=== PATIENT | female | born 1960 | race Caucasian/White ===

== ENCOUNTER → 2016-10-15 | Outpatient (CLI) | payer MEDICARE, MEDICAID ==
[2016-10-15 08:59] LABS: MEAN CORPUSCULAR HEMOGLOBIN 27.4 pg (27.0-33.0); MEAN CORPUSCULAR HGB CONC 33.2 g/dl (32.0-36.5); MEAN CORPUSCULAR VOLUME 82.3 fl (80.0-96.0); WHITE BLOOD COUNT 10.6 K/mm3 (4.0-10.0)
[2016-10-15 09:20] LABS: ALBUMIN 3.7 GM/DL (3.2-5.2); ALBUMIN/GLOBULIN RATIO 1.03 (1.00-1.93); ALKALINE PHOSPHATASE 190 U/L (45-117); ALT/SGPT 218 U/L (12-78); ANION GAP 12 MEQ/L (8-16); AST/SGOT 182 U/L (15-37); BILIRUBIN,TOTAL 0.5 MG/DL (0.2-1.0); BLOOD UREA NITROGEN 9 MG/DL (7-18); CALCIUM LEVEL 10.1 MG/DL (8.5-10.1); CARBON DIOXIDE LEVEL 28 MEQ/L (21-32); CHLORIDE LEVEL 97 MEQ/L (98-107); CHOLESTEROL LEVEL 176 MG/DL (<200); CREATININE FOR GFR 0.82 MG/DL (0.55-1.02); FREE T4 1.29 NG/DL (0.76-1.46); GLOMERULAR FILTRATION RATE > 60.0 (>51); GLUCOSE, FASTING 384 MG/DL (70-105); POTASSIUM SERUM 4.2 MEQ/L (3.5-5.1); SODIUM LEVEL 137 MEQ/L (136-145); TOTAL PROTEIN 7.3 GM/DL (6.4-8.2); TRIGLYCERIDES LEVEL 245 MG/DL (<150)
== END ==
LOC: M LAB 08:10
PROVIDERS: ATTEND Physician Assistant
DX: K76.0 Fatty (change of) liver, not elsewhere classified (principal); E78.5 Hyperlipidemia, unspecified; R73.01 Impaired fasting glucose; E55.9 Vitamin D deficiency, unspecified

== ENCOUNTER → 2016-11-09 | Outpatient (REF) | payer MEDICARE, MEDICAID ==
[2016-11-12 14:17] LABS: LACOSAMIDE LEVEL 8.3 ug/mL (5.0-10.0)
== END ==
LOC: M LABNEURO 14:10
PROVIDERS: ATTEND Physician Assistant Medical
DX: Z51.81 Encounter for therapeutic drug level monitoring (principal); Z79.899 Other long term (current) drug therapy; G40.909 Epilepsy, unspecified, not intractable, without status epilepticus
CPT/HCPCS: 36415; 80180; 82542; G0463

== ENCOUNTER → 2017-02-28 | Outpatient (REF) | payer MEDICARE, MEDICAID ==
[2017-02-28 18:14] LABS: ALBUMIN 4.1 GM/DL (3.2-5.2); ALBUMIN/GLOBULIN RATIO 1.11 (1.00-1.93); BILIRUBIN,TOTAL 0.5 MG/DL (0.2-1.0); CALCIUM LEVEL 9.9 MG/DL (8.5-10.1); CREATININE FOR GFR 1.21 MG/DL (0.55-1.02); GLOMERULAR FILTRATION RATE 49.4 (>51); POTASSIUM SERUM 4.1 MEQ/L (3.5-5.1); TOTAL PROTEIN 7.8 GM/DL (6.4-8.2)
[2017-02-28 18:49] LABS: MEAN CORPUSCULAR HEMOGLOBIN 29.3 pg (27.0-33.0); MEAN CORPUSCULAR HGB CONC 35.2 g/dl (32.0-36.5); MEAN CORPUSCULAR VOLUME 83.2 fl (80.0-96.0); RED CELL DISTRIBUTION WIDTH 13.7 % (11.5-14.5); WHITE BLOOD COUNT 8.8 K/mm3 (4.0-10.0)
== END ==
LOC: M LABNEURO 16:24
PROVIDERS: ATTEND Physician Assistant
DX: K76.0 Fatty (change of) liver, not elsewhere classified (principal); E11.65 Type 2 diabetes mellitus with hyperglycemia; F17.200 Nicotine dependence, unspecified, uncomplicated

== ENCOUNTER → 2017-04-25 | Outpatient (REF) | payer OTHER, MEDICAID | LOC: M LABNEURO 17:17 | PROVIDERS: ATTEND Physician Assistant Medical | DX: R56.9 Unspecified convulsions (principal) ==

== ENCOUNTER → 2017-06-16 | Outpatient (CLI) | payer MEDICARE, MEDICAID ==
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
== END ==
LOC: M PAIN 10:45
PROVIDERS: ATTEND Nurse Practitioner Family
DX: G89.29 Other chronic pain (principal); M51.26 Other intervertebral disc displacement, lumbar region; M12.88 Other specific arthropathies, not elsewhere classified, other specified site; F43.10 Post-traumatic stress disorder, unspecified; G40.909 Epilepsy, unspecified, not intractable, without status epilepticus; F32.9 Major depressive disorder, single episode, unspecified; F41.0 Panic disorder [episodic paroxysmal anxiety]; J44.9 Chronic obstructive pulmonary disease, unspecified; K21.9 Gastro-esophageal reflux disease without esophagitis; I11.9 Hypertensive heart disease without heart failure; E11.9 Type 2 diabetes mellitus without complications; E78.5 Hyperlipidemia, unspecified; E55.9 Vitamin D deficiency, unspecified; F17.218 Nicotine dependence, cigarettes, with other nicotine-induced disorders; Z91.040 Latex allergy status; Z88.2 Allergy status to sulfonamides; Z88.8 Allergy status to other drugs, medicaments and biological substances; Z79.82 Long term (current) use of aspirin; Z79.4 Long term (current) use of insulin; Z79.899 Other long term (current) drug therapy

== ENCOUNTER → 2017-07-12 | Outpatient (CLI) | payer MEDICARE, MEDICAID ==
[~2017-07-12] MED LIST: ISOVUE-M 300 61% 15ML VIAL (Q9967) As Ordered ONE; LIDOCAINE 1% SDV INJ 30 ML VIAL As Ordered ONE; diazePAM 5 MG TAB As Ordered ONE; methylPREDNISolone SUSP 40 MG/ML (DEPO-medrol) VIAL (J1030) As Ordered ONE; oxyCODONE 5MG TAB As Ordered ONE
--- NOTE | 2017-07-12 17:06 | REP ---
FLUOROSCOPIC GUIDED SPINAL INJECTION: The films were reviewed with Dr. Singh. The patient has a history of low back pain radiating down both legs. The portable C-Arm is provided in the OR for Dr. Patel for fluoroscopic guidance. Three intraoperative fluoro spot films were obtained using last image hold technology for needle placement verification for lumbar epidural injection. The films are on the PACs system and are available for review. 20 seconds of fluoroscopy time was utilized for this procedure. Reviewed by LEE Hebert 07/13/2017 02:47 PEdited and Signed by Deepak Singh MD 07/13/2017 05:04 P
--- NOTE | 2017-07-17 23:42 | ECWPNPC ---
PATIENT NAME: YAIMA CORRALES : 1960 GENDER: FEMALE VISIT DATE: 07/12/2017 DISCHARGE DATE: 07/12/17 1154 VISIT LOCKED DATE TIME: PHYSICIAN: RAUL GONCALVES RESOURCE: RAUL GONCALVES REASON FOR APPOINTMENT 1. LESI HISTORY OF PRESENT ILLNESS HISTORY OF PRESENT ILLNESS: PAIN THE PATIENT DESCRIBES THE PAIN... FALL RISK SCREENING: SCREENING :NO FALLS IN THE PAST YEAR CURRENT MEDICATIONS TAKING LIDOCAINE HCL 5 % OINTMENT APPLY OVER BACK/HIP EXTERNALLY TWICE A DAY NEEDED, NOTES: NOT LATELY TAKING GABAPENTIN 100 100 MG (LATTIF) TABLET 2 CAP(S) ORAL THREE TIMES DAILY, NOTES: 07-11-172099 TAKING VITAMIN C 500 MG CAPSULE DIRECTED ORALLY TWICE A DAY, NOTES: 07-11-17899 TAKING FLUTICASONE FUROATE 27.5 MCG/SPRAY SUSPENSION 1 PUFF IN EACH NOSTRIL NASALLY ONCE A DAY, NOTES: NOT LATELY TAKING LEVETIRACETAM 250 MG (LATTIF) TABLET 2 TABLETS ORALLY TWICE DAILY, NOTES: 07-11-17899 TAKING BUSPIRONE HCL 50 TABLET 2 TABLET ORALLY TWICE DAILY, NOTES: 07-11-172099 TAKING VIMPAT 100 MG TABLET 1 TABLET ORALLY TWICE A DAY, NOTES: 07-12-17699 TAKING ABILIFY 5 MG TABLET 1 TABLET ORALLY ONCE A DAY, NOTES: 07-11-17899 TAKING HYDROXYZINE HCL 50MG [facility] TABLET 1 TABLET ORALLY TWICE A DAY, NOTES: 07-11-172099 TAKING ZYRTEC ALLERGY 10 MG TABLET 1 TABLET ORALLY ONCE A DAY, NOTES: 07-11-172099 TAKING OMEPRAZOLE 40MG 40 MG TABLET 1 TAB(S) ORAL DAILY AT BEDTIME, NOTES: 07-11-172099 TAKING ANUSOL-HC 2.5 % CREAM 1 APPLICATION TO AFFECTED AREA RECTAL TWICE A DAY, NOTES: 07-11-172099 TAKING ONE TOUCH ULTRA BLUE STRIPS DIRECTED DX: E11.65 TWICE A DAY ADN NEEDED, NOTES: 7 TAKING GLUCOMETER DIRECTED E11.65 TWICE ADAY AND NEEDED TAKING RANITIDINE HCL 300 MG CAPSULE 1 CAPSULE AT BEDTIME ORALLY ONCE A DAY AT BEDTIME, NOTES: 07-11-17899 TAKING ACCU-CHEK SOFT TOUCH LANCETS - MISCELLANEOUS DIRECTED DX: E11.65 TWICE A DAY AND NEEDED TAKING DEPEND PANT EXTRA LARGE _ UNDERGARMENTS DIAG CODE SIZE LARGE DX:N39.41 DAILY= MDD 24 TAKING DAILY KIRAN 1 TABLET 1 TAB(S) ORALLY ONCE A DAY, NOTES: 07-11-17 TAKING DAILY-KIRAN - TABLET TAKE ONE TABLET BY MOUTH EVERY DAY TAKING DEPEND PANT LARGE . MISCELLANEOUS DIRECTED DX: N39.41 DAILY MDD = 24 TAKING PEN NEEDLES 31G X 6 MM MISCELLANEOUS DIRECTED SUBCUTANEOUSLY DAILY E11.65 TAKING ASPIRIN 81 MG TABLET DELAYED RELEASE 1 TABLET ORALLY ONCE A DAY, NOTES: 07-11-17899 TAKING ADVAIR HFA 115-21 MCG/ACT AEROSOL 2 PUFFS INHALATION TWICE A DAY, NOTES: 07-11-17899 TAKING VENTOLIN HFA 108 (90 BASE) MCG/ACT AEROSOL SOLUTION 2 PUFFS INHALATION FOUR TIMES DAILY PRN, NOTES: NOT LATELY TAKING VITAMIN D 2000 UNIT TABLET 1 TABLET ORALLY DAILY, NOTES: 07-11-17899 TAKING OXYBUTYNIN CHLORIDE ER 15 MG TABLET EXTENDED RELEASE 24 HOUR 1 TABLET ORALLY ONCE A DAY, NOTES: NOT LATELY TAKING SPIRONOLACTONE 50 MG TABLET 1 TAB ORALLY DAILY, NOTES: 07-11 TAKING CHLORTHALIDONE 25 TABLET TAKE 1/2 TABLET BY MOUTH EVERY DAY ORALLY DAILY, NOTES: 07-11-17899 TAKING PROPRANOLOL HCL 10MG 1 TAB ORALLY NIGHTLY, NOTES: 07-11-172099 TAKING SINGULAIR 10 MG TABLET 1 TABLET IN THE EVENING ORALLY ONCE A DAY, NOTES: 07-11-172099 TAKING CALCIUM + D3 600-200 MG-UNIT TABLET TAKE ONE TABLET BY MOUTH EVERY DAY ORALLY ONCE A DAY, NOTES: 07-11-172099 TAKING LEVEMIR FLEX TOUCH 100 UNIT/ML SOLUTION 22 UNITS SUBCUTANEOUS DAILY DX: E11.65 TAKING CYMBALTA 30 MG CAPSULE DELAYED RELEASE PARTICLES 1 CAPSULE ORALLY TWICE A DAY NOT-TAKING HAIR FORMULA EXTRA STRENGTH TABLET DIRECTED ORALLY , NOTES: NOT TAKING NOT-TAKING BIOFREEZE 4 % GEL 1 APPLICATION TO AFFECTED AREA NEEDED EXTERNALLY ONCE A DAY, NOTES: NOT LATELY NOT-TAKING NYSTATIN [id number] UNIT/GM CREAM 1 APPLICATION TO AFFECTED AREA EXTERNALLY TWICE A DAY TO JULIÁN AREA, NOTES: [facility] UNKNOWN BLOOD GLUCOSE TEST - STRIP DIRECTED IN VITRO BEFORE MEALS AND AT BEDTIME. DX: Z79.4, NOTES: FILLED FOR PTS PRIMARY: MASON JARQUIN MEDICATION LIST REVIEWED AND RECONCILED WITH THE PATIENT PAST MEDICAL HISTORY PTSD DEPRESSION/PANIC DISORDER EPILEPSY FOLLOWED BY DR. DUQUE ASTHMA COPD/CHRONIC BRONCHITIS - SPIROMETRY 09/2015 FEV1 = 1.7, FVC = 1.785, RATIO = 91.7 - POOR QUALITY SUSPECT MIXED PICTURE COPD/ RESTRICTIVE FROM OBESITY. NICOTINE DEPENDENCE GERD CLAUDIA - ON CPAP TOLERATING CPAP CHRONIC VENOUS INSUFFICIENCY LEFT BREAST ABSCESS HX INCONTINENCE, CYSTOCELE HX ABNORMAL PAP (AGE 20'S, 30'S) DYSPAREUNIA FATTY LIVER PER US 03/2015 ECHO 03/2015 - BORDERLINE LVH EF 65%. MILDLY DILATED LEFT ATRIUM. IMPAIRED LV DIASTOLIC FUNCTION. NORMAL LEFT ATRIAL PRESSURE, MILD PULM HTN. ENDOMETRIOSIS DIABETES TYPE 2 - INSULIN REQUIRING ALLERGIES CHANTIX: NIGHT TERRORS: SIDE EFFECTS DEPAKOTE: COULDN'T STAY AWAKE: SIDE EFFECTS SULFA (FOR ALLERGY USE ONLY): RASH: ALLERGY LATEX (FOR ALLERGY USE ONLY): HIVES: ALLERGY METFORMIN HCL: SEVERE N/V: SIDE EFFECTS REVIEW OF SYSTEMS REVIEWED BY: PROVIDER: . CONSTITUTIONAL: ANY CHANGE IN YOUR MEDICAL CONDITION? NO . CHILLS NO . FEVER NO . INFECTION: DO YOU HAVE NEW INFECTIONS? NO . DO YOU HAVE HISTORY OF MRSA? NO . MUSCULOSKELETAL: ANY NEW PATTERNS OF PAIN OR NUMBNESS? NO . GASTROENTEROLOGY: ANY NEW CHANGE IN BOWEL CONTROL? NO . GENITOURINARY: ANY NEW CHANGE IN BLADDER CONTROL? NO . IS THERE A CHANCE YOU COULD BE ? NO . HEMATOLOGY/LYMPH: DO YOU TAKE ANY BLOOD THINNERS? (FOR EXAMPLE- COUMADIN, PLAVIX, AGGRENOX, PLATEL, PRADAXA, OR XARELTO) NO . WHEN WAS YOUR LAST DOSE? DATE: TIME: . NEUROLOGY: HAVE YOU FALLEN IN THE PAST 6 MONTHS? NO . ANY NEW EXTREMITY NUMBNESS OR WEAKNESS? NO . CARDIOLOGY: DO YOU HAVE A PACEMAKER OR DEFIBRILLATOR? NO . RESPIRATORY: HAVE YOU BEEN SICK IN THE PAST WEEK? NO . FEVER NO . FLU LIKE SYMPTOMS? NO . COUGH NO . INTEGUMENTARY: DO YOU HAVE ANY RASHES OR OPEN SORES? NO . ALLERGIC/IMMUNO: ARE YOU ALLERGIC TO SHELLFISH OR IV DYE? NO . ANY NEW ALLERGIES? NO . PSYCHIATRIC: DO YOU HAVE THOUGHTS OF HURTING YOURSELF OR SOMEONE ELSE? NO . ARE YOU ABUSED, NEGLECTED, OR IN AN UNSAFE ENVIRONMENT? NO . ENDOCRINOLOGY: ARE YOU DIABETIC? NO . OTHER: DO YOU NEED ANY PRESCRIPTIONS? NO . IF YES, PLEASE LIST: ____ . ANY NEW PROBLEMS WITH YOUR MEDICATIONS? NO . WHEN DID YOU LAST EAT? ____8:00 LAST NIGHT . WHEN DID YOU LAST DRINK? ____1100 PM LAST NIGHT . WHAT DID YOU LAST DRINK? ____DIET SODA . NAME OF PERSON DRIVING YOU HOME? ____RUT VIEIRA . DO YOU HAVE ANY OTHER QUESTIONS OR CONCERNS NO . VITAL SIGNS WT 220 LBS, HT 65 IN, BMI 36.61 INDEX, BP 128/87 MM HG, HR 60 /MIN, RR 16 /MIN, TEMP 97.3 F, OXYGEN SAT % 98%, NA INITIALS SC 10:03, REVIEWED BY: KG. ASSESSMENTS INTERVERTEBRAL DISC DISORDER WITH RADICULOPATHY OF LUMBAR REGION - M51.16 (PRIMARY) PROCEDURES PRE PROCEDURE DIAGNOSIS LUMBAR DISC DISORDER WITH RADICULOPATHY POST PROCEDURE DIAGNOSIS LUMBAR DISC DISORDER WITH RADICULOPATHY PROCEDURE LUMBAR EPIDURAL STEROID INJECTION UNDER FLUOROSCOPIC GUIDANCE SURGEON DR. RAUL GONCALVES SUPERVISOR FINE GRADING NONE ANESTHESIA LOCAL PRE PROCEDURE NOTE THE PATIENT HAS A HISTORY OF CHRONIC LOW BACK PAIN. I EVALUATE THE PATIENT AND REVIEWED THE CHART. I WENT OVER THE RISKS, ALTERNATIVES, AND BENEFITS ASSOCIATED WITH THIS PROCEDURE. THE PATIENT WOULD LIKE TO PROCEED AND GIVE CONSENT TO PERFORMED THE PROCEDURE. THE PATIENT DENIES UNEXPLAINABLE WEIGHT LOSS, FEVER, CHILLS, OR NEW CHANGES IN URINARY OR BOWEL CONTROL. DESCRIPTION OF PROCEDURE THE PATIENT WAS BROUGHT TO THE PROCEDURE ROOM AND PLACED IN THE PRONE POSITION. THE LUMBOSACRAL AREA WAS CLEANED WITH BETADINE SOLUTION AND DRAPED ASEPTICALLY. THE PROCEDURE WAS DONE UNDER STERILE CONDITIONS. I CHECKED LATERALITY AND THE LEVEL WHERE THE PROCEDURE WAS GOING TO BE PERFORMED WITH THE PATIENT AND THE SUPPORTING STAFF AT THE MOMENT OF THE TIME OUT IN THE PROCEDURE ROOM. UNDER FLUOROSCOPIC GUIDANCE, THE TARGET POINT WAS SELECTED AT THE INTERLAMINAR LEVEL OF L4-L5. LIDOCAINE WAS USED TO NUMB THE SKIN AND THE SUBCUTANEOUS TISSUE BELOW IT. EPIDURAL TUOHY NEEDLE, 17-GAUGE, WAS ADVANCED UNDER FLUOROSCOPIC GUIDANCE AND FOLLOWING PATIENT FEEDBACK UNTIL THE EPIDURAL SPACE WAS REACHED, 7 CM DEEP INTO THE SKIN BY THE LOSS OF RESISTANCE TECHNIQUE. ISOVUE M DYE 30%, 0.25 ML, WAS INJECTED SHOWING ADEQUATE SPREAD OF THE DYE. THEN, A SOLUTION OF 3 ML OF NORMAL SALINE WITH DEPO-MEDROL 60 MG WAS INJECTED SLOWLY FOLLOWING PATIENT FEEDBACK. THERE WAS NO EVIDENCE OF BLOOD, PARESTHESIA OR CEREBROSPINAL FLUID DURING THE PROCEDURE. THE PATIENT WAS SENT TO THE RECOVERY ROOM. THE PATIENT WAS MOVING THE EXTREMITIES AND DOING WELL. THERE WAS NO COMPLICATION DURING THE PROCEDURE. FLUOROSCOPY TIME WAS 20 SECONDS. POST PROCEDURE NOTE THE PATIENT WILL BE SEEN IN A FOLLOW UP IN THE NEXT FEW WEEKS. INSTRUCTIONS WERE GIVEN, QUESTIONS WERE ANSWERED, AND THE PATIENT EXPRESSED UNDERSTANDING AND AGREES WITH THE PLAN. I, SAAD SHULTZ, DOCUMENTED THE ABOVE INFORMATION ACTING A SCRIBE FOR DR. GONCALVES. I HAVE REVIEWED THE ABOVE DOCUMENT, WRITTEN BY SAAD SHULTZ SCRIBE AND I VERIFY THAT IT IS [facility] FLUORO GUIDE SPINE INJECTION (PAIN)[id number] PROCEDURE CODES 55881 LUMBAR/SACRAL W/ IMAGING 6045F RADXPS IN END [id number] PXD DISPOSITION & COMMUNICATION FOLLOW UP 2 WEEKS ELECTRONICALLY SIGNED BY RAUL GONCALVES MD ON 07/17/2017 AT 01:35 PM EDT DISCLAIMER : THIS IS A VISIT SUMMARY EXTRACTED FROM THE [employer] CHART. IT IS NOT A COPY OF THE [employer] PROGRESS NOTE. MTDBlaine
== END ==
LOC: M PAIN 10:15
PROVIDERS: ATTEND Anesthesiology
DX: G89.29 Other chronic pain (principal); M51.16 Intervertebral disc disorders with radiculopathy, lumbar region; F43.10 Post-traumatic stress disorder, unspecified; F32.9 Major depressive disorder, single episode, unspecified; F41.0 Panic disorder [episodic paroxysmal anxiety]; J44.9 Chronic obstructive pulmonary disease, unspecified; K21.9 Gastro-esophageal reflux disease without esophagitis; I11.9 Hypertensive heart disease without heart failure; E11.9 Type 2 diabetes mellitus without complications; E78.5 Hyperlipidemia, unspecified; E55.9 Vitamin D deficiency, unspecified; K76.0 Fatty (change of) liver, not elsewhere classified; F17.218 Nicotine dependence, cigarettes, with other nicotine-induced disorders; G47.33 Obstructive sleep apnea (adult) (pediatric); Z91.040 Latex allergy status; Z88.8 Allergy status to other drugs, medicaments and biological substances; Z79.82 Long term (current) use of aspirin; Z79.899 Other long term (current) drug therapy
CPT/HCPCS: 62323; J1030; Q9967

== ENCOUNTER → 2017-07-19 | Outpatient (CLI) | payer MEDICARE, MEDICAID ==
--- NOTE | 2017-08-26 01:32 | ECWPNPC ---
PATIENT NAME: YAIMA CORRALES : 1960 GENDER: FEMALE VISIT DATE: 07/19/2017 DISCHARGE DATE: 07/19/17 1459 VISIT LOCKED DATE TIME: PHYSICIAN: GUADALUPE BEARDEN RESOURCE: GUADALUPE BEARDEN REASON FOR APPOINTMENT 1. POST PROC HISTORY OF PRESENT ILLNESS HISTORY OF PRESENT ILLNESS: PAIN THE PATIENT DESCRIBES THE PAIN... FALL RISK SCREENING: SCREENING :NO FALLS IN THE PAST YEAR TODAY'S VISIT: NOTES: S/P LESB 07/12/17 WITH PAIN DECREASING FROM 03/05 TO 11/05. STATES IS SLEEPING BETTER. IS NO LONGER HAVING MUSCLE SPASMS. . CURRENT MEDICATIONS TAKING LIDOCAINE HCL 5 % OINTMENT APPLY OVER BACK/HIP EXTERNALLY TWICE A DAY NEEDED TAKING GABAPENTIN 100 100 MG (LATTIF) TABLET 2 CAP(S) ORAL THREE TIMES DAILY TAKING VITAMIN C 500 MG CAPSULE DIRECTED ORALLY TWICE A DAY TAKING FLUTICASONE FUROATE 27.5 MCG/SPRAY SUSPENSION 1 PUFF IN EACH NOSTRIL NASALLY ONCE A DAY TAKING LEVETIRACETAM 250 MG (LATTIF) TABLET 2 TABLETS ORALLY TWICE DAILY TAKING BUSPIRONE HCL 50 TABLET 2 TABLET ORALLY TWICE DAILY TAKING VIMPAT 100 MG TABLET 1 TABLET ORALLY TWICE A DAY TAKING ABILIFY 5 MG TABLET 1 TABLET ORALLY ONCE A DAY TAKING HYDROXYZINE HCL 50MG MERCY TABLET 1 TABLET ORALLY TWICE A DAY TAKING ZYRTEC ALLERGY 10 MG TABLET 1 TABLET ORALLY ONCE A DAY TAKING OMEPRAZOLE 40MG 40 MG TABLET 1 TAB(S) ORAL DAILY AT BEDTIME TAKING ANUSOL-HC 2.5 % CREAM 1 APPLICATION TO AFFECTED AREA RECTAL TWICE A DAY TAKING ONE TOUCH ULTRA BLUE STRIPS DIRECTED DX: E11.65 TWICE A DAY ADN NEEDED TAKING GLUCOMETER DIRECTED E11.65 TWICE ADAY AND NEEDED TAKING RANITIDINE HCL 300 MG CAPSULE 1 CAPSULE AT BEDTIME ORALLY ONCE A DAY AT BEDTIME TAKING ACCU-CHEK SOFT TOUCH LANCETS - MISCELLANEOUS DIRECTED DX: E11.65 TWICE A DAY AND NEEDED TAKING DEPEND PANT EXTRA LARGE _ UNDERGARMENTS DIAG CODE SIZE LARGE DX:N39.41 DAILY= MDD 24 TAKING DAILY KIRAN 1 TABLET 1 TAB(S) ORALLY ONCE A DAY TAKING DAILY-KIRAN - TABLET TAKE ONE TABLET BY MOUTH EVERY DAY TAKING DEPEND PANT LARGE . MISCELLANEOUS DIRECTED DX: N39.41 DAILY MDD = 24 TAKING PEN NEEDLES 31G X 6 MM MISCELLANEOUS DIRECTED SUBCUTANEOUSLY DAILY E11.65 TAKING ASPIRIN 81 MG TABLET DELAYED RELEASE 1 TABLET ORALLY ONCE A DAY TAKING ADVAIR HFA 115-21 MCG/ACT AEROSOL 2 PUFFS INHALATION TWICE A DAY TAKING VENTOLIN HFA 108 (90 BASE) MCG/ACT AEROSOL SOLUTION 2 PUFFS INHALATION FOUR TIMES DAILY PRN TAKING VITAMIN D 2000 UNIT TABLET 1 TABLET ORALLY DAILY TAKING OXYBUTYNIN CHLORIDE ER 15 MG TABLET EXTENDED RELEASE 24 HOUR 1 TABLET ORALLY ONCE A DAY TAKING SPIRONOLACTONE 50 MG TABLET 1 TAB ORALLY DAILY, NOTES: 1 TAKING CHLORTHALIDONE 25 TABLET TAKE 1/2 TABLET BY MOUTH EVERY DAY ORALLY DAILY TAKING PROPRANOLOL HCL 10MG 1 TAB ORALLY NIGHTLY TAKING SINGULAIR 10 MG TABLET 1 TABLET IN THE EVENING ORALLY ONCE A DAY TAKING CALCIUM + D3 600-200 MG-UNIT TABLET TAKE ONE TABLET BY MOUTH EVERY DAY ORALLY ONCE A DAY TAKING LEVEMIR FLEX TOUCH 100 UNIT/ML SOLUTION 22 UNITS SUBCUTANEOUS DAILY DX: E11.65 TAKING CYMBALTA 30 MG CAPSULE DELAYED RELEASE PARTICLES 1 CAPSULE ORALLY TWICE A DAY TAKING BIOFREEZE 4 % GEL 1 APPLICATION TO AFFECTED AREA NEEDED EXTERNALLY ONCE A DAY, NOTES: NOT LATELY TAKING NYSTATIN 195088 UNIT/GM CREAM 1 APPLICATION TO AFFECTED AREA EXTERNALLY TWICE A DAY TO JULIÁN AREA, NOTES: [facility] TAKING BLOOD GLUCOSE TEST - STRIP DIRECTED IN VITRO BEFORE MEALS AND AT BEDTIME. DX: Z79.4, NOTES: FILLED FOR PTS PRIMARY: MASON JARQUIN UNKNOWN HAIR FORMULA EXTRA STRENGTH TABLET DIRECTED ORALLY , NOTES: NOT TAKING MEDICATION LIST REVIEWED AND RECONCILED WITH THE PATIENT PAST MEDICAL HISTORY PTSD DEPRESSION/PANIC DISORDER EPILEPSY FOLLOWED BY DR. DUQUE ASTHMA COPD/CHRONIC BRONCHITIS - SPIROMETRY 09/2015 FEV1 = 1.7, FVC = 1.785, RATIO = 91.7 - POOR QUALITY SUSPECT MIXED PICTURE COPD/ RESTRICTIVE FROM OBESITY. NICOTINE DEPENDENCE GERD CLAUDIA - ON CPAP TOLERATING CPAP CHRONIC VENOUS INSUFFICIENCY LEFT BREAST ABSCESS HX INCONTINENCE, CYSTOCELE HX ABNORMAL PAP (AGE 20'S, 30'S) DYSPAREUNIA FATTY LIVER PER US 03/2015 ECHO 03/2015 - BORDERLINE LVH EF 65%. MILDLY DILATED LEFT ATRIUM. IMPAIRED LV DIASTOLIC FUNCTION. NORMAL LEFT ATRIAL PRESSURE, MILD PULM HTN. ENDOMETRIOSIS DIABETES TYPE 2 - INSULIN REQUIRING ALLERGIES CHANTIX: NIGHT TERRORS: SIDE EFFECTS DEPAKOTE: COULDN'T STAY AWAKE: SIDE EFFECTS SULFA (FOR ALLERGY USE ONLY): RASH: ALLERGY LATEX (FOR ALLERGY USE ONLY): HIVES: ALLERGY METFORMIN HCL: SEVERE N/V: SIDE EFFECTS REVIEW OF SYSTEMS REVIEWED BY: PROVIDER: . CONSTITUTIONAL: ANY CHANGE IN YOUR MEDICAL CONDITION? NO . CHILLS NO . FEVER NO . INFECTION: DO YOU HAVE NEW INFECTIONS? NO . DO YOU HAVE HISTORY OF MRSA? NO . MUSCULOSKELETAL: ANY NEW PATTERNS OF PAIN OR NUMBNESS? NO . GASTROENTEROLOGY: ANY NEW CHANGE IN BOWEL CONTROL? NO . GENITOURINARY: ANY NEW CHANGE IN BLADDER CONTROL? NO . IS THERE A CHANCE YOU COULD BE ? NO . HEMATOLOGY/LYMPH: DO YOU TAKE ANY BLOOD THINNERS? (FOR EXAMPLE- COUMADIN, PLAVIX, AGGRENOX, PLATEL, PRADAXA, OR XARELTO) NO . WHEN WAS YOUR LAST DOSE? DATE: TIME: . NEUROLOGY: HAVE YOU FALLEN IN THE PAST 6 MONTHS? NO . ANY NEW EXTREMITY NUMBNESS OR WEAKNESS? NO . CARDIOLOGY: DO YOU HAVE A PACEMAKER OR DEFIBRILLATOR? NO . RESPIRATORY: HAVE YOU BEEN SICK IN THE PAST WEEK? NO . FEVER NO . FLU LIKE SYMPTOMS? NO . COUGH NO . INTEGUMENTARY: DO YOU HAVE ANY RASHES OR OPEN SORES? NO . ALLERGIC/IMMUNO: ARE YOU ALLERGIC TO SHELLFISH OR IV DYE? NO . ANY NEW ALLERGIES? NO . PSYCHIATRIC: DO YOU HAVE THOUGHTS OF HURTING YOURSELF OR SOMEONE ELSE? NO . ARE YOU ABUSED, NEGLECTED, OR IN AN UNSAFE ENVIRONMENT? NO . ENDOCRINOLOGY: ARE YOU DIABETIC? YES - UNDER GOOD CONTROL . OTHER: DO YOU NEED ANY PRESCRIPTIONS? NO . IF YES, PLEASE LIST: ____ . ANY NEW PROBLEMS WITH YOUR MEDICATIONS? NO . WHEN DID YOU LAST EAT? ____ . WHEN DID YOU LAST DRINK? ____ . WHAT DID YOU LAST DRINK? ____ . NAME OF PERSON DRIVING YOU HOME? ____ . DO YOU HAVE ANY OTHER QUESTIONS OR CONCERNS NO . VITAL SIGNS WT 220 LBS, HT 65 IN, BMI 36.61 INDEX, BP 134/67 MM HG, HR 54 /MIN, RR 16 /MIN, TEMP 96.8 F, OXYGEN SAT % 975, NA INITIALS SC 12:44. EXAMINATION GENERAL EXAMINATION: MUSCULOSKELETAL:TENDER ACROSS LSA. , TRIGGER POINTS: SOME WEAKNESS IN R> L QUAD GAIT STIFF, NONANTALGIC. ASSESSMENTS LUMBAR DISC DISPLACEMENT WITHOUT MYELOPATHY - M51.26 (PRIMARY) LUMBAR FACET ARTHROPATHY - M12.88 TREATMENT LUMBAR DISC DISPLACEMENT WITHOUT MYELOPATHY NOTES: WALK EVERY DAY TOLERATED. DISPOSITION & COMMUNICATION FOLLOW UP 6 WEEKS (REASON: BACK PAIN) ELECTRONICALLY SIGNED BY JULI COHEN ON 08/23/2017 AT 08:12 AM EST DISCLAIMER : THIS IS A VISIT SUMMARY EXTRACTED FROM THE [employer] CHART. IT IS NOT A COPY OF THE [employer] PROGRESS NOTE. MTDD
== END ==
LOC: M PAIN 14:15
PROVIDERS: ATTEND Nurse Practitioner Family
DX: M51.26 Other intervertebral disc displacement, lumbar region (principal); M12.88 Other specific arthropathies, not elsewhere classified, other specified site; E11.65 Type 2 diabetes mellitus with hyperglycemia; Z79.82 Long term (current) use of aspirin; Z88.2 Allergy status to sulfonamides; Z88.8 Allergy status to other drugs, medicaments and biological substances; Z91.040 Latex allergy status

== ENCOUNTER → 2017-08-24 | Outpatient (CLI) | payer MEDICARE, MEDICAID ==
--- NOTE | 2017-08-24 16:15 | REP ---
CT IAC WITHOUT CONTRAST: HISTORY: Adhesive right middle ear disease. The internal auditory canals, cochlea, vestibules and semicircular canals are normal in appearance. The ossicles are normal in configuration and position. The scutum are intact. There are areas of dehiscence in the tegmen bilaterally. The middle ear cavities and left mastoid air cells are clear. Minimal mucosal thickening is present in the right mastoid air cells. The right jugular bulb is high riding and dehiscent. The nasopharynx is normal in appearance. The visualized sinuses are clear. IMPRESSION: There is minimal mucosal thickening in the right mastoid air cells. Signed by Dino Penn MD 08/24/2017 04:18 P
== END ==
LOC: M RAD 15:26
PROVIDERS: ATTEND Physician Assistant Medical
DX: H74.11 Adhesive right middle ear disease (principal)

== ENCOUNTER → 2017-09-21 | Outpatient (CLI) | payer MEDICAID, MEDICARE | LOC: M PAIN 13:15 | DX: G89.29 Other chronic pain (principal); M51.26 Other intervertebral disc displacement, lumbar region; M12.88 Other specific arthropathies, not elsewhere classified, other specified site; F43.10 Post-traumatic stress disorder, unspecified; F32.9 Major depressive disorder, single episode, unspecified; F41.0 Panic disorder [episodic paroxysmal anxiety]; G40.909 Epilepsy, unspecified, not intractable, without status epilepticus; J44.9 Chronic obstructive pulmonary disease, unspecified; F17.210 Nicotine dependence, cigarettes, uncomplicated; K21.9 Gastro-esophageal reflux disease without esophagitis; G47.33 Obstructive sleep apnea (adult) (pediatric); I87.2 Venous insufficiency (chronic) (peripheral); K76.0 Fatty (change of) liver, not elsewhere classified; E11.9 Type 2 diabetes mellitus without complications; Z79.4 Long term (current) use of insulin; Z79.82 Long term (current) use of aspirin; Z79.899 Other long term (current) drug therapy; Z88.2 Allergy status to sulfonamides; Z91.040 Latex allergy status; Z88.8 Allergy status to other drugs, medicaments and biological substances | CPT/HCPCS: G0463 ==

== ENCOUNTER → 2017-10-05 | Outpatient (REF) | payer MEDICARE, MEDICAID ==
[2017-10-05 20:50] LABS: HEMATOCRIT 42.1 % (36.0-47.0); HEMOGLOBIN 14.1 g/dl (12.0-16.0); MEAN CORPUSCULAR HEMOGLOBIN 28.5 pg (27.0-33.0); MEAN CORPUSCULAR HGB CONC 33.5 g/dl (32.0-36.5); MEAN CORPUSCULAR VOLUME 85.2 fl (80.0-96.0); PLATELET COUNT, AUTOMATED 265 10^3/uL (150-450); RED BLOOD COUNT 4.94 10^6/uL (4.00-5.40); RED CELL DISTRIBUTION WIDTH 13.2 % (11.5-14.5); WHITE BLOOD COUNT 8.3 10^3/uL (4.0-10.0)
[2017-10-05 21:20] LABS: MAU/CREAT RATIO 8.2 MCG/MG (0.0-30.0)
[2017-10-05 21:23] LABS: ALBUMIN/GLOBULIN RATIO 1.18 (1.00-1.93); ALKALINE PHOSPHATASE 70 U/L (45-117); ALT/SGPT 31 U/L (12-78); ANION GAP 8 MEQ/L (8-16); AST/SGOT 20 U/L (7-37); BILIRUBIN,TOTAL 0.3 MG/DL (0.2-1.0); BLOOD UREA NITROGEN 12 MG/DL (7-18); CALCIUM LEVEL 9.1 MG/DL (8.5-10.1); CARBON DIOXIDE LEVEL 32 MEQ/L (21-32); CHLORIDE LEVEL 103 MEQ/L (98-107); CHOLESTEROL LEVEL 265 MG/DL (<200); CHOLESTEROL RISK RATIO 4.568 (<5); CREATININE FOR GFR 0.95 MG/DL (0.55-1.02); GLOMERULAR FILTRATION RATE > 60.0 (>51); GLUCOSE, FASTING 74 MG/DL (70-105); HDL CHOLESTEROL 58 MG/DL (>40); NON-HDL-C 207 MG/DL; POTASSIUM SERUM 3.7 MEQ/L (3.5-5.1); SODIUM LEVEL 143 MEQ/L (136-145); TOTAL PROTEIN 7.4 GM/DL (6.4-8.2); TRIGLYCERIDES LEVEL 165 MG/DL (<150)
[2017-10-05 21:31] LABS: ESTIMATED AVERAGE GLUCOSE 100 MG/DL (60-110); HEMOGLOBIN A1c 5.1 %
== END ==
LOC: M SFHCADAM 14:43
DX: E11.9 Type 2 diabetes mellitus without complications (principal); F17.218 Nicotine dependence, cigarettes, with other nicotine-induced disorders; J44.9 Chronic obstructive pulmonary disease, unspecified
CPT/HCPCS: 84443

== ENCOUNTER → 2017-10-26 | Outpatient (REF) | payer MEDICARE, MEDICAID | LOC: M LAB REF 19:02 → M LABNEURO 19:02 | DX: R56.9 Unspecified convulsions (principal) | CPT/HCPCS: 82542 ==

== ENCOUNTER → 2017-11-23 | Outpatient (CLI) | payer MEDICARE, MEDICAID | LOC: M RAD 15:04 | DX: F17.210 Nicotine dependence, cigarettes, uncomplicated (principal); Z12.2 Encounter for screening for malignant neoplasm of respiratory organs (principal) | CPT/HCPCS: G0297 ==

== ENCOUNTER 2017-11-29 14:19 | Outpatient (RCR) | payer MEDICARE, MEDICAID | END 2017-12-24 | LOC: M PT 12-08 13:33 | DX: Z51.89 Encounter for other specified aftercare (principal); R26.81 Unsteadiness on feet | CPT/HCPCS: 97110 ==

== ENCOUNTER → 2017-11-29 | Outpatient (REF) | payer MEDICARE, MEDICAID ==
[2017-12-03 00:07] LABS: LEVETIRACETAM (KEPPRA) 40.5 ug/mL (10.0-40.0)
== END ==
LOC: M LABNEURO 13:09
DX: R56.9 Unspecified convulsions (principal)
CPT/HCPCS: 36415

== ENCOUNTER → 2017-12-06 | Outpatient (CLI) | payer MEDICARE, MEDICAID | LOC: M PAIN 10:00 | DX: M51.26 Other intervertebral disc displacement, lumbar region (principal); M12.88 Other specific arthropathies, not elsewhere classified, other specified site; E11.9 Type 2 diabetes mellitus without complications; J44.9 Chronic obstructive pulmonary disease, unspecified; E78.5 Hyperlipidemia, unspecified; F17.210 Nicotine dependence, cigarettes, uncomplicated; Z79.82 Long term (current) use of aspirin; Z79.899 Other long term (current) drug therapy; Z79.4 Long term (current) use of insulin; Z88.8 Allergy status to other drugs, medicaments and biological substances; Z91.040 Latex allergy status | CPT/HCPCS: G0463 ==

== ENCOUNTER 2017-12-26 14:32 | Outpatient (RCR) | payer MEDICARE, MEDICAID | END 2018-01-23 | LOC: M PT 14:32 | DX: Z51.89 Encounter for other specified aftercare (principal); R26.81 Unsteadiness on feet | CPT/HCPCS: 97110 ==

== ENCOUNTER → 2018-01-12 | Outpatient (CLI) | payer MEDICARE, MEDICAID | LOC: M WHC 14:34 | DX: Z12.31 Encounter for screening mammogram for malignant neoplasm of breast (principal); Z01.419 Encounter for gynecological examination (general) (routine) without abnormal findings (principal); Z12.12 Encounter for screening for malignant neoplasm of rectum | CPT/HCPCS: 77067; G0123 ==

== ENCOUNTER → 2018-01-12 | Outpatient (REF) | payer MEDICARE, MEDICAID | LOC: M SFHCWAGY 14:58 | DX: Z12.4 Encounter for screening for malignant neoplasm of cervix (principal) | CPT/HCPCS: G0123 ==

== ENCOUNTER → 2018-02-08 | Outpatient (REF) | payer MEDICARE, MEDICAID ==
[2018-02-08 14:01] LABS: ANION GAP 7 MEQ/L (8-16); BLOOD UREA NITROGEN 14 MG/DL (7-18); CALCIUM LEVEL 9.1 MG/DL (8.5-10.1); CARBON DIOXIDE LEVEL 30 MEQ/L (21-32); CHLORIDE LEVEL 107 MEQ/L (98-107); GLOMERULAR FILTRATION RATE > 60.0 (>51); GLUCOSE, FASTING 88 MG/DL (70-100); SODIUM LEVEL 144 MEQ/L (136-145)
== END ==
LOC: M LABNEURO 09:20
DX: E11.9 Type 2 diabetes mellitus without complications (principal)
CPT/HCPCS: 80048

== ENCOUNTER → 2018-02-10 | Outpatient (CLI) | payer MEDICARE, MEDICAID ==
[~2018-02-10] MED LIST changes: +ISOVUE-370 76% 100ML VIAL (Q9967) As Ordered; -ISOVUE-M 300 61% 15ML VIAL (Q9967) As Ordered ONE; -LIDOCAINE 1% SDV INJ 30 ML VIAL As Ordered ONE; -diazePAM 5 MG TAB As Ordered ONE; -methylPREDNISolone SUSP 40 MG/ML (DEPO-medrol) VIAL (J1030) As Ordered ONE; -oxyCODONE 5MG TAB As Ordered ONE
== END ==
LOC: M RAD 10:06
DX: R93.8 Abnormal findings on diagnostic imaging of other specified body structures (principal)
CPT/HCPCS: Q9967

== ENCOUNTER 2018-03-29 14:23 | Emergency (ER) | payer MEDICARE, MEDICAID | END 2018-03-29 15:57 | disposition home or self-care (01) | LOC: M ED 14:23 | DX: R21 Rash and other nonspecific skin eruption (principal); M25.551 Pain in right hip; L30.4 Erythema intertrigo; E11.9 Type 2 diabetes mellitus without complications; I10 Essential (primary) hypertension; E78.5 Hyperlipidemia, unspecified; G89.29 Other chronic pain; M54.9 Dorsalgia, unspecified; J45.909 Unspecified asthma, uncomplicated; J44.9 Chronic obstructive pulmonary disease, unspecified; G47.33 Obstructive sleep apnea (adult) (pediatric); K21.9 Gastro-esophageal reflux disease without esophagitis; I48.4 Atypical atrial flutter; Z87.891 Personal history of nicotine dependence; Z79.82 Long term (current) use of aspirin; Z79.4 Long term (current) use of insulin; Z79.899 Other long term (current) drug therapy; Z88.2 Allergy status to sulfonamides; Z88.8 Allergy status to other drugs, medicaments and biological substances; Z91.040 Latex allergy status | CPT/HCPCS: 87252 ==

== ENCOUNTER → 2018-04-04 | Outpatient (REF) | payer MEDICARE, MEDICAID ==
[2018-04-04 13:13] LABS: HEMATOCRIT 37.1 % (36.0-47.0); MEAN CORPUSCULAR HEMOGLOBIN 29.4 pg (27.0-33.0); MEAN CORPUSCULAR VOLUME 83.9 fl (80.0-96.0); PLATELET COUNT, AUTOMATED 305 10^3/uL (150-450); RED BLOOD COUNT 4.42 10^6/uL (4.00-5.40); RED CELL DISTRIBUTION WIDTH 12.9 % (11.5-14.5); WHITE BLOOD COUNT 7.8 10^3/uL (4.0-10.0)
[2018-04-04 13:32] LABS: ALBUMIN 3.4 GM/DL (3.2-5.2); ALBUMIN/GLOBULIN RATIO 0.97 (1.00-1.93); ALKALINE PHOSPHATASE 83 U/L (45-117); ALT/SGPT 31 U/L (12-78); ANION GAP 7 MEQ/L (8-16); AST/SGOT 19 U/L (7-37); BILIRUBIN,TOTAL 0.4 MG/DL (0.2-1.0); BLOOD UREA NITROGEN 11 MG/DL (7-18); CARBON DIOXIDE LEVEL 30 MEQ/L (21-32); CHLORIDE LEVEL 104 MEQ/L (98-107); CHOLESTEROL LEVEL 143 MG/DL (<200); CHOLESTEROL RISK RATIO 2.803 (<5); CREATININE FOR GFR 1.09 MG/DL (0.55-1.30); FREE T4 0.85 NG/DL (0.76-1.46); GLOMERULAR FILTRATION RATE 55.5 (>51); GLUCOSE, FASTING 79 MG/DL (70-100); HDL CHOLESTEROL 51 MG/DL (>40); NON-HDL-C 92 MG/DL; POTASSIUM SERUM 3.6 MEQ/L (3.5-5.1); SODIUM LEVEL 141 MEQ/L (136-145); TOTAL PROTEIN 6.9 GM/DL (6.4-8.2); TRIGLYCERIDES LEVEL 195 MG/DL (<150)
[2018-04-04 13:44] LABS: MALB URINE SIEMENS 47.4 MG/L; MAU/CREAT RATIO 26.7 MCG/MG (0.0-30.0)
[2018-04-04 13:51] LABS: ESTIMATED AVERAGE GLUCOSE 108 MG/DL (60-110); HEMOGLOBIN A1c 5.4 %
== END ==
LOC: M LABNEURO 12:00
DX: E11.9 Type 2 diabetes mellitus without complications (principal); F17.218 Nicotine dependence, cigarettes, with other nicotine-induced disorders; J44.9 Chronic obstructive pulmonary disease, unspecified
CPT/HCPCS: 84443

== ENCOUNTER → 2018-04-14 | Outpatient (CLI) | payer MEDICARE, MEDICAID | LOC: M PAIN 09:00 | DX: M51.26 Other intervertebral disc displacement, lumbar region (principal); M12.88 Other specific arthropathies, not elsewhere classified, other specified site; E11.9 Type 2 diabetes mellitus without complications; E78.5 Hyperlipidemia, unspecified; F43.10 Post-traumatic stress disorder, unspecified; F32.9 Major depressive disorder, single episode, unspecified; F41.0 Panic disorder [episodic paroxysmal anxiety]; G40.909 Epilepsy, unspecified, not intractable, without status epilepticus; J44.9 Chronic obstructive pulmonary disease, unspecified; G47.33 Obstructive sleep apnea (adult) (pediatric); K21.9 Gastro-esophageal reflux disease without esophagitis; I10 Essential (primary) hypertension; Z79.82 Long term (current) use of aspirin; Z79.899 Other long term (current) drug therapy; Z88.2 Allergy status to sulfonamides; Z88.8 Allergy status to other drugs, medicaments and biological substances; Z91.040 Latex allergy status; Z86.718 Personal history of other venous thrombosis and embolism; Z87.891 Personal history of nicotine dependence; Z91.5 Personal history of self-harm | CPT/HCPCS: G0463 ==

== ENCOUNTER 2018-05-08 10:48 | Observation (INO) | payer MEDICARE, OTHER, MEDICAID ==
[2018-05-08] MEDS: NS 1,000 ML IV (12:29)
[2018-05-08 12:43] LABS: BASO # 0.1 10^3/uL (0.0-0.2); BASO % 0.6 % (0.0-1.0); EOS # 0.1 10^3/uL (0.0-0.50); EOS % 1.7 % (0.0-3.0); HEMATOCRIT 38.3 % (36.0-47.0); HEMOGLOBIN 13.4 g/dl (12.0-15.5); IMMATURE GRANULOCYTE % 0.1 % (0-3.0); LYMPH # 2.8 10^3/uL (1.5-4.5); LYMPH % 35.8 % (24.0-44.0); MEAN CORPUSCULAR HEMOGLOBIN 30.3 pg (27.0-33.0); MEAN CORPUSCULAR VOLUME 86.7 fl (80.0-96.0); MONO # 0.7 10^3/uL (0.0-0.8); MONO % 8.8 % (0.0-5.0); NEUTROPHILS # 4.1 10^3/uL (1.8-7.7); PLATELET COUNT, AUTOMATED 296 10^3/uL (150-450); RED BLOOD COUNT 4.42 10^6/uL (4.00-5.40); RED CELL DISTRIBUTION WIDTH 12.2 % (11.5-14.5); WHITE BLOOD COUNT 7.7 10^3/uL (4.0-10.0)
[2018-05-08 12:53] LABS: VENOUS BASE EXCESS 3.4 (-2.0-2.0); VENOUS O2 SATURATION 98.6 % (60.0-80.0); VENOUS PARTIAL PRESSURE CO2 47.4 mmHg (38.0-50.0); VENOUS PARTIAL PRESSURE O2 121.4 mmHg (30.0-50.0); VENOUS PH 7.404 UNITS (7.330-7.430); VENOUS STANDARD HCO3 27.6 MEQ/L; VENOUS TOTAL CO2 30.4 MEQ/L (24.0-28.0)
[2018-05-08 13:05] LABS: AMMONIA 36 uMOL/L (<32)
[2018-05-08 13:07] LABS: LACTIC ACID SEPSIS PROTOCOL 1.2 MMOL/L (0.4-2.0)
[2018-05-08 13:07] LABS: ALBUMIN 3.4 GM/DL (3.2-5.2); ALBUMIN/GLOBULIN RATIO 0.83 (1.00-1.93); ALKALINE PHOSPHATASE 74 U/L (45-117); ALT/SGPT 22 U/L (12-78); ANION GAP 9 MEQ/L (8-16); AST/SGOT 14 U/L (7-37); BILIRUBIN,DIRECT < 0.1 MG/DL (0.0-0.2); BILIRUBIN,TOTAL 0.5 MG/DL (0.2-1.0); BLOOD UREA NITROGEN 10 MG/DL (7-18); CALCIUM LEVEL 9.3 MG/DL (8.5-10.1); CARBON DIOXIDE LEVEL 28 MEQ/L (21-32); CHLORIDE LEVEL 104 MEQ/L (98-107); CPK CREATINE PHOSPHOKINASE 51 U/L (26-192); CREATININE FOR GFR 0.93 MG/DL (0.55-1.30); GLOMERULAR FILTRATION RATE > 60.0 (>51); GLUCOSE, FASTING 91 MG/DL (70-100); SODIUM LEVEL 141 MEQ/L (136-145); TOTAL PROTEIN 7.5 GM/DL (6.4-8.2); TROPONIN I < 0.02 NG/ML (< 0.10)
[2018-05-08 13:13] LABS: CK-MB VALUE MASS < 1.0 NG/ML (<3.6); MB/CK RELATIVE INDEX 1.96 (< OR =4)
[2018-05-08 14:26] LABS: KETONE, URINE AUTO RFX NEGATIVE (NEGATIVE); LEUKOCYTE ESTERASE UR AUTO RFX NEGATIVE (NEGATIVE); MUCUS, URINE RFX SMALL (NEGATIVE); NITRITE, URINE AUTO RFX NEGATIVE (NEGATIVE); RBC, URINE AUTO RFX 1 /HPF (0-3); SQUAM EPITHELIAL CELL UR AURFX 0 /HPF (0-6); WBC, URINE AUTO RFX 4 /HPF (0-3)
[2018-05-08] MEDS: LEVEMIR (INSULIN DETEMIR) 1 UNITS/0.01ML SC (21:00)
[2018-05-08] MEDS ORDERED: IPRATROPIUM 0.5MG/ALBUTEROL 2.5MG INH SOL UD 3ML (DUONEB)(J7620) NEB (22:00)
[2018-05-08] MEDS ORDERED: GLUCOSE 4 GM CHEW TABLET PO (22:00)
[2018-05-08] MEDS ORDERED: NYSTATIN CREAM 15 GM TOP (22:00)
[2018-05-08] MEDS ORDERED: GLUCAGON FOR INJ 1 MG VIAL (J1610) SC (22:00)
[2018-05-08] MEDS ORDERED: SUMAtriptan SUCCINATE 25 MG TAB PO (22:00)
[2018-05-08] MEDS ORDERED: DEXTROSE 50% 50 ML SYRINGE IV (22:00)
[2018-05-08] MEDS ORDERED: hydrOXYzine 50 MG TAB PO (22:00)
[2018-05-08 22:31] LABS: MAGNESIUM LEVEL 2.3 MG/DL (1.8-2.4); PHOSPHORUS LEVEL 3.5 MG/DL (2.5-4.9)
[2018-05-09] MEDS: HumaLOG INSULIN (NovoLOG) PER UNIT SC ×3 (00:03→12:00)
[2018-05-09 00:06] LABS: BEDSIDE GLUCOSE 86 MG/DL (70-105)
[2018-05-09] MEDS: MONTELUKAST 10 MG TAB PO (00:17)
[2018-05-09] MEDS: GABAPENTIN 100 MG CAP PO ×3 (00:18→16:27)
[2018-05-09] MEDS: ATORVASTATIN 20 MG TAB PO (00:18)
[2018-05-09] MEDS: FAMOTIDINE 20 MG TAB PO (00:18)
[2018-05-09] MEDS: rOPINIRole 1MG TAB PO (00:18)
[2018-05-09] MEDS: traZODone 50 MG TAB PO (00:18)
[2018-05-09] MEDS: busPIRone 10 MG TAB PO ×3 (00:18→16:27)
[2018-05-09] MEDS: levETIRAcetam 250MG TABLET (KEPPRA) PO ×2 (00:18→08:24)
[2018-05-09] MEDS: ASPIRIN 81 MG ENTERIC TAB PO (00:19)
[2018-05-09] MEDS: LEVEMIR (INSULIN DETEMIR) 1 UNITS/0.01ML SC (01:12)
[2018-05-09] MEDS: PROPRANOLOL 10 MG TAB PO (01:13)
[2018-05-09] MEDS: NS 1,000 ML IV (01:13)
[2018-05-09] MEDS: ACETAMINOPHEN 650MG ER TAB (TYLENOL ARTHRITIS) PO (01:13)
[2018-05-09 06:49] LABS: ANION GAP 8 MEQ/L (8-16); BLOOD UREA NITROGEN 10 MG/DL (7-18); CALCIUM LEVEL 8.6 MG/DL (8.5-10.1); CARBON DIOXIDE LEVEL 27 MEQ/L (21-32); CHLORIDE LEVEL 109 MEQ/L (98-107); CREATININE FOR GFR 0.91 MG/DL (0.55-1.30); GLOMERULAR FILTRATION RATE > 60.0 (>51); GLUCOSE, FASTING 82 MG/DL (70-100); POTASSIUM SERUM 3.7 MEQ/L (3.5-5.1); SODIUM LEVEL 144 MEQ/L (136-145)
[2018-05-09 07:10] LABS: BASO # 0.1 10^3/uL (0.0-0.2); BASO % 0.6 % (0.0-1.0); EOS # 0.2 10^3/uL (0.0-0.50); EOS % 2.2 % (0.0-3.0); HEMATOCRIT 38.2 % (36.0-47.0); HEMOGLOBIN 13.2 g/dl (12.0-15.5); IMMATURE GRANULOCYTE % 0.2 % (0-3.0); LYMPH # 4.3 10^3/uL (1.5-4.5); LYMPH % 49.8 % (24.0-44.0); MEAN CORPUSCULAR HEMOGLOBIN 30.3 pg (27.0-33.0); MEAN CORPUSCULAR HGB CONC 34.6 g/dl (32.0-36.5); MEAN CORPUSCULAR VOLUME 87.8 fl (80.0-96.0); MONO # 0.6 10^3/uL (0.0-0.8); NEUTROPHILS # 3.5 10^3/uL (1.8-7.7); NEUTROPHILS % 40.2 % (36.0-66.0); PLATELET COUNT, AUTOMATED 290 10^3/uL (150-450); RED BLOOD COUNT 4.35 10^6/uL (4.00-5.40); RED CELL DISTRIBUTION WIDTH 12.1 % (11.5-14.5); WHITE BLOOD COUNT 8.7 10^3/uL (4.0-10.0)
[2018-05-09] MEDS: ADVAIR HFA 115/21MCG INHALER INH (07:43)
[2018-05-09] MEDS: ENOXAPARIN 40 MG/0.4 ML SYRINGE (J1650) SC (08:23)
[2018-05-09] MEDS: OMEPRAZOLE 20 MG CAP PO (08:24)
[2018-05-09] MEDS: valACYclovir HCL 500 MG TAB PO (08:24)
[2018-05-09] MEDS: CETIRIZINE (ZyrTEC) 10 MG TAB PO (08:24)
[2018-05-09] MEDS: SPIRONOLACTONE 50 MG TAB PO (08:25)
[2018-05-09] MEDS: oxyBUTYnin *DITROPAN XL* 5 MG TABCR PO (08:25)
[2018-05-09] MEDS: VITAMIN D 1,000 INTERNATIONAL UNITS TABLET PO (08:25)
[2018-05-09] MEDS: DULoxetine 30 MG CAP (CYMBALTA) PO (08:25)
[2018-05-09] MEDS: LACOSAMIDE 50 MG TAB (VIMPAT) PO (08:26)
[2018-05-09] MEDS: MELOXICAM (MOBIC) 7.5 MG TAB PO (10:38)
[2018-05-09 11:28] LABS: BEDSIDE GLUCOSE 104 MG/DL (70-105)
[2018-05-09] MEDS: traMADol 50 MG TAB PO (11:59)
[2018-05-09 16:20] LABS: BEDSIDE GLUCOSE 112 MG/DL (70-105)
[2018-05-10 08:28] LABS: BEDSIDE GLUCOSE 135 MG/DL (70-105)
[2018-05-11 14:16] LABS: LACOSAMIDE LEVEL 6.6 ug/mL (5.0-10.0)
[2018-05-11 14:16] LABS: LEVETIRACETAM (KEPPRA) 20.1 ug/mL (10.0-40.0)
== END 2018-05-09 17:48 | disposition home or self-care (01) ==
LOC: M ED 10:48 → M ED INP 22:16 → M MSPAV 23:41
DX: G93.40 Encephalopathy, unspecified (principal); F05 Delirium due to known physiological condition; J44.9 Chronic obstructive pulmonary disease, unspecified; R19.7 Diarrhea, unspecified; I27.20 Pulmonary hypertension, unspecified; E11.9 Type 2 diabetes mellitus without complications; Z79.4 Long term (current) use of insulin; K21.9 Gastro-esophageal reflux disease without esophagitis; F31.9 Bipolar disorder, unspecified; I50.32 Chronic diastolic (congestive) heart failure; Z79.82 Long term (current) use of aspirin; Z79.899 Other long term (current) drug therapy; Z79.51 Long term (current) use of inhaled steroids; Z91.040 Latex allergy status; Z88.2 Allergy status to sulfonamides; Z88.8 Allergy status to other drugs, medicaments and biological substances; F43.10 Post-traumatic stress disorder, unspecified; F41.9 Anxiety disorder, unspecified; E86.0 Dehydration
CPT/HCPCS: J1650

== ENCOUNTER → 2018-05-25 | Outpatient (CLI) | payer MEDICARE, MEDICAID | LOC: M PAIN 13:00 | DX: M51.26 Other intervertebral disc displacement, lumbar region (principal); M12.88 Other specific arthropathies, not elsewhere classified, other specified site; B02.29 Other postherpetic nervous system involvement; E11.9 Type 2 diabetes mellitus without complications; E78.5 Hyperlipidemia, unspecified; F43.10 Post-traumatic stress disorder, unspecified; F32.9 Major depressive disorder, single episode, unspecified; J44.9 Chronic obstructive pulmonary disease, unspecified; K21.9 Gastro-esophageal reflux disease without esophagitis; G47.33 Obstructive sleep apnea (adult) (pediatric); K76.0 Fatty (change of) liver, not elsewhere classified; Z79.82 Long term (current) use of aspirin; Z79.899 Other long term (current) drug therapy; Z88.2 Allergy status to sulfonamides; Z88.8 Allergy status to other drugs, medicaments and biological substances; Z91.040 Latex allergy status; Z86.79 Personal history of other diseases of the circulatory system; Z87.891 Personal history of nicotine dependence; Z91.5 Personal history of self-harm | CPT/HCPCS: G0463 ==

== ENCOUNTER → 2018-07-03 | Outpatient (CLI) | payer MEDICARE, MEDICAID ==
[2018-07-03 07:24] LABS: ESTIMATED AVERAGE GLUCOSE 105 MG/DL (60-110); HEMOGLOBIN A1c 5.3 %
[2018-07-03 07:41] LABS: ANION GAP 12 MEQ/L (8-16); BLOOD UREA NITROGEN 15 MG/DL (7-18); CALCIUM LEVEL 9.1 MG/DL (8.5-10.1); CARBON DIOXIDE LEVEL 24 MEQ/L (21-32); CHLORIDE LEVEL 105 MEQ/L (98-107); CREATININE FOR GFR 1.17 MG/DL (0.55-1.30); GLOMERULAR FILTRATION RATE 51.1 (>51); GLUCOSE, FASTING 89 MG/DL (70-100); POTASSIUM SERUM 3.8 MEQ/L (3.5-5.1); SODIUM LEVEL 141 MEQ/L (136-145)
== END ==
LOC: M LAB 06:17
DX: E11.9 Type 2 diabetes mellitus without complications (principal)

== ENCOUNTER → 2018-07-03 | Outpatient (CLI) | payer MEDICARE, MEDICAID ==
[2018-07-03 07:24] LABS: ESTIMATED AVERAGE GLUCOSE 108 MG/DL (60-110); HEMOGLOBIN A1c 5.4 %
[2018-07-03 07:28] LABS: AMMONIA 25 uMOL/L (<32)
[2018-07-03 07:32] LABS: INR 0.96; PROTHROMBIN TIME 12.9 SECONDS (12.1-14.4)
[2018-07-03 07:33] LABS: PARTIAL THROMBOPLASTIN TIME 33.2 SECONDS (25.4-37.6)
[2018-07-03 07:43] LABS: ALBUMIN 3.6 GM/DL (3.2-5.2); ALBUMIN/GLOBULIN RATIO 0.86 (1.00-1.93); ALKALINE PHOSPHATASE 89 U/L (45-117); ALT/SGPT 28 U/L (12-78); ANION GAP 5 MEQ/L (8-16); AST/SGOT 61 U/L (7-37); BILIRUBIN,TOTAL 0.5 MG/DL (0.2-1.0); BLOOD UREA NITROGEN 15 MG/DL (7-18); CALCIUM LEVEL 8.4 MG/DL (8.5-10.1); CARBON DIOXIDE LEVEL 28 MEQ/L (21-32); CHLORIDE LEVEL 104 MEQ/L (98-107); CHOLESTEROL LEVEL 153 MG/DL (<200); CHOLESTEROL RISK RATIO 2.886 (<5); CREATININE FOR GFR 1.29 MG/DL (0.55-1.30); GLOMERULAR FILTRATION RATE 45.7 (>51); GLUCOSE, FASTING 86 MG/DL (70-100); HDL CHOLESTEROL 53 MG/DL (>40); LDL CHOLESTEROL 80 MG/DL (<100); NON-HDL-C 100 MG/DL; POTASSIUM SERUM 3.8 MEQ/L (3.5-5.1); SODIUM LEVEL 137 MEQ/L (136-145); TOTAL PROTEIN 7.8 GM/DL (6.4-8.2); TRIGLYCERIDES LEVEL 100 MG/DL (<150)
== END ==
LOC: M LAB 06:21
DX: K76.0 Fatty (change of) liver, not elsewhere classified (principal); Z13.220 Encounter for screening for lipoid disorders; E11.9 Type 2 diabetes mellitus without complications
CPT/HCPCS: 82140

== ENCOUNTER 2018-07-06 18:19 | Emergency (ER) | payer MEDICARE, MEDICAID ==
[2018-07-06] MEDS: ONDANSETRON 4MG/2ML VIAL (J2405) IV (19:03)
[2018-07-06] MEDS: MORPHINE 2 MG/ML 1ML SYRINGE (J2270) IV ×2 (19:05→19:38)
[2018-07-06 19:13] LABS: BEDSIDE GLUCOSE 88 MG/DL (70-105)
[2018-07-06 19:20] LABS: BASO # 0.1 10^3/uL (0.0-0.2); BASO % 0.7 % (0.0-1.0); EOS # 0.2 10^3/uL (0.0-0.50); EOS % 1.7 % (0.0-3.0); HEMATOCRIT 41.2 % (36.0-47.0); HEMOGLOBIN 14.4 g/dl (12.0-15.5); IMMATURE GRANULOCYTE % 0.3 % (0-3.0); LYMPH # 3.4 10^3/uL (1.5-4.5); LYMPH % 38.5 % (24.0-44.0); MEAN CORPUSCULAR HEMOGLOBIN 30.1 pg (27.0-33.0); MONO # 0.9 10^3/uL (0.0-0.8); MONO % 10.5 % (0.0-5.0); NEUTROPHILS # 4.2 10^3/uL (1.8-7.7); NEUTROPHILS % 48.3 % (36.0-66.0); PLATELET COUNT, AUTOMATED 318 10^3/uL (150-450); RED BLOOD COUNT 4.79 10^6/uL (4.00-5.40); RED CELL DISTRIBUTION WIDTH 11.9 % (11.5-14.5); WHITE BLOOD COUNT 8.7 10^3/uL (4.0-10.0)
[2018-07-06 19:45] LABS: ANION GAP 8 MEQ/L (8-16); BLOOD UREA NITROGEN 14 MG/DL (7-18); CALCIUM LEVEL 9.4 MG/DL (8.5-10.1); CARBON DIOXIDE LEVEL 31 MEQ/L (21-32); CHLORIDE LEVEL 103 MEQ/L (98-107); CREATININE FOR GFR 1.28 MG/DL (0.55-1.30); GLOMERULAR FILTRATION RATE 46.1 (>51); GLUCOSE, FASTING 80 MG/DL (70-100); POTASSIUM SERUM 4.1 MEQ/L (3.5-5.1); SODIUM LEVEL 142 MEQ/L (136-145)
[2018-07-06 19:59] LABS: ERYTHROCYTE SEDIMENTATION RATE 45 mm/hr (0-30)
[2018-07-06] MEDS: NS 1,000 ML IV (21:45)
[2018-07-06] MEDS: KETOROLAC 30 MG/ML VIAL (J1885) IV (21:47)
[2018-07-06] MEDS: METOCLOPRAMIDE INJ 10MG/2ML VIAL (J2765) IV (21:47)
[2018-07-06] MEDS: diphenhydrAMINE INJ 50MG/ML VIAL (J1200) IV (21:49)
[2018-07-06] MEDS: fentaNYL 100 MCG/2 ML INJECTION (J3010) IV (22:43)
== END 2018-07-06 23:41 | disposition home or self-care (01) ==
LOC: M ED 18:19
DX: G43.909 Migraine, unspecified, not intractable, without status migrainosus (principal); E10.9 Type 1 diabetes mellitus without complications; I10 Essential (primary) hypertension; J44.9 Chronic obstructive pulmonary disease, unspecified; E78.9 Disorder of lipoprotein metabolism, unspecified; G47.30 Sleep apnea, unspecified; Z79.899 Other long term (current) drug therapy; Z79.4 Long term (current) use of insulin; Z79.82 Long term (current) use of aspirin; Z88.2 Allergy status to sulfonamides; Z88.8 Allergy status to other drugs, medicaments and biological substances; Z91.040 Latex allergy status; F17.210 Nicotine dependence, cigarettes, uncomplicated
CPT/HCPCS: J1200

== ENCOUNTER → 2018-07-10 | Outpatient (CLI) | payer MEDICARE, MEDICAID | LOC: M PAIN 15:15 | DX: M51.26 Other intervertebral disc displacement, lumbar region (principal); M12.88 Other specific arthropathies, not elsewhere classified, other specified site; B02.29 Other postherpetic nervous system involvement; E11.9 Type 2 diabetes mellitus without complications; J44.9 Chronic obstructive pulmonary disease, unspecified; I10 Essential (primary) hypertension; G40.909 Epilepsy, unspecified, not intractable, without status epilepticus; K21.9 Gastro-esophageal reflux disease without esophagitis; G47.33 Obstructive sleep apnea (adult) (pediatric); F32.9 Major depressive disorder, single episode, unspecified; F43.10 Post-traumatic stress disorder, unspecified; F41.0 Panic disorder [episodic paroxysmal anxiety]; Z79.82 Long term (current) use of aspirin; Z79.4 Long term (current) use of insulin; Z79.899 Other long term (current) drug therapy; Z88.2 Allergy status to sulfonamides; Z88.8 Allergy status to other drugs, medicaments and biological substances; Z91.040 Latex allergy status; Z91.5 Personal history of self-harm; Z86.79 Personal history of other diseases of the circulatory system; Z87.891 Personal history of nicotine dependence | CPT/HCPCS: G0463 ==

== ENCOUNTER 2018-07-11 23:26 | Emergency (ER) | payer MEDICARE, MEDICAID ==
[2018-07-12] MEDS: ONDANSETRON 4MG/2ML VIAL (J2405) IV (00:40)
[2018-07-12] MEDS: diphenhydrAMINE INJ 50MG/ML VIAL (J1200) IV (00:40)
[2018-07-12] MEDS: NS 1,000 ML IV (00:41)
[2018-07-12] MEDS: KETOROLAC 30 MG/ML VIAL (J1885) IV (00:41)
== END 2018-07-12 02:31 | disposition home or self-care (01) ==
LOC: M ED 23:26
DX: G43.909 Migraine, unspecified, not intractable, without status migrainosus (principal); E11.9 Type 2 diabetes mellitus without complications; I10 Essential (primary) hypertension; E78.5 Hyperlipidemia, unspecified; J44.9 Chronic obstructive pulmonary disease, unspecified; G47.33 Obstructive sleep apnea (adult) (pediatric); M54.9 Dorsalgia, unspecified; F41.9 Anxiety disorder, unspecified; F32.9 Major depressive disorder, single episode, unspecified; K21.9 Gastro-esophageal reflux disease without esophagitis; R56.9 Unspecified convulsions; Z88.8 Allergy status to other drugs, medicaments and biological substances; Z88.2 Allergy status to sulfonamides; Z91.040 Latex allergy status; Z79.899 Other long term (current) drug therapy; Z79.82 Long term (current) use of aspirin; Z87.891 Personal history of nicotine dependence; Z79.51 Long term (current) use of inhaled steroids; Z79.4 Long term (current) use of insulin
CPT/HCPCS: J1200

== ENCOUNTER 2018-07-16 15:03 | Emergency (ER) | payer MEDICARE, OTHER, MEDICAID ==
[2018-07-16] MEDS: NS 1,000 ML IV (17:35)
[2018-07-16] MEDS: METOCLOPRAMIDE INJ 10MG/2ML VIAL (J2765) IV (17:37)
[2018-07-16] MEDS: KETOROLAC 30 MG/ML VIAL (J1885) IV (17:37)
[2018-07-16] MEDS: ACETAMINOPHEN 325 MG TAB PO (17:37)
[2018-07-16 18:32] LABS: BEDSIDE GLUCOSE 89 MG/DL (70-105)
[2018-07-16] MEDS: diphenhydrAMINE INJ 50MG/ML VIAL (J1200) IV (18:46)
[2018-07-16] MEDS: methylPREDNISolone INJ 125 MG/2 ML VIAL (J2930) IV (18:46)
[2018-07-16] MEDS: MORPHINE 4 MG/ML 1ML VIAL/SYRINGE (J2270) IV (19:28)
[2018-07-16] MEDS: TOPIRAMATE (TopAMAX) 25 MG TAB PO (20:28)
[2018-07-16 20:42] LABS: BASO # 0.1 10^3/uL (0.0-0.2); BASO % 0.9 % (0.0-1.0); EOS # 0.2 10^3/uL (0.0-0.50); EOS % 2.7 % (0.0-3.0); HEMOGLOBIN 13.4 g/dl (12.0-15.5); IMMATURE GRANULOCYTE % 0.3 % (0-3.0); LYMPH % 28.9 % (24.0-44.0); MEAN CORPUSCULAR HEMOGLOBIN 29.7 pg (27.0-33.0); MEAN CORPUSCULAR HGB CONC 33.5 g/dl (32.0-36.5); MEAN CORPUSCULAR VOLUME 88.7 fl (80.0-96.0); MONO # 0.3 10^3/uL (0.0-0.8); MONO % 4.5 % (0.0-5.0); NEUTROPHILS # 4.4 10^3/uL (1.8-7.7); NEUTROPHILS % 62.7 % (36.0-66.0); PLATELET COUNT, AUTOMATED 251 10^3/uL (150-450); RED BLOOD COUNT 4.51 10^6/uL (4.00-5.40); RED CELL DISTRIBUTION WIDTH 12.1 % (11.5-14.5); WHITE BLOOD COUNT 7.1 10^3/uL (4.0-10.0)
[2018-07-16 21:01] LABS: C REACTIVE PROTEIN QUANTITATIV < 0.30 MG/DL (0.00-0.30)
[2018-07-16 21:02] LABS: ERYTHROCYTE SEDIMENTATION RATE 14 mm/hr (0-30)
== END 2018-07-16 21:53 | disposition home or self-care (01) ==
LOC: M ED 15:03
DX: G43.909 Migraine, unspecified, not intractable, without status migrainosus (principal); Z79.899 Other long term (current) drug therapy; Z79.82 Long term (current) use of aspirin; Z79.4 Long term (current) use of insulin; Z88.2 Allergy status to sulfonamides; Z88.8 Allergy status to other drugs, medicaments and biological substances; Z91.040 Latex allergy status; Z87.891 Personal history of nicotine dependence
CPT/HCPCS: J2270

== ENCOUNTER → 2018-07-31 | Outpatient (REF) | payer MEDICARE, MEDICAID, OTHER ==
[2018-07-31 16:43] LABS: RHEUMATOID FACTOR QUANT < 10.0 IU/ML (<15.0)
[2018-07-31 16:43] LABS: C REACTIVE PROTEIN QUANTITATIV < 0.30 MG/DL (0.00-0.30)
[2018-07-31 17:03] LABS: ERYTHROCYTE SEDIMENTATION RATE 16 mm/hr (0-30)
[2018-08-01 10:30] LABS: PTT LUPUS TYPE ANTICOAG SCREEN 0.9 (0-1.2)
[2018-08-04 14:35] LABS: ANCA-ATYPICAL <1:20 titer (Neg:<1:20); ANTI DOUBLE STRAND-DNA AB <1 IU/mL (0-9); ANTI-HISTONE ANTIBODIES 1.5 Units (0.0-0.9); ANTINUCLEAR ANTIBODIES DIRECT Negative (Negative); Antimyeloperxidase(MPO) Abs <9.0 U/mL (0.0-9.0); Antiproteinase 3 (PR-3) Abs <3.5 U/mL (0.0-3.5); CARDIOLIPIN IGA ANTIBODY <9 APL U/mL (0-11); CARDIOLIPIN IGG ANTIBODY <9 GPL U/mL (0-14); CARDIOLIPIN IGM ANTIBODY 10 MPL U/mL (0-12); CYTOPLASMIC NEUTROP AB ANCA-C <1:20 titer (Neg:<1:20); LEVETIRACETAM (KEPPRA) 31.2 ug/mL (10.0-40.0); PERINUCLEAR AB ANCA-P <1:20 titer (Neg:<1:20); RNP ANTIBODIES 0.3 AI (0.0-0.9); SJOGREN'S ANTI SS-A <0.2 AI (0.0-0.9); SJOGREN'S ANTI SS-B <0.2 AI (0.0-0.9); SMITH ANTIBODIES <0.2 AI (0.0-0.9)
== END ==
LOC: M LABNEURO 13:52
DX: I77.6 Arteritis, unspecified (principal)
CPT/HCPCS: 86255

== ENCOUNTER → 2018-09-01 | Outpatient (CLI) | payer MEDICARE, MEDICAID | LOC: M EKG 14:24 | DX: I77.6 Arteritis, unspecified (principal); R51 Headache | CPT/HCPCS: 71046 ==

== ENCOUNTER → 2018-09-06 | Outpatient (REF) | payer MEDICARE, MEDICAID ==
[~2018-09-06] MED LIST changes: +ABIL1TAB11 PO; +ACYC200C8 PO; +ADVA115A INH; +ASPI81TA85 PO; +ATOR1TAB21 PO; +BUSP30TA PO; +CALC600T7 PO; +CENTCHW4 PO; +CETI10TA PO; +CHLO125TA PO; +CHLO25TA PO; +CYMB60CA3 PO; +DITR1TAB2 PO; +FLUTISP NARES; +GABA-1171 PO; +GABA-845 PO; +HYDR50TA70 PO; -ISOVUE-370 76% 100ML VIAL (Q9967) As Ordered; +KEPP1TAB PO; +LEVE1INJ5 SC; +LEVE250T5 PO; +LIDO5CRE6 TOP; +LIDO5TD TOP; +MELO15TA28 PO; +NAPR-885 PO; +NYST10CR TOP; +OMEP40CA2 PO; +PROAAER10 INH; +PROP10TA56 PO; +ROPI1TAB PO; +SING10TA32 PO; +SPIR50TA4 PO; +SUMA100T2 PO; +TAB-TAB PO; +TOPA50TA8 PO; +TRAM50TA2 PO; +TRAZ-160 PO; +TYLE500T78 PO; +VALA1TAB2 PO; +VIMP50TA3 PO; +VITA200016 PO; +ZANT300T9 PO; +ZYRTTAB8 PO
[2018-09-06 13:22] LABS: HEMATOCRIT 43.7 % (36.0-47.0); HEMOGLOBIN 14.9 g/dl (12.0-15.5); MEAN CORPUSCULAR HEMOGLOBIN 30.4 pg (27.0-33.0); MEAN CORPUSCULAR HGB CONC 34.1 g/dl (32.0-36.5); MEAN CORPUSCULAR VOLUME 89.2 fl (80.0-96.0); PLATELET COUNT, AUTOMATED 296 10^3/uL (150-450); WHITE BLOOD COUNT 9.8 10^3/uL (4.0-10.0)
[2018-09-06 14:19] LABS: ALBUMIN 3.7 GM/DL (3.2-5.2); BILIRUBIN,TOTAL 0.4 MG/DL (0.2-1.0); CALCIUM LEVEL 8.9 MG/DL (8.5-10.1); CREATININE FOR GFR 1.18 MG/DL (0.55-1.30); GLOMERULAR FILTRATION RATE 50.4 (>51); POTASSIUM SERUM 3.7 MEQ/L (3.5-5.1); TOTAL PROTEIN 7.4 GM/DL (6.4-8.2)
== END ==
LOC: M SFHCADAM 08:48
PROVIDERS: ATTEND Physician Assistant
DX: Z01.818 Encounter for other preprocedural examination (principal); I77.6 Arteritis, unspecified; R51 Headache
CPT/HCPCS: 80053; 85027; G0463

== ENCOUNTER → 2018-10-03 | Outpatient (REF) | payer MEDICARE, MEDICAID | LOC: M SFHCWAGY 16:01 | PROVIDERS: ATTEND Nurse Practitioner Family | DX: R30.0 Dysuria (principal) | CPT/HCPCS: 81002; 87086; G0463 ==

== ENCOUNTER → 2018-10-18 | Outpatient (REF) | payer MEDICARE, MEDICAID ==
[2018-10-18 18:26] LABS: CREATININE FOR GFR 1.03 MG/DL (0.55-1.30); POTASSIUM SERUM 3.6 MEQ/L (3.5-5.1)
[2018-10-18 18:45] LABS: HEMOGLOBIN A1c 5.3 %
== END ==
LOC: M LABNEURO 12:51
PROVIDERS: ATTEND Physician Assistant
DX: E11.9 Type 2 diabetes mellitus without complications (principal)

== ENCOUNTER → 2018-12-29 | Outpatient (CLI) | payer MEDICARE, MEDICAID ==
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
== END ==
LOC: M PAIN 13:15
PROVIDERS: ATTEND Nurse Practitioner Family
DX: M46.1 Sacroiliitis, not elsewhere classified (principal); G89.29 Other chronic pain; Z86.59 Personal history of other mental and behavioral disorders; G40.909 Epilepsy, unspecified, not intractable, without status epilepticus; J44.9 Chronic obstructive pulmonary disease, unspecified; K21.9 Gastro-esophageal reflux disease without esophagitis; G47.33 Obstructive sleep apnea (adult) (pediatric); E78.5 Hyperlipidemia, unspecified; G43.909 Migraine, unspecified, not intractable, without status migrainosus; E11.40 Type 2 diabetes mellitus with diabetic neuropathy, unspecified; Z87.891 Personal history of nicotine dependence; Z88.2 Allergy status to sulfonamides; Z88.8 Allergy status to other drugs, medicaments and biological substances; Z91.040 Latex allergy status; Z79.1 Long term (current) use of non-steroidal anti-inflammatories (NSAID); Z79.82 Long term (current) use of aspirin; Z79.84 Long term (current) use of oral hypoglycemic drugs; Z79.899 Other long term (current) drug therapy

== ENCOUNTER → 2019-01-19 | Outpatient (REF) | payer MEDICARE, MEDICAID | LOC: M SFHCADAM 19:19 | PROVIDERS: ATTEND Physician Assistant | DX: J03.80 Acute tonsillitis due to other specified organisms (principal); B96.89 Other specified bacterial agents as the cause of diseases classified elsewhere | CPT/HCPCS: 87070; 87880; G0463 ==

== ENCOUNTER → 2019-01-23 | Outpatient (CLI) | payer MEDICARE, MEDICAID ==
--- NOTE | 2019-01-23 16:54 | REPMRS ---
Patient History The patient states she had a clinical breast exam in 12/2018. Family history of breast cancer under age 50 in paternal grandmother, breast cancer at age 50 or over in paternal aunt, endometrial cancer in maternal aunt, colorectal cancer in mother. 3D TOMOSYNTHESIS WAS PERFORMED. Digital Woman Screen Mammo: January 23, 2019 - Exam #: [id number] Bilateral CC and MLO view(s) were taken. Technologist: Daiana Perez Technologist Prior study comparison: January 12, 2018, digital woman screen mammo performed at [facility] [employer] [facility] [employer]. August 11, 2016, digital woman screen mammo performed at [facility]. FINDINGS: There are scattered fibroglandular densities. There has been no change in the appearance of the mammogram from the prior studies. There is a mild amount of residual fibroglandular tissue which is fairly symmetric. There is no interval development of dominant mass, architectural distortion, or clustered microcalcification suggestive of malignancy. Assessment: BI-RADS/ACR category 1 mammogram. Negative Mammogram. Recommendation Routine screening mammogram in 1 year (for women over age 40). This mammogram was interpreted with the aid of an FDA-approved computer-aided dectection system. Electronically Signed By: Deepak Singh MD 01/23/19 [id number]
== END ==
LOC: M WHC 15:00
PROVIDERS: ATTEND Nurse Practitioner Family
DX: Z01.419 Encounter for gynecological examination (general) (routine) without abnormal findings (principal); Z12.31 Encounter for screening mammogram for malignant neoplasm of breast; Z80.49 Family history of malignant neoplasm of other genital organs; Z80.0 Family history of malignant neoplasm of digestive organs
CPT/HCPCS: 77063; 77067; G0101

== ENCOUNTER → 2019-01-24 | Outpatient (CLI) | payer MEDICARE, MEDICAID ==
[~2019-01-24] MED LIST changes: +BUPIVACAINE HCL 0.25% 30 ML VIAL As Ordered ONE; +ISOVUE-M 300 61% 15ML VIAL (Q9967) As Ordered ONE; +LIDOCAINE 1% SDV INJ 30 ML VIAL As Ordered ONE; +TRIAMCINOLONE ACETONIDE SUSP 40 MG/ML VIAL (J3301) As Ordered ONE; +diazePAM 5 MG TAB As Ordered ONE; +oxyCODONE 5MG TAB As Ordered ONE
--- NOTE | 2019-01-26 11:05 | REP ---
Fluoro guidance Images were reviewed with Dr. Singh. The portable C-arm was provided in the OR for Dr. Caron Anne for fluoroscopic guidance. Two intraoperative last image hold fluoro spot films were obtained for needle placement verification for bilateral SI joint injection. The films are on the PACS system and are available for review. 9 seconds of fluoroscopy time was utilized for this procedure. Reviewed by LEE Hebert 01/24/2019 04:43 P Electronically Signed by Deepak Singh MD 01/26/2019 10:56 A
--- NOTE | 2019-02-12 00:19 | ECWPNPC ---
PATIENT NAME: YAIMA CORRALES : 1960 GENDER: FEMALE VISIT DATE: 01/24/2019 DISCHARGE DATE: 01/24/19 1226 VISIT LOCKED DATE TIME: PHYSICIAN: ARUL GONCALVES MD RESOURCE: RAUL GONCALVES MD REASON FOR APPOINTMENT 1. BILAT. SIJ INJECTION HISTORY OF PRESENT ILLNESS HISTORY OF PRESENT ILLNESS: PAIN THE PATIENT DESCRIBES THE PAIN... FALL RISK SCREENING: SCREENING :NO FALLS REPORTED IN THE LAST YEAR CURRENT MEDICATIONS TAKING DEPEND PANT EXTRA LARGE _ UNDERGARMENTS DIAG CODE SIZE LARGE DX:N39.41 DAILY= MDD 24 TAKING ONE TOUCH ULTRA BLUE STRIPS DIRECTED DX: E11.65 TWICE A DAY ADN NEEDED TAKING ANUSOL-HC 2.5 % CREAM 1 APPLICATION TO AFFECTED AREA RECTAL TWICE A DAY, NOTES: NONE RECENT TAKING GABAPENTIN 100 100 MG (LATTIF) TABLET 1 QAM 2 CAP(S) QPM ORAL BID, NOTES: 01/24 730 TAKING VITAMIN C 500 MG CAPSULE DIRECTED ORALLY ONCE A DAY, NOTES: 01/23 1400 TAKING FLUTICASONE FUROATE 27.5 MCG/SPRAY SUSPENSION 1 PUFF IN EACH NOSTRIL NASALLY ONCE A DAY, NOTES: NONE RECENT TAKING LEVETIRACETAM 250 MG (LATTIF) TABLET 2 TABLETS ORALLY TWICE DAILY, NOTES: 01/23 2230 TAKING BUSPIRONE HCL 50 TABLET 2 TABLET ORALLY TWICE DAILY, NOTES: 01/23 2230 TAKING VIMPAT 100 MG TABLET 1/2 TABLET QAM, 1 QPM ORALLY TWICE A DAY, NOTES: 01/24 730 TAKING ABILIFY 5 MG TABLET 1 TABLET ORALLY ONCE A DAY, NOTES: 01/24 730 TAKING HYDROXYZINE HCL 50MG MERCY TABLET 1 TABLET ORALLY TWICE A DAY, NOTES: 01/24 730 TAKING GLUCOMETER DIRECTED E11.65 TWICE ADAY AND NEEDED TAKING PROPRANOLOL HCL 10MG 1 TAB ORALLY NIGHTLY, NOTES: 01/23 2230 TAKING CYMBALTA 60 MG CAPSULE DELAYED RELEASE PARTICLES 1 CAPSULE ALONG WITH A 30 MG ORALLY ONCE A DAY, NOTES: 01/24 730 TAKING TRAZODONE HCL 50 MG TABLET 1 1/2 TABLET AT BEDTIME NEEDED ORALLY ONCE A DAY, NOTES: 01/23 2230 TAKING PEN NEEDLES 31G X 6 MM MISCELLANEOUS DIRECTED SUBCUTANEOUSLY DAILY E11.65 TAKING NEBULIZER/ADULT MASK - KIT DIRECTED DX: J44.9 MASK AND TUBING TAKING ALBUTEROL SULFATE (2.5 MG/3ML) 0.083% NEBULIZATION SOLUTION 3 ML INHALATION EVERY 4-6 HOURS NEEDED, NOTES: NONE RECENT TAKING TENS UNIT ELECTRO PADS - DIRECTED DX:M12.88 DIRECTED TAKING RANITIDINE HCL 300 MG CAPSULE 1 CAPSULE AT BEDTIME ORALLY ONCE A DAY AT BEDTIME, NOTES: 01/23 2230 TAKING OMEPRAZOLE 40MG 40 MG TABLET 1 TAB(S) ORAL DAILY AT BEDTIME, NOTES: 01/23 2230 TAKING DEPEND PANT LARGE . MISCELLANEOUS DIRECTED DX: N39.41,ID# [id number] DAILY MDD = 24 TAKING ACCU-CHEK SOFT TOUCH LANCETS - MISCELLANEOUS DIRECTED DX: E11.65 TWICE A DAY AND NEEDED TAKING ROLLING WALKER 1 1 DIRECTED ROLLING WALKER WITH SEAT DX; J44.9, M51.16 TAKING UNIFINE PENTIPS 31G X 6 MM MISCELLANEOUS USE DIRECTED DAILY TAKING TOPIRAMATE 50 MG TABLET TAKE ONE TABLET BY MOUTH AT BEDTIME ORAL , NOTES: 01/23 2230 TAKING BOTOX 100 UNIT SOLUTION RECONSTITUTED GIVEN WITH NEURO INJECTION EVERY 3 MONTHS FOR MIGRAINES, NOTES: 10/2018 TAKING ASPIRIN 81 MG TABLET DELAYED RELEASE 1 TABLET ORALLY ONCE A DAY, NOTES: 01/24 730 TAKING BLOOD GLUCOSE TEST - STRIP DIRECTED IN VITRO BEFORE MEALS AND AT BEDTIME. DX: Z79.4 TAKING ZYRTEC ALLERGY 10 MG TABLET 1 TABLET ORALLY ONCE A DAY, NOTES: 01/23 2230 TAKING CHLORTHALIDONE 25 MG TABLET TAKE 1/2 TABLET BY MOUTH ONCE DAILY , NOTES: 01/24 730 TAKING VALACYCLOVIR HCL 500 MG TABLET TAKE ONE TABLET BY MOUTH EVERY DAY (AFTER TWO TIMES A DAY DOSING) , NOTES: 01/23 2230 TAKING NYSTATIN 138353 UNIT/GM CREAM APPLY EXTERNALLY TO AFFECTED JULIÁN AREA TWO TIMES A DAY , NOTES: 01/24 700 TAKING OXYBUTYNIN CHLORIDE ER 15 MG TABLET EXTENDED RELEASE 24 HOUR TAKE ONE TABLET BY MOUTH ONCE A DAY , NOTES: 01/24 730 TAKING SPIRONOLACTONE 50 MG TABLET TAKE ONE TABLET BY MOUTH EVERY DAY , NOTES: 01/23 2230 TAKING SINGULAIR 10 MG TABLET TAKE ONE TABLET BY MOUTH ONCE A DAY IN THE EVENING , NOTES: 01/23 2230 TAKING VITAMIN D 2000 UNIT TABLET TAKE ONE TABLET BY MOUTH DAILY , NOTES: 01/24 730 TAKING CALCIUM + D3 600-200 MG-UNIT TABLET TAKE ONE TABLET BY MOUTH EVERY DAY , NOTES: 01/24 730 TAKING DAILY-KIRAN - TABLET TAKE ONE TABLET BY MOUTH EVERY DAY , NOTES: 01/24 730 TAKING JOBST ACTIVEWEAR 15-20MMHG - MISCELLANEOUS DIRECTED DX: SPIDER VEINS, VENOUS INSUFF DAILY TAKING PROAIR HFA 108 (90 BASE) MCG/ACT AEROSOL SOLUTION 2 PUFFS NEEDED INHALATION EVERY 6 HRS, NOTES: NONE RECENT TAKING ADVAIR HFA 115-21 MCG/ACT AEROSOL 2 PUFFS INHALATION TWICE A DAY, NOTES: 01/24 730 TAKING JARDIANCE 10 MG TABLET 1 TABLET ORALLY ONCE A DAY, NOTES: 01/24 1600 TAKING LEVEMIR FLEX TOUCH 100 UNIT/ML SOLUTION 4 UNITS SUBCUTANEOUS DAILY DX: E11.65, NOTES: 01/23 2100 TAKING ATORVASTATIN CALCIUM 20 MG TABLET 1 TABLET ORALLY ONCE AT BEDTIME, NOTES: 01/23 2230 TAKING LIDODERM 5 % PATCH 2 PATCH TO SKIN REMOVE AFTER 12 HOURS EXTERNALLY ONCE A DAY - APPLY TO LOW BACK FOR POST HERPETIC NEURALGIA, NOTES: 01/23 2230 OFF NOW NOT-TAKING MELOXICAM 15 MG TABLET 1 TABLET ORALLY ONCE A DAY NOT-TAKING AMOXICILLIN 875 MG TABLET 1 TABLET ORALLY EVERY 12 HRS NOT-TAKING DIFLUCAN 150 MG TABLET 1 TABLET ORALLY EVERY 24 HRS DISCONTINUED LIDODERM 5 % PATCH 1 PATCH TO SKIN REMOVE AFTER 12 HOURS EXTERNALLY ON 12 HRS OFF 12 HRS FPR POST PERPETIC NEURALGIA, NOTES: DUPLICATE DISCONTINUED PROAIR HFA 108 (90 BASE) MCG/ACT AEROSOL SOLUTION 2 PUFFS NEEDED INHALATION EVERY 6 HRS NEEDED, NOTES: DUPLICATE MEDICATION LIST REVIEWED AND RECONCILED WITH THE PATIENT PAST MEDICAL HISTORY PTSD DEPRESSION/PANIC DISORDER EPILEPSY FOLLOWED BY DR. DUQUE ASTHMA COPD/CHRONIC BRONCHITIS - SPIROMETRY 09/2015 FEV1 = 1.7, FVC = 1.785, RATIO = 91.7 - POOR QUALITY SUSPECT MIXED PICTURE COPD/ RESTRICTIVE FROM OBESITY. NICOTINE DEPENDENCE - IN REMISSION QUITE 01/2018 GERD CLAUDIA - ON CPAP TOLERATING CPAP CHRONIC VENOUS INSUFFICIENCY LEFT BREAST ABSCESS HX INCONTINENCE, CYSTOCELE HX ABNORMAL PAP (AGE 20'S, 30'S) DYSPAREUNIA FATTY LIVER PER US 03/2015 ECHO 03/2015 - BORDERLINE LVH EF 65%. MILDLY DILATED LEFT ATRIUM. IMPAIRED LV DIASTOLIC FUNCTION. NORMAL LEFT ATRIAL PRESSURE, MILD PULM HTN. ENDOMETRIOSIS DIABETES TYPE 2 - INSULIN REQUIRING HYPERLIPIDEMIA HERPES TYPE 2 - BREAKOUT IN [facility] 03/29/18 SHINGLES - 02/2018 MIGRAINES - FOLLOWS WITH NEUROLOGY - GETTING BOTOX INJECTIONS 09/2018 DIABETIC NEUROPATHY LEFT LEG AND FOOT TONSIL STONE AND ABSCESS ALLERGIES CHANTIX: NIGHT TERRORS - SIDE EFFECTS DEPAKOTE: COULDN'T STAY AWAKE - SIDE EFFECTS SULFA (FOR ALLERGY USE ONLY): RASH - ALLERGY LATEX (FOR ALLERGY USE ONLY): HIVES - ALLERGY METFORMIN HCL: SEVERE N/V - SIDE EFFECTS SURGICAL HISTORY CLEFT/LIP/PALATE SURGERY 1961 DEVIATED NASAL SEPTUM 05/1998 01/1993 ENDOMETRIAL BIOPSY 1999 CHOLECYSTECTOMY 10/1997 TVT 2009 EGD/COLONOSCOPY (DR. TAYLOR) 2010 TUBES PLACED IN EARS ENDOMETRIAL ABLATION 2007 COLPOSCOPY/ECC 1999 CRYO FOR ABNORMAL PAP AGE 22'S COLONOSCOPY WITH BIOPSIES - NEGATIVE FOR MICROSCOPIC COLITIS (DR.. DUEÑAS) 09/2014 FAMILY HISTORY FATHER: 69 YRS, LUNG CANCER, HTN, DM-2, DIAGNOSED WITH DIABETES, HYPERTENSION, HEART DISEASE, CANCER MOTHER: 64 YRS, COLON CANCER, HTN, DM-2, CANCER, DIABETES, HYPERTENSION, HEART DISEASE SIBLINGS: ALIVE, BOTH HTN SISTER LYMPH CANCER IN 60'S SON(S): ALIVE 18 YRS DAUGHTER(S): ALIVE 19 YRS PATERNAL AUNT: ALIVE LATE 60'S YRS, BREAST CANCER, DX IN LATE 50 'S MATERNAL AUNT: , OVARIAN CANCER UNKNOWN AGE 1 BROTHER(S) , 1 SISTER(S) - HEALTHY. 1 SON(S) , 1 DAUGHTER(S) - HEALTHY. 10/2018 SISTER HEART ATTACK. SOCIAL HISTORY GENERAL: TOBACCO USE ARE YOU A:FORMER SMOKER HOW LONG HAS IT BEEN SINCE YOU LAST SMOKED?6-12 MONTHS HIV / HEP-C SCREENING HIV TEST OFFERED TO PATIENT:YES DATE OFFERED:01/12/2018 TEST ACCEPTED:NO HEP-C TEST OFFERED TO PATIENT:YES DATE OFFERED:01/12/2018 REASON:PATIENT DECLINED TEST ACCEPTED:NO BROCHURE PROVIDED TO PATIENTNO OTHERS AT HOME: S.O.-JESSICA, 2 CATS. HOUSING: RENTS APARTMENT. DECORATOR LIGHTING FIXTURES DEGREE. DIET: DIABETIC DIET. LANGUAGE LANGUAGES SPOKEN:BULGARIAN DOMESTIC VIOLENCE DO YOU FEEL SAFE IN YOUR ENVIRONMENT?YES BMI CARE GOAL FOLLOW-UP ABOVE NORMAL BMI FOLLOW-UPDIETARY NEEDS EDUCATION RECREATIONAL DRUG USE DENIES. EXERCISE: NO REGULAR EXERCISE. LEARNING BARRIERS / SPECIAL NEEDS CHANGE FROM LAST VISIT?NO BARRIERS TO LEARNING?NO HEARING IMPAIRED?YES :HEARING AIDES RIGHT EAR ONLY VISION IMPAIRED?YES :CORRECTIVE LENSES COGNITIVELY IMPAIRED?NO READINESS TO LEARN?YES LEARNING PREFERENCES?NO LEARNING CAPABILITIES PRESENT?YES EMOTIONAL BARRIERS?NO SPECIAL DEVICES?YES :WALKER YOUTH COUNSELOR NEEDED?NO LUNG CANCER SCREENING SMOKING STATUS:FORMER SMOKER IS THE PATIENT BETWEEN THE AGE OF 55 AND 77?YES PAIN CLINIC PFS, CLERGY, PUBLIC HEALTH REFERRALS HAS THE PATIENT BEEN EDUCATED REGARDING HIS/HER PLAN OF CARE?YES HAS THE PATIENT BEEN EDUCATED REGARDING PAIN, THE RISK FOR PAIN, THE IMPORTANCE OF EFFECTIVE PAIN MANAGEMENT, AND THE PAIN ASSESSMENT PROCESS?YES LATEX QUESTIONNAIRE LATEX ALLERGY : HAVE YOU EVER DEVELOPED ANY TYPE OF REACTION AFTER HANDLING LATEX PRODUCTS SUCH RUBBER GLOVES, CONDOMS, DIAPHRAGMS, BALLOONS, SOCKS, OR UNDERWEAR?YES - PLEASE INDICATE :RUBBER GLOVES LATEX ALLERGY : HAVE YOU EVER DEVELOPED ANY TYPE OF REACTION DURING OR AFTER DENTAL APPOINTMENT, VAGINAL/RECTAL EXAMINATION, SURGICAL PROCEDURE, OR ANY OTHER EXPOSURE?NO LATEX RISK : HAVE YOU EVER HAD ANY DIFFICULTY BREATHING OR HIVES AFTER EATING OR HANDLING ANY FRUITS, OR VEGETABLES; SUCH KIWI, BANANAS, STONE FRUITS, OR CHESTNUTSNO LATEX RISK : DO YOU HAVE A PREVIOUS PERSONAL HISTORY OF MORE THAN NINE SURGERIES, SPINA BIFIDA, OR REPEATED CATHERTIZATIONS? NO LATEX RISK : ARE YOU FREQUENTLY EXPOSED TO LATEX PRODUCTS IN YOUR OCCUPATION?NO DATE ASKED : 01/24/2019 CAFFEINE 0-1/DAY. ADVANCE DIRECTIVE ADVANCE DIRECTIVE DISCUSSED WITH PATIENT:YES PT STATES HCP RUT VIEIRA [phone], XI COTTER [phone] ALEJANDRA COTTER [phone] JEW [id number] SYNAGOGUE MARITAL STATUS: . ALCOHOL SCREENING DID YOU HAVE A DRINK CONTAINING ALCOHOL IN THE PAST YEAR?YES HOW OFTEN DID YOU HAVE SIX OR MORE DRINKS ON ONE OCCASION IN THE PAST YEAR?NEVER (0 POINTS) HOW MANY DRINKS DID YOU HAVE ON A TYPICAL DAY WHEN YOU WERE DRINKING IN THE PAST YEAR?1 OR 2 (0 POINTS) HOW OFTEN DID YOU HAVE A DRINK CONTAINING ALCOHOL IN THE PAST YEAR?MONTHLY OR LESS (1 POINT) POINTS1 INTERPRETATIONNEGATIVE OCCUPATION: DISABLED. SEXUAL HX HAD SEX IN THE LAST 12 MONTHS (VAGINAL, ORAL, OR ANAL)?NO LMP:2007 HAVE YOU EVER HAD AN STD?NO 01/24/19 REVIEWED WITH PT. AD. HOSPITALIZATION/MAJOR DIAGNOSTIC PROCEDURE MAJOR DEPRESSION , SUICIDAL ATTEMPT TWICE. ([facility] [place]) SURGERIES ABOVE DEHYDRATION 04/2018 REVIEW OF SYSTEMS REVIEWED BY: PROVIDER: . CONSTITUTIONAL: ANY CHANGE IN YOUR MEDICAL CONDITION? YES, HAD TONSIL STONE AND ABSCESS WHICH WAS TREATED WITH ANTIBIOTIC WHICH SHE HAS COMPLETED. SYMPTOMS HAVE RESOLVED . CHILLS NO . FEVER NO . INFECTION: DO YOU HAVE NEW INFECTIONS? NO . DO YOU HAVE HISTORY OF MRSA? NO . MUSCULOSKELETAL: ANY NEW PATTERNS OF PAIN OR NUMBNESS? NO . GASTROENTEROLOGY: ANY NEW CHANGE IN BOWEL CONTROL? NO . GENITOURINARY: ANY NEW CHANGE IN BLADDER CONTROL? NO . IS THERE A CHANCE YOU COULD BE ? NO . HEMATOLOGY/LYMPH: DO YOU TAKE ANY BLOOD THINNERS? (FOR EXAMPLE- COUMADIN, PLAVIX, AGGRENOX, PLATEL, PRADAXA, OR XARELTO) NO . WHEN WAS YOUR LAST DOSE? DATE: TIME: . NEUROLOGY: HAVE YOU FALLEN IN THE PAST 12 MONTHS? YES, FELL OUT OF BED LAST WEEK--NOT INJURY . ANY NEW EXTREMITY NUMBNESS OR WEAKNESS? NO . CARDIOLOGY: DO YOU HAVE A PACEMAKER OR DEFIBRILLATOR? NO . RESPIRATORY: HAVE YOU BEEN SICK IN THE PAST WEEK? NO . FEVER NO . FLU LIKE SYMPTOMS? NO . COUGH NO . INTEGUMENTARY: DO YOU HAVE ANY RASHES OR OPEN SORES? NO . ALLERGIC/IMMUNO: ARE YOU ALLERGIC TO IV DYE? NO . ANY NEW ALLERGIES? NO . PSYCHIATRIC: DO YOU HAVE THOUGHTS OF HURTING YOURSELF OR SOMEONE ELSE? NO . ARE YOU ABUSED, NEGLECTED, OR IN AN UNSAFE ENVIRONMENT? NO . ENDOCRINOLOGY: ARE YOU DIABETIC? YES FSBS @ [phone] . OTHER: DO YOU NEED ANY PRESCRIPTIONS? NO . IF YES, PLEASE LIST: ____ . ANY NEW PROBLEMS WITH YOUR MEDICATIONS? NO . WHEN DID YOU LAST EAT? 01/23 2217 . WHEN DID YOU LAST DRINK? 01/24 0730 . WHAT DID YOU LAST DRINK? DIET 7UP . NAME OF PERSON DRIVING YOU HOME? RUT KABA . DO YOU HAVE ANY OTHER QUESTIONS OR CONCERNS NO PT HAS NOT HAD ANY VACCINES IN THE PAST 30 DAYS . VITAL SIGNS WT 212.2 LBS, HT 65 IN, BMI 35.31 INDEX, BP 135/78 MM HG, HR 74 /MIN, RR 16 /MIN, TEMP 96.7 F, OXYGEN SAT % 95, SAFE IN ENV? (Y/N) Y, NA INITIALS MP 0925, REVIEWED BY: AD. ASSESSMENTS SACROILIITIS - M46.1 (PRIMARY) SACROILIAC JOINT DYSFUNCTION - M53.3 TREATMENT SACROILIITIS [facility] FLUORO GUIDANCE (PAIN)[id number] PROCEDURES PN SI PRE PROCEDURE DIAGNOSIS SACROILIITIS, SACROILIAC JOINT DYSFUNCTION POST PROCEDURE DIAGNOSIS SACROILIITIS, SACROILIAC JOINT DYSFUNCTION PROCEDURE BILATERAL SACROILIAC JOINT BLOCK SURGEON DR. RAUL GONCALVES KITCHEN HELP HANDYMAN NONE ANESTHESIA LOCAL PRE PROCEDURE NOTE PATIENT WITH HISTORY OF CHRONIC LOW BACK PAIN. I EVALUATED THE PATIENT AND REVIEWED THE CHART. I WENT OVER THE RISKS, ALTERNATIVES, AND BENEFITS ASSOCIATED WITH THIS PROCEDURE. THE PATIENT WOULD LIKE TO PROCEED AND GAVE CONSENT TO PERFORM THE PROCEDURE. THE PATIENT DENIES UNEXPLAINABLE WEIGHT LOSS, FEVER, CHILLS, OR NEW CHANGES IN URINARY OR BOWEL CONTROL DESCRIPTION OF PROCEDURE THE PATIENT WAS BROUGHT TO THE PROCEDURE ROOM AND PLACED IN THE PRONE POSITION. THE LUMBOSACRAL AREA WAS CLEANED WITH CHLORAPREP SOLUTION AND DRAPED ASEPTICALLY. THE PROCEDURE WAS DONE UNDER STERILE CONDITIONS. I CHECKED LATERALITY AND THE LEVEL WHERE THE PROCEDURE WAS GOING TO BE PERFORMED WITH THE PATIENT AND THE SUPPORTING STAFF AT THE MOMENT OF THE TIME OUT IN THE PROCEDURE ROOM. UNDER FLUOROSCOPIC GUIDANCE, TARGET POINT WAS SELECTED AT THE LOWER BORDER OF THE RIGHT AND LEFT SACROILIAC JOINT. TARGET POINT WAS SELECTED AFTER MEDIAL ROTATION AND TILT OF THE MAGNIFIER OF THE C-ARM. LIDOCAINE WAS USED TO NUMB THE SKIN AND SUBCUTANEOUS TISSUE BELOW IT. A SPINAL NEEDLE, 22-GAUGE, WAS ADVANCED UNDER FLUOROSCOPIC GUIDANCE AND FOLLOWING PATIENT FEEDBACK UNTIL THE TARGET AREA WAS TOUCHED. THE POSITION OF THE NEEDLE WAS VERIFIED WITH AP AND LATERAL VIEWS. AFTER PROPER POSITION OF THE NEEDLE WAS ACHIEVED, ISOVUE M DYE 30%, 0.25 ML, WAS INJECTED SHOWING SPREAD OF THE DYE. THEN, A SOLUTION OF 20 MG OF KENALOG WAS INJECTED IN RIGHT AND LEFT JOINT WITH 3 ML OF BUPIVACAINE 0.125%. THERE WAS NO EVIDENCE OF BLOOD, PARESTHESIA OR CEREBROSPINAL FLUID DURING THE PROCEDURE. THE PATIENT WAS SENT TO THE RECOVERY ROOM. THE PATIENT WAS MOVING THE EXTREMITIES AND DOING WELL. THERE WAS NO COMPLICATION DURING THE PROCEDURE. FLUOROSCOPY TIME WAS 9 SECONDS POST PROCEDURE NOTE THE PATIENT WILL BE SEEN IN A FOLLOW UP IN THE NEXT FEW WEEKS. INSTRUCTIONS WERE GIVEN, QUESTIONS WERE ANSWERED, AND THE PATIENT EXPRESSED UNDERSTANDING AND AGREED WITH THE PLAN. I, SIERRA VALDEZ, DOCUMENTED THE ABOVE INFORMATION ACTING A SCRIBE FOR DR. GONCALVES. I HAVE REVIEWED THE ABOVE DOCUMENT, WRITTEN BY SIERRA RITCHIE AND I VERIFY THAT IT IS ACCURATE. PROCEDURE CODES 30749 INJECT SACROILIAC JOINT, MODIFIERS: 50 [id number] RADXPS IN END [id number] PXD DISPOSITION & COMMUNICATION FOLLOW UP 3 WEEKS ELECTRONICALLY SIGNED BY RAUL GONCALVES MD, MD ON 02/11/2019 AT 07:16 PM EDT DISCLAIMER : THIS IS A VISIT SUMMARY EXTRACTED FROM THE [employer] CHART. IT IS NOT A COPY OF THE [employer] PROGRESS NOTE. MTDD
== END ==
LOC: M PAIN 10:00
PROVIDERS: ATTEND Anesthesiology
DX: G89.29 Other chronic pain (principal); M46.1 Sacroiliitis, not elsewhere classified; M53.3 Sacrococcygeal disorders, not elsewhere classified; E11.9 Type 2 diabetes mellitus without complications; E78.5 Hyperlipidemia, unspecified; G43.909 Migraine, unspecified, not intractable, without status migrainosus; J44.9 Chronic obstructive pulmonary disease, unspecified; K21.9 Gastro-esophageal reflux disease without esophagitis; G47.33 Obstructive sleep apnea (adult) (pediatric); Z79.82 Long term (current) use of aspirin; Z79.899 Other long term (current) drug therapy; Z88.2 Allergy status to sulfonamides; Z88.8 Allergy status to other drugs, medicaments and biological substances; Z91.040 Latex allergy status; Z86.59 Personal history of other mental and behavioral disorders; Z86.79 Personal history of other diseases of the circulatory system; Z87.891 Personal history of nicotine dependence
CPT/HCPCS: G0260; J3301; Q9967

== ENCOUNTER → 2019-01-30 | Outpatient (REF) | payer MEDICARE, MEDICAID ==
[~2019-01-30] MED LIST changes: -BUPIVACAINE HCL 0.25% 30 ML VIAL As Ordered ONE; -ISOVUE-M 300 61% 15ML VIAL (Q9967) As Ordered ONE; -LIDOCAINE 1% SDV INJ 30 ML VIAL As Ordered ONE; -TRIAMCINOLONE ACETONIDE SUSP 40 MG/ML VIAL (J3301) As Ordered ONE; -diazePAM 5 MG TAB As Ordered ONE; -oxyCODONE 5MG TAB As Ordered ONE
[2019-02-02 14:13] LABS: LEVETIRACETAM (KEPPRA) 27.1 ug/mL (10.0-40.0)
[2019-02-03 00:06] LABS: LACOSAMIDE LEVEL 7.1 ug/mL (5.0-10.0)
== END ==
LOC: M LABNEURO 14:25
PROVIDERS: ATTEND Physician Assistant Medical
DX: G40.89 Other seizures (principal)

== ENCOUNTER → 2019-02-01 | Outpatient (CLI) | payer MEDICARE, MEDICAID ==
--- NOTE | 2019-02-24 01:16 | ECWPNPC ---
PATIENT NAME: YAIMA CORRALES : 1960 GENDER: FEMALE VISIT DATE: 02/01/2019 DISCHARGE DATE: 02/01/19 1346 VISIT LOCKED DATE TIME: PHYSICIAN: CHILO MINOR RESOURCE: CHILO MINOR REASON FOR APPOINTMENT 1. POST SIJ HISTORY OF PRESENT ILLNESS HISTORY OF PRESENT ILLNESS: HERE FOR POST PROCEDURE F/U.HAD BILAT.SIJ ON 01/24/19.CONTINUES TO BENEFIT TODAY WITH REDUCED PAIN.RATING PAIN VAS4/10. PAIN THE PATIENT DESCRIBES THE PAIN... FALL RISK SCREENING: SCREENING :NO FALLS REPORTED IN THE LAST YEAR CURRENT MEDICATIONS TAKING DEPEND PANT EXTRA LARGE _ UNDERGARMENTS DIAG CODE SIZE LARGE DX:N39.41 DAILY= MDD 24 TAKING ONE TOUCH ULTRA BLUE STRIPS DIRECTED DX: E11.65 TWICE A DAY ADN NEEDED TAKING ANUSOL-HC 2.5 % CREAM 1 APPLICATION TO AFFECTED AREA RECTAL TWICE A DAY, NOTES: NONE RECENT TAKING GABAPENTIN 100 100 MG (LATTIF) TABLET 1 QAM 2 CAP(S) QPM ORAL BID, NOTES: 01/24 730 TAKING VITAMIN C 500 MG CAPSULE DIRECTED ORALLY ONCE A DAY, NOTES: 01/23 1400 TAKING FLUTICASONE FUROATE 27.5 MCG/SPRAY SUSPENSION 1 PUFF IN EACH NOSTRIL NASALLY ONCE A DAY, NOTES: NONE RECENT TAKING LEVETIRACETAM 250 MG (LATTIF) TABLET 2 TABLETS ORALLY TWICE DAILY, NOTES: 01/23 2230 TAKING BUSPIRONE HCL 50 TABLET 2 TABLET ORALLY TWICE DAILY, NOTES: 01/23 2230 TAKING VIMPAT 100 MG TABLET 1/2 TABLET QAM, 1 QPM ORALLY TWICE A DAY, NOTES: 01/24 730 TAKING ABILIFY 5 MG TABLET 1 TABLET ORALLY ONCE A DAY, NOTES: 01/24 730 TAKING HYDROXYZINE HCL 50MG MERCY TABLET 1 TABLET ORALLY TWICE A DAY, NOTES: 01/24 730 TAKING GLUCOMETER DIRECTED E11.65 TWICE ADAY AND NEEDED TAKING PROPRANOLOL HCL 10MG 1 TAB ORALLY NIGHTLY, NOTES: 01/23 2230 TAKING CYMBALTA 60 MG CAPSULE DELAYED RELEASE PARTICLES 1 CAPSULE ALONG WITH A 30 MG ORALLY ONCE A DAY, NOTES: 01/24 730 TAKING TRAZODONE HCL 50 MG TABLET 1 1/2 TABLET AT BEDTIME NEEDED ORALLY ONCE A DAY, NOTES: 01/23 2230 TAKING PEN NEEDLES 31G X 6 MM MISCELLANEOUS DIRECTED SUBCUTANEOUSLY DAILY E11.65 TAKING NEBULIZER/ADULT MASK - KIT DIRECTED DX: J44.9 MASK AND TUBING TAKING ALBUTEROL SULFATE (2.5 MG/3ML) 0.083% NEBULIZATION SOLUTION 3 ML INHALATION EVERY 4-6 HOURS NEEDED, NOTES: NONE RECENT TAKING TENS UNIT ELECTRO PADS - DIRECTED DX:M12.88 DIRECTED TAKING RANITIDINE HCL 300 MG CAPSULE 1 CAPSULE AT BEDTIME ORALLY ONCE A DAY AT BEDTIME, NOTES: 01/23 2230 TAKING OMEPRAZOLE 40MG 40 MG TABLET 1 TAB(S) ORAL DAILY AT BEDTIME, NOTES: 01/23 2230 TAKING DEPEND PANT LARGE . MISCELLANEOUS DIRECTED DX: N39.41,ID# [id number] DAILY MDD = 24 TAKING ACCU-CHEK SOFT TOUCH LANCETS - MISCELLANEOUS DIRECTED DX: E11.65 TWICE A DAY AND NEEDED TAKING ROLLING WALKER 1 1 DIRECTED ROLLING WALKER WITH SEAT DX; J44.9, M51.16 TAKING TOPIRAMATE 50 MG TABLET TAKE ONE TABLET BY MOUTH AT BEDTIME ORAL , NOTES: 01/23 2230 TAKING BOTOX 100 UNIT SOLUTION RECONSTITUTED GIVEN WITH NEURO INJECTION EVERY 3 MONTHS FOR MIGRAINES, NOTES: 10/2018 TAKING ASPIRIN 81 MG TABLET DELAYED RELEASE 1 TABLET ORALLY ONCE A DAY, NOTES: 01/24 730 TAKING BLOOD GLUCOSE TEST - STRIP DIRECTED IN VITRO BEFORE MEALS AND AT BEDTIME. DX: Z79.4 TAKING ZYRTEC ALLERGY 10 MG TABLET 1 TABLET ORALLY ONCE A DAY, NOTES: 01/23 2230 TAKING CHLORTHALIDONE 25 MG TABLET TAKE 1/2 TABLET BY MOUTH ONCE DAILY , NOTES: 01/24 730 TAKING VALACYCLOVIR HCL 500 MG TABLET TAKE ONE TABLET BY MOUTH EVERY DAY (AFTER TWO TIMES A DAY DOSING) , NOTES: 01/23 2230 TAKING NYSTATIN [id number] UNIT/GM CREAM APPLY EXTERNALLY TO AFFECTED JULIÁN AREA TWO TIMES A DAY , NOTES: 01/24 700 TAKING OXYBUTYNIN CHLORIDE ER 15 MG TABLET EXTENDED RELEASE 24 HOUR TAKE ONE TABLET BY MOUTH ONCE A DAY , NOTES: 01/24 730 TAKING SPIRONOLACTONE 50 MG TABLET TAKE ONE TABLET BY MOUTH EVERY DAY , NOTES: 01/23 2230 TAKING SINGULAIR 10 MG TABLET TAKE ONE TABLET BY MOUTH ONCE A DAY IN THE EVENING , NOTES: 01/23 2230 TAKING VITAMIN D 2000 UNIT TABLET TAKE ONE TABLET BY MOUTH DAILY , NOTES: 01/24 730 TAKING CALCIUM + D3 600-200 MG-UNIT TABLET TAKE ONE TABLET BY MOUTH EVERY DAY , NOTES: 01/24 730 TAKING DAILY-KIRAN - TABLET TAKE ONE TABLET BY MOUTH EVERY DAY , NOTES: 01/24 730 TAKING JOBST ACTIVEWEAR 15-20MMHG - MISCELLANEOUS DIRECTED DX: SPIDER VEINS, VENOUS INSUFF DAILY TAKING PROAIR HFA 108 (90 BASE) MCG/ACT AEROSOL SOLUTION 2 PUFFS NEEDED INHALATION EVERY 6 HRS, NOTES: NONE RECENT TAKING ADVAIR HFA 115-21 MCG/ACT AEROSOL 2 PUFFS INHALATION TWICE A DAY, NOTES: 01/24 730 TAKING JARDIANCE 10 MG TABLET 1 TABLET ORALLY ONCE A DAY, NOTES: 01/24 1600 TAKING LEVEMIR FLEX TOUCH 100 UNIT/ML SOLUTION 4 UNITS SUBCUTANEOUS DAILY DX: E11.65, NOTES: 01/23 2100 TAKING ATORVASTATIN CALCIUM 20 MG TABLET 1 TABLET ORALLY ONCE AT BEDTIME, NOTES: 01/23 2230 TAKING LIDODERM 5 % PATCH 2 PATCH TO SKIN REMOVE AFTER 12 HOURS EXTERNALLY ONCE A DAY - 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 DUQUE ASTHMA COPD/CHRONIC BRONCHITIS - SPIROMETRY 09/2015 FEV1 = 1.7, FVC = 1.785, RATIO = 91.7 - POOR QUALITY SUSPECT MIXED PICTURE COPD/ RESTRICTIVE FROM OBESITY. NICOTINE DEPENDENCE - IN REMISSION QUITE 01/2018 GERD CLAUDIA - ON CPAP TOLERATING CPAP CHRONIC VENOUS INSUFFICIENCY LEFT BREAST ABSCESS HX INCONTINENCE, CYSTOCELE HX ABNORMAL PAP (AGE 20'S, 30'S) DYSPAREUNIA FATTY LIVER PER US 03/2015 ECHO 03/2015 - BORDERLINE LVH EF 65%. MILDLY DILATED LEFT ATRIUM. IMPAIRED LV DIASTOLIC FUNCTION. NORMAL LEFT ATRIAL PRESSURE, MILD PULM HTN. ENDOMETRIOSIS DIABETES TYPE 2 - INSULIN REQUIRING HYPERLIPIDEMIA HERPES TYPE 2 - BREAKOUT IN [facility] 03/29/18 SHINGLES - 02/2018 MIGRAINES - FOLLOWS WITH NEUROLOGY - GETTING BOTOX INJECTIONS 09/2018 DIABETIC NEUROPATHY LEFT LEG AND FOOT TONSIL STONE AND ABSCESS ALLERGIES CHANTIX: NIGHT TERRORS - SIDE EFFECTS DEPAKOTE: COULDN'T STAY AWAKE - SIDE EFFECTS SULFA (FOR ALLERGY USE ONLY): RASH - ALLERGY LATEX (FOR ALLERGY USE ONLY): HIVES - ALLERGY METFORMIN HCL: SEVERE N/V - SIDE EFFECTS SURGICAL HISTORY CLEFT/LIP/PALATE SURGERY 1961 DEVIATED NASAL SEPTUM 05/1998 01/1993 ENDOMETRIAL BIOPSY 1999 CHOLECYSTECTOMY 10/1997 TVT 2009 EGD/COLONOSCOPY (DR. TAYLOR) 2010 TUBES PLACED IN EARS ENDOMETRIAL ABLATION 2007 COLPOSCOPY/ECC 1999 CRYO FOR ABNORMAL PAP AGE 22'S COLONOSCOPY WITH BIOPSIES - NEGATIVE FOR MICROSCOPIC COLITIS (DR.. DUEÑAS) 09/2014 FAMILY HISTORY FATHER: 69 YRS, LUNG CANCER, HTN, DM-2, DIAGNOSED WITH DIABETES, HYPERTENSION, HEART DISEASE, CANCER MOTHER: 64 YRS, COLON CANCER, HTN, DM-2, CANCER, DIABETES, HYPERTENSION, HEART DISEASE SIBLINGS: ALIVE, BOTH HTN SISTER LYMPH CANCER IN 60'S SON(S): ALIVE 18 YRS DAUGHTER(S): ALIVE 19 YRS PATERNAL AUNT: ALIVE LATE 60'S YRS, BREAST CANCER, DX IN LATE 50 'S MATERNAL AUNT: , OVARIAN CANCER UNKNOWN AGE 1 BROTHER(S) , 1 SISTER(S) - HEALTHY. 1 SON(S) , 1 DAUGHTER(S) - HEALTHY. 10/2018 SISTER HEART ATTACK. SOCIAL HISTORY GENERAL: TOBACCO USE ARE YOU A:FORMER SMOKER HOW LONG HAS IT BEEN SINCE YOU LAST SMOKED?1-5 YEARS HIV / HEP-C SCREENING HIV TEST OFFERED TO PATIENT:YES DATE OFFERED:01/12/2018 TEST ACCEPTED:NO HEP-C TEST OFFERED TO PATIENT:YES DATE OFFERED:01/12/2018 REASON:PATIENT DECLINED TEST ACCEPTED:NO BROCHURE PROVIDED TO PATIENTNO OTHERS AT HOME: S.O.-JESSICA, 2 CATS. HOUSING: RENTS APARTMENT. 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 DIET: DIABETIC DIET. LANGUAGE LANGUAGES SPOKEN:FRENCH DOMESTIC VIOLENCE DO YOU FEEL SAFE IN YOUR ENVIRONMENT?YES BMI CARE GOAL FOLLOW-UP ABOVE NORMAL BMI FOLLOW-UPDIETARY NEEDS EDUCATION RECREATIONAL DRUG USE DENIES. EXERCISE: NO REGULAR EXERCISE. LEARNING BARRIERS / SPECIAL NEEDS CHANGE FROM LAST VISIT?NO BARRIERS TO LEARNING?NO HEARING IMPAIRED?YES VISION IMPAIRED?YES COGNITIVELY IMPAIRED?NO :HEARING AIDES RIGHT EAR ONLY :CORRECTIVE LENSES READINESS TO LEARN?YES LEARNING PREFERENCES?NO LEARNING CAPABILITIES PRESENT?YES EMOTIONAL BARRIERS?NO SPECIAL DEVICES?YES :WALKER SILVER CLEANER NEEDED?NO LUNG CANCER SCREENING SMOKING STATUS:FORMER SMOKER IS THE PATIENT BETWEEN THE AGE OF 55 AND 77?YES PAIN CLINIC PFS, CLERGY, PUBLIC HEALTH REFERRALS HAS THE PATIENT BEEN EDUCATED REGARDING HIS/HER PLAN OF CARE?YES HAS THE PATIENT BEEN EDUCATED REGARDING PAIN, THE RISK FOR PAIN, THE IMPORTANCE OF EFFECTIVE PAIN MANAGEMENT, AND THE PAIN ASSESSMENT PROCESS?YES LATEX QUESTIONNAIRE LATEX ALLERGY : HAVE YOU EVER DEVELOPED ANY TYPE OF REACTION AFTER HANDLING LATEX PRODUCTS SUCH RUBBER GLOVES, CONDOMS, DIAPHRAGMS, BALLOONS, SOCKS, OR UNDERWEAR?YES - PLEASE INDICATE :RUBBER GLOVES LATEX ALLERGY : HAVE YOU EVER DEVELOPED ANY TYPE OF REACTION DURING OR AFTER DENTAL APPOINTMENT, VAGINAL/RECTAL EXAMINATION, SURGICAL PROCEDURE, OR ANY OTHER EXPOSURE?NO LATEX RISK : HAVE YOU EVER HAD ANY DIFFICULTY BREATHING OR HIVES AFTER EATING OR HANDLING ANY FRUITS, OR VEGETABLES; SUCH KIWI, BANANAS, STONE FRUITS, OR CHESTNUTSNO LATEX RISK : DO YOU HAVE A PREVIOUS PERSONAL HISTORY OF MORE THAN NINE SURGERIES, SPINA BIFIDA, OR REPEATED CATHERTIZATIONS? YES - PLEASE INDICATE : > 9 SURGERIES LATEX RISK : ARE YOU FREQUENTLY EXPOSED TO LATEX PRODUCTS IN YOUR OCCUPATION?NO DATE ASKED : 01/24/2019 CAFF[place]INE 0-1/DAY. ADVANCE DIRECTIVE ADVANCE DIRECTIVE DISCUSSED WITH PATIENT:YES PT STATES HCP RUT VIEIRA [phone], XI COTTER [phone] ALEJANDRA COTTER [phone] RESTORATIONIST [id number] ZOROASTRIANISM MARITAL STATUS: . ALCOHOL SCREENING DID YOU HAVE A DRINK CONTAINING ALCOHOL IN THE PAST YEAR?YES HOW OFTEN DID YOU HAVE SIX OR MORE DRINKS ON ONE OCCASION IN THE PAST YEAR?NEVER (0 POINTS) HOW MANY DRINKS DID YOU HAVE ON A TYPICAL DAY WHEN YOU WERE DRINKING IN THE PAST YEAR?1 OR 2 (0 POINTS) HOW OFTEN DID YOU HAVE A DRINK CONTAINING ALCOHOL IN THE PAST YEAR?MONTHLY OR LESS (1 POINT) POINTS1 INTERPRETATIONNEGATIVE OCCUPATION: DISABLED. SEXUAL HX HAD SEX IN THE LAST 12 MONTHS (VAGINAL, ORAL, OR ANAL)?NO LMP:2007 HAVE YOU EVER HAD AN STD?NO 01/24/19 REVIEWED WITH PT. 02/01/19 REVIEWED WITH PT LAS. HOSPITALIZATION/MAJOR DIAGNOSTIC PROCEDURE MAJOR DEPRESSION , SUICIDAL ATTEMPT TWICE. ([facility]) SURGERIES ABOVE DEHYDRATION 04/2018 REVIEW OF SYSTEMS REVIEWED BY: PROVIDER: CHILO BASS . CONSTITUTIONAL: ANY CHANGE IN YOUR MEDICAL CONDITION? NO . CHILLS NO . FEVER NO . INFECTION: DO YOU HAVE NEW INFECTIONS? NO . DO YOU HAVE HISTORY OF MRSA? NO . MUSCULOSKELETAL: ANY NEW PATTERNS OF PAIN OR NUMBNESS? PT HAD BILATERAL SACRO ILIAC JOINT BLOCK DONE 01/24/19, REPORTS MODERATE RELIEF OF PAIN, STILL HAS PAIN RATED A 5 IN LOW BACK . GASTROENTEROLOGY: ANY NEW CHANGE IN BOWEL CONTROL? NO . GENITOURINARY: ANY NEW CHANGE IN BLADDER CONTROL? NO . IS THERE A CHANCE YOU COULD BE ? NO . HEMATOLOGY/LYMPH: DO YOU TAKE ANY BLOOD THINNERS? (FOR EXAMPLE- COUMADIN, PLAVIX, AGGRENOX, PLATEL, PRADAXA, OR XARELTO) NO . WHEN WAS YOUR LAST DOSE? DATE: TIME: . NEUROLOGY: HAVE YOU FALLEN IN THE PAST 12 MONTHS? NO . ANY NEW EXTREMITY NUMBNESS OR WEAKNESS? NO . CARDIOLOGY: DO YOU HAVE A PACEMAKER OR DEFIBRILLATOR? NO . RESPIRATORY: HAVE YOU BEEN SICK IN THE PAST WEEK? NO . FEVER NO . FLU LIKE SYMPTOMS? NO . COUGH NO . INTEGUMENTARY: DO YOU HAVE ANY RASHES OR OPEN SORES? NO . ALLERGIC/IMMUNO: ARE YOU ALLERGIC TO IV DYE? NO . ANY NEW ALLERGIES? NO . PSYCHIATRIC: DO YOU HAVE THOUGHTS OF HURTING YOURSELF OR SOMEONE ELSE? NO . ARE YOU ABUSED, NEGLECTED, OR IN AN UNSAFE ENVIRONMENT? NO . ENDOCRINOLOGY: ARE YOU DIABETIC? NO . OTHER: DO YOU NEED ANY PRESCRIPTIONS? NO . IF YES, PLEASE LIST: ____ . ANY NEW PROBLEMS WITH YOUR MEDICATIONS? NO . WHEN DID YOU LAST EAT? ____ . WHEN DID YOU LAST DRINK? ____ . WHAT DID YOU LAST DRINK? ____ . NAME OF PERSON DRIVING YOU HOME? ____ . DO YOU HAVE ANY OTHER QUESTIONS OR CONCERNS NO . VITAL SIGNS WT 212.4 LBS, HT 65 IN, BMI 35.34 INDEX, BP 137/74 MM HG, HR 58 /MIN, RR 16 /MIN, TEMP 97.2 F, OXYGEN SAT % 94%, SAFE IN ENV? (Y/N) YES, NA INITIALS SC 13:20, REVIEWED BY: GAVIN. EXAMINATION GENERAL EXAMINATION: GENERAL APPEARANCE:AWAKE,ALERT ,PLEAASANT . PSYCHAFFECT NORMAL . LUNGS:LUNG CHATTERJEE ARE CLEAR TO AUSCULTATION BILATERALLY. GOOD MOVEMENT OF AIR . HEART:S1, S2 IN A REGULAR RATE AND RHYTHM. NO SIGNIFICANT MURMURS, RUBS OR GALLOPS NOTED . ASSESSMENTS SACROILIITIS - M46.1 (PRIMARY) TREATMENT SACROILIITIS NOTES: CONTINUE HOME EXCERSISE. PROCEDURE CODES FA211 ESTABILISHED PATIENT [facility] CHARGE DISPOSITION & COMMUNICATION FOLLOW UP 2 MONTHS ELECTRONICALLY SIGNED BY KALI VILLEGAS ON 02/21/2019 AT 04:16 PM EDT DISCLAIMER : THIS IS A VISIT SUMMARY EXTRACTED FROM THE [employer] CHART. IT IS NOT A COPY OF THE [employer] PROGRESS NOTE. NATALIE
== END ==
LOC: M PAIN 13:30
PROVIDERS: ATTEND Nurse Practitioner Family
DX: M46.1 Sacroiliitis, not elsewhere classified (principal); Z86.59 Personal history of other mental and behavioral disorders; G40.909 Epilepsy, unspecified, not intractable, without status epilepticus; J44.9 Chronic obstructive pulmonary disease, unspecified; K21.9 Gastro-esophageal reflux disease without esophagitis; E11.9 Type 2 diabetes mellitus without complications; E78.5 Hyperlipidemia, unspecified; G43.909 Migraine, unspecified, not intractable, without status migrainosus; Z87.891 Personal history of nicotine dependence; Z88.2 Allergy status to sulfonamides; Z88.8 Allergy status to other drugs, medicaments and biological substances; Z91.040 Latex allergy status; Z79.82 Long term (current) use of aspirin; Z79.4 Long term (current) use of insulin; Z79.899 Other long term (current) drug therapy

== ENCOUNTER → 2019-02-28 | Outpatient (REF) | payer MEDICARE, MEDICAID ==
[~2019-02-28] MED LIST changes: -TRAZ-160 PO; +TRAZ-252 PO
== END ==
LOC: M LAB REF 15:36
PROVIDERS: ATTEND Ophthalmology
DX: H02.824 Cysts of left upper eyelid (principal)

== ENCOUNTER → 2019-04-04 | Outpatient (REF) | payer MEDICARE, MEDICAID ==
[2019-04-04 12:40] LABS: ALBUMIN 3.8 GM/DL (3.2-5.2); ALT/SGPT 28 U/L (12-78); BILIRUBIN,TOTAL 0.5 MG/DL (0.2-1.0); BLOOD UREA NITROGEN 9 MG/DL (7-18); CALCIUM LEVEL 8.9 MG/DL (8.5-10.1); CARBON DIOXIDE LEVEL 28 MEQ/L (21-32); CHLORIDE LEVEL 107 MEQ/L (98-107); CREATININE FOR GFR 1.01 MG/DL (0.55-1.30); GLOMERULAR FILTRATION RATE > 60.0 (>51); GLUCOSE, FASTING 87 MG/DL (70-100); POTASSIUM SERUM 3.8 MEQ/L (3.5-5.1); SODIUM LEVEL 143 MEQ/L (136-145); TOTAL PROTEIN 6.8 GM/DL (6.4-8.2)
[2019-04-04 12:52] LABS: HEMOGLOBIN A1c 5.3 %
[2019-04-04 12:53] LABS: TOTAL 25(OH) VITAMIN D 39.3 NG/ML (30.0-100.0)
[2019-04-04 20:00] LABS: MALB URINE SIEMENS 14.7 MG/L; MAU/CREAT RATIO 11.3 MCG/MG (0.0-30.0)
== END ==
LOC: M SFHCADAM 08:44
PROVIDERS: ATTEND Physician Assistant
DX: E11.9 Type 2 diabetes mellitus without complications (principal); E78.49 Other hyperlipidemia; E55.9 Vitamin D deficiency, unspecified

== ENCOUNTER → 2019-04-24 | Outpatient (CLI) | payer MEDICARE, MEDICAID ==
--- NOTE | 2019-04-26 01:36 | ECWPNPC ---
PATIENT NAME: YAIMA CORRALES : 1960 GENDER: FEMALE VISIT DATE: 04/24/2019 DISCHARGE DATE: 04/24/19 1427 VISIT LOCKED DATE TIME: PHYSICIAN: LEAH ARELLANO RESOURCE: LEAH ARELLANO REASON FOR APPOINTMENT 1. LOW BACK HISTORY OF PRESENT ILLNESS HISTORY OF PRESENT ILLNESS: PAIN THE PATIENT DESCRIBES THE PAIN... 58 YEAR OLD FEMALE IN FOR CHRONIC PAIN FOLLOW UP. SHE IS INTERESTED IN A PROCEDURE TO HELP MANAGE HER PAIN. SHE CURRENTLY RATES HER PAIN AT A 5/10. FALL RISK SCREENING: SCREENING :NO FALLS REPORTED IN THE LAST YEAR CURRENT MEDICATIONS TAKING DEPEND PANT EXTRA LARGE _ UNDERGARMENTS DIAG CODE SIZE LARGE DX:N39.41 DAILY= MDD 24 TAKING ONE TOUCH ULTRA BLUE STRIPS DIRECTED DX: E11.65 TWICE A DAY ADN NEEDED TAKING ANUSOL-HC 2.5 % CREAM 1 APPLICATION TO AFFECTED AREA RECTAL TWICE A DAY, NOTES: NONE RECENT TAKING GABAPENTIN 100 100 MG (LATTIF) TABLET 2 TABS ORAL TID TAKING VITAMIN C 500 MG CAPSULE DIRECTED ORALLY ONCE A DAY TAKING LEVETIRACETAM 250 MG (LATTIF) TABLET 1 TAB IN THE AM 2 TABS IN THE PM ORALLY TWICE DAILY TAKING BUSPIRONE HCL 50 TABLET 1 TAB ORALLY TID TAKING VIMPAT 50 MG TABLET 1 TAB ORALLY TWICE A DAY TAKING ABILIFY 5 MG TABLET 1 TABLET ORALLY ONCE A DAY TAKING HYDROXYZINE HCL 50MG MERCY TABLET 1 TABLET ORALLY TWICE A DAY TAKING GLUCOMETER DIRECTED E11.65 TWICE ADAY AND NEEDED TAKING PROPRANOLOL HCL 10MG 1 TAB ORALLY NIGHTLY TAKING CYMBALTA 60 MG CAPSULE DELAYED RELEASE PARTICLES 1 CAPSULE ALONG WITH A 30 MG ORALLY ONCE A DAY TAKING TRAZODONE HCL 50 MG TABLET 1 1/2 TABLET AT BEDTIME NEEDED ORALLY ONCE A DAY TAKING PEN NEEDLES 31G X 6 MM MISCELLANEOUS DIRECTED SUBCUTANEOUSLY DAILY E11.65 TAKING NEBULIZER/ADULT MASK - KIT DIRECTED DX: J44.9 MASK AND TUBING TAKING ALBUTEROL SULFATE (2.5 MG/3ML) 0.083% NEBULIZATION SOLUTION 3 ML INHALATION EVERY 4-6 HOURS NEEDED, NOTES: NONE RECENT TAKING TENS UNIT ELECTRO PADS - DIRECTED DX:M12.88 DIRECTED TAKING RANITIDINE HCL 300 MG CAPSULE 1 CAPSULE AT BEDTIME ORALLY ONCE A DAY AT BEDTIME TAKING OMEPRAZOLE 40MG 40 MG TABLET 1 TAB(S) ORAL DAILY AT BEDTIME TAKING DEPEND PANT LARGE . MISCELLANEOUS DIRECTED DX: N39.41,ID# [id number] DAILY MDD = 24 TAKING ACCU-CHEK SOFT TOUCH LANCETS - MISCELLANEOUS DIRECTED DX: E11.65 TWICE A DAY AND NEEDED TAKING ROLLING WALKER 1 1 DIRECTED ROLLING WALKER WITH SEAT DX; J44.9, M51.16 TAKING TOPIRAMATE 50 MG TABLET TAKE ONE TABLET BY MOUTH AT BEDTIME ORAL TAKING BOTOX 100 UNIT SOLUTION RECONSTITUTED GIVEN WITH NEURO INJECTION EVERY 3 MONTHS FOR MIGRAINES TAKING ASPIRIN 81 MG TABLET DELAYED RELEASE 1 TABLET ORALLY ONCE A DAY TAKING BLOOD GLUCOSE TEST - STRIP DIRECTED IN VITRO BEFORE MEALS AND AT BEDTIME. DX: Z79.4 TAKING CHLORTHALIDONE 25 MG TABLET TAKE 1/2 TABLET BY MOUTH ONCE DAILY TAKING NYSTATIN 155685 UNIT/GM CREAM APPLY EXTERNALLY TO AFFECTED JULIÁN AREA TWO TIMES A DAY TAKING OXYBUTYNIN CHLORIDE ER 15 MG TABLET EXTENDED RELEASE 24 HOUR TAKE ONE TABLET BY MOUTH ONCE A DAY TAKING SPIRONOLACTONE 50 MG TABLET TAKE ONE TABLET BY MOUTH EVERY DAY TAKING SINGULAIR 10 MG TABLET TAKE ONE TABLET BY MOUTH ONCE A DAY IN THE EVENING TAKING DAILY-KIRAN - TABLET TAKE ONE TABLET BY MOUTH EVERY DAY TAKING JOBST ACTIVEWEAR 15-20MMHG - MISCELLANEOUS DIRECTED DX: SPIDER VEINS, VENOUS INSUFF DAILY TAKING PROAIR HFA 108 (90 BASE) MCG/ACT AEROSOL SOLUTION 2 PUFFS NEEDED INHALATION EVERY 6 HRS TAKING ADVAIR HFA 115-21 MCG/ACT AEROSOL 2 PUFFS INHALATION TWICE A DAY TAKING LEVEMIR FLEX TOUCH 100 UNIT/ML SOLUTION 4 UNITS SUBCUTANEOUS DAILY DX: E11.65 TAKING ATORVASTATIN CALCIUM 20 MG TABLET 1 TABLET ORALLY ONCE AT BEDTIME TAKING LIDODERM 5 % PATCH 2 PATCH TO SKIN REMOVE AFTER 12 HOURS EXTERNALLY ONCE A DAY - APPLY TO LOW BACK FOR POST HERPETIC NEURALGIA TAKING UNIFINE PENTIPS 31G X 6 MM MISCELLANEOUS USE DIRECTED DAILY TAKING VALACYCLOVIR HCL 500 MG TABLET TAKE ONE TABLET BY MOUTH EVERY DAY (AFTER TWO TIMES A DAY DOSING) TAKING ZYRTEC ALLERGY 10 MG TABLET 1 TABLET ORALLY ONCE A DAY TAKING JARDIANCE 10 MG TABLET 1 TABLET ORALLY ONCE A DAY TAKING VITAMIN D 2000 UNIT TABLET TAKE ONE TABLET BY MOUTH DAILY TAKING CALCIUM + D3 600-200 MG-UNIT TABLET TAKE ONE TABLET BY MOUTH EVERY DAY NOT-TAKING FLUTICASONE FUROATE 27.5 MCG/SPRAY SUSPENSION 1 PUFF IN EACH NOSTRIL NASALLY ONCE A DAY, NOTES: NONE RECENT NOT-TAKING SHINGRIX 50 MCG/0.5ML SUSPENSION RECONSTITUTED DIRECTED INTRAMUSCULAR 1 DOSE NOW, REPEAT IN 2 MONTHS MEDICATION LIST REVIEWED AND RECONCILED WITH THE PATIENT PAST MEDICAL HISTORY PTSD DEPRESSION/PANIC DISORDER EPILEPSY FOLLOWED BY DR. DUQUE ASTHMA COPD/CHRONIC BRONCHITIS - SPIROMETRY 09/2015 FEV1 = 1.7, FVC = 1.785, RATIO = 91.7 - POOR QUALITY SUSPECT MIXED PICTURE COPD/ RESTRICTIVE FROM OBESITY. NICOTINE DEPENDENCE - IN REMISSION QUITE 01/2018 GERD CLAUDIA - ON CPAP TOLERATING CPAP CHRONIC VENOUS INSUFFICIENCY LEFT BREAST ABSCESS HX INCONTINENCE, CYSTOCELE HX ABNORMAL PAP (AGE 20'S, 30'S) DYSPAREUNIA FATTY LIVER PER US 03/2015 ECHO 03/2015 - BORDERLINE LVH EF 65%. MILDLY DILATED LEFT ATRIUM. IMPAIRED LV DIASTOLIC FUNCTION. NORMAL LEFT ATRIAL PRESSURE, MILD PULM HTN. ENDOMETRIOSIS DIABETES TYPE 2 - INSULIN REQUIRING HYPERLIPIDEMIA HERPES TYPE 2 - BREAKOUT IN [facility] 03/29/18 SHINGLES - 02/2018 MIGRAINES - FOLLOWS WITH NEUROLOGY - GETTING BOTOX INJECTIONS 09/2018 DIABETIC NEUROPATHY LEFT LEG AND FOOT TONSIL STONE AND ABSCESS ALLERGIES CHANTIX: NIGHT TERRORS - SIDE EFFECTS DEPAKOTE: COULDN'T STAY AWAKE - SIDE EFFECTS SULFA (FOR ALLERGY USE ONLY): RASH - ALLERGY LATEX (FOR ALLERGY USE ONLY): HIVES - ALLERGY METFORMIN HCL: SEVERE N/V - SIDE EFFECTS SURGICAL HISTORY CLEFT/LIP/PALATE SURGERY 1961 DEVIATED NASAL SEPTUM 05/1998 01/1993 ENDOMETRIAL BIOPSY 1999 CHOLECYSTECTOMY 10/1997 TVT 2009 EGD/COLONOSCOPY (DR. TAYLOR) 2010 TUBES PLACED IN EARS ENDOMETRIAL ABLATION 2007 COLPOSCOPY/ECC 1999 CRYO FOR ABNORMAL PAP AGE 20'S COLONOSCOPY WITH BIOPSIES - NEGATIVE FOR MICROSCOPIC COLITIS (DR.. DUEÑAS) 09/2014 CYST REMOVAL LEFT EYE 01/2019 FAMILY HISTORY FATHER: 69 YRS, LUNG CANCER, HTN, DM-2, DIAGNOSED WITH CANCER, DIABETES, HYPERTENSION, HEART DISEASE MOTHER: 64 YRS, COLON CANCER, HTN, DM-2, HEART DISEASE, CANCER, DIABETES, HYPERTENSION SIBLINGS: ALIVE, BOTH HTN SISTER LYMPH CANCER IN 60'S SON(S): ALIVE 18 YRS DAUGHTER(S): ALIVE 19 YRS PATERNAL AUNT: ALIVE LATE 60'S YRS, BREAST CANCER, DX IN LATE 50 'S MATERNAL AUNT: , OVARIAN CANCER UNKNOWN AGE 1 BROTHER(S) , 1 SISTER(S) - HEALTHY. 1 SON(S) , 1 DAUGHTER(S) - HEALTHY. 10/2018 SISTER HEART ATTACK. SOCIAL HISTORY GENERAL: TOBACCO USE ARE YOU A:FORMER SMOKER HOW LONG HAS IT BEEN SINCE YOU LAST SMOKED?5-10 YEARS HIV / HEP-C SCREENING HIV TEST OFFERED TO PATIENT:YES DATE OFFERED:01/12/2018 TEST ACCEPTED:NO HEP-C TEST OFFERED TO PATIENT:YES DATE OFFERED:01/12/2018 REASON:PATIENT DECLINED TEST ACCEPTED:NO BROCHURE PROVIDED TO PATIENTNO OTHERS AT HOME: S.O.-JESSICA, 2 CATS. HOUSING: RENTS APARTMENT. SECURITY COORDINATOR DEGREE. DIET: DIABETIC DIET. LANGUAGE LANGUAGES SPOKEN:ROMANIAN DOMESTIC VIOLENCE DO YOU FEEL SAFE IN YOUR ENVIRONMENT?YES BMI CARE GOAL FOLLOW-UP ABOVE NORMAL BMI FOLLOW-UPDIETARY NEEDS EDUCATION RECREATIONAL DRUG USE DENIES. EXERCISE: NO REGULAR EXERCISE. LEARNING BARRIERS / SPECIAL NEEDS CHANGE FROM LAST VISIT?NO BARRIERS TO LEARNING?NO HEARING IMPAIRED?YES VISION IMPAIRED?YES COGNITIVELY IMPAIRED?NO :HEARING AIDES RIGHT EAR ONLY :CORRECTIVE LENSES READINESS TO LEARN?YES LEARNING PREFERENCES?NO LEARNING CAPABILITIES PRESENT?YES EMOTIONAL BARRIERS?NO SPECIAL DEVICES?YES :WALKER BLENDER OPERATOR NEEDED?NO LUNG CANCER SCREENING SMOKING STATUS:FORMER SMOKER IS THE PATIENT BETWEEN THE AGE OF 55 AND 77?YES PAIN CLINIC PFS, CLERGY, PUBLIC HEALTH REFERRALS HAS THE PATIENT BEEN EDUCATED REGARDING HIS/HER PLAN OF CARE?YES HAS THE PATIENT BEEN EDUCATED REGARDING PAIN, THE RISK FOR PAIN, THE IMPORTANCE OF EFFECTIVE PAIN MANAGEMENT, AND THE PAIN ASSESSMENT PROCESS?YES LATEX QUESTIONNAIRE LATEX ALLERGY : HAVE YOU EVER DEVELOPED ANY TYPE OF REACTION AFTER HANDLING LATEX PRODUCTS SUCH RUBBER GLOVES, CONDOMS, DIAPHRAGMS, BALLOONS, SOCKS, OR UNDERWEAR?YES LATEX ALLERGY : HAVE YOU EVER DEVELOPED ANY TYPE OF REACTION DURING OR AFTER DENTAL APPOINTMENT, VAGINAL/RECTAL EXAMINATION, SURGICAL PROCEDURE, OR ANY OTHER EXPOSURE?NO - PLEASE INDICATE :RUBBER GLOVES DATE ASKED : 04/11/2019 LATEX RISK : HAVE YOU EVER HAD ANY DIFFICULTY BREATHING OR HIVES AFTER EATING OR HANDLING ANY FRUITS, OR VEGETABLES; SUCH KIWI, BANANAS, STONE FRUITS, OR CHESTNUTSNO LATEX RISK : DO YOU HAVE A PREVIOUS PERSONAL HISTORY OF MORE THAN NINE SURGERIES, SPINA BIFIDA, OR REPEATED CATHERIZATIONS? YES - PLEASE INDICATE : > 9 SURGERIES LATEX RISK : ARE YOU FREQUENTLY EXPOSED TO LATEX PRODUCTS IN YOUR OCCUPATION?NO CAFFEINE 0-1/DAY. ADVANCE DIRECTIVE ADVANCE DIRECTIVE DISCUSSED WITH PATIENT:YES PT STATES HCP RUT VIEIRA [phone], XI VAHE [phone] ALEJANDRA COTTER- [phone] CONGREGATION [id number] ZOROASTRIANISM MARITAL STATUS: . ALCOHOL SCREENING DID YOU HAVE A DRINK CONTAINING ALCOHOL IN THE PAST YEAR?YES HOW OFTEN DID YOU HAVE SIX OR MORE DRINKS ON ONE OCCASION IN THE PAST YEAR?NEVER (0 POINTS) HOW MANY DRINKS DID YOU HAVE ON A TYPICAL DAY WHEN YOU WERE DRINKING IN THE PAST YEAR?1 OR 2 (0 POINTS) HOW OFTEN DID YOU HAVE A DRINK CONTAINING ALCOHOL IN THE PAST YEAR?MONTHLY OR LESS (1 POINT) POINTS1 INTERPRETATIONNEGATIVE OCCUPATION: DISABLED. SEXUAL HX HAD SEX IN THE LAST 12 MONTHS (VAGINAL, ORAL, OR ANAL)?NO LMP:2007 HAVE YOU EVER HAD AN STD?NO 10/10/18 REVIEWED WITH PT. 02/01/19 REVIEWED WITH PT LAS04/24/19 REVIEWED WITH PT NLJ. HOSPITALIZATION/MAJOR DIAGNOSTIC PROCEDURE MAJOR DEPRESSION , SUICIDAL ATTEMPT TWICE. ( TRACY) SURGERIES ABOVE DEHYDRATION 04/2018 REVIEW OF SYSTEMS REVIEWED BY: PROVIDER: CORY BUSTOS . CONSTITUTIONAL: ANY CHANGE IN YOUR MEDICAL CONDITION? NO . CHILLS NO . FEVER NO . INFECTION: DO YOU HAVE NEW INFECTIONS? NO . DO YOU HAVE HISTORY OF MRSA? NO . MUSCULOSKELETAL: ANY NEW PATTERNS OF PAIN OR NUMBNESS? YES- STATES PAIN AFTER PROCEDURE WAS GONE BUT RETURNED WITHIN 2-3 DAYS, STATE PAIN IS WORSE AND IS IN LEFT SHOULDER AND ARM, AND IS HARDER TO GET UP AND OUT OF BED DAILY, STATES SHE HAS "JELLY LEGS" . GASTROENTEROLOGY: ANY NEW CHANGE IN BOWEL CONTROL? YES- AT LEAST ONCE A WEEK HAS LOSS OF BOWEL CONTROL . GENITOURINARY: ANY NEW CHANGE IN BLADDER CONTROL? NO . IS THERE A CHANCE YOU COULD BE ? NO . HEMATOLOGY/LYMPH: DO YOU TAKE ANY BLOOD THINNERS? (FOR EXAMPLE- COUMADIN, PLAVIX, AGGRENOX, PLATEL, PRADAXA, OR XARELTO) NO . WHEN WAS YOUR LAST DOSE? DATE: TIME: . NEUROLOGY: HAVE YOU FALLEN IN THE PAST 12 MONTHS? YES- FELL 03/27/19- FELL WHILE WALKING ON SIDEWALK, TRIPPED OVER EDGE OF SIDEWALK ON STATES SHE FELL FACE FIRST, STATES SHE HAD BRUISES, STATES NO MEDICAL CARE RECEIVED . ANY NEW EXTREMITY NUMBNESS OR WEAKNESS? YES- LEFT ARM FEELS HEAVY AND HARD TO MOVE, NIKKO IN LEFT SHOULDER . CARDIOLOGY: DO YOU HAVE A PACEMAKER OR DEFIBRILLATOR? NO . RESPIRATORY: HAVE YOU BEEN SICK IN THE PAST WEEK? NO . FEVER NO . FLU LIKE SYMPTOMS? NO . COUGH NO . INTEGUMENTARY: DO YOU HAVE ANY RASHES OR OPEN SORES? NO . ALLERGIC/IMMUNO: ARE YOU ALLERGIC TO IV DYE? NO . ANY NEW ALLERGIES? NO . PSYCHIATRIC: DO YOU HAVE THOUGHTS OF HURTING YOURSELF OR SOMEONE ELSE? NO . ARE YOU ABUSED, NEGLECTED, OR IN AN UNSAFE ENVIRONMENT? NO . ENDOCRINOLOGY: ARE YOU DIABETIC? YES . OTHER: DO YOU NEED ANY PRESCRIPTIONS? NO . IF YES, PLEASE LIST: ____ . ANY NEW PROBLEMS WITH YOUR MEDICATIONS? YES- STATES BLOOD LEVELS WERE TOO HIGH SO NEUROLOLGIST LOWERED VIMPAT . WHEN DID YOU LAST EAT? ____ . WHEN DID YOU LAST DRINK? ____ . WHAT DID YOU LAST DRINK? ____ . NAME OF PERSON DRIVING YOU HOME? ____ . DO YOU HAVE ANY OTHER QUESTIONS OR CONCERNS YES- LEGS FEEL LIKE JELLY, PAIN MANAGEMENT, STATES SHE NEEDS A MOBILTY SCOOTER, AND STATES MASON AMEZQUITA ORDERED PHYSICAL THERAPY 1 ST APPT IS 04/26/19 . VITAL SIGNS WT 210.6 LBS, HT 65 IN, BMI 35.04 INDEX, BP 149/60 MM HG, HR 60 /MIN, RR 16 /MIN, TEMP 97.0 F, OXYGEN SAT % 94%, NA INITIALS AW 1328. EXAMINATION GENERAL EXAMINATION: GENERALNO ACUTE DISTRESS, WELL NOURISHED AND HYDRATED. PSYCHAPPROPRIATE MOOD AND AFFECT . LUNGS:CLEAR TO AUSCULTATION BILATERALLY, NO WHEEZES, RHONCHI, RALES. HEART:NO MURMURS, REGULAR RATE AND RHYTHM. BACK:POINT TENDER L3-L4, L4-L5, SKIN SHOWS NO ERYTHEMA, INCREASED WARMTH, ECCHYMOSIS, AND/OR SKIN ERUPTIONS. . ASSESSMENTS INTERVERTEBRAL DISC DISORDER WITH RADICULOPATHY OF LUMBAR REGION - M51.16 (PRIMARY) TREATMENT INTERVERTEBRAL DISC DISORDER WITH RADICULOPATHY OF LUMBAR REGION NOTES: LESI L3-L4, L4-L5. CLINICAL NOTES: 58 YEAR OLD FEMALE IN FOR CHRONIC PAIN FOLLOW UP. GIVEN PRESENTING SYMPTOMS AND RESULTS OF PHYSICAL EXAMINATION RECOMMENDED LESI OF L3-L4, L4-L5. PATIENT HAS EXPRESSED UNDERSTANDING OF AND WAS IN AGREEMENT WITH TREATMENT PLAN. GIVEN TIME TO ASK QUESTIONS AND EXPRESS CONCERNS. PREVENTIVE MEDICINE PAIN CLINIC TEACHING: PROCEDURE TEACHING TEACHING SHEETS PROVIDED & REVIEWED FOR LUMBAR STERIOD INJECTIONS. 04/24/19 NLMian. PROCEDURE CODES FA211 ESTABILISHED PATIENT [facility] CHARGE DISPOSITION & COMMUNICATION FOLLOW UP POST PROCEDURE (REASON: LESI L3-L4, L4-L5) ELECTRONICALLY SIGNED BY KALI ROQUE ON 04/25/2019 AT 11:29 AM EDT DISCLAIMER : THIS IS A VISIT SUMMARY EXTRACTED FROM THE [employer] CHART. IT IS NOT A COPY OF THE [employer] PROGRESS NOTE. NATALIE
== END ==
LOC: M PAIN 13:30
PROVIDERS: ATTEND Family Medicine
DX: M51.16 Intervertebral disc disorders with radiculopathy, lumbar region (principal); F43.10 Post-traumatic stress disorder, unspecified; F32.9 Major depressive disorder, single episode, unspecified; F41.0 Panic disorder [episodic paroxysmal anxiety]; G40.909 Epilepsy, unspecified, not intractable, without status epilepticus; J45.909 Unspecified asthma, uncomplicated; J44.9 Chronic obstructive pulmonary disease, unspecified; K21.9 Gastro-esophageal reflux disease without esophagitis; G47.33 Obstructive sleep apnea (adult) (pediatric); I87.2 Venous insufficiency (chronic) (peripheral); K76.0 Fatty (change of) liver, not elsewhere classified; E11.42 Type 2 diabetes mellitus with diabetic polyneuropathy; E78.5 Hyperlipidemia, unspecified; G43.909 Migraine, unspecified, not intractable, without status migrainosus; A60.1 Herpesviral infection of perianal skin and rectum; Z90.49 Acquired absence of other specified parts of digestive tract; Z79.4 Long term (current) use of insulin; Z79.899 Other long term (current) drug therapy; Z79.82 Long term (current) use of aspirin; Z87.891 Personal history of nicotine dependence; Z88.2 Allergy status to sulfonamides; Z88.8 Allergy status to other drugs, medicaments and biological substances; Z91.040 Latex allergy status

== ENCOUNTER 2019-05-25 13:18 | Outpatient (RCR) | payer MEDICARE, MEDICAID | END 2019-05-26 | LOC: M PT 13:18 | PROVIDERS: ATTEND Physician Assistant | DX: Z51.89 Encounter for other specified aftercare (principal); R53.1 Weakness; R26.81 Unsteadiness on feet ==

== ENCOUNTER 2019-06-04 14:12 | Emergency (ER) | payer MEDICARE, MEDICAID ==
[~2019-06-04] VITALS: Ht 162.6 cm; Wt 93.8 kg
[~2019-06-04 14:12] MED LIST changes: -OMEP40CA2 PO; +OMEP40CA97 PO; -VALA1TAB2 PO; +VALA1TAB64 PO
[2019-06-04] MEDS ORDERED: AMAN100T PO (15:32)
[2019-06-04] MEDS ORDERED: JARD1TAB PO (15:32)
[2019-06-04] MEDS ORDERED: VALA500T5 PO (15:32)
[2019-06-04] MEDS ORDERED: OXYB15TA14 PO (15:32)
[2019-06-04] MEDS ORDERED: BOTO200I INJ (15:32)
[2019-06-04] MEDS ORDERED: DULO30CA9 PO (15:32)
[2019-06-04] MEDS ORDERED: NAPR-885 PO (15:34)
[2019-06-04] MEDS ORDERED: FISH1000 PO (15:34)
[2019-06-04] MEDS ORDERED: NS 1,000 ML IV SCH (16:45)
[2019-06-04] MEDS ORDERED: ASPIRIN 81 MG CHEW TABLET PO ONE (16:45)
--- NOTE | 2019-06-04 17:20 | REP ---
CHEST: Single view. There is no evidence of acute infiltrate. No pleural effusion is seen. The heart is normal in size. The mediastinal silhouette is unremarkable. The visualized osseous structures are intact. IMPRESSION: No acute pulmonary disease. Electronically Signed by Deepak Singh MD 06/06/2019 09:54 A
[2019-06-04 17:40] LABS: ABG BASE EXCESS 3.7 (-2.0-2.0); ABG HCO3 29.5 MEQ/L (22.0-26.0); ABG PARTIAL PRESSURE CO2 48.8 mmHg (35.0-45.0); ABG pH (ARTERIAL) 7.399 UNITS (7.350-7.450)
[2019-06-04 17:42] LABS: ABG PARTIAL PRESSURE O2 35.5 mmHg (75.0-100.0)
[2019-06-04 17:56] LABS: BASO # 0.1 10^3/uL (0.0-0.2); BASO % 0.7 % (0.0-1.0); EOS # 0.1 10^3/uL (0.0-0.5); EOS % 1.9 % (0.0-3.0); HEMATOCRIT 41.2 % (36.0-47.0); LYMPH % 44.3 % (24.0-44.0); MEAN CORPUSCULAR HEMOGLOBIN 31.2 pg (27.0-33.0); MEAN CORPUSCULAR VOLUME 91.8 fl (80.0-96.0); MONO # 0.6 10^3/uL (0.0-0.8); MONO % 8.4 % (0.0-5.0); NEUTROPHILS % 44.6 % (36.0-66.0); PLATELET COUNT, AUTOMATED 220 10^3/uL (150-450); RED BLOOD COUNT 4.49 10^6/uL (4.00-5.40); WHITE BLOOD COUNT 6.7 10^3/uL (4.0-10.0)
[2019-06-04 18:20] LABS: ALBUMIN 3.8 GM/DL (3.2-5.2); ALT/SGPT 35 U/L (12-78); BILIRUBIN,DIRECT 0.2 MG/DL (0.0-0.2); BILIRUBIN,TOTAL 0.5 MG/DL (0.2-1.0); BLOOD UREA NITROGEN 11 MG/DL (7-18); CALCIUM LEVEL 9.5 MG/DL (8.5-10.1); CARBON DIOXIDE LEVEL 32 MEQ/L (21-32); CHLORIDE LEVEL 103 MEQ/L (98-107); CPK CREATINE PHOSPHOKINASE 76 U/L (26-192); CREATININE FOR GFR 1.17 MG/DL (0.55-1.30); GLOMERULAR FILTRATION RATE 50.9 (>51); GLUCOSE, FASTING 83 MG/DL (70-100); LIPASE 102 U/L (73-393); MB/CK RELATIVE INDEX 2.63 (< OR =4); POTASSIUM SERUM 3.9 MEQ/L (3.5-5.1); SODIUM LEVEL 142 MEQ/L (136-145); TOTAL PROTEIN 6.9 GM/DL (6.4-8.2); TROPONIN I < 0.02 NG/ML (< 0.10)
[2019-06-04 19:09] VITALS: BP 140/79
--- NOTE | 2019-06-05 07:12 | ECGEPIP ---
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
== END 2019-06-04 19:27 | disposition home or self-care (01) ==
LOC: M ED 14:12
DX: R00.1 Bradycardia, unspecified (principal); R07.89 Other chest pain; R53.83 Other fatigue; E11.9 Type 2 diabetes mellitus without complications; I12.9 Hypertensive chronic kidney disease with stage 1 through stage 4 chronic kidney disease, or unspecified chronic kidney disease; N18.9 Chronic kidney disease, unspecified; Z88.2 Allergy status to sulfonamides; Z88.8 Allergy status to other drugs, medicaments and biological substances; Z91.040 Latex allergy status; Z79.899 Other long term (current) drug therapy

== ENCOUNTER → 2019-06-07 | Outpatient (CLI) | payer OTHER, MEDICAID ==
[~2019-06-07] MED LIST changes: +AMAN100T PO; +BOTO200I INJ; +DULO30CA9 PO; +FISH1000 PO; +JARD1TAB PO; +OMEP40CA2 PO; -OMEP40CA97 PO; +OXYB15TA PO; +VALA1TAB2 PO; -VALA1TAB64 PO; +VALA500T5 PO
== END ==
LOC: M PAIN 11:30
PROVIDERS: ATTEND Anesthesiology
DX: M51.16 Intervertebral disc disorders with radiculopathy, lumbar region (principal); Z53.8 Procedure and treatment not carried out for other reasons

== ENCOUNTER → 2019-06-15 | Outpatient (CLI) | payer MEDICARE, MEDICAID ==
--- NOTE | 2019-06-20 05:57 | HOLTMON ---
[facility] Test Date: 2019-06-15 Pat Name: YAIMA CORRALES Department: Room: - Gender: Female Roving Inspector: Irais Kaba/GABI MULLEN : 1960 Requested By: MASON Butcher PA-C Order Number: [id number] Reading MD: Harvey Friend Interpretive Statements PATIENT DID NOT RETURN DIARY, AND THERE IS A GREAT DEAL OF ARTIFACT IN STUDY. No significant diary entries; diary was not returned. There are 2 strips labeled "dizziness" and the heart rate was in the 60s and 70s with a sinus mechanism at the time. Heart rate variability was blunted, with a minimum heart rate 47 and a maximum heart rate of 94. There was minimal supraventricular and no ventricular ectopy. No runs. No significant ST events or pauses. No atrial fibrillation was seen. Unremarkable Holter monitor except for the generally blunted heart rate, with no pauses. Electronically Signed on 06-20-2019 5:57:01 EDT by Harvey Friend
== END ==
LOC: M EKG 14:09
PROVIDERS: ATTEND Physician Assistant
DX: R00.1 Bradycardia, unspecified (principal)

== ENCOUNTER 2019-06-20 11:15 | Outpatient (RCR) | payer MEDICARE, MEDICAID | END 2019-06-25 | LOC: M PT 11:15 | PROVIDERS: ATTEND Physician Assistant | DX: Z51.89 Encounter for other specified aftercare (principal); R53.1 Weakness; R26.81 Unsteadiness on feet ==

== ENCOUNTER → 2019-07-05 | Outpatient (REF) | payer OTHER, MEDICAID ==
[2019-07-05 14:16] LABS: HEMATOCRIT 44.7 % (36.0-47.0); HEMOGLOBIN 15.1 g/dl (12.0-15.5); MEAN CORPUSCULAR HEMOGLOBIN 30.7 pg (27.0-33.0); MEAN CORPUSCULAR HGB CONC 33.8 g/dl (32.0-36.5); MEAN CORPUSCULAR VOLUME 90.9 fl (80.0-96.0); PLATELET COUNT, AUTOMATED 236 10^3/uL (150-450); RED BLOOD COUNT 4.92 10^6/uL (4.00-5.40); WHITE BLOOD COUNT 8.2 10^3/uL (4.0-10.0)
[2019-07-05 14:30] LABS: ALBUMIN 4.1 GM/DL (3.2-5.2); BILIRUBIN,TOTAL 0.5 MG/DL (0.2-1.0); CALCIUM LEVEL 9.4 MG/DL (8.5-10.1); CREATININE FOR GFR 1.19 MG/DL (0.55-1.30); FREE T4 1.03 NG/DL (0.76-1.46); POTASSIUM SERUM 3.7 MEQ/L (3.5-5.1); THYROID STIMULATING HORMONE 1.78 uIU/ML (0.358-3.740); TOTAL PROTEIN 7.5 GM/DL (6.4-8.2)
[2019-07-05 14:37] LABS: HEMOGLOBIN A1c 5.4 %
== END ==
LOC: M SFHCADAM 11:23
PROVIDERS: ATTEND Physician Assistant
DX: R00.1 Bradycardia, unspecified (principal); I10 Essential (primary) hypertension; R53.1 Weakness; E11.9 Type 2 diabetes mellitus without complications; R25.1 Tremor, unspecified

== ENCOUNTER → 2019-07-12 | Outpatient (REF) | payer OTHER, MEDICAID ==
[~2019-07-12] MED LIST changes: -OMEP40CA2 PO; +OMEP40CA97 PO
[2019-07-12 14:14] LABS: INR 1.03; PROTHROMBIN TIME 13.2 SECONDS (11.8-14.0)
[2019-07-12 14:15] LABS: PARTIAL THROMBOPLASTIN TIME 32.5 SECONDS (25.0-38.4)
[2019-07-13 12:43] LABS: HEPATITIS B CORE ANTIBODY IGM NEGATIVE (NEGATIVE); HEPATITIS B SURFACE ANTIGEN NEGATIVE (NEGATIVE); HEPATITIS C VIRUS ABY INDEX 0.1 INDEX (<0.8)
[2019-07-13 13:56] LABS: HEPATITIS A ANTIBODY IGM NEGATIVE (NEGATIVE)
[2019-07-14 00:07] LABS: ANA (HEP2) Negative (.); ANTI-MITOCHONDRIAL ANTIBODY <20.0 Units (0.0-20.0)
== END ==
LOC: M LABNEURO 08:48
PROVIDERS: ATTEND Physician Assistant
DX: G93.40 Encephalopathy, unspecified (principal)

== ENCOUNTER → 2019-07-18 | Outpatient (CLI) | payer MEDICARE, MEDICAID ==
--- NOTE | 2019-07-18 08:25 | REP ---
Clinical: Encephalopathy. Technique: Real time alas scale ultrasound examination using curved array transducer. Findings: Liver demonstrates coarsened echotexture without focal hepatic lesion and measures 15.3 cm craniocaudal length. The pancreas is incompletely evaluated due to interposed bowel gas. Evidence for prior cholecystectomy noted. No biliary ductal dilatation is appreciated and the common bile duct measures 4.5 mm diameter. The right kidney is normal in reniform shape without hydronephrosis and measures 12.5 x 4.8 x 4.9 cm. No ascites. Impression: Coarsened hepatic echotexture may represent hepatocellular disease. Otherwise normal right upper quadrant ultrasound. Cholecystectomy. Electronically Signed by J Carlos Chin MD 07/18/2019 08:17 A
== END ==
LOC: M RAD 07:11
PROVIDERS: ATTEND Physician Assistant
DX: G93.40 Encephalopathy, unspecified (principal); Z90.49 Acquired absence of other specified parts of digestive tract

== ENCOUNTER → 2019-07-27 | Outpatient (CLI) | payer MEDICARE, MEDICAID ==
--- NOTE | 2019-07-27 10:28 | REP ---
Low-dose screening CT study of the chest without contrast: History: Nicotine dependence. Comparison chest CT study February 10, 2018, November 23, 2017, and March 03, 2010. CT findings: Digital preliminary civil drafter radiograph is unremarkable. There are clips in right upper quadrant of the abdomen. There is no evidence of pulmonary nodule or mass lesion in the lung fragoso. There is minimal linear fibrosis in the left base. No infiltrate is seen. Impression: Lung-RADS category [address] Repeat screening chest CT suggested in 1 year. Electronically Signed by Tj Call MD 07/27/2019 10:46 A
== END ==
LOC: M RAD 09:30
PROVIDERS: ATTEND Physician Assistant
DX: F17.210 Nicotine dependence, cigarettes, uncomplicated (principal); Z12.2 Encounter for screening for malignant neoplasm of respiratory organs

== ENCOUNTER → 2019-08-07 | Outpatient (CLI) | payer MEDICARE, MEDICAID ==
[~2019-08-07] MED LIST changes: +ISOVUE-M 300 61% 15ML VIAL (Q9967) As Ordered ONE; +LIDOCAINE 1% SDV INJ 30 ML VIAL As Ordered ONE; +NORCO, ANEXSIA 5/325MG TABLET (HYDROcodone/ACETAMINOPHEN) As Ordered ONE; +diazePAM 2 MG TAB As Ordered ONE; +methylPREDNISolone SUSP 40 MG/ML (DEPO-medrol) VIAL (J1030) As Ordered ONE
--- NOTE | 2019-08-07 13:35 | REP ---
Partial lumbar spine series: To views . History: Injection procedure for pain. 99 seconds of fluoroscopy time is reported. Findings: A sequence of two fluoroscopically obtained last image hold procedural spot radiographs of the lumbar spine document needle position and contrast injection associated with injection procedure. Electronically Signed by Tj Call MD 08/07/2019 01:27 P
--- NOTE | 2019-08-15 03:03 | ECWPNPC ---
PATIENT NAME: YAIMA CORRALES : 1960 GENDER: FEMALE VISIT DATE: 08/07/2019 DISCHARGE DATE: 08/07/19 1202 VISIT LOCKED DATE TIME: PHYSICIAN: RAUL GONCALVES MD RESOURCE: RAUL GONCALVES MD REASON FOR APPOINTMENT 1. LESI L4-L5 HISTORY OF PRESENT ILLNESS HISTORY OF PRESENT ILLNESS: PAIN THE PATIENT DESCRIBES THE PAIN... FALL RISK SCREENING: SCREENING :NO FALLS REPORTED IN THE LAST YEAR CURRENT MEDICATIONS TAKING DEPEND PANT EXTRA LARGE _ UNDERGARMENTS DIAG CODE SIZE LARGE DX:N39.41 DAILY= MDD 24 TAKING ONE TOUCH ULTRA BLUE STRIPS DIRECTED DX: E11.65 TWICE A DAY ADN NEEDED TAKING GABAPENTIN 100 100 MG (LATTIF) TABLET 2 TABS ORAL TID, NOTES: 08/07/19 TAKING VITAMIN C 500 MG CAPSULE DIRECTED ORALLY ONCE A DAY, NOTES: 08/06/19 TAKING LEVETIRACETAM 250 MG (LATTIF) TABLET 1 TAB IN THE AM 2 TABS IN THE PM ORALLY TWICE DAILY, NOTES: 08/07/19 TAKING BUSPIRONE HCL 50 TABLET 1 TAB ORALLY TID, NOTES: 08/07/19 TAKING VIMPAT 50 MG TABLET 1 TAB ORALLY TWICE A DAY, NOTES: 08/07/19 TAKING HYDROXYZINE HCL 50MG MERCY TABLET 1 TABLET ORALLY TWICE A DAY, NOTES: 08/07/19 TAKING GLUCOMETER DIRECTED E11.65 TWICE ADAY AND NEEDED TAKING CYMBALTA 60 MG CAPSULE DELAYED RELEASE PARTICLES 1 CAPSULE ALONG WITH A 30 MG ORALLY ONCE A DAY, NOTES: 08/07/19 TAKING TRAZODONE HCL 50 MG TABLET 1 1/2 TABLET AT BEDTIME NEEDED ORALLY ONCE A DAY, NOTES: 08/06/19 TAKING PEN NEEDLES 31G X 6 MM MISCELLANEOUS DIRECTED SUBCUTANEOUSLY DAILY E11.65 TAKING NEBULIZER/ADULT MASK - KIT DIRECTED DX: J44.9 MASK AND TUBING TAKING ALBUTEROL SULFATE (2.5 MG/3ML) 0.083% NEBULIZATION SOLUTION 3 ML INHALATION EVERY 4-6 HOURS NEEDED, NOTES: NONE RECENT TAKING TENS UNIT ELECTRO PADS - DIRECTED DX:M12.88 DIRECTED TAKING RANITIDINE HCL 300 MG CAPSULE 1 CAPSULE AT BEDTIME ORALLY ONCE A DAY AT BEDTIME, NOTES: 08/06/19 TAKING OMEPRAZOLE 40MG 40 MG TABLET 1 TAB(S) ORAL DAILY AT BEDTIME, NOTES: 08/06/19 TAKING DEPEND PANT LARGE . MISCELLANEOUS DIRECTED DX: N39.41,ID# [id number] DAILY MDD = 24 TAKING ROLLING WALKER 1 1 DIRECTED ROLLING WALKER WITH SEAT DX; J44.9, M51.16 TAKING TOPIRAMATE 50 MG TABLET TAKE ONE TABLET BY MOUTH AT BEDTIME ORAL , NOTES: 08/06/19 TAKING BOTOX 100 UNIT SOLUTION RECONSTITUTED GIVEN WITH NEURO INJECTION EVERY 3 MONTHS FOR MIGRAINES, NOTES: 04/2019 TAKING BLOOD GLUCOSE TEST - STRIP DIRECTED IN VITRO BEFORE MEALS AND AT BEDTIME. DX: Z79.4 TAKING JOBST ACTIVEWEAR 15-20MMHG - MISCELLANEOUS DIRECTED DX: SPIDER VEINS, VENOUS INSUFF DAILY TAKING PROAIR HFA 108 (90 BASE) MCG/ACT AEROSOL SOLUTION 2 PUFFS NEEDED INHALATION EVERY 6 HRS, NOTES: NONE LATELY TAKING LEVEMIR FLEX TOUCH 100 UNIT/ML SOLUTION 4 UNITS SUBCUTANEOUS DAILY DX: E11.65, NOTES: 08/06/19 TAKING ATORVASTATIN CALCIUM 20 MG TABLET 1 TABLET ORALLY ONCE AT BEDTIME, NOTES: 08/06/19 TAKING LIDODERM 5 % PATCH 2 PATCH TO SKIN REMOVE AFTER 12 HOURS EXTERNALLY ONCE A DAY - APPLY TO LOW BACK FOR POST HERPETIC NEURALGIA, NOTES: LAST WEEK TAKING UNIFINE PENTIPS 31G X 6 MM MISCELLANEOUS USE DIRECTED DAILY TAKING JARDIANCE 10 MG TABLET 1 TABLET ORALLY ONCE A DAY, NOTES: 08/06/19 TAKING VITAMIN D 2000 UNIT TABLET TAKE ONE TABLET BY MOUTH DAILY , NOTES: 08/07/19 TAKING CALCIUM + D3 600-200 MG-UNIT TABLET TAKE ONE TABLET BY MOUTH EVERY DAY , NOTES: 08/07/19 TAKING ZYRTEC ALLERGY 10 MG TABLET 1 TABLET ORALLY ONCE A DAY, NOTES: 08/07/19 TAKING SPIRONOLACTONE 50 MG TABLET TAKE ONE TABLET BY MOUTH EVERY DAY , NOTES: 08/06/19 TAKING CHLORTHALIDONE 25 MG TABLET TAKE 1/2 TABLET BY MOUTH ONCE DAILY , NOTES: 08/07/19 TAKING OXYBUTYNIN CHLORIDE ER 15 MG TABLET EXTENDED RELEASE 24 HOUR TAKE ONE TABLET BY MOUTH ONCE A DAY , NOTES: 08/07/19 TAKING ACCU-CHEK SOFT TOUCH LANCETS - MISCELLANEOUS DIRECTED DX: E11.65 TWICE A DAY AND NEEDED TAKING DAILY-KIRAN - TABLET TAKE ONE TABLET BY MOUTH EVERY DAY , NOTES: 08/07/19 TAKING ASPIRIN 81 MG TABLET DELAYED RELEASE 1 TABLET ORALLY ONCE A DAY, NOTES: 08/07/19 TAKING SINGULAIR 10 MG TABLET TAKE ONE TABLET BY MOUTH ONCE A DAY IN THE EVENING , NOTES: 08/06/19 TAKING ADVAIR HFA 115-21 MCG/ACT AEROSOL 2 PUFFS INHALATION TWICE A DAY, NOTES: 08/07/19 TAKING VALACYCLOVIR HCL 500 MG TABLET 1 TABLET ORALLY DAILY, NOTES: 08/06/19 TAKING LACTULOSE 10 GM/15ML SOLUTION 15 ML ORALLY TWICE A DAY, NOTES: 08/06/19 TAKING NYSTATIN 750556 UNIT/GM CREAM APPLY EXTERNALLY TO AFFECTED JULIÁN AREA TWO TIMES A DAY , NOTES: 08/06/19 NOT-TAKING ABILIFY 5 MG TABLET 1 TABLET ORALLY ONCE A DAY NOT-TAKING FLUTICASONE FUROATE 27.5 MCG/SPRAY SUSPENSION 1 PUFF IN EACH NOSTRIL NASALLY ONCE A DAY, NOTES: NONE RECENT NOT-TAKING SHINGRIX 50 MCG/0.5ML SUSPENSION RECONSTITUTED DIRECTED INTRAMUSCULAR 1 DOSE NOW, REPEAT IN 2 MONTHS NOT-TAKING HOSPITAL BED DIRECTED R53.1 DAILY DISCONTINUED ANUSOL-HC 2.5 % CREAM 1 APPLICATION TO AFFECTED AREA RECTAL TWICE A DAY, NOTES: NONE RECENT DISCONTINUED RANITIDINE HCL 300 MG TABLET TAKE ONE TABLET BY MOUTH ONCE A DAY AT BEDTIME DISCONTINUED OMEPRAZOLE 40 MG CAPSULE DELAYED RELEASE TAKE ONE CAPSULE BY MOUTH DAILY AT BEDTIME MEDICATION LIST REVIEWED AND RECONCILED WITH THE PATIENT PAST MEDICAL HISTORY PTSD DEPRESSION/PANIC DISORDER EPILEPSY FOLLOWED BY DR. DUQUE ASTHMA COPD/CHRONIC BRONCHITIS - SPIROMETRY 09/2015 FEV1 = 1.7, FVC = 1.785, RATIO = 91.7 - POOR QUALITY SUSPECT MIXED PICTURE COPD/ RESTRICTIVE FROM OBESITY. NICOTINE DEPENDENCE - IN REMISSION QUITE 01/2018 GERD CLAUDIA - ON CPAP TOLERATING CPAP CHRONIC VENOUS INSUFFICIENCY LEFT BREAST ABSCESS HX INCONTINENCE, CYSTOCELE HX ABNORMAL PAP (AGE 20'S, 30'S) DYSPAREUNIA FATTY LIVER PER US 03/2015 ECHO 03/2015 - BORDERLINE LVH EF 65%. MILDLY DILATED LEFT ATRIUM. IMPAIRED LV DIASTOLIC FUNCTION. NORMAL LEFT ATRIAL PRESSURE, MILD PULM HTN. ENDOMETRIOSIS DIABETES TYPE 2 - INSULIN REQUIRING HYPERLIPIDEMIA HERPES TYPE 2 - BREAKOUT IN [facility] 03/29/18 SHINGLES - 02/2018 MIGRAINES - FOLLOWS WITH NEUROLOGY - GETTING BOTOX INJECTIONS 09/2018 DIABETIC NEUROPATHY LEFT LEG AND FOOT TONSIL STONE AND ABSCESS ALLERGIES CHANTIX: NIGHT TERRORS - SIDE EFFECTS DEPAKOTE: COULDN'T STAY AWAKE - SIDE EFFECTS SULFA (FOR ALLERGY USE ONLY): RASH - ALLERGY LATEX (FOR ALLERGY USE ONLY): HIVES - ALLERGY METFORMIN HCL: SEVERE N/V - SIDE EFFECTS PROPRANOLOL HCL: BRADYCARDIA - SIDE EFFECTS SURGICAL HISTORY CLEFT/LIP/PALATE SURGERY 1961 DEVIATED NASAL SEPTUM 05/1998 01/1993 ENDOMETRIAL BIOPSY 1999 CHOLECYSTECTOMY 10/1997 TVT 2009 EGD/COLONOSCOPY (DR. TAYLOR) 2010 TUBES PLACED IN EARS ENDOMETRIAL ABLATION 2007 COLPOSCOPY/ECC 1999 CRYO FOR ABNORMAL PAP AGE 20'S COLONOSCOPY WITH BIOPSIES - NEGATIVE FOR MICROSCOPIC COLITIS (DR.. DUEÑAS) 09/2014 CYST REMOVAL LEFT EYE 01/2019 FAMILY HISTORY FATHER: 69 YRS, LUNG CANCER, HTN, DM-2, DIAGNOSED WITH DIABETES, HYPERTENSION, UNSPECIFIED HEART DISEASE, OTHER MALIGNANT NEOPLASM OF UNSPECIFIED SITE MOTHER: 64 YRS, COLON CANCER, HTN, DM-2, DIABETES, HYPERTENSION, UNSPECIFIED HEART DISEASE, OTHER MALIGNANT NEOPLASM OF UNSPECIFIED SITE SIBLINGS: ALIVE, BOTH HTN SISTER LYMPH CANCER IN 60'S SON(S): ALIVE 18 YRS DAUGHTER(S): ALIVE 19 YRS PATERNAL AUNT: ALIVE LATE 60'S YRS, BREAST CANCER, DX IN LATE 50 'S MATERNAL AUNT: , OVARIAN CANCER UNKNOWN AGE 1 BROTHER(S) , 1 SISTER(S) - HEALTHY. 1 SON(S) , 1 DAUGHTER(S) - HEALTHY. 10/2018 SISTER HEART ATTACK. SOCIAL HISTORY GENERAL: TOBACCO USE ARE YOU A:FORMER SMOKER HOW LONG HAS IT BEEN SINCE YOU LAST SMOKED?5-10 YEARS HIV / HEP-C SCREENING HIV TEST OFFERED TO PATIENT:YES DATE OFFERED:01/12/2018 TEST ACCEPTED:NO HEP-C TEST OFFERED TO PATIENT:YES DATE OFFERED:01/12/2018 REASON:PATIENT DECLINED TEST ACCEPTED:NO BROCHURE PROVIDED TO PATIENTNO OTHERS AT HOME: S.O.-JESSICA, 2 CATS. HOUSING: RENTS APARTMENT. 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 DIET: DIABETIC DIET. LANGUAGE LANGUAGES SPOKEN:LITHUANIAN DOMESTIC VIOLENCE DO YOU FEEL SAFE IN YOUR ENVIRONMENT?YES BMI CARE GOAL FOLLOW-UP ABOVE NORMAL BMI FOLLOW-UPDIETARY NEEDS EDUCATION RECREATIONAL DRUG USE DENIES. EXERCISE: NO REGULAR EXERCISE. LEARNING BARRIERS / SPECIAL NEEDS CHANGE FROM LAST VISIT?NO BARRIERS TO LEARNING?NO HEARING IMPAIRED?YES VISION IMPAIRED?YES COGNITIVELY IMPAIRED?NO :HEARING AIDES RIGHT EAR ONLY :CORRECTIVE LENSES READINESS TO LEARN?YES LEARNING PREFERENCES?NO LEARNING CAPABILITIES PRESENT?YES EMOTIONAL BARRIERS?NO SPECIAL DEVICES?YES :WALKER GUEST EXPERIENCE CAPTAIN NEEDED?NO LUNG CANCER SCREENING SMOKING STATUS:FORMER SMOKER IS THE PATIENT BETWEEN THE AGE OF 55 AND 77?YES PAIN CLINIC PFS, CLERGY, PUBLIC HEALTH REFERRALS HAS THE PATIENT BEEN EDUCATED REGARDING HIS/HER PLAN OF CARE?YES HAS THE PATIENT BEEN EDUCATED REGARDING PAIN, THE RISK FOR PAIN, THE IMPORTANCE OF EFFECTIVE PAIN MANAGEMENT, AND THE PAIN ASSESSMENT PROCESS?YES LATEX QUESTIONNAIRE LATEX ALLERGY : HAVE YOU EVER DEVELOPED ANY TYPE OF REACTION AFTER HANDLING LATEX PRODUCTS SUCH RUBBER GLOVES, CONDOMS, DIAPHRAGMS, BALLOONS, SOCKS, OR UNDERWEAR?YES LATEX ALLERGY : HAVE YOU EVER DEVELOPED ANY TYPE OF REACTION DURING OR AFTER DENTAL APPOINTMENT, VAGINAL/RECTAL EXAMINATION, SURGICAL PROCEDURE, OR ANY OTHER EXPOSURE?NO - PLEASE INDICATE :RUBBER GLOVES DATE ASKED : 04/11/2019 LATEX RISK : HAVE YOU EVER HAD ANY DIFFICULTY BREATHING OR HIVES AFTER EATING OR HANDLING ANY FRUITS, OR VEGETABLES; SUCH KIWI, BANANAS, STONE FRUITS, OR CHESTNUTSNO LATEX RISK : DO YOU HAVE A PREVIOUS PERSONAL HISTORY OF MORE THAN NINE SURGERIES, SPINA BIFIDA, OR REPEATED CATHERIZATIONS? YES - PLEASE INDICATE : > 9 SURGERIES LATEX RISK : ARE YOU FREQUENTLY EXPOSED TO LATEX PRODUCTS IN YOUR OCCUPATION?NO CAFFEINE 0-1/DAY. ADVANCE DIRECTIVE ADVANCE DIRECTIVE DISCUSSED WITH PATIENT:YES PT STATES HCP RUT VIEIRA [phone], XI COTTER [phone] ALEJANDRA COTTER- [phone] PRESYBETERIAN [id number] ANABAPTISM MARITAL STATUS: . ALCOHOL SCREENING DID YOU HAVE A DRINK CONTAINING ALCOHOL IN THE PAST YEAR?YES HOW OFTEN DID YOU HAVE SIX OR MORE DRINKS ON ONE OCCASION IN THE PAST YEAR?NEVER (0 POINTS) HOW MANY DRINKS DID YOU HAVE ON A TYPICAL DAY WHEN YOU WERE DRINKING IN THE PAST YEAR?1 OR 2 (0 POINTS) HOW OFTEN DID YOU HAVE A DRINK CONTAINING ALCOHOL IN THE PAST YEAR?MONTHLY OR LESS (1 POINT) POINTS1 INTERPRETATIONNEGATIVE OCCUPATION: DISABLED. SEXUAL HX HAD SEX IN THE LAST 12 MONTHS (VAGINAL, ORAL, OR ANAL)?NO LMP:2007 HAVE YOU EVER HAD AN STD?NO 10/10/18 REVIEWED WITH PT. 02/01/19 REVIEWED WITH PT LAS7/30/19 REVIEWED WITH PT TERRY. HOSPITALIZATION/MAJOR DIAGNOSTIC PROCEDURE MAJOR DEPRESSION , SUICIDAL ATTEMPT TWICE. (ST [place]) SURGERIES ABOVE DEHYDRATION 04/2018 REVIEW OF SYSTEMS REVIEWED BY: PROVIDER: . CONSTITUTIONAL: ANY CHANGE IN YOUR MEDICAL CONDITION? NO . CHILLS NO . FEVER NO . INFECTION: DO YOU HAVE NEW INFECTIONS? NO . DO YOU HAVE HISTORY OF MRSA? NO . MUSCULOSKELETAL: ANY NEW PATTERNS OF PAIN OR NUMBNESS? NO . GASTROENTEROLOGY: ANY NEW CHANGE IN BOWEL CONTROL? NO . GENITOURINARY: ANY NEW CHANGE IN BLADDER CONTROL? NO . IS THERE A CHANCE YOU COULD BE ? NO . HEMATOLOGY/LYMPH: DO YOU TAKE ANY BLOOD THINNERS? (FOR EXAMPLE- COUMADIN, PLAVIX, AGGRENOX, PLATEL, PRADAXA, OR XARELTO) NO . WHEN WAS YOUR LAST DOSE? DATE: TIME: . NEUROLOGY: HAVE YOU FALLEN IN THE PAST 12 MONTHS? YES, FELL OUTSIDE ON RAMP LAST NIGHT IN THE ICE AND SNOW, PT DENIES INJURIES . ANY NEW EXTREMITY NUMBNESS OR WEAKNESS? NO . CARDIOLOGY: DO YOU HAVE A PACEMAKER OR DEFIBRILLATOR? NO . RESPIRATORY: HAVE YOU BEEN SICK IN THE PAST WEEK? YES, URI 2 WEEKS AGO S/S ARE RESOLVED . FEVER LOW GRADE RESOLVED . FLU LIKE SYMPTOMS? NO . COUGH NO . INTEGUMENTARY: DO YOU HAVE ANY RASHES OR OPEN SORES? NO . ALLERGIC/IMMUNO: ARE YOU ALLERGIC TO IV DYE? NO . ANY NEW ALLERGIES? NO . PSYCHIATRIC: DO YOU HAVE THOUGHTS OF HURTING YOURSELF OR SOMEONE ELSE? NO . ARE YOU ABUSED, NEGLECTED, OR IN AN UNSAFE ENVIRONMENT? NO . ENDOCRINOLOGY: ARE YOU DIABETIC? YES, FS AT HOME TODAY @ 0800 111 . OTHER: DO YOU NEED ANY PRESCRIPTIONS? NO . IF YES, PLEASE LIST: ____ . ANY NEW PROBLEMS WITH YOUR MEDICATIONS? NO . WHEN DID YOU LAST EAT? 08/06/19 1700 . WHEN DID YOU LAST DRINK? 08/07/19 0800 . WHAT DID YOU LAST DRINK? WATER . NAME OF PERSON DRIVING YOU HOME? BRO . DO YOU HAVE ANY OTHER QUESTIONS OR CONCERNS NO . VITAL SIGNS WT 202 LBS, HT 65 IN, BMI 33.61 INDEX, BP 121/70 MM HG, HR 68 /MIN, RR 16 /MIN, TEMP 97.8 F, OXYGEN SAT % 95%, NA INITIALS OH 09:52, REVIEWED BY: EM. ASSESSMENTS INTERVERTEBRAL DISC DISORDER WITH RADICULOPATHY OF LUMBAR REGION - M51.16 (PRIMARY) TREATMENT INTERVERTEBRAL DISC DISORDER WITH RADICULOPATHY OF LUMBAR REGION [facility] FLUORO GUIDE SPINE INJECTION (PAIN)[id number] PROCEDURES PRE PROCEDURE DIAGNOSIS LUMBAR DISC DISORDER WITH RADICULOPATHY POST PROCEDURE DIAGNOSIS LUMBAR DISC DISORDER WITH RADICULOPATHY PROCEDURE LUMBAR EPIDURAL STEROID INJECTION UNDER FLUOROSCOPIC GUIDANCE SURGEON DR. RAUL GONCALVES TURNING MACHINE SET UP OPERATOR NONE ANESTHESIA LOCAL PRE PROCEDURE NOTE THE PATIENT HAS A HISTORY OF CHRONIC LOW BACK PAIN. I EVALUATED THE PATIENT AND REVIEWED THE CHART. I WENT OVER THE RISKS, ALTERNATIVES, AND BENEFITS ASSOCIATED WITH THIS PROCEDURE. THE PATIENT WOULD LIKE TO PROCEED AND GIVES CONSENT TO PERFORM THE PROCEDURE. THE PATIENT DENIES UNEXPLAINABLE WEIGHT LOSS, FEVER, CHILLS, OR NEW CHANGES IN URINARY OR BOWEL CONTROL. DESCRIPTION OF PROCEDURE THE PATIENT WAS BROUGHT TO THE PROCEDURE ROOM AND PLACED IN THE PRONE POSITION. THE LUMBOSACRAL AREA WAS CLEANED WITH BETADINE SOLUTION AND DRAPED ASEPTICALLY. THE PROCEDURE WAS DONE UNDER STERILE CONDITIONS. I CHECKED LATERALITY AND THE LEVEL WHERE THE PROCEDURE WAS GOING TO BE PERFORMED WITH THE PATIENT AND THE SUPPORTING STAFF AT THE MOMENT OF THE TIME OUT IN THE PROCEDURE ROOM. UNDER FLUOROSCOPIC GUIDANCE, THE TARGET POINT WAS SELECTED AT THE INTERLAMINAR LEVEL OF L4-L5. LIDOCAINE WAS USED TO NUMB THE SKIN AND THE SUBCUTANEOUS TISSUE BELOW IT. EPIDURAL TUOHY NEEDLE, 17-GAUGE, WAS ADVANCED UNDER FLUOROSCOPIC GUIDANCE AND FOLLOWING PATIENT FEEDBACK UNTIL THE EPIDURAL SPACE WAS REACHED, 7 CM DEEP INTO THE SKIN BY THE LOSS OF RESISTANCE TECHNIQUE. ISOVUE M DYE 30%, 0.25 ML, WAS INJECTED SHOWING ADEQUATE SPREAD OF THE DYE. THEN, A SOLUTION OF 3 ML OF NORMAL SALINE WITH DEPO-MEDROL 60 MG WAS INJECTED SLOWLY FOLLOWING PATIENT FEEDBACK. THERE WAS NO EVIDENCE OF BLOOD, PARESTHESIA OR CEREBROSPINAL FLUID DURING THE PROCEDURE. THE PATIENT WAS SENT TO THE RECOVERY ROOM. THE PATIENT WAS MOVING THE EXTREMITIES AND DOING WELL. THERE WAS NO COMPLICATION DURING THE PROCEDURE. FLUOROSCOPY TIME WAS 9 SECONDS. POST PROCEDURE NOTE THE PATIENT WILL BE SEEN IN A FOLLOW UP IN THE NEXT FEW WEEKS. INSTRUCTIONS WERE GIVEN, QUESTIONS WERE ANSWERED, AND THE PATIENT EXPRESSED UNDERSTANDING AND AGREES WITH THE PLAN. I, SIERRA VALDEZ, DOCUMENTED THE ABOVE INFORMATION ACTING A SCRIBE FOR DR. GONCALVES. I HAVE REVIEWED THE ABOVE DOCUMENT, WRITTEN BY SIERRA RITCHIE AND I VERIFY THAT IT IS ACCURATE. PROCEDURE CODES [id number] LUMBAR/SACRAL W/ IMAGING [id number] RADXPS IN END [id number] PXD DISPOSITION & COMMUNICATION FOLLOW UP 2 WEEKS ELECTRONICALLY SIGNED BY RAUL GONCALVES MD, MD ON 08/14/2019 AT 03:16 PM EST DISCLAIMER : THIS IS A VISIT SUMMARY EXTRACTED FROM THE [employer] CHART. IT IS NOT A COPY OF THE [employer] PROGRESS NOTE. NATALIE
== END ==
LOC: M PAIN 10:00
PROVIDERS: ATTEND Anesthesiology
DX: M51.16 Intervertebral disc disorders with radiculopathy, lumbar region (principal); F43.10 Post-traumatic stress disorder, unspecified; G40.909 Epilepsy, unspecified, not intractable, without status epilepticus; K21.9 Gastro-esophageal reflux disease without esophagitis; J44.9 Chronic obstructive pulmonary disease, unspecified; G47.33 Obstructive sleep apnea (adult) (pediatric); E11.42 Type 2 diabetes mellitus with diabetic polyneuropathy; Z79.899 Other long term (current) drug therapy; Z79.4 Long term (current) use of insulin; Z79.82 Long term (current) use of aspirin; Z88.2 Allergy status to sulfonamides; Z91.040 Latex allergy status; Z88.8 Allergy status to other drugs, medicaments and biological substances
CPT/HCPCS: 62323; J1030; Q9967

== ENCOUNTER → 2019-08-14 | Outpatient (REF) | payer MEDICARE, MEDICAID ==
[~2019-08-14] MED LIST changes: -ISOVUE-M 300 61% 15ML VIAL (Q9967) As Ordered ONE; -LIDOCAINE 1% SDV INJ 30 ML VIAL As Ordered ONE; -NORCO, ANEXSIA 5/325MG TABLET (HYDROcodone/ACETAMINOPHEN) As Ordered ONE; -diazePAM 2 MG TAB As Ordered ONE; -methylPREDNISolone SUSP 40 MG/ML (DEPO-medrol) VIAL (J1030) As Ordered ONE
== END ==
LOC: M LABNEURO 17:22
PROVIDERS: ATTEND Physician Assistant Medical
DX: R56.9 Unspecified convulsions (principal)

== ENCOUNTER → 2019-08-21 | Outpatient (CLI) | payer MEDICARE, MEDICAID ==
[~2019-08-21] MED LIST changes: -OXYB15TA PO; +OXYB1TAB13 PO
--- NOTE | 2019-08-23 02:58 | ECWPNPC ---
PATIENT NAME: YAIMA CORRALES : 1960 GENDER: FEMALE VISIT DATE: 08/21/2019 DISCHARGE DATE: 08/21/19 1204 VISIT LOCKED DATE TIME: PHYSICIAN: LEAH ARELLANO RESOURCE: LEAH ARELLANO REASON FOR APPOINTMENT 1. POST PROC HISTORY OF PRESENT ILLNESS HISTORY OF PRESENT ILLNESS: PAIN THE PATIENT DESCRIBES THE PAIN... 59-YEAR-OLD FEMALE IN FOR CHRONIC PAIN FOLLOW-UP. SHE HAD AN LESI DONE ON THE OF THIS MONTH AND HER PAIN PREPROCEDURE WAS AT A 7 OUT OF 10 AND AFTER THE PROCEDURE WAS A 4-5 OUT OF 10 FOR APPROXIMATELY ONE WEEK. SHE RATES HER PAIN CURRENTLY AT A 7 OUT OF 10 AND DESCRIBES IT ACHING, AND SORE. FALL RISK SCREENING: SCREENING :NO FALLS REPORTED IN THE LAST YEAR CURRENT MEDICATIONS TAKING DEPEND PANT EXTRA LARGE _ UNDERGARMENTS DIAG CODE SIZE LARGE DX:N39.41 DAILY= MDD 24 TAKING ONE TOUCH ULTRA BLUE STRIPS DIRECTED DX: E11.65 TWICE A DAY ADN NEEDED TAKING GABAPENTIN 100 100 MG (LATTIF) TABLET 2 TABS ORAL TID TAKING VITAMIN C 500 MG CAPSULE DIRECTED ORALLY ONCE A DAY TAKING LEVETIRACETAM 250 MG (LATTIF) TABLET 1 TAB IN THE AM 2 TABS IN THE PM ORALLY TWICE DAILY TAKING BUSPIRONE HCL 50 TABLET 1 TAB ORALLY TID TAKING VIMPAT 50 MG TABLET 1 TAB ORALLY TWICE A DAY TAKING HYDROXYZINE HCL 50MG [facility] TABLET 1 TABLET ORALLY TWICE A DAY TAKING GLUCOMETER DIRECTED E11.65 TWICE ADAY AND NEEDED TAKING CYMBALTA 60 MG CAPSULE DELAYED RELEASE PARTICLES 1 CAPSULE ORALLY TWICE A DAY TAKING TRAZODONE HCL 50 MG TABLET 1 1/2 TABLET AT BEDTIME NEEDED ORALLY ONCE A DAY TAKING PEN NEEDLES 31G X 6 MM MISCELLANEOUS DIRECTED SUBCUTANEOUSLY DAILY E11.65 TAKING NEBULIZER/ADULT MASK - KIT DIRECTED DX: J44.9 MASK AND TUBING TAKING ALBUTEROL SULFATE (2.5 MG/3ML) 0.083% NEBULIZATION SOLUTION 3 ML INHALATION EVERY 4-6 HOURS NEEDED TAKING TENS UNIT ELECTRO PADS - DIRECTED DX:M12.88 DIRECTED TAKING RANITIDINE HCL 300 MG CAPSULE 1 CAPSULE AT BEDTIME ORALLY ONCE A DAY AT BEDTIME TAKING OMEPRAZOLE 40MG 40 MG TABLET 1 TAB(S) ORAL DAILY AT BEDTIME TAKING DEPEND PANT LARGE . MISCELLANEOUS DIRECTED DX: N39.41,ID# [id number] DAILY MDD = 24 TAKING ROLLING WALKER 1 1 DIRECTED ROLLING WALKER WITH SEAT DX; J44.9, M51.16 TAKING TOPIRAMATE 50 MG TABLET TAKE ONE TABLET BY MOUTH AT BEDTIME ORAL TAKING BOTOX 100 UNIT SOLUTION RECONSTITUTED GIVEN WITH NEURO INJECTION EVERY 3 MONTHS FOR MIGRAINES TAKING BLOOD GLUCOSE TEST - STRIP DIRECTED IN VITRO BEFORE MEALS AND AT BEDTIME. DX: Z79.4 TAKING JOBST ACTIVEWEAR 15-20MMHG - MISCELLANEOUS DIRECTED DX: SPIDER VEINS, VENOUS INSUFF DAILY TAKING PROAIR HFA 108 (90 BASE) MCG/ACT AEROSOL SOLUTION 2 PUFFS NEEDED INHALATION EVERY 6 HRS TAKING LEVEMIR FLEX TOUCH 100 UNIT/ML SOLUTION 4 UNITS SUBCUTANEOUS DAILY DX: E11.65 TAKING ATORVASTATIN CALCIUM 20 MG TABLET 1 TABLET ORALLY ONCE AT BEDTIME TAKING LIDODERM 5 % PATCH 2 PATCH TO SKIN REMOVE AFTER 12 HOURS EXTERNALLY ONCE A DAY - APPLY TO LOW BACK FOR POST HERPETIC NEURALGIA TAKING UNIFINE PENTIPS 31G X 6 MM MISCELLANEOUS USE DIRECTED DAILY TAKING JARDIANCE 10 MG TABLET 1 TABLET ORALLY ONCE A DAY TAKING VITAMIN D 2000 UNIT TABLET TAKE ONE TABLET BY MOUTH DAILY TAKING CALCIUM + D3 600-200 MG-UNIT TABLET TAKE ONE TABLET BY MOUTH EVERY DAY TAKING ZYRTEC ALLERGY 10 MG TABLET 1 TABLET ORALLY ONCE A DAY TAKING SPIRONOLACTONE 50 MG TABLET TAKE ONE TABLET BY MOUTH EVERY DAY TAKING CHLORTHALIDONE 25 MG TABLET TAKE 1/2 TABLET BY MOUTH ONCE DAILY TAKING OXYBUTYNIN CHLORIDE ER 15 MG TABLET EXTENDED RELEASE 24 HOUR TAKE ONE TABLET BY MOUTH ONCE A DAY TAKING ACCU-CHEK SOFT TOUCH LANCETS - MISCELLANEOUS DIRECTED DX: E11.65 TWICE A DAY AND NEEDED TAKING DAILY-KIRAN - TABLET TAKE ONE TABLET BY MOUTH EVERY DAY TAKING ASPIRIN 81 MG TABLET DELAYED RELEASE 1 TABLET ORALLY ONCE A DAY TAKING SINGULAIR 10 MG TABLET TAKE ONE TABLET BY MOUTH ONCE A DAY IN THE EVENING TAKING ADVAIR HFA 115-21 MCG/ACT AEROSOL 2 PUFFS INHALATION TWICE A DAY TAKING VALACYCLOVIR HCL 500 MG TABLET 1 TABLET ORALLY DAILY TAKING LACTULOSE 10 GM/15ML SOLUTION 15 ML ORALLY TWICE A DAY TAKING NYSTATIN 601144 UNIT/GM CREAM APPLY EXTERNALLY TO AFFECTED JULIÁ[place] AREA TWO TIMES A DAY NOT-TAKING ABILIFY 5 MG TABLET 1 TABLET ORALLY ONCE A DAY NOT-TAKING FLUTICASONE FUROATE 27.5 MCG/SPRAY SUSPENSION 1 PUFF IN EACH NOSTRIL NASALLY ONCE A DAY, NOTES: NONE RECENT NOT-TAKING SHINGRIX 50 MCG/0.5ML SUSPENSION RECONSTITUTED DIRECTED INTRAMUSCULAR 1 DOSE NOW, REPEAT IN 2 MONTHS NOT-TAKING HOSPITAL BED DIRECTED R53.1 DAILY MEDICATION LIST REVIEWED AND RECONCILED WITH THE PATIENT PAST MEDICAL HISTORY PTSD DEPRESSION/PANIC DISORDER EPILEPSY FOLLOWED BY DR. DUQUE ASTHMA COPD/CHRONIC BRONCHITIS - SPIROMETRY 09/2015 FEV1 = 1.7, FVC = 1.785, RATIO = 91.7 - POOR QUALITY SUSPECT MIXED PICTURE COPD/ RESTRICTIVE FROM OBESITY. NICOTINE DEPENDENCE - IN REMISSION QUITE 01/2018 GERD CLAUDIA - ON CPAP TOLERATING CPAP CHRONIC VENOUS INSUFFICIENCY LEFT BREAST ABSCESS HX INCONTINENCE, CYSTOCELE HX ABNORMAL PAP (AGE 20'S, 30'S) DYSPAREUNIA FATTY LIVER PER US 03/2015 ECHO 03/2015 - BORDERLINE LVH EF 65%. MILDLY DILATED LEFT ATRIUM. IMPAIRED LV DIASTOLIC FUNCTION. NORMAL LEFT ATRIAL PRESSURE, MILD PULM HTN. ENDOMETRIOSIS DIABETES TYPE 2 - INSULIN REQUIRING HYPERLIPIDEMIA HERPES TYPE 2 - BREAKOUT IN [facility] 03/29/18 SHINGLES - 02/2018 MIGRAINES - FOLLOWS WITH NEUROLOGY - GETTING BOTOX INJECTIONS 09/2018 DIABETIC NEUROPATHY LEFT LEG AND FOOT TONSIL STONE AND ABSCESS ALLERGIES CHANTIX: NIGHT TERRORS - SIDE EFFECTS DEPAKOTE: COULDN'T STAY AWAKE - SIDE EFFECTS SULFA (FOR ALLERGY USE ONLY): RASH - ALLERGY LATEX (FOR ALLERGY USE ONLY): HIVES - ALLERGY METFORMIN HCL: SEVERE N/V - SIDE EFFECTS PROPRANOLOL HCL: BRADYCARDIA - SIDE EFFECTS SURGICAL HISTORY CLEFT/LIP/PALATE SURGERY 1961 DEVIATED NASAL SEPTUM 05/1998 01/1993 ENDOMETRIAL BIOPSY 2000 CHOLECYSTECTOMY 10/1997 TVT 2009 EGD/COLONOSCOPY (DR. TAYLOR) 2010 TUBES PLACED IN EARS ENDOMETRIAL ABLATION 2007 COLPOSCOPY/ECC 1999 CRYO FOR ABNORMAL PAP AGE 20'S COLONOSCOPY WITH BIOPSIES - NEGATIVE FOR MICROSCOPIC COLITIS (DR.. DUEÑAS) 09/2014 CYST REMOVAL LEFT EYE 01/2019 FAMILY HISTORY FATHER: 69 YRS, LUNG CANCER, HTN, DM-2, DIAGNOSED WITH DIABETES, UNSPECIFIED HEART DISEASE, OTHER MALIGNANT NEOPLASM OF UNSPECIFIED SITE, HYPERTENSION MOTHER: 64 YRS, COLON CANCER, HTN, DM-2, DIABETES, HYPERTENSION, UNSPECIFIED HEART DISEASE, OTHER MALIGNANT NEOPLASM OF UNSPECIFIED SITE SIBLINGS: ALIVE, BOTH HTN SISTER LYMPH CANCER IN 60'S SON(S): ALIVE 18 YRS DAUGHTER(S): ALIVE 19 YRS PATERNAL AUNT: ALIVE LATE 60'S YRS, BREAST CANCER, DX IN LATE 50 'S MATERNAL AUNT: , OVARIAN CANCER UNKNOWN AGE 1 BROTHER(S) , 1 SISTER(S) - HEALTHY. 1 SON(S) , 1 DAUGHTER(S) - HEALTHY. 10/2018 SISTER HEART ATTACK. SOCIAL HISTORY GENERAL: TOBACCO USE ARE YOU A:FORMER SMOKER HOW LONG HAS IT BEEN SINCE YOU LAST SMOKED?5-10 YEARS HIV / HEP-C SCREENING HIV TEST OFFERED TO PATIENT:YES DATE OFFERED:01/12/2018 TEST ACCEPTED:NO HEP-C TEST OFFERED TO PATIENT:YES DATE OFFERED:01/12/2018 REASON:PATIENT DECLINED TEST ACCEPTED:NO BROCHURE PROVIDED TO PATIENTNO OTHERS AT HOME: BARB, 2 CATS, HAS A HOME HEALTH AIDE (BRO) 7 AM TO 3 PM DAILY.. HOUSING: RENTS APARTMENT. 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 DIET: DIABETIC DIET. LANGUAGE LANGUAGES SPOKEN:CYMRAES DOMESTIC VIOLENCE DO YOU FEEL SAFE IN YOUR ENVIRONMENT?YES BMI CARE GOAL FOLLOW-UP ABOVE NORMAL BMI FOLLOW-UPDIETARY NEEDS EDUCATION RECREATIONAL DRUG USE DENIES. EXERCISE: NO REGULAR EXERCISE. 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 FOREMAN NEEDED?NO LUNG CANCER SCREENING SMOKING STATUS:FORMER SMOKER IS THE PATIENT BETWEEN THE AGE OF 55 AND 77?YES PAIN CLINIC PFS, CLERGY, PUBLIC HEALTH REFERRALS HAS THE PATIENT BEEN EDUCATED REGARDING HIS/HER PLAN OF CARE?YES HAS THE PATIENT BEEN EDUCATED REGARDING PAIN, THE RISK FOR PAIN, THE IMPORTANCE OF EFFECTIVE PAIN MANAGEMENT, AND THE PAIN ASSESSMENT PROCESS?YES LATEX QUESTIONNAIRE LATEX ALLERGY : HAVE YOU EVER DEVELOPED ANY TYPE OF REACTION AFTER HANDLING LATEX PRODUCTS SUCH RUBBER GLOVES, CONDOMS, DIAPHRAGMS, BALLOONS, SOCKS, OR UNDERWEAR?YES - PLEASE INDICATE :RUBBER GLOVES LATEX ALLERGY : HAVE YOU EVER DEVELOPED ANY TYPE OF REACTION DURING OR AFTER DENTAL APPOINTMENT, VAGINAL/RECTAL EXAMINATION, SURGICAL PROCEDURE, OR ANY OTHER EXPOSURE?NO LATEX RISK : HAVE YOU EVER HAD ANY DIFFICULTY BREATHING OR HIVES AFTER EATING OR HANDLING ANY FRUITS, OR VEGETABLES; SUCH KIWI, BANANAS, STONE FRUITS, OR CHESTNUTSNO LATEX RISK : DO YOU HAVE A PREVIOUS PERSONAL HISTORY OF MORE THAN NINE SURGERIES, SPINA BIFIDA, OR REPEATED CATHERIZATIONS? YES - PLEASE INDICATE : > 9 SURGERIES LATEX RISK : ARE YOU FREQUENTLY EXPOSED TO LATEX PRODUCTS IN YOUR OCCUPATION?NO DATE ASKED : 08/21/2019 CAFFEINE 0-1/DAY. ADVANCE DIRECTIVE ADVANCE DIRECTIVE DISCUSSED WITH PATIENT:YES PT STATES HCP [facility] [phone], ALEJANDRA COTTER- [phone] [place] [id number] RASTAFARI MARITAL STATUS: . ALCOHOL SCREENING DID YOU HAVE A DRINK CONTAINING ALCOHOL IN THE PAST YEAR?YES HOW OFTEN DID YOU HAVE SIX OR MORE DRINKS ON ONE OCCASION IN THE PAST YEAR?NEVER (0 POINTS) HOW MANY DRINKS DID YOU HAVE ON A TYPICAL DAY WHEN YOU WERE DRINKING IN THE PAST YEAR?1 OR 2 (0 POINTS) HOW OFTEN DID YOU HAVE A DRINK CONTAINING ALCOHOL IN THE PAST YEAR?MONTHLY OR LESS (1 POINT) POINTS1 INTERPRETATIONNEGATIVE OCCUPATION: DISABLED. SEXUAL HX HAD SEX IN THE LAST 12 MONTHS (VAGINAL, ORAL, OR ANAL)?NO LMP:2007 HAVE YOU EVER HAD AN STD?NO 10/10/18 REVIEWED WITH PT. 02/01/19 REVIEWED WITH PT LAS04/24/19 REVIEWED WITH PT TERRY. HOSPITALIZATION/MAJOR DIAGNOSTIC PROCEDURE MAJOR DEPRESSION , SUICIDAL ATTEMPT TWICE. ( TRACY) SURGERIES ABOVE DEHYDRATION 04/2018 REVIEW OF SYSTEMS REVIEWED BY: PROVIDER: CORY BUSTOS . CONSTITUTIONAL: ANY CHANGE IN YOUR MEDICAL CONDITION? NO . CHILLS NO . FEVER NO . INFECTION: DO YOU HAVE NEW INFECTIONS? NO . DO YOU HAVE HISTORY OF MRSA? NO . MUSCULOSKELETAL: ANY NEW PATTERNS OF PAIN OR NUMBNESS? YES . GASTROENTEROLOGY: ANY NEW CHANGE IN BOWEL CONTROL? NO . GENITOURINARY: ANY NEW CHANGE IN BLADDER CONTROL? NO . IS THERE A CHANCE YOU COULD BE ? NO . HEMATOLOGY/LYMPH: DO YOU TAKE ANY BLOOD THINNERS? (FOR EXAMPLE- COUMADIN, PLAVIX, AGGRENOX, PLATEL, PRADAXA, OR XARELTO) NO . WHEN WAS YOUR LAST DOSE? DATE: TIME: . NEUROLOGY: HAVE YOU FALLEN IN THE PAST 12 MONTHS? YES . ANY NEW EXTREMITY NUMBNESS OR WEAKNESS? NO . CARDIOLOGY: DO YOU HAVE A PACEMAKER OR DEFIBRILLATOR? NO . RESPIRATORY: HAVE YOU BEEN SICK IN THE PAST WEEK? NO . FEVER NO . FLU LIKE SYMPTOMS? NO . COUGH NO . INTEGUMENTARY: DO YOU HAVE ANY RASHES OR OPEN SORES? NO . ALLERGIC/IMMUNO: ARE YOU ALLERGIC TO IV DYE? NO . ANY NEW ALLERGIES? NO . PSYCHIATRIC: DO YOU HAVE THOUGHTS OF HURTING YOURSELF OR SOMEONE ELSE? NO . ARE YOU ABUSED, NEGLECTED, OR IN AN UNSAFE ENVIRONMENT? NO . ENDOCRINOLOGY: ARE YOU DIABETIC? YES . OTHER: DO YOU NEED ANY PRESCRIPTIONS? NO . IF YES, PLEASE LIST: ____ . ANY NEW PROBLEMS WITH YOUR MEDICATIONS? NO . WHEN DID YOU LAST EAT? ____ . WHEN DID YOU LAST DRINK? ____ . WHAT DID YOU LAST DRINK? ____ . NAME OF PERSON DRIVING YOU HOME? ____ . DO YOU HAVE ANY OTHER QUESTIONS OR CONCERNS YES . VITAL SIGNS WT 191.4 LBS, HT 65 IN, BMI 31.85 INDEX, BP 130/83 MM HG, HR 77 /MIN, RR 16 /MIN, TEMP 97.1 F, OXYGEN SAT % 92%, RECHECK 97%, NA INITIALS AW 1056, REVIEWED BY: KRISTEL. EXAMINATION GENERAL EXAMINATION: GENERALNO ACUTE DISTRESS, WELL NOURISHED AND HYDRATED. PSYCHAPPROPRIATE MOOD AND AFFECT . LUNGS:CLEAR TO AUSCULTATION BILATERALLY, NO WHEEZES, RHONCHI, RALES. HEART:NO MURMURS, REGULAR RATE AND RHYTHM. BACK:POINT TENDER ALONG LUMBAR SPINE, SURROUNDING SKIN SHOWS NO ERYTHEMA, ECCHYMOSIS, INCREASED WARMTH, AND/OR SKIN ERUPTIONS NOTED. POSITIVE MODIFIED SLR ON THE LEFT SIDE. . MUSCULOSKELETAL:EQUAL STRENGTH OF THE LOWER EXTREMITIES BILATERALLY . ASSESSMENTS INTERVERTEBRAL DISC DISORDER WITH RADICULOPATHY OF LUMBAR REGION - M51.16 (PRIMARY) TREATMENT INTERVERTEBRAL DISC DISORDER WITH RADICULOPATHY OF LUMBAR REGION NOTES: LESI L4-L5 WITH CATHETER. CLINICAL NOTES: 59-YEAR-OLD FEMALE IN FOR POST LESI FOLLOW-UP. GIVEN PRESENTING SYMPTOMS AND RESULTS OF PHYSICAL EXAMINATION RECOMMENDED LESI WITH CATHETER AND POST PROCEDURAL FOLLOW-UP. PATIENT HAS EXPRESSED UNDERSTANDING OF AND WAS IN AGREEMENT WITH TREATMENT PLAN. GIVEN TIME TO ASK QUESTIONS AND EXPRESS CONCERNS. PREVENTIVE MEDICINE PAIN CLINIC TEACHING: PROCEDURE TEACHING REVIEWED INFORMATION ON LUMBAR EPIDURAL STEROID INJECTION PROCEDURE WITH PATIENT. ALSO REVIEWED PRE-PROCEDURE INSTRUCTIONS. PATIENT VERBALIZED AN UNDERSTANDING. YOKASTA COOMBS 08/21/2019 1:11:42 PM > . PROCEDURE CODES FA211 ESTABILISHED PATIENT STATE [facility] CHARGE DISPOSITION & COMMUNICATION FOLLOW UP POSTPROCEDURE (REASON: LESI L4-L5 WITH CATHETER) ELECTRONICALLY SIGNED BY KALI ROQUE ON 08/22/2019 AT 09:41 AM EST DISCLAIMER : THIS IS A VISIT SUMMARY EXTRACTED FROM THE [employer] CHART. IT IS NOT A COPY OF THE [employer] PROGRESS NOTE. NATALIE
== END ==
LOC: M PAIN 11:00
PROVIDERS: ATTEND Family Medicine
DX: M51.16 Intervertebral disc disorders with radiculopathy, lumbar region (principal); G89.29 Other chronic pain; Z86.59 Personal history of other mental and behavioral disorders; G40.909 Epilepsy, unspecified, not intractable, without status epilepticus; J44.9 Chronic obstructive pulmonary disease, unspecified; K21.9 Gastro-esophageal reflux disease without esophagitis; G47.33 Obstructive sleep apnea (adult) (pediatric); E11.9 Type 2 diabetes mellitus without complications; E78.5 Hyperlipidemia, unspecified; Z87.891 Personal history of nicotine dependence; Z88.2 Allergy status to sulfonamides; Z88.8 Allergy status to other drugs, medicaments and biological substances; Z79.4 Long term (current) use of insulin; Z79.82 Long term (current) use of aspirin; Z79.899 Other long term (current) drug therapy

== ENCOUNTER → 2019-08-30 | Outpatient (REF) | payer MEDICARE, MEDICAID | LOC: M SFHCPLAZ 13:16 | PROVIDERS: ATTEND Family Medicine | DX: J02.9 Acute pharyngitis, unspecified (principal) ==

== ENCOUNTER → 2019-10-10 | Outpatient (CLI) | payer MEDICARE, MEDICAID ==
[~2019-10-10] MED LIST changes: +ISOVUE-M 300 61% 15ML VIAL (Q9967) As Ordered ONE; +LIDOCAINE 1% SDV INJ 30 ML VIAL As Ordered ONE; +NORCO, ANEXSIA 5/325MG TABLET (HYDROcodone/ACETAMINOPHEN) As Ordered ONE; +OXYB15TA14 PO; -OXYB1TAB13 PO; -VALA1TAB2 PO; +VALA1TAB64 PO; +diazePAM 2 MG TAB As Ordered ONE; +methylPREDNISolone SUSP 40 MG/ML (DEPO-medrol) VIAL (J1030) As Ordered ONE
--- NOTE | 2019-10-10 15:00 | REP ---
Partial lumbar spine series: Four views . History: Injection procedure for pain. Eight seconds of fluoroscopy time is reported. Findings: A sequence of four fluoroscopically obtained last image hold procedural spot radiographs of the lumbar spine document needle position and contrast injection associated with injection procedure. Electronically Signed by Tj Call MD 10/10/2019 02:52 P
--- NOTE | 2019-10-25 05:51 | ECWPNPC ---
PATIENT NAME: YAIMA CORRALES : 1960 GENDER: FEMALE VISIT DATE: 10/10/2019 DISCHARGE DATE: 10/10/19 1149 VISIT LOCKED DATE TIME: PHYSICIAN: RAUL GONCALVES MD RESOURCE: RAUL GONCALVES MD REASON FOR APPOINTMENT 1. HANYI L5-S1 WITH CATHETER HISTORY OF PRESENT ILLNESS HISTORY OF PRESENT ILLNESS: PAIN THE PATIENT DESCRIBES THE PAIN... FALL RISK SCREENING: SCREENING :NO FALLS REPORTED IN THE LAST YEAR CURRENT MEDICATIONS TAKING DEPEND PANT EXTRA LARGE _ UNDERGARMENTS DIAG CODE SIZE LARGE DX:N39.41 DAILY= MDD 24 TAKING ABILIFY 2 MG TABLET 1 TABLET ORALLY ONCE A DAY TAKING ONE TOUCH ULTRA BLUE STRIPS DIRECTED DX: E11.65 TWICE A DAY ADN NEEDED TAKING GABAPENTIN 100 100 MG (LATTIF) TABLET 2 TABS ORAL TID, NOTES: 10/10 0700 TAKING VITAMIN C 500 MG CAPSULE DIRECTED ORALLY ONCE A DAY, NOTES: 10/10 07 TAKING LEVETIRACETAM 250 MG (LATTIF) TABLET 1 TAB IN THE AM 2 TABS IN THE PM ORALLY TWICE DAILY, NOTES: 10/10 07 TAKING BUSPIRONE HCL 50 TABLET 1 TAB ORALLY TID, NOTES: 10/10 07 TAKING VIMPAT 50 MG TABLET 1 TAB ORALLY TWICE A DAY, NOTES: 10/10 07 TAKING HYDROXYZINE HCL 50MG MERCY TABLET 1 TABLET ORALLY TWICE A DAY, NOTES: 10/10 07 TAKING GLUCOMETER DIRECTED E11.65 TWICE ADAY AND NEEDED TAKING CYMBALTA 60 MG CAPSULE DELAYED RELEASE PARTICLES 1 CAPSULE ORALLY TWICE A DAY, NOTES: 10/10 07 TAKING TRAZODONE HCL 50 MG TABLET 1 1/2 TABLET AT BEDTIME NEEDED ORALLY ONCE A DAY, NOTES: 10/09 2200 TAKING PEN NEEDLES 31G X 6 MM MISCELLANEOUS DIRECTED SUBCUTANEOUSLY DAILY E11.65 TAKING NEBULIZER/ADULT MASK - KIT DIRECTED DX: J44.9 MASK AND TUBING TAKING ALBUTEROL SULFATE (2.5 MG/3ML) 0.083% NEBULIZATION SOLUTION 3 ML INHALATION EVERY 4-6 HOURS NEEDED, NOTES: NONE RECENT TAKING TENS UNIT ELECTRO PADS - DIRECTED DX:M12.88 DIRECTED TAKING DEPEND PANT LARGE . MISCELLANEOUS DIRECTED DX: N39.41,ID# [id number] DAILY MDD = 24 TAKING ROLLING WALKER 1 1 DIRECTED ROLLING WALKER WITH SEAT DX; J44.9, M51.16 TAKING TOPIRAMATE 50 MG TABLET TAKE ONE TABLET BY MOUTH AT BEDTIME ORAL , NOTES: 10/09 2199 TAKING BOTOX 100 UNIT SOLUTION RECONSTITUTED GIVEN WITH NEURO INJECTION EVERY 3 MONTHS FOR MIGRAINES, NOTES: NEURO 07/2019 TAKING BLOOD GLUCOSE TEST - STRIP DIRECTED IN VITRO BEFORE MEALS AND AT BEDTIME. DX: Z79.4 TAKING JOBST ACTIVEWEAR 15-20MMHG - MISCELLANEOUS DIRECTED DX: SPIDER VEINS, VENOUS INSUFF DAILY TAKING PROAIR HFA 108 (90 BASE) MCG/ACT AEROSOL SOLUTION 2 PUFFS NEEDED INHALATION EVERY 6 HRS, NOTES: NONE RECENT TAKING ATORVASTATIN CALCIUM 20 MG TABLET 1 TABLET ORALLY ONCE AT BEDTIME, NOTES: 10/09 2199 TAKING LIDODERM 5 % PATCH 2 PATCH TO SKIN REMOVE AFTER 12 HOURS EXTERNALLY ONCE A DAY - APPLY TO LOW BACK FOR POST HERPETIC NEURALGIA, NOTES: 10/09 TAKING UNIFINE PENTIPS 31G X 6 MM MISCELLANEOUS USE DIRECTED DAILY TAKING OXYBUTYNIN CHLORIDE ER 15 MG TABLET EXTENDED RELEASE 24 HOUR TAKE ONE TABLET BY MOUTH ONCE A DAY , NOTES: 10/10 699 TAKING ACCU-CHEK SOFT TOUCH LANCETS - MISCELLANEOUS DIRECTED DX: E11.65 TWICE A DAY AND NEEDED TAKING DAILY-KIRAN - TABLET TAKE ONE TABLET BY MOUTH EVERY DAY , NOTES: 10/10 699 TAKING ASPIRIN 81 MG TABLET DELAYED RELEASE 1 TABLET ORALLY ONCE A DAY, NOTES: 10/10 699 TAKING VALACYCLOVIR HCL 500 MG TABLET 1 TABLET ORALLY DAILY, NOTES: 10/09 2199 TAKING LACTULOSE 10 GM/15ML SOLUTION 15 ML ORALLY TWICE A DAY NEEDED, NOTES: OCC NEEDED TAKING NYSTATIN 093283 UNIT/GM CREAM APPLY EXTERNALLY TO AFFECTED JULIÁN AREA TWO TIMES A DAY , NOTES: 10/09 1400 TAKING LEVEMIR FLEX TOUCH 100 UNIT/ML SOLUTION 4 UNITS SUBCUTANEOUS DAILY DX: E11.65, NOTES: 10/09 2199 TAKING SPIRONOLACTONE 50 MG TABLET TAKE ONE TABLET BY MOUTH EVERY DAY , NOTES: 10/09 2199 TAKING CHLORTHALIDONE 25 MG TABLET TAKE 1/2 TABLET BY MOUTH ONCE DAILY , NOTES: 10/10 699 TAKING OMEPRAZOLE 40MG 40 MG TABLET 1 TAB(S) ORAL DAILY AT BEDTIME, NOTES: 10/09 2199 TAKING TUMS 500 MG TABLET CHEWABLE 1 TABLET ORALLY TWICE DAILY NEEDED, NOTES: NONE RECENT TAKING ADVAIR HFA 115-21 MCG/ACT AEROSOL 2 PUFFS INHALATION TWICE A DAY, NOTES: 10/10 699 TAKING SINGULAIR 10 MG TABLET TAKE ONE TABLET BY MOUTH ONCE A DAY IN THE EVENING , NOTES: 10/09 2199 TAKING VITAMIN D 2000 UNIT TABLET TAKE ONE TABLET BY MOUTH DAILY , NOTES: 10/10 699 TAKING CALCIUM + D3 600-200 MG-UNIT TABLET TAKE ONE TABLET BY MOUTH EVERY DAY , NOTES: 10/10 699 TAKING JARDIANCE 10 MG TABLET 1 TABLET ORALLY ONCE A DAY, NOTES: 10/09 699 NOT-TAKING SHINGRIX 50 MCG/0.5ML SUSPENSION RECONSTITUTED DIRECTED INTRAMUSCULAR 1 DOSE NOW, REPEAT IN 2 MONTHS NOT-TAKING HOSPITAL BED DIRECTED R53.1 DAILY NOT-TAKING ZYRTEC ALLERGY 10 MG TABLET 1 TABLET ORALLY ONCE A DAY NOT-TAKING FLUTICASONE FUROATE 27.5 MCG/SPRAY SUSPENSION 1 PUFF IN EACH NOSTRIL NASALLY ONCE A DAY MEDICATION LIST REVIEWED AND RECONCILED WITH THE PATIENT PAST MEDICAL HISTORY PTSD DEPRESSION/PANIC DISORDER EPILEPSY FOLLOWED BY DR. DUQUE ASTHMA COPD/CHRONIC BRONCHITIS - SPIROMETRY 09/2015 FEV1 = 1.7, FVC = 1.785, RATIO = 91.7 - POOR QUALITY SUSPECT MIXED PICTURE COPD/ RESTRICTIVE FROM OBESITY. NICOTINE DEPENDENCE - IN REMISSION QUITE 01/2018 GERD CLAUDIA - ON CPAP TOLERATING CPAP CHRONIC VENOUS INSUFFICIENCY LEFT BREAST ABSCESS HX INCONTINENCE, CYSTOCELE HX ABNORMAL PAP (AGE 20'S, 30'S) DYSPAREUNIA FATTY LIVER PER US 03/2015 ECHO 03/2015 - BORDERLINE LVH EF 65%. MILDLY DILATED LEFT ATRIUM. IMPAIRED LV DIASTOLIC FUNCTION. NORMAL LEFT ATRIAL PRESSURE, MILD PULM HTN. ENDOMETRIOSIS DIABETES TYPE 2 - INSULIN REQUIRING HYPERLIPIDEMIA HERPES TYPE 2 - BREAKOUT IN [facility] 03/29/18 SHINGLES - 02/2018 MIGRAINES - FOLLOWS WITH NEUROLOGY - GETTING BOTOX INJECTIONS 09/2018 DIABETIC NEUROPATHY LEFT LEG AND FOOT TONSIL STONE AND ABSCESS ENCEPHALOPATHY ABNORMAL LIVER ULTRASOUND CHRONIC LOW BACK PAIN ALLERGIES CHANTIX: NIGHT TERRORS - SIDE EFFECTS DEPAKOTE: COULDN'T STAY AWAKE - SIDE EFFECTS SULFA (FOR ALLERGY USE ONLY): RASH - ALLERGY LATEX (FOR ALLERGY USE ONLY): HIVES - ALLERGY METFORMIN HCL: SEVERE N/V - SIDE EFFECTS PROPRANOLOL HCL: BRADYCARDIA - SIDE EFFECTS SURGICAL HISTORY CLEFT/LIP/PALATE SURGERY 1961 DEVIATED NASAL SEPTUM 05/1998 01/1993 ENDOMETRIAL BIOPSY 1999 CHOLECYSTECTOMY 10/1997 TVT 2009 EGD/COLONOSCOPY (DR. TAYLOR) 2010 TUBES PLACED IN EARS ENDOMETRIAL ABLATION 2007 COLPOSCOPY/ECC 1999 CRYO FOR ABNORMAL PAP AGE 20'S COLONOSCOPY WITH BIOPSIES - NEGATIVE FOR MICROSCOPIC COLITIS (DR.. DUEÑAS) 09/2014 CYST REMOVAL LEFT EYE 01/2019 FAMILY HISTORY FATHER: 69 YRS, LUNG CANCER, HTN, DM-2, DIAGNOSED WITH DIABETES, HYPERTENSION, UNSPECIFIED HEART DISEASE, OTHER MALIGNANT NEOPLASM OF UNSPECIFIED SITE MOTHER: 64 YRS, COLON CANCER, HTN, DM-2, DIABETES, HYPERTENSION, UNSPECIFIED HEART DISEASE, OTHER MALIGNANT NEOPLASM OF UNSPECIFIED SITE SIBLINGS: ALIVE, BOTH HTN SISTER LYMPH CANCER IN 60'S SON(S): ALIVE 18 YRS DAUGHTER(S): ALIVE 19 YRS PATERNAL AUNT: ALIVE LATE 60'S YRS, BREAST CANCER, DX IN LATE 50 'S MATERNAL AUNT: , OVARIAN CANCER UNKNOWN AGE 1 BROTHER(S) , 1 SISTER(S) - HEALTHY. 1 SON(S) , 1 DAUGHTER(S) - HEALTHY. 10/2018 SISTER HEART ATTACK. SOCIAL HISTORY GENERAL: TOBACCO USE ARE YOU A:FORMER SMOKER HOW LONG HAS IT BEEN SINCE YOU LAST SMOKED?5-10 YEARS HIV / HEP-C SCREENING HIV TEST OFFERED TO PATIENT:YES DATE OFFERED:01/12/2018 TEST ACCEPTED:NO HEP-C TEST OFFERED TO PATIENT:YES DATE OFFERED:01/12/2018 REASON:PATIENT DECLINED TEST ACCEPTED:NO BROCHURE PROVIDED TO PATIENTNO OTHERS AT HOME: S.O.-JESSICA, 2 CATS, HAS A HOME HEALTH AIDE (BRO) 7 AM TO 3 PM DAILY.. HOUSING: RENTS APARTMENT. 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 DIET: DIABETIC DIET. LANGUAGE LANGUAGES SPOKEN:JAPANESE DOMESTIC VIOLENCE DO YOU FEEL SAFE IN YOUR ENVIRONMENT?YES BMI CARE GOAL FOLLOW-UP ABOVE NORMAL BMI FOLLOW-UPDIETARY NEEDS EDUCATION RECREATIONAL DRUG USE DENIES. EXERCISE: NO REGULAR EXERCISE. 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 TEAM LEADER NEEDED?NO LUNG CANCER SCREENING SMOKING STATUS:FORMER SMOKER IS THE PATIENT BETWEEN THE AGE OF 55 AND 77?YES PAIN CLINIC PFS, CLERGY, PUBLIC HEALTH REFERRALS HAS THE PATIENT BEEN EDUCATED REGARDING HIS/HER PLAN OF CARE?YES HAS THE PATIENT BEEN EDUCATED REGARDING PAIN, THE RISK FOR PAIN, THE IMPORTANCE OF EFFECTIVE PAIN MANAGEMENT, AND THE PAIN ASSESSMENT PROCESS?YES LATEX QUESTIONNAIRE LATEX ALLERGY : HAVE YOU EVER DEVELOPED ANY TYPE OF REACTION AFTER HANDLING LATEX PRODUCTS SUCH RUBBER GLOVES, CONDOMS, DIAPHRAGMS, BALLOONS, SOCKS, OR UNDERWEAR?YES KNOWN LATEX ALLERGY - PLEASE INDICATE :RUBBER GLOVES LATEX ALLERGY : HAVE YOU EVER DEVELOPED ANY TYPE OF REACTION DURING OR AFTER DENTAL APPOINTMENT, VAGINAL/RECTAL EXAMINATION, SURGICAL PROCEDURE, OR ANY OTHER EXPOSURE?NO LATEX RISK : HAVE YOU EVER HAD ANY DIFFICULTY BREATHING OR HIVES AFTER EATING OR HANDLING ANY FRUITS, OR VEGETABLES; SUCH KIWI, BANANAS, STONE FRUITS, OR CHESTNUTSNO LATEX RISK : DO YOU HAVE A PREVIOUS PERSONAL HISTORY OF MORE THAN NINE SURGERIES, SPINA BIFIDA, OR REPEATED CATHERIZATIONS? YES - PLEASE INDICATE : > 9 SURGERIES LATEX RISK : ARE YOU FREQUENTLY EXPOSED TO LATEX PRODUCTS IN YOUR OCCUPATION?NO DATE ASKED : 08/21/2019 CAFF[place]INE 0-1/DAY. ADVANCE DIRECTIVE ADVANCE DIRECTIVE DISCUSSED WITH PATIENT:YES PT STATES HCP [facility] [phone], ALEJANDRA COTTER- [phone] CHEONDOISM [id number] CHURCH MARITAL STATUS: . ALCOHOL SCREENING DID YOU HAVE A DRINK CONTAINING ALCOHOL IN THE PAST YEAR?YES HOW OFTEN DID YOU HAVE SIX OR MORE DRINKS ON ONE OCCASION IN THE PAST YEAR?NEVER (0 POINTS) HOW MANY DRINKS DID YOU HAVE ON A TYPICAL DAY WHEN YOU WERE DRINKING IN THE PAST YEAR?1 OR 2 (0 POINTS) HOW OFTEN DID YOU HAVE A DRINK CONTAINING ALCOHOL IN THE PAST YEAR?MONTHLY OR LESS (1 POINT) POINTS1 INTERPRETATIONNEGATIVE OCCUPATION: DISABLED. SEXUAL HX HAD SEX IN THE LAST 12 MONTHS (VAGINAL, ORAL, OR ANAL)?NO LMP:2007 HAVE YOU EVER HAD AN STD?NO 10/10/18 REVIEWED WITH PT. 02/01/19 REVIEWED WITH PT LAS04/24/19 REVIEWED WITH PT TERRY 10/10 2019 REVIEWED WITH PT. AD. HOSPITALIZATION/MAJOR DIAGNOSTIC PROCEDURE MAJOR DEPRESSION , SUICIDAL ATTEMPT TWICE. ( TRACY) SURGERIES ABOVE DEHYDRATION 04/2018 REVIEW OF SYSTEMS REVIEWED BY: PROVIDER: . CONSTITUTIONAL: ANY CHANGE IN YOUR MEDICAL CONDITION? NO . CHILLS NO . FEVER NO . INFECTION: DO YOU HAVE NEW INFECTIONS? NO . DO YOU HAVE HISTORY OF MRSA? NO . MUSCULOSKELETAL: ANY NEW PATTERNS OF PAIN OR NUMBNESS? YES, INCREASE IN LOW BACK PAIN OVER THE PAST 2 WEEKS . GASTROENTEROLOGY: ANY NEW CHANGE IN BOWEL CONTROL? NO . GENITOURINARY: ANY NEW CHANGE IN BLADDER CONTROL? NO . IS THERE A CHANCE YOU COULD BE ? NO . HEMATOLOGY/LYMPH: DO YOU TAKE ANY BLOOD THINNERS? (FOR EXAMPLE- COUMADIN, PLAVIX, AGGRENOX, PLATEL, PRADAXA, OR XARELTO) NO . WHEN WAS YOUR LAST DOSE? DATE: TIME: . NEUROLOGY: HAVE YOU FALLEN IN THE PAST 12 MONTHS? YES, APPROX 7 TIMES NO MAJOR INJURY. BETTER SINCE GETTING THE SCOOTER IN JUN. . ANY NEW EXTREMITY NUMBNESS OR WEAKNESS? NO . CARDIOLOGY: DO YOU HAVE A PACEMAKER OR DEFIBRILLATOR? NO . RESPIRATORY: HAVE YOU BEEN SICK IN THE PAST WEEK? NO . FEVER NO . FLU LIKE SYMPTOMS? NO . COUGH NO . INTEGUMENTARY: DO YOU HAVE ANY RASHES OR OPEN SORES? NO . ALLERGIC/IMMUNO: ARE YOU ALLERGIC TO IV DYE? NO . ANY NEW ALLERGIES? NO . PSYCHIATRIC: DO YOU HAVE THOUGHTS OF HURTING YOURSELF OR SOMEONE ELSE? NO . ARE YOU ABUSED, NEGLECTED, OR IN AN UNSAFE ENVIRONMENT? NO . ENDOCRINOLOGY: ARE YOU DIABETIC? YES FSBS @ 0700 114 . OTHER: DO YOU NEED ANY PRESCRIPTIONS? NO . IF YES, PLEASE LIST: ____ . ANY NEW PROBLEMS WITH YOUR MEDICATIONS? NO . WHEN DID YOU LAST EAT? 10/09 2200 . WHEN DID YOU LAST DRINK? 10/10 0700 . WHAT DID YOU LAST DRINK? DIET GA . NAME OF PERSON DRIVING YOU HOME? BRO MENDENHALL . DO YOU HAVE ANY OTHER QUESTIONS OR CONCERNS NO PT HAS NOT HAD ANY VACCINES IN THE PAST 30 DAYS . VITAL SIGNS WT 186.0 LBS, HT 65 IN, BMI 30.95 INDEX, BP 132/77 MM HG, HR 79 /MIN, RR 18 /MIN, TEMP 97.5 F, OXYGEN SAT % 99%, SAFE IN ENV? (Y/N) Y, NA INITIALS SC 09:18, REVIEWED BY: AD. ASSESSMENTS INTERVERTEBRAL DISC DISORDERS WITH RADICULOPATHY, LUMBOSACRAL REGION - M51.17 (PRIMARY) PROCEDURES PRE PROCEDURE DIAGNOSIS LUMBOSACRAL DISC DISORDER WITH RADICULOPATHY POST PROCEDURE DIAGNOSIS LUMBOSACRAL DISC DISORDER WITH RADICULOPATHY PROCEDURE LUMBAR EPIDURAL STEROID INJECTION UNDER FLUOROSCOPIC GUIDANCE SURGEON DR. 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 I EVALUATED THE PATIENT AND REVIEWED THE CHART. I WENT OVER THE RISKS, ALTERNATIVES, AND BENEFITS ASSOCIATED WITH THIS PROCEDURE. THE PATIENT WOULD LIKE TO PROCEED AND GAVE CONSENT TO PERFORM THE PROCEDURE. THE PATIENT DENIES UNEXPLAINABLE WEIGHT LOSS, FEVER, CHILLS, OR NEW CHANGES IN URINARY OR BOWEL CONTROL. DESCRIPTION OF PROCEDURE THE PATIENT WAS BROUGHT TO THE PROCEDURE ROOM AND PLACED IN THE PRONE POSITION. THE LUMBOSACRAL AREA WAS CLEANED WITH BETADINE SOLUTION AND DRAPED ASEPTICALLY. THE PROCEDURE WAS DONE UNDER STERILE CONDITIONS. I CHECKED LATERALITY AND THE LEVEL WHERE THE PROCEDURE WAS GOING TO BE PERFORMED WITH THE PATIENT AND THE SUPPORTING STAFF AT THE MOMENT OF THE TIME OUT IN THE PROCEDURE ROOM. UNDER FLUOROSCOPIC GUIDANCE, THE TARGET POINT WAS SELECTED AT THE INTERLAMINAR LEVEL OF L5-S1. LIDOCAINE WAS USED TO NUMB THE SKIN AND THE SUBCUTANEOUS TISSUE BELOW IT. EPIDURAL TUOHY NEEDLE, 16-GAUGE, WAS ADVANCED UNDER FLUOROSCOPIC GUIDANCE AND FOLLOWING PATIENT FEEDBACK UNTIL THE EPIDURAL SPACE WAS REACHED, 7 CM DEEP INTO THE SKIN BY THE LOSS OF RESISTANCE TECHNIQUE. I ADVANCED A 19-GAUGE EPIMED CATHETER THROUGH A 16-GAUGE NEEDLE TO THE LEFT OF L4-L5. ISOVUE M DYE 30%, 0.25 ML, WAS INJECTED SHOWING ADEQUATE SPREAD OF THE DYE. THEN, A SOLUTION OF 3 ML OF NORMAL SALINE WITH DEPO-MEDROL 60 MG WAS INJECTED SLOWLY FOLLOWING PATIENT FEEDBACK. THERE WAS NO EVIDENCE OF BLOOD, PARESTHESIA OR CEREBROSPINAL FLUID DURING THE PROCEDURE. THE PATIENT WAS SENT TO THE RECOVERY ROOM. THE PATIENT WAS MOVING THE EXTREMITIES AND DOING WELL. THERE WAS NO COMPLICATION DURING THE PROCEDURE. FLUOROSCOPY TIME WAS 8 SECONDS. POST PROCEDURE NOTE THE PATIENT WILL BE SEEN IN A FOLLOWUP IN THE NEXT FEW WEEKS. I AM LOOKING FOR LONG-LASTING PAIN RELIEF WITH THIS PROCEDURE. INSTRUCTIONS WERE GIVEN, QUESTIONS WERE ANSWERED, AND THE PATIENT EXPRESSED UNDERSTANDING AND AGREES WITH THE PLAN. I, HARI TREJO, DOCUMENTED THE ABOVE INFORMATION ACTING A SCRIBE FOR DR. GONCALVES. I HAVE REVIEWED THE ABOVE DOCUMENT, WRITTEN BY ERMA KWAN, AND I VERIFY THAT IT IS ACCURATE DIAGNOSTIC IMAGING [facility] [place]O GUIDE SPINE INJECTION (PAIN)[id number] PROCEDURE CODES 20499 LUMBAR/SACRAL W/ IMAGING [id number] RADXPS IN END [id number] PXD DISPOSITION & COMMUNICATION FOLLOW UP 2 WEEKS ELECTRONICALLY SIGNED BY RAUL GONCALVES MD, MD ON 10/24/2019 AT 11:40 AM EST DISCLAIMER : THIS IS A VISIT SUMMARY EXTRACTED FROM THE [email or web address] CHART. IT IS NOT A COPY OF THE [email or web address] PROGRESS NOTE. NATALIE
== END ==
LOC: M PAIN 09:15
PROVIDERS: ATTEND Anesthesiology
DX: M51.17 Intervertebral disc disorders with radiculopathy, lumbosacral region (principal); Z86.59 Personal history of other mental and behavioral disorders; G43.909 Migraine, unspecified, not intractable, without status migrainosus; J44.9 Chronic obstructive pulmonary disease, unspecified; K21.9 Gastro-esophageal reflux disease without esophagitis; G47.33 Obstructive sleep apnea (adult) (pediatric); E11.40 Type 2 diabetes mellitus with diabetic neuropathy, unspecified; E78.5 Hyperlipidemia, unspecified; Z87.891 Personal history of nicotine dependence; Z88.2 Allergy status to sulfonamides; Z88.8 Allergy status to other drugs, medicaments and biological substances; Z91.040 Latex allergy status; Z79.4 Long term (current) use of insulin; Z79.82 Long term (current) use of aspirin; Z79.899 Other long term (current) drug therapy
CPT/HCPCS: 62323; J1030; Q9967

== ENCOUNTER → 2019-10-16 | Outpatient (CLI) | payer MEDICARE, MEDICAID ==
[~2019-10-16] MED LIST changes: -ISOVUE-M 300 61% 15ML VIAL (Q9967) As Ordered ONE; -LIDOCAINE 1% SDV INJ 30 ML VIAL As Ordered ONE; -NORCO, ANEXSIA 5/325MG TABLET (HYDROcodone/ACETAMINOPHEN) As Ordered ONE; -diazePAM 2 MG TAB As Ordered ONE; -methylPREDNISolone SUSP 40 MG/ML (DEPO-medrol) VIAL (J1030) As Ordered ONE
[2019-10-16 14:56] LABS: BLOOD UREA NITROGEN 8 MG/DL (7-18); CREATININE FOR GFR 0.83 MG/DL (0.55-1.30); GLOMERULAR FILTRATION RATE > 60.0 (>51); IRON (FE) 95 UG/DL (50-170); PERCENT SATURATION 34.7 % (13.2-45.0); TOTAL IRON BINDING CAPACITY 274 UG/DL (250-450)
== END ==
LOC: M LAB 13:57
PROVIDERS: ATTEND Internal Medicine Gastroenterology
DX: R94.5 Abnormal results of liver function studies (principal); Z79.82 Long term (current) use of aspirin

== ENCOUNTER → 2019-10-25 | Outpatient (CLI) | payer MEDICARE, MEDICAID ==
--- NOTE | 2019-10-30 01:42 | ECWPNPC ---
PATIENT NAME: YAIMA CORRALES : 1960 GENDER: FEMALE VISIT DATE: 10/25/2019 DISCHARGE DATE: 10/25/19 1159 VISIT LOCKED DATE TIME: PHYSICIAN: LEAH ARELLANO RESOURCE: LEAH ARELLANO REASON FOR APPOINTMENT 1. POST LESI HISTORY OF PRESENT ILLNESS HISTORY OF PRESENT ILLNESS: PAIN THE PATIENT DESCRIBES THE PAIN... 59-YEAR-OLD MALE IN FOR POST LESI FOLLOW-UP. SHE FEELS THE PROCEDURE WAS INEFFECTIVE. SHE RATES HER PAIN CURRENTLY AT A 9 OUT OF 10 AND DESCRIBES IT ACHING, SHARP, STABBING, AND SHOOTING. PATIENT WOULD LIKE DISCUSSED MEDICATION TO HELP BETTER CONTROL PAIN. FALL RISK SCREENING: SCREENING :NO FALLS REPORTED IN THE LAST YEAR CURRENT MEDICATIONS TAKING DEPEND PANT EXTRA LARGE _ UNDERGARMENTS DIAG CODE SIZE LARGE DX:N39.41 DAILY= MDD 24 TAKING ABILIFY 2 MG TABLET 1 TABLET ORALLY ONCE A DAY TAKING ONE TOUCH ULTRA BLUE STRIPS DIRECTED DX: E11.65 TWICE A DAY ADN NEEDED TAKING GABAPENTIN 100 100 MG (LATTIF) TABLET 2 TABS ORAL TID, NOTES: 10/10 699 TAKING VITAMIN C 500 MG CAPSULE DIRECTED ORALLY ONCE A DAY, NOTES: 10/10 699 TAKING LEVETIRACETAM 250 MG (LATTIF) TABLET 1 TAB IN THE AM 2 TABS IN THE PM ORALLY TWICE DAILY, NOTES: 10/10 699 TAKING BUSPIRONE HCL 50 TABLET 1 TAB ORALLY TID, NOTES: 10/10 699 TAKING VIMPAT 50 MG TABLET 1 TAB ORALLY TWICE A DAY, NOTES: 10/10 699 TAKING HYDROXYZINE HCL 50MG MERCY TABLET 1 TABLET ORALLY TWICE A DAY, NOTES: 10/10 699 TAKING GLUCOMETER DIRECTED E11.65 TWICE ADAY AND NEEDED TAKING CYMBALTA 60 MG CAPSULE DELAYED RELEASE PARTICLES 1 CAPSULE ORALLY TWICE A DAY, NOTES: 10/10 699 TAKING TRAZODONE HCL 50 MG TABLET 1 1/2 TABLET AT BEDTIME NEEDED ORALLY ONCE A DAY, NOTES: 10/090 TAKING PEN NEEDLES 31G X 6 MM MISCELLANEOUS DIRECTED SUBCUTANEOUSLY DAILY E11.65 TAKING NEBULIZER/ADULT MASK - KIT DIRECTED DX: J44.9 MASK AND TUBING TAKING ALBUTEROL SULFATE (2.5 MG/3ML) 0.083% NEBULIZATION SOLUTION 3 ML INHALATION EVERY 4-6 HOURS NEEDED, NOTES: NONE RECENT TAKING TENS UNIT ELECTRO PADS - DIRECTED DX:M12.88 DIRECTED TAKING DEPEND PANT LARGE . MISCELLANEOUS DIRECTED DX: N39.41,ID# [id number] DAILY MDD = 24 TAKING ROLLING WALKER 1 1 DIRECTED ROLLING WALKER WITH SEAT DX; J44.9, M51.16 TAKING TOPIRAMATE 50 MG TABLET TAKE ONE TABLET BY MOUTH AT BEDTIME ORAL , NOTES: 10/09 2199 TAKING BOTOX 100 UNIT SOLUTION RECONSTITUTED GIVEN WITH NEURO INJECTION EVERY 3 MONTHS FOR MIGRAINES, NOTES: NEURO 07/2019 TAKING BLOOD GLUCOSE TEST - STRIP DIRECTED IN VITRO BEFORE MEALS AND AT BEDTIME. DX: Z79.4 TAKING JOBST ACTIVEWEAR 15-20MMHG - MISCELLANEOUS DIRECTED DX: SPIDER VEINS, VENOUS INSUFF DAILY TAKING PROAIR HFA 108 (90 BASE) MCG/ACT AEROSOL SOLUTION 2 PUFFS NEEDED INHALATION EVERY 6 HRS, NOTES: NONE RECENT TAKING ATORVASTATIN CALCIUM 20 MG TABLET 1 TABLET ORALLY ONCE AT BEDTIME, NOTES: 10/09 2199 TAKING LIDODERM 5 % PATCH 2 PATCH TO SKIN REMOVE AFTER 12 HOURS EXTERNALLY ONCE A DAY - APPLY TO LOW BACK FOR POST HERPETIC NEURALGIA, NOTES: 10/09 TAKING UNIFINE PENTIPS 31G X 6 MM MISCELLANEOUS USE DIRECTED DAILY TAKING OXYBUTYNIN CHLORIDE ER 15 MG TABLET EXTENDED RELEASE 24 HOUR TAKE ONE TABLET BY MOUTH ONCE A DAY , NOTES: 10/10 699 TAKING ACCU-CHEK SOFT TOUCH LANCETS - MISCELLANEOUS DIRECTED DX: E11.65 TWICE A DAY AND NEEDED TAKING DAILY-KIRAN - TABLET TAKE ONE TABLET BY MOUTH EVERY DAY , NOTES: 10/10 699 TAKING ASPIRIN 81 MG TABLET DELAYED RELEASE 1 TABLET ORALLY ONCE A DAY, NOTES: 10/10 699 TAKING NYSTATIN [id number] UNIT/GM CREAM APPLY EXTERNALLY TO AFFECTED JULI[place] AREA TWO TIMES A DAY , NOTES: 10/09 1400 TAKING LEVEMIR FLEX TOUCH 100 UNIT/ML SOLUTION 4 UNITS SUBCUTANEOUS DAILY DX: E11.65, NOTES: 10/09 2199 TAKING SPIRONOLACTONE 50 MG TABLET TAKE ONE TABLET BY MOUTH EVERY DAY , NOTES: 10/09 2199 TAKING CHLORTHALIDONE 25 MG TABLET TAKE 1/2 TABLET BY MOUTH ONCE DAILY , NOTES: 10/10 699 TAKING OMEPRAZOLE 40MG 40 MG TABLET 1 TAB(S) ORAL DAILY AT BEDTIME, NOTES: 10/09 2199 TAKING TUMS 500 MG TABLET CHEWABLE 1 TABLET ORALLY TWICE DAILY NEEDED, NOTES: NONE RECENT TAKING ADVAIR HFA 115-21 MCG/ACT AEROSOL 2 PUFFS INHALATION TWICE A DAY, NOTES: 10/10 699 TAKING SINGULAIR 10 MG TABLET TAKE ONE TABLET BY MOUTH ONCE A DAY IN THE EVENING , NOTES: 10/09 2199 TAKING VITAMIN D 2000 UNIT TABLET TAKE ONE TABLET BY MOUTH DAILY , NOTES: 10/10 699 TAKING CALCIUM + D3 600-200 MG-UNIT TABLET TAKE ONE TABLET BY MOUTH EVERY DAY , NOTES: 10/10 699 TAKING JARDIANCE 10 MG TABLET 1 TABLET ORALLY ONCE A DAY, NOTES: 10/09 699 TAKING VALACYCLOVIR HCL 500 MG TABLET 1 TABLET ORALLY DAILY NOT-TAKING LACTULOSE 10 GM/15ML SOLUTION 15 ML ORALLY TWICE A DAY NEEDED, NOTES: OCC NEEDED NOT-TAKING SHINGRIX 50 MCG/0.5ML SUSPENSION RECONSTITUTED DIRECTED INTRAMUSCULAR 1 DOSE NOW, REPEAT IN 2 MONTHS NOT-TAKING HOSPITAL BED DIRECTED R53.1 DAILY NOT-TAKING ZYRTEC ALLERGY 10 MG TABLET 1 TABLET ORALLY ONCE A DAY NOT-TAKING FLUTICASONE FUROATE 27.5 MCG/SPRAY SUSPENSION 1 PUFF IN EACH NOSTRIL NASALLY ONCE A DAY MEDICATION LIST REVIEWED AND RECONCILED WITH THE PATIENT PAST MEDICAL HISTORY PTSD DEPRESSION/PANIC DISORDER EPILEPSY FOLLOWED BY DR. DUQUE ASTHMA COPD/CHRONIC BRONCHITIS - SPIROMETRY 09/2015 FEV1 = 1.7, FVC = 1.785, RATIO = 91.7 - POOR QUALITY SUSPECT MIXED PICTURE COPD/ RESTRICTIVE FROM OBESITY. NICOTINE DEPENDENCE - IN REMISSION QUITE 01/2018 GERD CLAUDIA - ON CPAP TOLERATING CPAP CHRONIC VENOUS INSUFFICIENCY LEFT BREAST ABSCESS HX INCONTINENCE, CYSTOCELE HX ABNORMAL PAP (AGE 20'S, 30'S) DYSPAREUNIA FATTY LIVER PER US 03/2015 ECHO 03/2015 - BORDERLINE LVH EF 65%. MILDLY DILATED LEFT ATRIUM. IMPAIRED LV DIASTOLIC FUNCTION. NORMAL LEFT ATRIAL PRESSURE, MILD PULM HTN. ENDOMETRIOSIS DIABETES TYPE 2 - INSULIN REQUIRING HYPERLIPIDEMIA HERPES TYPE 2 - BREAKOUT IN [facility] 03/29/18 SHINGLES - 02/2018 MIGRAINES - FOLLOWS WITH NEUROLOGY - GETTING BOTOX INJECTIONS 09/2018 DIABETIC NEUROPATHY LEFT LEG AND FOOT TONSIL STONE AND ABSCESS ENCEPHALOPATHY ABNORMAL LIVER ULTRASOUND CHRONIC LOW BACK PAIN ALLERGIES CHANTIX: NIGHT TERRORS - SIDE EFFECTS DEPAKOTE: COULDN'T STAY AWAKE - SIDE EFFECTS SULFA (FOR ALLERGY USE ONLY): RASH - ALLERGY LATEX (FOR ALLERGY USE ONLY): HIVES - ALLERGY METFORMIN HCL: SEVERE N/V - SIDE EFFECTS PROPRANOLOL HCL: BRADYCARDIA - SIDE EFFECTS SURGICAL HISTORY CLEFT/LIP/PALATE SURGERY 1961 DEVIATED NASAL SEPTUM 05/1998 01/1993 ENDOMETRIAL BIOPSY 1999 CHOLECYSTECTOMY 10/1997 TVT 2009 EGD/COLONOSCOPY (DR. TAYLOR) 2010 TUBES PLACED IN EARS ENDOMETRIAL ABLATION 2007 COLPOSCOPY/ECC 1999 CRYO FOR ABNORMAL PAP AGE 20'S COLONOSCOPY WITH BIOPSIES - NEGATIVE FOR MICROSCOPIC COLITIS (DR.. DUEÑAS) 09/2014 CYST REMOVAL LEFT EYE 01/2019 FAMILY HISTORY FATHER: 69 YRS, LUNG CANCER, HTN, DM-2, DIAGNOSED WITH DIABETES, HYPERTENSION, UNSPECIFIED HEART DISEASE, OTHER MALIGNANT NEOPLASM OF UNSPECIFIED SITE MOTHER: 64 YRS, COLON CANCER, HTN, DM-2, DIABETES, HYPERTENSION, UNSPECIFIED HEART DISEASE, OTHER MALIGNANT NEOPLASM OF UNSPECIFIED SITE SIBLINGS: ALIVE, BOTH HTN SISTER LYMPH CANCER IN 60'S SON(S): ALIVE 18 YRS DAUGHTER(S): ALIVE 19 YRS PATERNAL AUNT: ALIVE LATE 60'S YRS, BREAST CANCER, DX IN LATE 50 'S MATERNAL AUNT: , OVARIAN CANCER UNKNOWN AGE 1 BROTHER(S) , 1 SISTER(S) - HEALTHY. 1 SON(S) , 1 DAUGHTER(S) - HEALTHY. 10/2018 SISTER HEART ATTACK. SOCIAL HISTORY GENERAL: TOBACCO USE ARE YOU A:FORMER SMOKER HOW LONG HAS IT BEEN SINCE YOU LAST SMOKED?5-10 YEARS HIV / HEP-C SCREENING HIV TEST OFFERED TO PATIENT:YES DATE OFFERED:01/12/2018 TEST ACCEPTED:NO HEP-C TEST OFFERED TO PATIENT:YES DATE OFFERED:01/12/2018 REASON:PATIENT DECLINED TEST ACCEPTED:NO BROCHURE PROVIDED TO PATIENTNO OTHERS AT HOME: S.O.-JESSICA, 2 CATS, HAS A HOME HEALTH AIDE (BRO) 7 AM TO 3 PM DAILY.. HOUSING: RENTS APARTMENT. 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 DIET: DIABETIC DIET. LANGUAGE LANGUAGES SPOKEN:LITHUANIAN DOMESTIC VIOLENCE DO YOU FEEL SAFE IN YOUR ENVIRONMENT?YES BMI CARE GOAL FOLLOW-UP ABOVE NORMAL BMI FOLLOW-UPDIETARY NEEDS EDUCATION RECREATIONAL DRUG USE DENIES. EXERCISE: NO REGULAR EXERCISE. 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 NEEDED?NO LUNG CANCER SCREENING SMOKING STATUS:FORMER SMOKER IS THE PATIENT BETWEEN THE AGE OF 55 AND 77?YES PAIN CLINIC PFS, CLERGY, PUBLIC HEALTH REFERRALS HAS THE PATIENT BEEN EDUCATED REGARDING HIS/HER PLAN OF CARE?YES HAS THE PATIENT BEEN EDUCATED REGARDING PAIN, THE RISK FOR PAIN, THE IMPORTANCE OF EFFECTIVE PAIN MANAGEMENT, AND THE PAIN ASSESSMENT PROCESS?YES LATEX QUESTIONNAIRE LATEX ALLERGY : HAVE YOU EVER DEVELOPED ANY TYPE OF REACTION AFTER HANDLING LATEX PRODUCTS SUCH RUBBER GLOVES, CONDOMS, DIAPHRAGMS, BALLOONS, SOCKS, OR UNDERWEAR?YES KNOWN LATEX ALLERGY LATEX ALLERGY : HAVE YOU EVER DEVELOPED ANY TYPE OF REACTION DURING OR AFTER DENTAL APPOINTMENT, VAGINAL/RECTAL EXAMINATION, SURGICAL PROCEDURE, OR ANY OTHER EXPOSURE?NO - PLEASE INDICATE :RUBBER GLOVES DATE ASKED : 08/21/2019 LATEX RISK : HAVE YOU EVER HAD ANY DIFFICULTY BREATHING OR HIVES AFTER EATING OR HANDLING ANY FRUITS, OR VEGETABLES; SUCH KIWI, BANANAS, STONE FRUITS, OR CHESTNUTSNO LATEX RISK : DO YOU HAVE A PREVIOUS PERSONAL HISTORY OF MORE THAN NINE SURGERIES, SPINA BIFIDA, OR REPEATED CATHERIZATIONS? YES - PLEASE INDICATE : > 9 SURGERIES LATEX RISK : ARE YOU FREQUENTLY EXPOSED TO LATEX PRODUCTS IN YOUR OCCUPATION?NO CAFFEINE 0-1/DAY. ADVANCE DIRECTIVE ADVANCE DIRECTIVE DISCUSSED WITH PATIENT:YES PT STATES HCP [facility] [phone], ALEJANDRA COTTER- [phone] JEHOVAH'S WITNESS [id number] RELIGIOUS MARITAL STATUS: . ALCOHOL SCREENING DID YOU HAVE A DRINK CONTAINING ALCOHOL IN THE PAST YEAR?YES HOW OFTEN DID YOU HAVE SIX OR MORE DRINKS ON ONE OCCASION IN THE PAST YEAR?NEVER (0 POINTS) HOW MANY DRINKS DID YOU HAVE ON A TYPICAL DAY WHEN YOU WERE DRINKING IN THE PAST YEAR?1 OR 2 (0 POINTS) HOW OFTEN DID YOU HAVE A DRINK CONTAINING ALCOHOL IN THE PAST YEAR?MONTHLY OR LESS (1 POINT) POINTS1 INTERPRETATIONNEGATIVE OCCUPATION: DISABLED. SEXUAL HX HAD SEX IN THE LAST 12 MONTHS (VAGINAL, ORAL, OR ANAL)?NO LMP:2007 HAVE YOU EVER HAD AN STD?NO 10/10/18 REVIEWED WITH PT. 02/01/19 REVIEWED WITH PT LAS04/24/19 REVIEWED WITH PT NLJ 10/10 2019 REVIEWED WITH PT. AD 10/25/2019 REVIEWED WITH PATIENT LAS. HOSPITALIZATION/MAJOR DIAGNOSTIC PROCEDURE MAJOR DEPRESSION , SUICIDAL ATTEMPT TWICE. (ST TRACY) SURGERIES ABOVE DEHYDRATION 04/2018 REVIEW OF SYSTEMS REVIEWED BY: PROVIDER: CORY BUSTOS . CONSTITUTIONAL: ANY CHANGE IN YOUR MEDICAL CONDITION? NO . CHILLS NO . FEVER NO . INFECTION: DO YOU HAVE NEW INFECTIONS? NO . DO YOU HAVE HISTORY OF MRSA? NO . MUSCULOSKELETAL: ANY NEW PATTERNS OF PAIN OR NUMBNESS? NO . GASTROENTEROLOGY: ANY NEW CHANGE IN BOWEL CONTROL? NO . GENITOURINARY: ANY NEW CHANGE IN BLADDER CONTROL? NO . IS THERE A CHANCE YOU COULD BE ? NO . HEMATOLOGY/LYMPH: DO YOU TAKE ANY BLOOD THINNERS? (FOR EXAMPLE- COUMADIN, PLAVIX, AGGRENOX, PLATEL, PRADAXA, OR XARELTO) NO . WHEN WAS YOUR LAST DOSE? DATE: TIME: . NEUROLOGY: HAVE YOU FALLEN IN THE PAST 12 MONTHS? YES PT REPORTS SHE PREVIOUSLY HAD FREQUENT FALLS, NONE SINCE RECEIVING A SCOOTER SINCE LAST JUNE. . ANY NEW EXTREMITY NUMBNESS OR WEAKNESS? NO . CARDIOLOGY: DO YOU HAVE A PACEMAKER OR DEFIBRILLATOR? NO . RESPIRATORY: HAVE YOU BEEN SICK IN THE PAST WEEK? NO . FEVER NO . FLU LIKE SYMPTOMS? NO . COUGH NO . INTEGUMENTARY: DO YOU HAVE ANY RASHES OR OPEN SORES? NO . ALLERGIC/IMMUNO: ARE YOU ALLERGIC TO IV DYE? NO . ANY NEW ALLERGIES? NO . PSYCHIATRIC: DO YOU HAVE THOUGHTS OF HURTING YOURSELF OR SOMEONE ELSE? NO . ARE YOU ABUSED, NEGLECTED, OR IN AN UNSAFE ENVIRONMENT? NO . ENDOCRINOLOGY: ARE YOU DIABETIC? YES . OTHER: DO YOU NEED ANY PRESCRIPTIONS? NO . IF YES, PLEASE LIST: ____ . ANY NEW PROBLEMS WITH YOUR MEDICATIONS? NO . WHEN DID YOU LAST EAT? ____ . WHEN DID YOU LAST DRINK? ____ . WHAT DID YOU LAST DRINK? ____ . NAME OF PERSON DRIVING YOU HOME? ____ . DO YOU HAVE ANY OTHER QUESTIONS OR CONCERNS PT WOULD LIKE TO DISCUSS SOMETHING FOR PAIN, SINCE INJECTIONS ARE NOT HELPING HER. . VITAL SIGNS WT 179.6 LBS, HT 65 IN, BMI 29.88 INDEX, BP 139/80 MM HG, HR 78 /MIN, RR 18 /MIN, TEMP 97.2 F, OXYGEN SAT % 94%, SAFE IN ENV? (Y/N) YES, REVIEWED BY: GAVIN. EXAMINATION GENERAL EXAMINATION: GENERALNO ACUTE DISTRESS, WELL NOURISHED AND HYDRATED. PSYCHAPPROPRIATE MOOD AND AFFECT . LUNGS:CLEAR TO AUSCULTATION BILATERALLY, NO WHEEZES, RHONCHI, RALES. HEART:NO MURMURS, REGULAR RATE AND RHYTHM. ASSESSMENTS INTERVERTEBRAL DISC DISORDER WITH RADICULOPATHY OF LUMBAR REGION - M51.16 (PRIMARY) OTHER CHRONIC PAIN - G89.29 TREATMENT INTERVERTEBRAL DISC DISORDER WITH RADICULOPATHY OF LUMBAR REGION START BELBUCA FILM, 75 MCG, 1 FILM TO THE GUM, BUCALLY, ONCE A DAY, 30 DAYS, 30 CLINICAL NOTES: 79-YEAR-OLD FEMALE IN FOR CHRONIC PAIN FOLLOW-UP. GIVEN PRESENTING SYMPTOMS AND RESULTS OF PHYSICAL EXAMINATION RECOMMENDED STARTING BELBUCA 75 MCG DAILY WITH FOLLOW-UP IN 2 MONTHS TO DETERMINE EFFICACY TREATMENT. PATIENT HAS EXPRESSED HER STANDING OF AND WAS IN AGREEMENT WITH TREATMENT PLAN. GIVEN TIME TO ASK QUESTIONS AND EXPRESS CONCERNS., ISTOP REGISTRY REVIEWED AND DEMONSTRATES COMPLLIANCE. (REF # [id number] ) BRINGS IN MEDICATIONS WHICH IS APPROPRIATE FOR WHAT WAS DISPENSED. RECENT URINE TOXICOLOGY REVIEWED. NO UNAUTHORIZED MEDICATIONS. NO ILLICIT SUBSTANCES AND PRESCRIBED MEDICATIONS WERE PRESENT. , DUE TO PATIENT''S HISTORY OF LIVER DISEASE, IT IS MEDICALLY NECESSARY TO USE BELBUCA /BUPRENORPHINE TO AVOID MEDICATIONS THAT ARE METABOLIZED BY THE LIVER IN ORDER TO TREAT CHRONIC PAIN. WE ARE TRYING TO LIMIT TOTAL MORPHINE MILLEQUIVALENTS, NUMBER OF PRESCRIPTIONS ISSUED AND C II MEDICATIONS PER CLINICAL GUIDELINES AND BELBUCA WOULD BE INDICATED TO MEET THIS CRITERIA. I AM ALSO USING BELBUCA TO MINIMIZE POTENTIAL FOR SIDE EFFECTS ASSOCIATED WITH C II NARCOTICS AND MUSCLE RELAXANTS IN THE ELDERLY POPULATION AND IN PATIENTS AT RISK FOR RESPIRATORY DEPRESSION. PREVENTIVE MEDICINE PAIN CLINIC TEACHING: MEDICATIONS INFORMATIONAL HANDOUT FOR BELBUCA PRINTED AND REVIEWED WITH PATIENT, PATIENT VERBALIZES UNDERSTANDING. 10/25/2019 GAVIN NARCOTIC AGREEMENT REVIEWED WITH PATIENT.. PROCEDURE CODES FA211 ESTABILISHED PATIENT [facility] CHARGE DISPOSITION & COMMUNICATION FOLLOW UP 2 MONTHS (REASON: BACK PAIN, NEW MEDICATION ) ELECTRONICALLY SIGNED BY KALI ROQUE ON 10/29/2019 AT 09:19 AM EST DISCLAIMER : THIS IS A VISIT SUMMARY EXTRACTED FROM THE [employer] CHART. IT IS NOT A COPY OF THE [employer] PROGRESS NOTE. MTDD
== END ==
LOC: M PAIN 10:45
PROVIDERS: ATTEND Family Medicine
DX: M51.16 Intervertebral disc disorders with radiculopathy, lumbar region (principal); G89.29 Other chronic pain; Z86.59 Personal history of other mental and behavioral disorders; G40.909 Epilepsy, unspecified, not intractable, without status epilepticus; J44.9 Chronic obstructive pulmonary disease, unspecified; K21.9 Gastro-esophageal reflux disease without esophagitis; G47.33 Obstructive sleep apnea (adult) (pediatric); E11.40 Type 2 diabetes mellitus with diabetic neuropathy, unspecified; E78.5 Hyperlipidemia, unspecified; G43.909 Migraine, unspecified, not intractable, without status migrainosus; Z87.891 Personal history of nicotine dependence; Z88.2 Allergy status to sulfonamides; Z88.8 Allergy status to other drugs, medicaments and biological substances; Z91.040 Latex allergy status; Z79.82 Long term (current) use of aspirin; Z79.4 Long term (current) use of insulin; Z79.899 Other long term (current) drug therapy

== ENCOUNTER → 2019-10-30 | Outpatient (CLI) | payer MEDICARE, MEDICAID ==
[~2019-10-30] MED LIST changes: +GASTROGRAFIN SOLUTION 30ML (Q9963) As Ordered ONE; +ISOVUE-370 76% 100ML VIAL (Q9967) As Ordered ONE
--- NOTE | 2019-10-31 06:41 | REP ---
Clinical: Abnormal weight loss. Technique: Axial contrast enhanced images from the lung bases to the pubic symphysis using oral (per protocol) and 100 ml Isovue 370 intravenous contrast material with coronal and sagittal re-formations. Comparison: 01/31/2014 Findings: Lung bases demonstrate mild dependent changes. Visualized heart and pericardium normal. Liver, spleen, pancreas, bilateral adrenal glands and kidneys are essentially normal. Left renal hypodensities likely represent cysts. Evidence of prior cholecystectomy. The enteric system is without obstruction or acute inflammatory process. Pelvis demonstrates normal bladder and age-appropriate uterus/adnexa. No ascites. No free air. No adenopathy. Abdominal aorta and vasculature without aneurysm or dissection. Surrounding musculoskeletal structures are intact and without focal abnormality. Impression: 1. No acute abdominopelvic pathology appreciated. Electronically Signed by J Carlos Chin MD 10/31/2019 06:33 A
== END ==
LOC: M RAD 07:42
PROVIDERS: ATTEND Internal Medicine Gastroenterology
DX: R63.4 Abnormal weight loss (principal)
CPT/HCPCS: 74177; Q9963; Q9967

== ENCOUNTER → 2019-12-05 | Outpatient (REF) | payer MEDICARE, MEDICAID ==
[~2019-12-05] MED LIST changes: -GASTROGRAFIN SOLUTION 30ML (Q9963) As Ordered ONE; -ISOVUE-370 76% 100ML VIAL (Q9967) As Ordered ONE; -ROPI1TAB PO; +ROPI1TAB3 PO; +VALA1TAB5 PO; -VALA1TAB64 PO
[2019-12-05 12:40] LABS: ALT/SGPT 28 U/L (12-78); BILIRUBIN,TOTAL 0.7 MG/DL (0.2-1.0); BLOOD UREA NITROGEN 8 MG/DL (7-18); CALCIUM LEVEL 9.8 MG/DL (8.5-10.1); CARBON DIOXIDE LEVEL 26 MEQ/L (21-32); CHLORIDE LEVEL 104 MEQ/L (98-107); CHOLESTEROL LEVEL 137 MG/DL (<200); CHOLESTEROL RISK RATIO 2.174 (<5); GLOMERULAR FILTRATION RATE > 60.0 (>51); GLUCOSE, FASTING 92 MG/DL (70-100); HDL CHOLESTEROL 63 MG/DL (>40); LDL CHOLESTEROL 58 MG/DL (<100); MAGNESIUM LEVEL 1.8 MG/DL (1.8-2.4); MALB URINE SIEMENS 48.3 MG/L; MAU/CREAT RATIO 39.9 MCG/MG (0.0-30.0); NON-HDL-C 74 MG/DL; SODIUM LEVEL 140 MEQ/L (136-145); TOTAL PROTEIN 7.3 GM/DL (6.4-8.2); TRIGLYCERIDES LEVEL 82 MG/DL (<150)
== END ==
LOC: M SFHCPLAZ 09:10
PROVIDERS: ATTEND Nurse Practitioner Family
DX: I11.9 Hypertensive heart disease without heart failure (principal); E11.9 Type 2 diabetes mellitus without complications; E78.5 Hyperlipidemia, unspecified; K21.9 Gastro-esophageal reflux disease without esophagitis; E55.9 Vitamin D deficiency, unspecified; Z79.899 Other long term (current) drug therapy

== ENCOUNTER → 2019-12-10 | Outpatient (CLI) | payer MEDICARE ==
[2019-12-10 12:06] LABS: BLOOD UREA NITROGEN 6 MG/DL (7-18); CALCIUM LEVEL 9.5 MG/DL (8.5-10.1); CARBON DIOXIDE LEVEL 31 MEQ/L (21-32); CHLORIDE LEVEL 105 MEQ/L (98-107); CREATININE FOR GFR 0.88 MG/DL (0.55-1.30); GLOMERULAR FILTRATION RATE > 60.0 (>51); GLUCOSE, FASTING 73 MG/DL (70-100); POTASSIUM SERUM 4.3 MEQ/L (3.5-5.1); SODIUM LEVEL 142 MEQ/L (136-145)
== END ==
LOC: M PLALAB 10:42
PROVIDERS: ATTEND Nurse Practitioner Family
DX: E87.6 Hypokalemia (principal)

== ENCOUNTER → 2019-12-10 | Outpatient (REF) | payer MEDICARE, MEDICAID | LOC: M SFHCPLAZ 10:38 | PROVIDERS: ATTEND Nurse Practitioner Family | DX: I11.9 Hypertensive heart disease without heart failure (principal) ==

== ENCOUNTER → 2019-12-18 | Outpatient (CLI) | payer MEDICARE, MEDICAID ==
--- NOTE | 2019-12-20 03:21 | ECWPNPC ---
PATIENT NAME: YAIMA CORRALES : 1960 GENDER: FEMALE VISIT DATE: 12/18/2019 DISCHARGE DATE: 12/18/19 1102 VISIT LOCKED DATE TIME: PHYSICIAN: LEAH ARELLANO RESOURCE: LEAH ARELLANO REASON FOR APPOINTMENT 1. 2 MONTH HISTORY OF PRESENT ILLNESS HISTORY OF PRESENT ILLNESS: PAIN THE PATIENT DESCRIBES THE PAINDURING THE LAST MONTH SEVERITY - PAIN SCORE OF8/10 LOCATIONSMID BACK, LOWER BACK QUALITYACHING DURATIONINTERMITTENT 59-YEAR-OLD FEMALE IN FOR CHRONIC PAIN FOLLOW-UP. PATIENT WAS STARTED ON BUTRANS PATCH AT LAST CLINIC VISIT AND IS QUESTIONING IF AN INCREASE IN THE MEDICATION WOULD BE OF BENEFIT. SHE RATES HER PAIN CURRENTLY AT AN 8 OUT OF 10 AND DESCRIBES IT ACHING. FALL RISK SCREENING: SCREENING :NO FALLS REPORTED IN THE LAST YEAR CURRENT MEDICATIONS TAKING DEPEND PANT EXTRA LARGE _ UNDERGARMENTS DIAG CODE SIZE LARGE DX:N39.41 DAILY= MDD 24 TAKING ABILIFY 2 MG TABLET 1 TABLET ORALLY ONCE A DAY TAKING GABAPENTIN 100 100 MG (LATTIF) TABLET 1 TAB ORALLY THREE TIMES DAILY, NOTES: 10/10 699 TAKING VITAMIN C 500 MG CAPSULE DIRECTED ORALLY ONCE A DAY, NOTES: 10/10 699 TAKING LEVETIRACETAM 250 MG (LATTIF) TABLET 1 TAB IN THE AM 2 TABS IN THE PM ORALLY TWICE DAILY, NOTES: 10/10 699 TAKING BUSPIRONE HCL 50 TABLET 1 TAB ORALLY TID, NOTES: 10/10 699 TAKING VIMPAT 50 MG TABLET 1 TAB ORALLY TWICE A DAY, NOTES: 10/10 699 TAKING HYDROXYZINE HCL 50MG MERCY TABLET 1 TABLET ORALLY TWICE A DAY, NOTES: 10/10 699 TAKING GLUCOMETER DIRECTED E11.65 TWICE ADAY AND NEEDED TAKING CYMBALTA 60 MG CAPSULE DELAYED RELEASE PARTICLES 1 CAPSULE ORALLY TWICE A DAY, NOTES: 10/10 699 TAKING TRAZODONE HCL 50 MG TABLET 1 1/2 TABLET AT BEDTIME NEEDED ORALLY ONCE A DAY, NOTES: 10/09 2200 TAKING NEBULIZER/ADULT MASK - KIT DIRECTED DX: J44.9 MASK AND TUBING TAKING ALBUTEROL SULFATE (2.5 MG/3ML) 0.083% NEBULIZATION SOLUTION 3 ML INHALATION EVERY 4-6 HOURS NEEDED, NOTES: NONE RECENT TAKING TENS UNIT ELECTRO PADS - DIRECTED DX:M12.88 DIRECTED TAKING DEPEND PANT LARGE . MISCELLANEOUS DIRECTED DX: N39.41,ID# [id number] DAILY MDD = 24 TAKING ROLLING WALKER 1 1 DIRECTED ROLLING WALKER WITH SEAT DX; J44.9, M51.16 TAKING TOPIRAMATE 50 MG TABLET TAKE ONE TABLET BY MOUTH AT BEDTIME ORAL , NOTES: 10/09 2199 TAKING BOTOX 100 UNIT SOLUTION RECONSTITUTED GIVEN WITH NEURO INJECTION EVERY 3 MONTHS FOR MIGRAINES, NOTES: NEURO 07/2019 TAKING BLOOD GLUCOSE TEST - STRIP DIRECTED IN VITRO BEFORE MEALS AND AT BEDTIME. 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, NOTES: 10/09 TAKING UNIFINE PENTIPS 31G X 6 MM MISCELLANEOUS USE DIRECTED DAILY TAKING NYSTATIN 701102 UNIT/GM CREAM APPLY EXTERNALLY TO AFFECTED [place] AREA TWO TIMES A DAY , NOTES: 10/09 1400 TAKING TUMS 500 MG TABLET CHEWABLE 1 TABLET ORALLY TWICE DAILY NEEDED, NOTES: NONE RECENT TAKING VALACYCLOVIR HCL 500 MG TABLET 1 TABLET ORALLY DAILY TAKING POLYETHYLENE GLYCOL 3350 - POWDER MIX 17 GRAMS ORAL ONCE A DAY TAKING DAILY-KIRAN - TABLET TAKE ONE TABLET BY MOUTH EVERY DAY TAKING BUTRANS 5 MCG/HR PATCH WEEKLY 1 PATCH TO SKIN TRANSDERMAL WEEKLY TAKING ADVAIR HFA 115-21 MCG/ACT AEROSOL 2 PUFFS INHALATION TWICE A DAY, NOTES: 10/10 0700 TAKING JARDIANCE 10 MG TABLET 1 TABLET ORALLY ONCE A DAY, NOTES: 10/09 07 TAKING PEN NEEDLES 31G X 6 MM MISCELLANEOUS DIRECTED SUBCUTANEOUSLY DAILY E11.2 TAKING ACCU-CHEK SOFT TOUCH LANCETS - MISCELLANEOUS DIRECTED DX: E11.29 TWICE A DAY AND NEEDED TAKING ONE TOUCH ULTRA BLUE STRIPS DIRECTED DX: E11.29 TWICE A DAY ADN NEEDED TAKING LEVEMIR FLEX TOUCH 100 UNIT/ML SOLUTION 3 UNITS SUBCUTANEOUS DAILY DX: E11.29, NOTES: 10/09 2199 TAKING LISINOPRIL 2.5 MG TABLET 1 TABLET ORALLY ONCE A DAY TAKING ATORVASTATIN CALCIUM 20 MG TABLET 1 TABLET ORALLY ONCE AT BEDTIME, NOTES: 10/09 2199 TAKING OMEPRAZOLE 40MG 40 MG TABLET 1 TAB(S) ORAL DAILY AT BEDTIME, NOTES: 10/09 2199 TAKING VITAMIN D 2000 UNIT TABLET TAKE ONE TABLET BY MOUTH DAILY , NOTES: 10/10 699 TAKING CALCIUM + D3 600-200 MG-UNIT TABLET TAKE ONE TABLET BY MOUTH EVERY DAY , NOTES: 10/10 699 TAKING CHLORTHALIDONE 25 MG TABLET TAKE 1/2 TABLET BY MOUTH ONCE DAILY , NOTES: 10/10 699 TAKING SPIRONOLACTONE 50 MG TABLET TAKE ONE TABLET BY MOUTH EVERY DAY TAKING ASPIRIN 81 MG TABLET DELAYED RELEASE 1 TABLET ORALLY ONCE A DAY TAKING POTASSIUM CHLORIDE ER 10 MEQ TABLET EXTENDED RELEASE 1 TABLET WITH FOOD ORALLY DAILY TAKING ZYRTEC ALLERGY 10 MG TABLET 1 TABLET ORALLY ONCE A DAY TAKING SINGULAIR 10 MG TABLET TAKE ONE TABLET BY MOUTH ONCE A DAY IN THE EVENING TAKING DEPEND PANT MEDIUM 1 EA UNDERGARMENT DX CODE: R32 WEIGHT: 177 NEEDED FOR INCONTINENCE MDD 24, NOTES: FAX: [phone] TAKING OXYBUTYNIN CHLORIDE ER 15 MG TABLET EXTENDED RELEASE 24 HOUR TAKE ONE TABLET BY MOUTH ONCE A DAY , NOTES: 10/10 699 TAKING BUPRENORPHINE 5 MCG/HR PATCH WEEKLY 1 PATCH TO SKIN TRANSDERMAL NOT-TAKING BELBUCA 75 MCG FILM 1 FILM TO THE GUM BUCALLY ONCE A DAY NOT-TAKING LACTULOSE 10 GM/15ML SOLUTION 15 ML ORALLY TWICE A DAY NEEDED, NOTES: OCC NEEDED NOT-TAKING SHINGRIX 50 MCG/0.5ML SUSPENSION RECONSTITUTED DIRECTED INTRAMUSCULAR 1 DOSE NOW, REPEAT IN 2 MONTHS NOT-TAKING HOSPITAL BED DIRECTED R53.1 DAILY NOT-TAKING FLUTICASONE FUROATE 27.5 MCG/SPRAY SUSPENSION 1 PUFF IN EACH NOSTRIL NASALLY ONCE A DAY MEDICATION LIST REVIEWED AND RECONCILED WITH THE PATIENT PAST MEDICAL HISTORY PTSD DEPRESSION/PANIC DISORDER EPILEPSY FOLLOWED BY DR. DUQUE ASTHMA COPD/CHRONIC BRONCHITIS - SPIROMETRY 09/2015 FEV1 = 1.7, FVC = 1.785, RATIO = 91.7 - POOR QUALITY SUSPECT MIXED PICTURE COPD/ RESTRICTIVE FROM OBESITY. NICOTINE DEPENDENCE - IN REMISSION QUITE 01/2018 GERD CLAUDIA - ON CPAP TOLERATING CPAP CHRONIC VENOUS INSUFFICIENCY LEFT BREAST ABSCESS HX INCONTINENCE, CYSTOCELE HX ABNORMAL PAP (AGE 20'S, 30'S) DYSPAREUNIA FATTY LIVER PER US 03/2015 ECHO 03/2015 - BORDERLINE LVH EF 65%. MILDLY DILATED LEFT ATRIUM. IMPAIRED LV DIASTOLIC FUNCTION. NORMAL LEFT ATRIAL PRESSURE, MILD PULM HTN. ENDOMETRIOSIS DIABETES TYPE 2 - INSULIN REQUIRING HYPERLIPIDEMIA HERPES TYPE 2 - BREAKOUT IN [facility] 03/29/18 SHINGLES - 02/2018 MIGRAINES - FOLLOWS WITH NEUROLOGY - GETTING BOTOX INJECTIONS 09/2018 DIABETIC NEUROPATHY LEFT LEG AND FOOT TONSIL STONE AND ABSCESS ENCEPHALOPATHY ABNORMAL LIVER ULTRASOUND CHRONIC LOW BACK PAIN ALLERGIES CHANTIX: NIGHT TERRORS - SIDE EFFECTS DEPAKOTE: COULDN'T STAY AWAKE - SIDE EFFECTS SULFA (FOR ALLERGY USE ONLY): RASH - ALLERGY LATEX (FOR ALLERGY USE ONLY): HIVES - ALLERGY METFORMIN HCL: SEVERE N/V - SIDE EFFECTS PROPRANOLOL HCL: BRADYCARDIA - SIDE EFFECTS SURGICAL HISTORY CLEFT/LIP/PALATE SURGERY 1961 DEVIATED NASAL SEPTUM 05/1998 01/1993 ENDOMETRIAL BIOPSY 1999 CHOLECYSTECTOMY 10/1997 TVT 2009 EGD/COLONOSCOPY (DR. TAYLOR) 2010 TUBES PLACED IN EARS ENDOMETRIAL ABLATION 2007 COLPOSCOPY/ECC 1999 CRYO FOR ABNORMAL PAP AGE 20'S COLONOSCOPY WITH BIOPSIES - NEGATIVE FOR MICROSCOPIC COLITIS (DR.. DUEÑAS) 09/2014 CYST REMOVAL LEFT EYE 01/2019 FAMILY HISTORY FATHER: 69 YRS, LUNG CANCER, HTN, DM-2, DIAGNOSED WITH DIABETES, HYPERTENSION, UNSPECIFIED HEART DISEASE, OTHER MALIGNANT NEOPLASM OF UNSPECIFIED SITE MOTHER: 64 YRS, COLON CANCER, HTN, DM-2, DIABETES, HYPERTENSION, UNSPECIFIED HEART DISEASE, OTHER MALIGNANT NEOPLASM OF UNSPECIFIED SITE SIBLINGS: ALIVE, BOTH HTN SISTER LYMPH CANCER IN 60'S SON(S): ALIVE 18 YRS DAUGHTER(S): ALIVE 19 YRS PATERNAL AUNT: ALIVE LATE 60'S YRS, BREAST CANCER, DX IN LATE 50 'S MATERNAL AUNT: , OVARIAN CANCER UNKNOWN AGE 1 BROTHER(S) , 1 SISTER(S) - HEALTHY. 1 SON(S) , 1 DAUGHTER(S) - HEALTHY. 10/2018 SISTER HEART ATTACK. SOCIAL HISTORY GENERAL: TOBACCO USE ARE YOU A:FORMER SMOKER HOW LONG HAS IT BEEN SINCE YOU LAST SMOKED?5-10 YEARS HIV / HEP-C SCREENING HIV TEST OFFERED TO PATIENT:YES DATE OFFERED:01/12/2018 TEST ACCEPTED:NO HEP-C TEST OFFERED TO PATIENT:YES DATE OFFERED:01/12/2018 REASON:PATIENT DECLINED TEST ACCEPTED:NO BROCHURE PROVIDED TO PATIENTNO OTHERS AT HOME: S.O.-JESSICA, 2 CATS, HAS A HOME HEALTH AIDE (BRO) 7 AM TO 3 PM DAILY.. HOUSING: RENTS APARTMENT. 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 DIET: DIABETIC DIET. LANGUAGE LANGUAGES SPOKEN:SERBIAN DOMESTIC VIOLENCE DO YOU FEEL SAFE IN YOUR ENVIRONMENT?YES BMI CARE GOAL FOLLOW-UP ABOVE NORMAL BMI FOLLOW-UPDIETARY NEEDS EDUCATION RECREATIONAL DRUG USE DENIES. EXERCISE: NO REGULAR EXERCISE. LEARNING BARRIERS / SPECIAL NEEDS CHANGE FROM LAST VISIT?NO BARRIERS TO LEARNING?NO HEARING IMPAIRED?YES VISION IMPAIRED?YES COGNITIVELY IMPAIRED?NO :HEARING AIDES RIGHT EAR ONLY :CORRECTIVE LENSES READINESS TO LEARN?YES LEARNING PREFERENCES?NO LEARNING CAPABILITIES PRESENT?YES EMOTIONAL BARRIERS?NO SPECIAL DEVICES?YES :WALKER, OTHER MOBILITY SCOOTER CREATIVE ART DIRECTOR NEEDED?NO LUNG CANCER SCREENING SMOKING STATUS:FORMER SMOKER IS THE PATIENT BETWEEN THE AGE OF 55 AND 77?YES PAIN CLINIC PFS, CLERGY, PUBLIC HEALTH REFERRALS HAS THE PATIENT BEEN EDUCATED REGARDING HIS/HER PLAN OF CARE?YES HAS THE PATIENT BEEN EDUCATED REGARDING PAIN, THE RISK FOR PAIN, THE IMPORTANCE OF EFFECTIVE PAIN MANAGEMENT, AND THE PAIN ASSESSMENT PROCESS?YES LATEX QUESTIONNAIRE LATEX ALLERGY : HAVE YOU EVER DEVELOPED ANY TYPE OF REACTION AFTER HANDLING LATEX PRODUCTS SUCH RUBBER GLOVES, CONDOMS, DIAPHRAGMS, BALLOONS, SOCKS, OR UNDERWEAR?YES KNOWN LATEX ALLERGY LATEX ALLERGY : HAVE YOU EVER DEVELOPED ANY TYPE OF REACTION DURING OR AFTER DENTAL APPOINTMENT, VAGINAL/RECTAL EXAMINATION, SURGICAL PROCEDURE, OR ANY OTHER EXPOSURE?NO - PLEASE INDICATE :RUBBER GLOVES DATE ASKED : 12/12/2019 LATEX RISK : HAVE YOU EVER HAD ANY DIFFICULTY BREATHING OR HIVES AFTER EATING OR HANDLING ANY FRUITS, OR VEGETABLES; SUCH KIWI, BANANAS, STONE FRUITS, OR CHESTNUTSNO LATEX RISK : DO YOU HAVE A PREVIOUS PERSONAL HISTORY OF MORE THAN NINE SURGERIES, SPINA BIFIDA, OR REPEATED CATHERIZATIONS? YES - PLEASE INDICATE : > 9 SURGERIES LATEX RISK : ARE YOU FREQUENTLY EXPOSED TO LATEX PRODUCTS IN YOUR OCCUPATION?NO CAFFEINE 0-1/DAY. ADVANCE DIRECTIVE ADVANCE DIRECTIVE DISCUSSED WITH PATIENT:YES PT STATES HCP RUT [facility]IEIRA [phone], ALEJANDRA COTTER- [phone] ZOROASTRIANISM [id number] TENRIISM MARITAL STATUS: . ALCOHOL SCREENING DID YOU HAVE A DRINK CONTAINING ALCOHOL IN THE PAST YEAR?YES HOW OFTEN DID YOU HAVE SIX OR MORE DRINKS ON ONE OCCASION IN THE PAST YEAR?NEVER (0 POINTS) HOW MANY DRINKS DID YOU HAVE ON A TYPICAL DAY WHEN YOU WERE DRINKING IN THE PAST YEAR?1 OR 2 (0 POINTS) HOW OFTEN DID YOU HAVE A DRINK CONTAINING ALCOHOL IN THE PAST YEAR?MONTHLY OR LESS (1 POINT) POINTS1 INTERPRETATIONNEGATIVE OCCUPATION: DISABLED. SEXUAL HX HAD SEX IN THE LAST 12 MONTHS (VAGINAL, ORAL, OR ANAL)?NO LMP:2007 HAVE YOU EVER HAD AN STD?NO HOSPITALIZATION/MAJOR DIAGNOSTIC PROCEDURE MAJOR DEPRESSION , SUICIDAL ATTEMPT TWICE. 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 CONSTITUTIONAL: ANY CHANGE IN YOUR MEDICAL CONDITION? NO . CHILLS NO . FEVER NO . INFECTION: DO YOU HAVE NEW INFECTIONS? NO . DO YOU HAVE HISTORY OF MRSA? NO . MUSCULOSKELETAL: ANY NEW PATTERNS OF PAIN OR NUMBNESS? NO . GASTROENTEROLOGY: ANY NEW CHANGE IN BOWEL CONTROL? YES,CONSTIPATION AND DIARRAHEA SOMETIMES . GENITOURINARY: ANY NEW CHANGE IN BLADDER CONTROL? NO . IS THERE A CHANCE YOU COULD BE ? NO . HEMATOLOGY/LYMPH: DO YOU TAKE ANY BLOOD THINNERS? (FOR EXAMPLE- COUMADIN, PLAVIX, AGGRENOX, PLATEL, PRADAXA, OR XARELTO) NO . WHEN WAS YOUR LAST DOSE? DATE: TIME: . NEUROLOGY: HAVE YOU FALLEN IN THE PAST 12 MONTHS? NO . ANY NEW EXTREMITY NUMBNESS OR WEAKNESS? NO . CARDIOLOGY: DO YOU HAVE A PACEMAKER OR DEFIBRILLATOR? NO . RESPIRATORY: HAVE YOU BEEN SICK IN THE PAST WEEK? NO . FEVER NO . FLU LIKE SYMPTOMS? NO . COUGH NO . INTEGUMENTARY: DO YOU HAVE ANY RASHES OR OPEN SORES? NO . ALLERGIC/IMMUNO: ARE YOU ALLERGIC TO IV DYE? NO . ANY NEW ALLERGIES? NO . PSYCHIATRIC: DO YOU HAVE THOUGHTS OF HURTING YOURSELF OR SOMEONE ELSE? NO . ARE YOU ABUSED, NEGLECTED, OR IN AN UNSAFE ENVIRONMENT? NO . ENDOCRINOLOGY: ARE YOU DIABETIC? NO . OTHER: DO YOU NEED ANY PRESCRIPTIONS? YES, REFILL BUPRENORPHINE PATCH . IF YES, PLEASE LIST: ____ . ANY NEW PROBLEMS WITH YOUR MEDICATIONS? NO . WHEN DID YOU LAST EAT? ____ . WHEN DID YOU LAST DRINK? ____ . WHAT DID YOU LAST DRINK? ____ . NAME OF PERSON DRIVING YOU HOME? ____ . DO YOU HAVE ANY OTHER QUESTIONS OR CONCERNS NO . VITAL SIGNS WT 176 LBS, HT 65 IN, BMI 29.28 INDEX, BP 121/70 MM HG, HR 90 /MIN, RR 18 /MIN, TEMP 96.1 F, OXYGEN SAT % 98%, BLOOD GLUCOSE LEVEL 97 THIS AM, SAFE IN ENV? (Y/N) YES, NA INITIALS [id number], REVIEWED BY: HENRY BIRD LPN. EXAMINATION GENERAL EXAMINATION: GENERALNO ACUTE DISTRESS, WELL NOURISHED AND HYDRATED. PSYCHAPPROPRIATE MOOD AND AFFECT . LUNGS:CLEAR TO AUSCULTATION BILATERALLY, NO WHEEZES, RHONCHI, RALES. HEART:NO MURMURS, REGULAR RATE AND RHYTHM. ASSESSMENTS INTERVERTEBRAL DISC DISORDER WITH RADICULOPATHY OF LUMBAR REGION - M51.16 (PRIMARY) CHRONIC USE OF OPIATE DRUG FOR THERAPEUTIC PURPOSE - Z79.891 TREATMENT INTERVERTEBRAL DISC DISORDER WITH RADICULOPATHY OF LUMBAR REGION REFILL BUTRANS PATCH WEEKLY, 10 MCG/HR, 1 PATCH TO SKIN, TRANSDERMAL, WEEKLY, 30 DAYS, 4 CLINICAL NOTES: 59-YEAR-OLD FEMALE IN FOR CHRONIC PAIN FOLLOW-UP. GIVEN PRESENTING SYMPTOMS AND RESULTS OF PHYSICAL EXAMINATION RECOMMENDED INCREASING BUTRANS PATCH WITH FOLLOW-UP IN ONE MONTH TO DETERMINE EFFICACY TREATMENT. PATIENT HAS EXPRESSED UNDERSTANDING OF AND WAS IN AGREEMENT WITH TREATMENT PLAN. GIVEN TIME TO ASK QUESTIONS AND EXPRESS CONCERNS., ISTOP REGISTRY REVIEWED AND DEMONSTRATES COMPLLIANCE. (REF # [id number] ) BRINGS IN MEDICATIONS WHICH IS APPROPRIATE FOR WHAT WAS DISPENSED. RECENT URINE TOXICOLOGY REVIEWED. NO UNAUTHORIZED MEDICATIONS. NO ILLICIT SUBSTANCES AND PRESCRIBED MEDICATIONS WERE PRESENT. PROCEDURE CODES [id number] ESTABILISHED PATIENT [facility] CHARGE DISPOSITION & COMMUNICATION FOLLOW UP 4 WEEKS (REASON: BACK PAIN, MEDICATION INCREASE) ELECTRONICALLY SIGNED BY KALI ROQUE ON 12/19/2019 AT 08:54 AM EDT DISCLAIMER : THIS IS A VISIT SUMMARY EXTRACTED FROM THE [employer] App CHART. IT IS NOT A COPY OF THE [employer] App PROGRESS NOTE. NATALIE
== END ==
LOC: M PAIN 10:00
PROVIDERS: ATTEND Family Medicine
DX: M51.16 Intervertebral disc disorders with radiculopathy, lumbar region (principal); E11.9 Type 2 diabetes mellitus without complications; Z79.891 Long term (current) use of opiate analgesic; Z79.82 Long term (current) use of aspirin; Z79.84 Long term (current) use of oral hypoglycemic drugs; Z79.899 Other long term (current) drug therapy; Z88.2 Allergy status to sulfonamides; Z88.8 Allergy status to other drugs, medicaments and biological substances; Z87.891 Personal history of nicotine dependence

== ENCOUNTER → 2020-01-15 | Outpatient (CLI) | payer MEDICARE, MEDICAID ==
--- NOTE | 2020-01-17 02:29 | ECWPNPC ---
PATIENT NAME: YAIMA CORRALES : 1960 GENDER: FEMALE VISIT DATE: 01/15/2020 DISCHARGE DATE: 01/15/20957 VISIT LOCKED DATE TIME: PHYSICIAN: LEAH ARELLANO RESOURCE: LEAH ARELLANO REASON FOR APPOINTMENT 1. BACK PAIN, MEDICATION INCREASE- PATIENT REQUESTING OFFICE VISIT HISTORY OF PRESENT ILLNESS HISTORY OF PRESENT ILLNESS: PAIN THE PATIENT DESCRIBES THE PAIN... 59-YEAR-OLD FEMALE IN FOR CHRONIC PAIN FOLLOW-UP. AT LAST CLINIC VISIT SHE WAS STARTED ON BUTRANS PATCH AND ADMITS TODAY THAT THIS HAS BEEN HELPFUL IN RELIEVING SOME OF HER PAIN SYMPTOMS. SHE RATES HER PAIN CURRENTLY AT A 5 OUT OF 10 AND DESCRIBES IT ACHING. FALL RISK SCREENING: SCREENING :NO FALLS REPORTED IN THE LAST YEAR CURRENT MEDICATIONS TAKING DEPEND PANT EXTRA LARGE _ UNDERGARMENTS DIAG CODE SIZE LARGE DX:N39.41 DAILY= MDD 24 TAKING ABILIFY 2 MG TABLET 1 TABLET ORALLY ONCE A DAY TAKING GABAPENTIN 100 100 MG (LATTIF) TABLET 1 TAB ORALLY THREE TIMES DAILY TAKING VITAMIN C 500 MG CAPSULE DIRECTED ORALLY ONCE A DAY TAKING LEVETIRACETAM 250 MG (LATTIF) TABLET 1 TAB IN THE AM 2 TABS IN THE PM ORALLY TWICE DAILY TAKING BUSPIRONE HCL 50 TABLET 1 TAB ORALLY TID TAKING VIMPAT 50 MG TABLET 1 TAB ORALLY TWICE A DAY TAKING HYDROXYZINE HCL 50MG MERCY TABLET 1 TABLET ORALLY TWICE A DAY TAKING GLUCOMETER DIRECTED E11.65 TWICE ADAY AND NEEDED TAKING CYMBALTA 60 MG CAPSULE DELAYED RELEASE PARTICLES 1 CAPSULE ORALLY TWICE A DAY TAKING TRAZODONE HCL 50 MG TABLET 1 1/2 TABLET AT BEDTIME NEEDED ORALLY ONCE A DAY TAKING NEBULIZER/ADULT MASK - KIT DIRECTED DX: J44.9 MASK AND TUBING TAKING ALBUTEROL SULFATE (2.5 MG/3ML) 0.083% NEBULIZATION SOLUTION 3 ML INHALATION EVERY 4-6 HOURS NEEDED TAKING TENS UNIT ELECTRO PADS - DIRECTED DX:M12.88 DIRECTED TAKING DEPEND PANT LARGE . MISCELLANEOUS DIRECTED DX: N39.41,ID# [id number] DAILY MDD = 24 TAKING ROLLING WALKER 1 1 DIRECTED ROLLING WALKER WITH SEAT DX; J44.9, M51.16 TAKING TOPIRAMATE 50 MG TABLET TAKE ONE TABLET BY MOUTH AT BEDTIME ORAL TAKING BOTOX 100 UNIT SOLUTION RECONSTITUTED GIVEN WITH NEURO INJECTION EVERY 3 MONTHS FOR MIGRAINES TAKING BLOOD GLUCOSE TEST - STRIP DIRECTED IN VITRO BEFORE MEALS AND AT BEDTIME. DX: Z79.4 TAKING JOBST ACTIVEWEAR 15-20MMHG - MISCELLANEOUS DIRECTED DX: SPIDER VEINS, VENOUS INSUFF DAILY TAKING PROAIR HFA 108 (90 BASE) MCG/ACT AEROSOL SOLUTION 2 PUFFS NEEDED INHALATION EVERY 6 HRS TAKING LIDODERM 5 % PATCH 2 PATCH TO SKIN REMOVE AFTER 12 HOURS EXTERNALLY ONCE A DAY - APPLY TO LOW BACK FOR POST HERPETIC NEURALGIA TAKING UNIFINE PENTIPS 31G X 6 MM MISCELLANEOUS USE DIRECTED DAILY TAKING NYSTATIN 833351 UNIT/GM CREAM APPLY EXTERNALLY TO AFFECTED JULIÁN AREA TWO TIMES A DAY TAKING TUMS 500 MG TABLET CHEWABLE 1 TABLET ORALLY TWICE DAILY NEEDED TAKING VALACYCLOVIR HCL 500 MG TABLET 1 TABLET ORALLY DAILY TAKING POLYETHYLENE GLYCOL 3350 - POWDER MIX 17 GRAMS ORAL ONCE A DAY TAKING DAILY-KIRAN - TABLET TAKE ONE TABLET BY MOUTH EVERY DAY TAKING ADVAIR HFA 115-21 MCG/ACT AEROSOL 2 PUFFS INHALATION TWICE A DAY TAKING JARDIANCE 10 MG TABLET 1 TABLET ORALLY ONCE A DAY TAKING PEN NEEDLES 31G X 6 MM MISCELLANEOUS DIRECTED SUBCUTANEOUSLY DAILY E11.2 TAKING ACCU-CHEK SOFT TOUCH LANCETS - MISCELLANEOUS DIRECTED DX: E11.29 TWICE A DAY AND NEEDED TAKING ONE TOUCH ULTRA BLUE STRIPS DIRECTED DX: E11.29 TWICE A DAY ADN NEEDED TAKING LEVEMIR FLEX TOUCH 100 UNIT/ML SOLUTION 3 UNITS SUBCUTANEOUS DAILY DX: E11.29 TAKING LISINOPRIL 2.5 MG TABLET 1 TABLET ORALLY ONCE A DAY TAKING ATORVASTATIN CALCIUM 20 MG TABLET 1 TABLET ORALLY ONCE AT BEDTIME TAKING OMEPRAZOLE 40MG 40 MG TABLET 1 TAB(S) ORAL DAILY AT BEDTIME TAKING VITAMIN D 2000 UNIT TABLET TAKE ONE TABLET BY MOUTH DAILY TAKING CALCIUM + D3 600-200 MG-UNIT TABLET TAKE ONE TABLET BY MOUTH EVERY DAY TAKING CHLORTHALIDONE 25 MG TABLET TAKE 1/2 TABLET BY MOUTH ONCE DAILY TAKING SPIRONOLACTONE 50 MG TABLET TAKE ONE TABLET BY MOUTH EVERY DAY TAKING ASPIRIN 81 MG TABLET DELAYED RELEASE 1 TABLET ORALLY ONCE A DAY TAKING POTASSIUM CHLORIDE ER 10 MEQ TABLET EXTENDED RELEASE 1 TABLET WITH FOOD ORALLY DAILY TAKING ZYRTEC ALLERGY 10 MG TABLET 1 TABLET ORALLY ONCE A DAY TAKING SINGULAIR 10 MG TABLET TAKE ONE TABLET BY MOUTH ONCE A DAY IN THE EVENING TAKING OXYBUTYNIN CHLORIDE ER 15 MG TABLET EXTENDED RELEASE 24 HOUR TAKE ONE TABLET BY MOUTH ONCE A DAY TAKING BUTRANS 10 MCG/HR PATCH WEEKLY 1 PATCH TO SKIN TRANSDERMAL WEEKLY TAKING DEPEND PANT MEDIUM 1 EA UNDERGARMENT DX: R32 WEIGHT: 177 NEEDED FOR INCONTINENCE MDD: 4, NOTES: [phone] NOT-TAKING BUPRENORPHINE 5 MCG/HR PATCH WEEKLY 1 PATCH TO SKIN TRANSDERMAL NOT-TAKING BELBUCA 75 MCG FILM 1 FILM TO THE GUM BUCALLY ONCE A DAY NOT-TAKING LACTULOSE 10 GM/15ML SOLUTION 15 ML ORALLY TWICE A DAY NEEDED, NOTES: OCC NEEDED NOT-TAKING SHINGRIX 50 MCG/0.5ML SUSPENSION RECONSTITUTED DIRECTED INTRAMUSCULAR 1 DOSE NOW, REPEAT IN 2 MONTHS NOT-TAKING HOSPITAL BED DIRECTED R53.1 DAILY NOT-TAKING FLUTICASONE FUROATE 27.5 MCG/SPRAY SUSPENSION 1 PUFF IN EACH NOSTRIL NASALLY ONCE A DAY MEDICATION LIST REVIEWED AND RECONCILED WITH THE PATIENT PAST MEDICAL HISTORY PTSD DEPRESSION/PANIC DISORDER EPILEPSY FOLLOWED BY DR. DUQUE ASTHMA COPD/CHRONIC BRONCHITIS - SPIROMETRY 09/2015 FEV1 = 1.7, FVC = 1.785, RATIO = 91.7 - POOR QUALITY SUSPECT MIXED PICTURE COPD/ RESTRICTIVE FROM OBESITY. NICOTINE DEPENDENCE - IN REMISSION QUITE 01/2018 GERD CLAUDIA - ON CPAP TOLERATING CPAP CHRONIC VENOUS INSUFFICIENCY LEFT BREAST ABSCESS HX INCONTINENCE, CYSTOCELE HX ABNORMAL PAP (AGE 20'S, 30'S) DYSPAREUNIA FATTY LIVER PER US 03/2015 ECHO 03/2015 - BORDERLINE LVH EF 65%. MILDLY DILATED LEFT ATRIUM. IMPAIRED LV DIASTOLIC FUNCTION. NORMAL LEFT ATRIAL PRESSURE, MILD PULM HTN. ENDOMETRIOSIS DIABETES TYPE 2 - INSULIN REQUIRING HYPERLIPIDEMIA HERPES TYPE 2 - BREAKOUT IN [facility] 03/29/18 SHINGLES - 02/2018 MIGRAINES - FOLLOWS WITH NEUROLOGY - GETTING BOTOX INJECTIONS 09/2018 DIABETIC NEUROPATHY LEFT LEG AND FOOT TONSIL STONE AND ABSCESS ENCEPHALOPATHY ABNORMAL LIVER ULTRASOUND CHRONIC LOW BACK PAIN ALLERGIES CHANTIX: NIGHT TERRORS - SIDE EFFECTS DEPAKOTE: COULDN'T STAY AWAKE - SIDE EFFECTS SULFA (FOR ALLERGY USE ONLY): RASH - ALLERGY LATEX (FOR ALLERGY USE ONLY): HIVES - ALLERGY METFORMIN HCL: SEVERE N/V - SIDE EFFECTS PROPRANOLOL HCL: BRADYCARDIA - SIDE EFFECTS SURGICAL HISTORY CLEFT/LIP/PALATE SURGERY 1961 DEVIATED NASAL SEPTUM 05/1998 01/1993 ENDOMETRIAL BIOPSY 1999 CHOLECYSTECTOMY 10/1997 TVT 2009 EGD/COLONOSCOPY (DR. TAYLOR) 2010 TUBES PLACED IN EARS ENDOMETRIAL ABLATION 2007 COLPOSCOPY/ECC 1999 CRYO FOR ABNORMAL PAP AGE 20'S COLONOSCOPY WITH BIOPSIES - NEGATIVE FOR MICROSCOPIC COLITIS (DR.. DUEÑAS) 09/2014 CYST REMOVAL LEFT EYE 01/2019 FAMILY HISTORY FATHER: 69 YRS, LUNG CANCER, HTN, DM-2, DIAGNOSED WITH DIABETES, HYPERTENSION, UNSPECIFIED HEART DISEASE, OTHER MALIGNANT NEOPLASM OF UNSPECIFIED SITE MOTHER: 64 YRS, COLON CANCER, HTN, DM-2, OTHER MALIGNANT NEOPLASM OF UNSPECIFIED SITE, DIABETES, HYPERTENSION, UNSPECIFIED HEART DISEASE SIBLINGS: ALIVE, BOTH HTN SISTER LYMPH CANCER IN 60'S SON(S): ALIVE 18 YRS DAUGHTER(S): ALIVE 19 YRS PATERNAL AUNT: ALIVE LATE 60'S YRS, BREAST CANCER, DX IN LATE 50 'S MATERNAL AUNT: , OVARIAN CANCER UNKNOWN AGE 1 BROTHER(S) , 1 SISTER(S) - HEALTHY. 1 SON(S) , 1 DAUGHTER(S) - HEALTHY. 10/2018 SISTER HEART ATTACK. SOCIAL HISTORY GENERAL: TOBACCO USE ARE YOU A:FORMER SMOKER HOW LONG HAS IT BEEN SINCE YOU LAST SMOKED?5-10 YEARS LATEX QUESTIONNAIRE LATEX ALLERGY : HAVE YOU EVER DEVELOPED ANY TYPE OF REACTION AFTER HANDLING LATEX PRODUCTS SUCH RUBBER GLOVES, CONDOMS, DIAPHRAGMS, BALLOONS, SOCKS, OR UNDERWEAR?YES KNOWN LATEX ALLERGY LATEX ALLERGY : HAVE YOU EVER DEVELOPED ANY TYPE OF REACTION DURING OR AFTER DENTAL APPOINTMENT, VAGINAL/RECTAL EXAMINATION, SURGICAL PROCEDURE, OR ANY OTHER EXPOSURE?NO - PLEASE INDICATE :RUBBER GLOVES DATE ASKED : 12/12/2019 LATEX RISK : HAVE YOU EVER HAD ANY DIFFICULTY BREATHING OR HIVES AFTER EATING OR HANDLING ANY FRUITS, OR VEGETABLES; SUCH KIWI, BANANAS, STONE FRUITS, OR CHESTNUTSNO LATEX RISK : DO YOU HAVE A PREVIOUS PERSONAL HISTORY OF MORE THAN NINE SURGERIES, SPINA BIFIDA, OR REPEATED CATHERIZATIONS? YES - PLEASE INDICATE : > 9 SURGERIES LATEX RISK : ARE YOU FREQUENTLY EXPOSED TO LATEX PRODUCTS IN YOUR OCCUPATION?NO LUNG CANCER SCREENING SMOKING STATUS:FORMER SMOKER IS THE PATIENT BETWEEN THE AGE OF 57 AND 79?YES BMI CARE GOAL FOLLOW-UP ABOVE NORMAL BMI FOLLOW-UPDIETARY NEEDS EDUCATION ALCOHOL SCREENING DID YOU HAVE A DRINK CONTAINING ALCOHOL IN THE PAST YEAR?YES HOW OFTEN DID YOU HAVE SIX OR MORE DRINKS ON ONE OCCASION IN THE PAST YEAR?NEVER (0 POINTS) HOW MANY DRINKS DID YOU HAVE ON A TYPICAL DAY WHEN YOU WERE DRINKING IN THE PAST YEAR?1 OR 2 (0 POINTS) HOW OFTEN DID YOU HAVE A DRINK CONTAINING ALCOHOL IN THE PAST YEAR?MONTHLY OR LESS (1 POINT) POINTS1 INTERPRETATIONNEGATIVE RECREATIONAL DRUG USE DENIES. CAFFEINE 0-1/DAY. SEXUAL HX HAD SEX IN THE LAST 12 MONTHS (VAGINAL, ORAL, OR ANAL)?NO LMP:2007 HAVE YOU EVER HAD AN STD?NO HIV / HEP-C SCREENING HIV TEST OFFERED TO PATIENT:YES DATE OFFERED:01/12/2018 TEST ACCEPTED:NO HEP-C TEST OFFERED TO PATIENT:YES DATE OFFERED:01/12/2018 REASON:PATIENT DECLINED TEST ACCEPTED:NO BROCHURE PROVIDED TO PATIENTNO RESTORATION [id number] LANGUAGE LANGUAGES SPOKEN:MALTESE HOME ECONOMIST CONSUMER SERVICE DEGREE. LEARNING BARRIERS / SPECIAL NEEDS CHANGE FROM LAST VISIT?NO BARRIERS TO LEARNING?NO HEARING IMPAIRED?YES VISION IMPAIRED?YES COGNITIVELY IMPAIRED?NO :HEARING AIDES RIGHT EAR ONLY :CORRECTIVE LENSES READINESS TO LEARN?YES LEARNING PREFERENCES?NO LEARNING CAPABILITIES PRESENT?YES EMOTIONAL BARRIERS?NO SPECIAL DEVICES?YES :WALKER, OTHER MOBILITY SCOOTER RUBBER COMPOUNDER NEEDED?NO DOMESTIC VIOLENCE DO YOU FEEL SAFE IN YOUR ENVIRONMENT?YES OCCUPATION: DISABLED. DIET: DIABETIC DIET. EXERCISE: NO REGULAR EXERCISE. MARITAL STATUS: . OTHERS AT HOME: S.O.-JESSICA, 2 CATS, HAS A HOME HEALTH AIDE (BRO) 7 AM TO 3 PM DAILY.. NEW PATIENT PAIN DIARY TODAY'S VISIT 01/15/20 PATIENT DESCRIBES PAIN :HAVE IT ALL THE TIME, OTHER DULL PAIN FROM 0-10, WHAT LEVEL IS YOUR PAIN TODAY?5 PRECIPITATING FACTORS NIGHT TIME ALLEVIATING FACTORS BUTRANS PATCH IMPACT ON FUNCTION NO PAIN CLINIC PFS, CLERGY, PUBLIC HEALTH REFERRALS HAS THE PATIENT BEEN EDUCATED REGARDING HIS/HER PLAN OF CARE?YES HAS THE PATIENT BEEN EDUCATED REGARDING PAIN, THE RISK FOR PAIN, THE IMPORTANCE OF EFFECTIVE PAIN MANAGEMENT, AND THE PAIN ASSESSMENT PROCESS?YES HOUSING: RENTS APARTMENT. ADVANCE DIRECTIVE ADVANCE DIRECTIVE DISCUSSED WITH PATIENT:YES PT STATES HCP [facility] [phone], ALEJANDRA COTTER- [phone] HOSPITALIZATION/MAJOR DIAGNOSTIC PROCEDURE MAJOR DEPRESSION , SUICIDAL ATTEMPT TWICE. ([facility]) SURGERIES ABOVE DEHYDRATION 04/2018 REVIEW OF SYSTEMS REVIEWED BY: PROVIDER: CORY BASS-Chris . CONSTITUTIONAL: ANY CHANGE IN YOUR MEDICAL CONDITION? NO . CHILLS NO . FEVER NO . INFECTION: DO YOU HAVE NEW INFECTIONS? NO . DO YOU HAVE HISTORY OF MRSA? NO . MUSCULOSKELETAL: ANY NEW PATTERNS OF PAIN OR NUMBNESS? YES, PAIN HAS IMPROVED W INCREASED BUTRANS DOSE . GASTROENTEROLOGY: ANY NEW CHANGE IN BOWEL CONTROL? NO . GENITOURINARY: ANY NEW CHANGE IN BLADDER CONTROL? NO . IS THERE A CHANCE YOU COULD BE ? NO . HEMATOLOGY/LYMPH: DO YOU TAKE ANY BLOOD THINNERS? (FOR EXAMPLE- COUMADIN, PLAVIX, AGGRENOX, PLATEL, PRADAXA, OR XARELTO) NO . WHEN WAS YOUR LAST DOSE? DATE: TIME: . NEUROLOGY: HAVE YOU FALLEN IN THE PAST 12 MONTHS? YES, PRIOR TO LAST VISIT . ANY NEW EXTREMITY NUMBNESS OR WEAKNESS? NO . CARDIOLOGY: DO YOU HAVE A PACEMAKER OR DEFIBRILLATOR? NO . RESPIRATORY: HAVE YOU BEEN SICK IN THE PAST WEEK? NO . FEVER NO . FLU LIKE SYMPTOMS? NO . COUGH NO . INTEGUMENTARY: DO YOU HAVE ANY RASHES OR OPEN SORES? NO . ALLERGIC/IMMUNO: ARE YOU ALLERGIC TO IV DYE? NO . ANY NEW ALLERGIES? NO . PSYCHIATRIC: DO YOU HAVE THOUGHTS OF HURTING YOURSELF OR SOMEONE ELSE? NO . ARE YOU ABUSED, NEGLECTED, OR IN AN UNSAFE ENVIRONMENT? NO . ENDOCRINOLOGY: ARE YOU DIABETIC? YES . OTHER: DO YOU NEED ANY PRESCRIPTIONS? YES, BUTRANS PATCH . IF YES, PLEASE LIST: ____ . ANY NEW PROBLEMS WITH YOUR MEDICATIONS? NO . WHEN DID YOU LAST EAT? ____ . WHEN DID YOU LAST DRINK? ____ . WHAT DID YOU LAST DRINK? ____ . NAME OF PERSON DRIVING YOU HOME? ____ . DO YOU HAVE ANY OTHER QUESTIONS OR CONCERNS NO . VITAL SIGNS WT 176 LBS, HT 65 IN, BMI 29.28 INDEX, BP 119/54 MM HG, HR 54 /MIN, RR 16 /MIN, TEMP 95.7 F, OXYGEN SAT % 99, SAFE IN ENV? (Y/N) Y, REVIEWED BY: PRINCESS. EXAMINATION GENERAL EXAMINATION: GENERALNO ACUTE DISTRESS, WELL NOURISHED AND HYDRATED. PSYCHAPPROPRIATE MOOD AND AFFECT . LUNGS:CLEAR TO AUSCULTATION BILATERALLY, NO WHEEZES, RHONCHI, RALES. HEART:NO MURMURS, REGULAR RATE AND RHYTHM. ASSESSMENTS INTERVERTEBRAL DISC DISORDER WITH RADICULOPATHY OF LUMBAR REGION - M51.16 (PRIMARY) TREATMENT INTERVERTEBRAL DISC DISORDER WITH RADICULOPATHY OF LUMBAR REGION REFILL BUTRANS PATCH WEEKLY, 10 MCG/HR, 1 PATCH TO SKIN, TRANSDERMAL, WEEKLY, 30 DAYS, 4 CLINICAL NOTES: 59-YEAR-OLD FEMALE IN FOR CHRONIC PAIN FOLLOW-UP. GIVEN PRESENTING SYMPTOMS AND RESULTS OF PHYSICAL EXAMINATION RECOMMENDED CONTINUATION OF CURRENT MEDICATION REGIMEN WITH FOLLOW-UP IN 3 MONTHS. PATIENT HAS EXPRESSED UNDERSTANDING OF AND WAS IN AGREEMENT WITH TREATMENT PLAN. GIVEN TIME TO ASK QUESTIONS AND EXPRESS CONCERNS. , ISTOP REGISTRY REVIEWED AND DEMONSTRATES COMPLLIANCE. (REF # [id number] ) BRINGS IN MEDICATIONS WHICH IS APPROPRIATE FOR WHAT WAS DISPENSED. RECENT URINE TOXICOLOGY REVIEWED. NO UNAUTHORIZED MEDICATIONS. NO ILLICIT SUBSTANCES AND PRESCRIBED MEDICATIONS WERE PRESENT. PROCEDURE CODES FA211 ESTABILISHED PATIENT [facility] CHARGE DISPOSITION & COMMUNICATION FOLLOW UP 3 MONTHS (REASON: BACK PAIN) ELECTRONICALLY SIGNED BY KALI ROQUE ON 01/16/2020 AT 08:01 AM EDT DISCLAIMER : THIS IS A VISIT SUMMARY EXTRACTED FROM THE [employer] CHART. IT IS NOT A COPY OF THE [facility] PROGRESS NOTE. NATALIE
== END ==
LOC: M PAIN 09:45
PROVIDERS: ATTEND Family Medicine
DX: M51.16 Intervertebral disc disorders with radiculopathy, lumbar region (principal); J44.9 Chronic obstructive pulmonary disease, unspecified; Z79.82 Long term (current) use of aspirin; Z79.84 Long term (current) use of oral hypoglycemic drugs; Z87.891 Personal history of nicotine dependence; Z88.2 Allergy status to sulfonamides; Z88.8 Allergy status to other drugs, medicaments and biological substances; Z91.040 Latex allergy status

== ENCOUNTER → 2020-01-25 | Outpatient (CLI) | payer MEDICARE, MEDICAID ==
--- NOTE | 2020-01-25 16:16 | REPMRS ---
Patient History The patient states she had a clinical breast exam in January 2020.Family history of breast cancer under age 50 in paternal grandmother, breast cancer at age 50 or over in paternal aunt, endometrial cancer in maternal aunt, colorectal cancer in mother. Digital Woman Screen Mammo: January 25, 2020 - Exam #: [id number] Bilateral CC and MLO view(s) were taken. Technologist: Ysabel De La Torre, Technologist Prior study comparison: January 23, 2019, bilateral digital woman screen mammo performed at [facility]. January 12, 2018, digital woman screen mammo performed at [facility]. August 11, 2016, digital woman screen mammo performed at [facility]. FINDINGS: The breast tissue is almost entirely fat. The Volpara volumetric breast density category is: A. There has been no change in the appearance of the mammogram from the prior studies. There is no interval development of dominant mass, architectural distortion, or grouped microcalcification typical of malignancy. 3-D tomosynthesis shows no additional findings. Assessment: BI-RADS/ACR category 1 mammogram. Negative Mammogram. Recommendation Routine screening mammogram of both breasts in 1 year (for women over age 40). This patient's Lifetime Breast Cancer RIsk is estimated at 19.1 %. This mammogram was interpreted with the aid of an FDA-approved computer-aided dectection system. Electronically Signed By: Robb Call MD 01/25/20 [id number]
== END ==
LOC: M WHC 14:42
PROVIDERS: ATTEND Nurse Practitioner Family
DX: Z12.31 Encounter for screening mammogram for malignant neoplasm of breast (principal); Z80.0 Family history of malignant neoplasm of digestive organs

== ENCOUNTER → 2020-02-16 | Outpatient (CLI) | payer MEDICARE, MEDICAID ==
[~2020-02-16] MED LIST changes: +BUTR10DI TOP; +VITAD1000T PO
== END ==
LOC: M LABSMTC 08:09
PROVIDERS: ATTEND Anesthesiology
DX: Z01.818 Encounter for other preprocedural examination (principal); Z11.59 Encounter for screening for other viral diseases

== ENCOUNTER 2020-02-19 07:56 | Day surgery (SDC) | payer MEDICARE, MEDICAID ==
[~2020-02-19] VITALS: Ht 162.6 cm; Wt 76.7 kg
[~2020-02-19 07:56] MED LIST changes: +NS 1,000 ML IV ONE
[2020-02-19] MEDS ORDERED: DEXTROSE 50% 50 ML SYRINGE As Ordered ONE (08:27)
[2020-02-19] MEDS ORDERED: DEXTROSE 50% 50 ML SYRINGE IV ONE (08:30)
[2020-02-19] MEDS ORDERED: LIDOCAINE 2% 100MG/5ML SDV (FOR ANES.) As Ordered ONE (09:45)
[2020-02-19] MEDS ORDERED: propofoL 200 MG/20 ML VIAL As Ordered ONE (09:45)
[2020-02-19] MEDS ORDERED: fentaNYL 100 MCG/2 ML INJECTION (J3010) As Ordered ONE (10:37)
--- NOTE | 2020-02-19 11:15 | ROOR ---
Patient Name: Vinita Cheng Procedure Date: 02/19/2020 10:55 AM Date of : 1960 Age: 59 Room: [facility] Gender: Female Note Status: Finalized Procedure: Upper GI endoscopy Indications: Abdominal pain, Nausea, Weight loss Providers: Phillip TAYLOR MD Referring MD: Lesley Gorman NP Requesting Provider: Medicines: Monitored Anesthesia Care Complications: No immediate complications. Procedure: Pre-Anesthesia Assessment: - The heart rate, respiratory rate, oxygen saturations, blood pressure, adequacy of pulmonary ventilation, and response to care were monitored throughout the procedure. The Endoscope was introduced through the mouth, and advanced to the second part of duodenum. The upper GI endoscopy was accomplished without difficulty. The patient tolerated the procedure well. Findings: The esophagus was normal. The stomach was normal. The examined duodenum was normal. Impression: - Normal esophagus. - Normal stomach. - Normal examined duodenum. - No specimens collected. Recommendation: - Gastroparesis diet: - Eat smaller, more frequent meals throughout the day. - Low fat diet. - Liquid/soft foods are tolerated better than solid foods. - Low fiber/well cooked vegetables are tolerated better than high fiber/fibrous foods/raw vegetables. - Avoid medications that inhibit gastric/intestinal motility such as narcotic medications. Phillip Taylor MD Phillip TAYLOR MD 02/19/2020 11:15:11 AM Electronically signed by Phillip TAYLOR MD Number of Addenda: 0 Note Initiated On: 02/19/2020 10:55 AM Estimated Blood Loss: Estimated blood loss: none.
--- NOTE | 2020-02-19 11:41 | ROOR ---
Patient Name: Vinita Cheng Procedure Date: 02/19/2020 10:56 AM Date of : 1960 Age: 59 Room: [facility] Gender: Female Note Status: Finalized Procedure: Colonoscopy Indications: Generalized abdominal pain, Weight loss Providers: Phillip TAYLOR MD Referring MD: Lesley Gorman NP Requesting Provider: Medicines: Monitored Anesthesia Care Complications: No immediate complications. Procedure: Pre-Anesthesia Assessment: - The heart rate, respiratory rate, oxygen saturations, blood pressure, adequacy of pulmonary ventilation, and response to care were monitored throughout the procedure. The Colonoscope was introduced through the anus and advanced to 5 cm into the ileum. The colonoscopy was somewhat difficult due to inadequate bowel prep. Successful completion of the procedure was aided by lavage. The patient tolerated the procedure well. The quality of the bowel preparation was fair. The bowel preparation used was TriLyte and magnesium citrate via split dose instruction. Findings: The perianal and digital rectal examinations were normal. (EXAM: Complete, PREP: Suboptimal) Multiple small-mouthed diverticula were found in the sigmoid colon. There was evidence of diverticular spasm. The exam was otherwise normal throughout the examined colon. The terminal ileum appeared normal. Impression: - Preparation of the colon was fair. - No specimens collected. Recommendation: - Repeat colonoscopy in 1 year because the bowel preparation was suboptimal. - Use Lactulose at 2 tbsp PO TID. --script sent to your pharmacy. - (Rec alternate colon preparation for next colonoscopy) Phillip Taylor MD Phillip TAYLOR MD 02/19/2020 11:40:40 AM Electronically signed by Phillip TAYLOR MD Number of Addenda: 0 Note Initiated On: 02/19/2020 10:56 AM Estimated Blood Loss: Estimated blood loss: none. Estimated blood loss: none.
[2020-02-19 12:04] VITALS: BP 98/54
== END 2020-02-19 12:30 | disposition home or self-care (01) ==
LOC: M OPP 07:56
PROVIDERS: ATTEND Internal Medicine Gastroenterology
DX: R10.84 Generalized abdominal pain (principal); R11.0 Nausea; R63.4 Abnormal weight loss; Z80.0 Family history of malignant neoplasm of digestive organs; E11.9 Type 2 diabetes mellitus without complications; I10 Essential (primary) hypertension; J44.9 Chronic obstructive pulmonary disease, unspecified; Z79.82 Long term (current) use of aspirin; Z79.84 Long term (current) use of oral hypoglycemic drugs; Z79.899 Other long term (current) drug therapy; Z88.2 Allergy status to sulfonamides; Z88.8 Allergy status to other drugs, medicaments and biological substances; Z91.018 Allergy to other foods; Z91.040 Latex allergy status; Z87.891 Personal history of nicotine dependence
CPT/HCPCS: 43235; 45378; J3010

== ENCOUNTER → 2020-02-29 | Outpatient (REF) | payer MEDICARE, MEDICAID ==
[~2020-02-29] MED LIST changes: -NS 1,000 ML IV ONE
[2020-02-29 14:09] LABS: BASO # 0.1 10^3/uL (0.0-0.2); BASO % 0.9 % (0.0-1.0); EOS # 0.2 10^3/uL (0.0-0.5); EOS % 1.8 % (0.0-3.0); HEMATOCRIT 44.2 % (36.0-47.0); HEMOGLOBIN 15.1 g/dl (12.0-15.5); LYMPH # 3.4 10^3/uL (1.5-5.0); LYMPH % 38.2 % (24.0-44.0); MEAN CORPUSCULAR HEMOGLOBIN 31.1 pg (27.0-33.0); MEAN CORPUSCULAR HGB CONC 34.2 g/dl (32.0-36.5); MEAN CORPUSCULAR VOLUME 90.9 fl (80.0-96.0); MONO % 11.3 % (0.0-5.0); NEUTROPHILS # 4.2 10^3/uL (1.5-8.5); NEUTROPHILS % 47.7 % (36.0-66.0); PLATELET COUNT, AUTOMATED 272 10^3/uL (150-450); RED BLOOD COUNT 4.86 10^6/uL (4.00-5.40); WHITE BLOOD COUNT 8.8 10^3/uL (4.0-10.0)
[2020-02-29 14:37] LABS: ALBUMIN 4.1 GM/DL (3.2-5.2); ALT/SGPT 30 U/L (12-78); BILIRUBIN,TOTAL 0.6 MG/DL (0.2-1.0); BLOOD UREA NITROGEN 16 MG/DL (7-18); C REACTIVE PROTEIN QUANTITATIV < 0.30 MG/DL (0.00-0.30); CALCIUM LEVEL 9.7 MG/DL (8.5-10.1); CARBON DIOXIDE LEVEL 30 MEQ/L (21-32); CHLORIDE LEVEL 102 MEQ/L (98-107); CREATININE FOR GFR 1.13 MG/DL (0.55-1.30); FREE T4 1.36 NG/DL (0.76-1.46); GLOMERULAR FILTRATION RATE 52.8 (>51); GLUCOSE, FASTING 90 MG/DL (70-100); LIPASE 107 U/L (73-393); POTASSIUM SERUM 3.9 MEQ/L (3.5-5.1); SODIUM LEVEL 141 MEQ/L (136-145); TOTAL PROTEIN 7.8 GM/DL (6.4-8.2)
[2020-02-29 14:39] LABS: VITAMIN B12 LEVEL 811 PG/ML (247-911)
[2020-02-29 14:46] LABS: HEMOGLOBIN A1c 5.4 %
== END ==
LOC: M SFHCPLAZ 13:21
PROVIDERS: ATTEND Family Medicine
DX: R63.4 Abnormal weight loss (principal); R11.10 Vomiting, unspecified

== ENCOUNTER → 2020-03-27 | Outpatient (CLI) | payer MEDICARE, MEDICAID ==
--- NOTE | 2020-03-27 14:23 | REP ---
Gastric emptying nuclear scintigraphy: History: Chronic vomiting. Technique: 1.09 mCi of technetium-99m sulfur colloid was ingested in two scrambled eggs and 6 ounces of water and sequential anterior and posterior images are acquired for an 89-minute imaging observation period. Regions of interest are drawn around the stomach to plot gastric emptying. Scintigraphic findings: Expected T1/2 is 90 minutes. 13 % emptying is observed in this patient during the 89-minute imaging observation period, for a calculated T1/2 in this patient of 337 minutes. Impression: Markedly delayed gastric emptying. Electronically Signed by Tj Call MD 03/27/2020 02:14 P
== END ==
LOC: M RAD 11:56
PROVIDERS: ATTEND Family Medicine
DX: R11.10 Vomiting, unspecified (principal); K30 Functional dyspepsia
CPT/HCPCS: 78264; A9541

== ENCOUNTER 2020-04-13 23:41 | Emergency (ER) | payer MEDICARE, MEDICAID ==
[~2020-04-13 23:41] MED LIST changes: -ASPI81TA85 PO; +ASPI81TA86 PO; +CALC-212 PO; -CALC600T7 PO; +D31000TA2 PO; -TAB-TAB PO; +TAB-TAB2 PO; -VITAD1000T PO
[2020-04-14 00:43] LABS: BASO # 0.1 10^3/uL (0.0-0.2); BASO % 0.7 % (0.0-1.0); EOS # 0.1 10^3/uL (0.0-0.5); EOS % 0.7 % (0.0-3.0); HEMATOCRIT 40.3 % (36.0-47.0); HEMOGLOBIN 14.1 g/dl (12.0-15.5); LYMPH # 3.1 10^3/uL (1.5-5.0); LYMPH % 43.9 % (24.0-44.0); MEAN CORPUSCULAR HEMOGLOBIN 30.1 pg (27.0-33.0); MEAN CORPUSCULAR VOLUME 86.1 fl (80.0-96.0); MONO # 0.7 10^3/uL (0.0-0.8); NEUTROPHILS # 3.2 10^3/uL (1.5-8.5); NEUTROPHILS % 44.6 % (36.0-66.0); PLATELET COUNT, AUTOMATED 298 10^3/uL (150-450); RED BLOOD COUNT 4.68 10^6/uL (4.00-5.40); WHITE BLOOD COUNT 7.1 10^3/uL (4.0-10.0)
[2020-04-14 01:10] LABS: ALBUMIN 3.9 GM/DL (3.2-5.2); ALT/SGPT 15 U/L (12-78); BILIRUBIN,DIRECT 0.2 MG/DL (0.0-0.2); BILIRUBIN,TOTAL 0.8 MG/DL (0.2-1.0); BLOOD UREA NITROGEN 13 MG/DL (7-18); CALCIUM LEVEL 9.8 MG/DL (8.5-10.1); CARBON DIOXIDE LEVEL 23 MEQ/L (21-32); CHLORIDE LEVEL 98 MEQ/L (98-107); CK-MB VALUE MASS 1.1 NG/ML (<3.6); CPK CREATINE PHOSPHOKINASE 75 U/L (26-192); CREATININE FOR GFR 0.94 MG/DL (0.55-1.30); GLOMERULAR FILTRATION RATE > 60.0 (>51); GLUCOSE, FASTING 61 MG/DL (70-100); LIPASE 124 U/L (73-393); MB/CK RELATIVE INDEX 1.47 (< OR =4); POTASSIUM SERUM 3.6 MEQ/L (3.5-5.1); SODIUM LEVEL 136 MEQ/L (136-145); TOTAL PROTEIN 7.4 GM/DL (6.4-8.2); TROPONIN I < 0.02 NG/ML (< 0.10)
[2020-04-14 03:00] VITALS: BP 134/61
--- NOTE | 2020-04-14 08:33 | REP ---
Clinical: Chest pain. Comparison: 06/04/2019. Findings: Mediastinum and cardiac silhouette are normal. Lung fragoso demonstrate chronic interstitial changes. Subtle superimposed right lower lobe atelectasis cannot be excluded. No focal consolidation, effusion, or pneumothorax. Skeletal structures intact. Impression: Chronic stable changes. Subtle superimposed right basilar atelectasis cannot be excluded. Electronically Signed by J Carlos Chin MD 04/14/2020 08:24 A
--- NOTE | 2020-04-15 07:05 | ECGEPIP ---
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
== END 2020-04-14 03:16 | disposition home or self-care (01) ==
LOC: M ED 23:41
DX: E11.649 Type 2 diabetes mellitus with hypoglycemia without coma (principal); J44.9 Chronic obstructive pulmonary disease, unspecified; G89.29 Other chronic pain; M54.5 Low back pain; F33.9 Major depressive disorder, recurrent, unspecified; F41.0 Panic disorder [episodic paroxysmal anxiety]; G40.909 Epilepsy, unspecified, not intractable, without status epilepticus; Z87.891 Personal history of nicotine dependence; Z88.1 Allergy status to other antibiotic agents; Z88.2 Allergy status to sulfonamides; Z88.8 Allergy status to other drugs, medicaments and biological substances; Z79.82 Long term (current) use of aspirin; Z79.84 Long term (current) use of oral hypoglycemic drugs; Z79.899 Other long term (current) drug therapy

== ENCOUNTER → 2020-04-15 | Outpatient (CLI) | payer MEDICARE, MEDICAID ==
--- NOTE | 2020-04-17 06:14 | ECWPNPC ---
PATIENT NAME: YAIMA CORRALES : 1960 GENDER: FEMALE VISIT DATE: 04/15/2020 DISCHARGE DATE: 04/15/20 1124 VISIT LOCKED DATE TIME: PHYSICIAN: LEAH ARELLANO RESOURCE: LEAH ARELLANO REASON FOR APPOINTMENT 1. BACK PAIN HISTORY OF PRESENT ILLNESS GENERAL: - 59-YEAR-OLD FEMALE IN FOR CHRONIC PAIN FOLLOW-UP. SHE RATES HER PAIN CURRENTLY AT A 7 OUT OF 10 AND DESCRIBES IT ACHING, AND TINGLING. SHE FEELS HER MEDICATIONS ARE HELPFUL BUT DOES ADMIT THAT THEY SEEM TO ONLY LAST ABOUT 5 DAYS. FALL RISK SCREENING: SCREENING :ONE FALL WITHOUT INJURY IN THE PAST YEAR PAIN SCREENING: PATIENT HAS A COMPLAINT OF ACUTE OR CHRONIC PAIN :YES LOCATION OF PAIN:MID BACK, LOW BACK, LEG(S) RADIATES DOWN TO BOTH LEGS INTENSITY OF PAIN (SCALE OF 1 TO 10):7 WHAT DOES YOUR PAIN FEEL LIKE:ACHING, OTHER TINGLING DURATION:CONTINOUS, CONSTANT, ALL DAY, MAINLY DURING THE NIGHT PAIN IS DECREASED BY:USE OF PAIN MEDICATIONS TYLENOL OTC, HOT BATH PAIN HAS INTERFERED WITH THE FOLLOWING:BATHING/DRESSING, SLEEP PLAN/GOALS/TREATMENT/INTERVENTION/FOLLOW UP:SEE PLAN NURSING NOTE: -. PAIN CENTER INTAKE QUESTIONS: DO YOU HAVE A HISTORY OF MRSA? :NO DO YOU TAKE A BLOOD THINNERS? :NO DO YOU HAVE ANY BLEEDING DISORDERS? :NO ANY NEW NUMBNESS OR WEAKNESS IN YOUR LEGS OR ARMS? :NO ANY PACEMAKER,DEFIBRILLATOR, OR DORSAL COLUMN STIMULATOR? :NO DO YOU HAVE ANY RASHES OR OPEN SORES? :NO ARE YOU ALLERGIC TO IV DYE? :NO ARE YOU DIABETIC? :YES ANY NEW PROBLEMS WITH YOUR MEDICATIONS? :NO HAVE YOU RECEIVED A VACCINE IN THE PAST 30 DAYS? :NO DO YOU PLAN TO RECEIVE A VACCINE IN THE NEXT 21 DAYS? :NO DO YOU NEED ANY PRESCRIPTION? :YES BUTRANS PATCH DO YOU TAKE ANY IMMUNOSUPPRESSIVE MEDICATIONS? :NO IS THERE A CHANCE YOU COULD BE ? :NO ARE YOU BREAST FEEDING? :NO CURRENT MEDICATIONS TAKING DEPEND PANT EXTRA LARGE _ UNDERGARMENTS DIAG CODE SIZE LARGE DX:N39.41 DAILY= MDD 24 TAKING GABAPENTIN 100 100 MG (LATTIF) TABLET 1 TAB ORALLY THREE TIMES DAILY TAKING VITAMIN C 500 MG CAPSULE DIRECTED ORALLY ONCE A DAY TAKING LEVETIRACETAM 250 MG (LATTIF) TABLET 1 TAB IN THE AM 1 TABS IN THE PM ORALLY TWICE DAILY TAKING BUSPIRONE HCL 15 MG TABLET 1 TAB ORALLY TID TAKING VIMPAT 50 MG TABLET 1 TAB ORALLY TWICE A DAY TAKING HYDROXYZINE HCL 50MG [facility] TABLET 1 TABLET ORALLY TWICE A DAY TAKING GLUCOMETER DIRECTED E11.65 TWICE ADAY AND NEEDED TAKING CYMBALTA 60 MG CAPSULE DELAYED RELEASE PARTICLES 1 CAPSULE ORALLY TWICE A DAY TAKING TRAZODONE HCL 50 MG TABLET 1 1/2 TABLET AT BEDTIME NEEDED ORALLY ONCE A DAY TAKING NEBULIZER/ADULT MASK - KIT DIRECTED DX: J44.9 MASK AND TUBING TAKING ALBUTEROL SULFATE (2.5 MG/3ML) 0.083% NEBULIZATION SOLUTION 3 ML INHALATION EVERY 4-6 HOURS NEEDED TAKING TENS UNIT ELECTRO PADS - DIRECTED DX:M12.88 DIRECTED TAKING ROLLING WALKER 1 1 DIRECTED ROLLING WALKER WITH SEAT DX; J44.9, M51.16 TAKING BOTOX 100 UNIT SOLUTION RECONSTITUTED GIVEN WITH NEURO INJECTION EVERY 3 MONTHS FOR MIGRAINES TAKING LIDODERM 5 % PATCH 2 PATCH TO SKIN REMOVE AFTER 12 HOURS EXTERNALLY ONCE A DAY - APPLY TO LOW BACK FOR POST HERPETIC NEURALGIA TAKING TUMS 500 MG TABLET CHEWABLE 1 TABLET ORALLY TWICE DAILY NEEDED TAKING ADVAIR HFA 115-21 MCG/ACT AEROSOL 2 PUFFS INHALATION TWICE A DAY TAKING LISINOPRIL 2.5 MG TABLET 1 TABLET ORALLY ONCE A DAY TAKING OMEPRAZOLE 40MG 40 MG TABLET 1 TAB(S) ORAL DAILY AT BEDTIME TAKING VITAMIN D 2000 UNIT TABLET TAKE ONE TABLET BY MOUTH DAILY TAKING CHLORTHALIDONE 25 MG TABLET TAKE 1/2 TABLET BY MOUTH ONCE DAILY TAKING SPIRONOLACTONE 50 MG TABLET TAKE ONE TABLET BY MOUTH EVERY DAY TAKING POTASSIUM CHLORIDE ER 10 MEQ TABLET EXTENDED RELEASE 1 TABLET WITH FOOD ORALLY DAILY TAKING ZYRTEC ALLERGY 10 MG TABLET 1 TABLET ORALLY ONCE A DAY TAKING LACTULOSE 10 GM/15ML SOLUTION 30 ML ORALLY TWICE A DAY NEEDED, NOTES: OCC NEEDED TAKING POLYETHYLENE GLYCOL 3350 - POWDER MIX 17 GRAMS ORAL ONCE A DAY TAKING ONDANSETRON HCL 8 MG TABLET DISINTEGRATING 1 SUBLINGUALLY THREE TIMES A DAY NEEDED TAKING PROAIR HFA 108 (90 BASE) MCG/ACT AEROSOL SOLUTION 2 PUFFS NEEDED INHALATION EVERY 6 HRS TAKING NYSTATIN 519959 UNIT/GM CREAM APPLY EXTERNALLY TO AFFECTED [place] ARE[place] TWO TIMES A DAY TAKING BUTRANS 10 MCG/HR PATCH WEEKLY 1 PATCH TO SKIN TRANSDERMAL WEEKLY TAKING DAILY-KIRAN - TABLET TAKE ONE TABLET BY MOUTH EVERY DAY TAKING CALCIUM + D3 600-200 MG-UNIT TABLET TAKE ONE TABLET BY MOUTH EVERY DAY TAKING SINGULAIR 10 MG TABLET TAKE ONE TABLET BY MOUTH ONCE A DAY IN THE EVENING TAKING ASPIRIN 81 MG TABLET DELAYED RELEASE 1 TABLET ORALLY ONCE A DAY TAKING OXYBUTYNIN CHLORIDE ER 15 MG TABLET EXTENDED RELEASE 24 HOUR TAKE ONE TABLET BY MOUTH ONCE A DAY TAKING VALACYCLOVIR HCL 500 MG TABLET 1 TABLET ORALLY DAILY TAKING ERYTHROMYCIN BASE 250 MG TABLET 1 TAB 30 MIN PRIOR TO MEAL ORALLY THREE TIMES DAILY, NOTES: STOPPED ATORVASTATIN TAKING ACCU-CHEK SOFT TOUCH LANCETS - MISCELLANEOUS DIRECTED DX: E11.29 TWICE A DAY AND NEEDED TAKING BLOOD GLUCOSE TEST - STRIP DIRECTED IN VITRO BEFORE MEALS AND AT BEDTIME. DX: Z79.4 NOT-TAKING JOBST ACTIVEWEAR 15-20MMHG - MISCELLANEOUS DIRECTED DX: SPIDER VEINS, VENOUS INSUFF DAILY NOT-TAKING UNIFINE PENTIPS 31G X 6 MM MISCELLANEOUS USE DIRECTED DAILY NOT-TAKING PEN NEEDLES 31G X 6 MM MISCELLANEOUS DIRECTED SUBCUTANEOUSLY DAILY E11.2 NOT-TAKING ONE TOUCH ULTRA BLUE STRIPS DIRECTED DX: E11.29 TWICE A DAY ADN NEEDED MEDICATION LIST REVIEWED AND RECONCILED WITH THE PATIENT PAST MEDICAL HISTORY PTSD DEPRESSION/PANIC DISORDER EPILEPSY FOLLOWED BY DR. DUQUE ASTHMA COPD/CHRONIC BRONCHITIS - SPIROMETRY 09/2015 FEV1 = 1.7, FVC = 1.785, RATIO = 91.7 - POOR QUALITY SUSPECT MIXED PICTURE COPD/ RESTRICTIVE FROM OBESITY. NICOTINE DEPENDENCE - IN REMISSION QUITE 01/2018 GERD CLAUDIA - ON CPAP TOLERATING CPAP CHRONIC VENOUS INSUFFICIENCY LEFT BREAST ABSCESS HX INCONTINENCE, CYSTOCELE HX ABNORMAL PAP (AGE 20'S, 30'S) DYSPAREUNIA FATTY LIVER PER US 03/2015 ECHO 03/2015 - BORDERLINE LVH EF 65%. MILDLY DILATED LEFT ATRIUM. IMPAIRED LV DIASTOLIC FUNCTION. NORMAL LEFT ATRIAL PRESSURE, MILD PULM HTN. ENDOMETRIOSIS DIABETES TYPE 2 - INSULIN REQUIRING HYPERLIPIDEMIA HERPES TYPE 2 - BREAKOUT IN [facility] 03/29/18 SHINGLES - 02/2018 MIGRAINES - FOLLOWS WITH NEUROLOGY - GETTING BOTOX INJECTIONS 09/2018 DIABETIC NEUROPATHY LEFT LEG AND FOOT TONSIL STONE AND ABSCESS ENCEPHALOPATHY ABNORMAL LIVER ULTRASOUND CHRONIC LOW BACK PAIN ALLERGIES CHANTIX: NIGHT TERRORS - SIDE EFFECTS DEPAKOTE: COULDN'T STAY AWAKE - SIDE EFFECTS SULFA (FOR ALLERGY USE ONLY): RASH - ALLERGY LATEX (FOR ALLERGY USE ONLY): HIVES - ALLERGY METFORMIN HCL: SEVERE N/V - SIDE EFFECTS PROPRANOLOL HCL: BRADYCARDIA - SIDE EFFECTS SURGICAL HISTORY CLEFT/LIP/PALATE SURGERY 1961 DEVIATED NASAL SEPTUM 05/1998 01/1993 ENDOMETRIAL BIOPSY 2000 CHOLECYSTECTOMY 10/1997 TVT 2009 EGD/COLONOSCOPY (DR. TAYLOR) 2010 TUBES PLACED IN EARS ENDOMETRIAL ABLATION 2007 COLPOSCOPY/ECC 1999 CRYO FOR ABNORMAL PAP AGE 20'S COLONOSCOPY WITH BIOPSIES - NEGATIVE FOR MICROSCOPIC COLITIS (DR.. DUEÑAS) 09/2014 CYST REMOVAL LEFT EYE 01/2019 COLONOSCOPY AND [id number] 01/2020 FAMILY HISTORY FATHER: 69 YRS, LUNG CANCER, HTN, DM-2, DIAGNOSED WITH HYPERTENSION, UNSPECIFIED HEART DISEASE, DIABETES, OTHER MALIGNANT NEOPLASM OF UNSPECIFIED SITE MOTHER: 64 YRS, COLON CANCER, HTN, DM-2, HYPERTENSION, UNSPECIFIED HEART DISEASE, DIABETES, OTHER MALIGNANT NEOPLASM OF UNSPECIFIED SITE SIBLINGS: ALIVE, BOTH HTN SISTER LYMPH CANCER IN 60'S SON(S): ALIVE 18 YRS DAUGHTER(S): ALIVE 19 YRS PATERNAL AUNT: ALIVE LATE 60'S YRS, BREAST CANCER, DX IN LATE 50 'S MATERNAL AUNT: , OVARIAN CANCER UNKNOWN AGE 1 BROTHER(S) , 1 SISTER(S) - HEALTHY. 1 SON(S) , 1 DAUGHTER(S) - HEALTHY. 10/2018 SISTER HEART ATTACK. SOCIAL HISTORY GENERAL: TOBACCO USE ARE YOU A:FORMER SMOKER HOW LONG HAS IT BEEN SINCE YOU LAST SMOKED?1-5 YEARS LATEX QUESTIONNAIRE LATEX ALLERGY : HAVE YOU EVER DEVELOPED ANY TYPE OF REACTION AFTER HANDLING LATEX PRODUCTS SUCH RUBBER GLOVES, CONDOMS, DIAPHRAGMS, BALLOONS, SOCKS, OR UNDERWEAR?YES KNOWN LATEX ALLERGY - PLEASE INDICATE :RUBBER GLOVES LATEX ALLERGY : HAVE YOU EVER DEVELOPED ANY TYPE OF REACTION DURING OR AFTER DENTAL APPOINTMENT, VAGINAL/RECTAL EXAMINATION, SURGICAL PROCEDURE, OR ANY OTHER EXPOSURE?NO LATEX RISK : HAVE YOU EVER HAD ANY DIFFICULTY BREATHING OR HIVES AFTER EATING OR HANDLING ANY FRUITS, OR VEGETABLES; SUCH KIWI, BANANAS, STONE FRUITS, OR CHESTNUTSNO LATEX RISK : DO YOU HAVE A PREVIOUS PERSONAL HISTORY OF MORE THAN NINE SURGERIES, SPINA BIFIDA, OR REPEATED CATHERIZATIONS? YES - PLEASE INDICATE : > 9 SURGERIES LATEX RISK : ARE YOU FREQUENTLY EXPOSED TO LATEX PRODUCTS IN YOUR OCCUPATION?NO DATE ASKED : 04/15/2020 LUNG CANCER SCREENING SMOKING STATUS:FORMER SMOKER IS THE PATIENT BETWEEN THE AGE OF 57 AND 79?YES BMI CARE GOAL FOLLOW-UP ABOVE NORMAL BMI FOLLOW-UPDIETARY NEEDS EDUCATION ALCOHOL SCREENING DID YOU HAVE A DRINK CONTAINING ALCOHOL IN THE PAST YEAR?YES HOW OFTEN DID YOU HAVE SIX OR MORE DRINKS ON ONE OCCASION IN THE PAST YEAR?NEVER (0 POINTS) HOW MANY DRINKS DID YOU HAVE ON A TYPICAL DAY WHEN YOU WERE DRINKING IN THE PAST YEAR?1 OR 2 (0 POINTS) HOW OFTEN DID YOU HAVE A DRINK CONTAINING ALCOHOL IN THE PAST YEAR?MONTHLY OR LESS (1 POINT) POINTS1 INTERPRETATIONNEGATIVE RECREATIONAL DRUG USE DENIES. CAFFEINE 0-1/DAY. SEXUAL HX HAD SEX IN THE LAST 12 MONTHS (VAGINAL, ORAL, OR ANAL)?NO LMP:2007 HAVE YOU EVER HAD AN STD?NO HIV / HEP-C SCREENING HIV TEST OFFERED TO PATIENT:YES DATE OFFERED:01/12/2018 TEST ACCEPTED:NO HEP-C TEST OFFERED TO PATIENT:YES DATE OFFERED:01/12/2018 REASON:PATIENT DECLINED TEST ACCEPTED:NO BROCHURE PROVIDED TO PATIENTNO CAODAISM [id number] SPIRITISM LANGUAGE LANGUAGES SPOKEN:GREEK HAND PLEATER DEGREE. LEARNING BARRIERS / SPECIAL NEEDS CHANGE FROM LAST VISIT?NO BARRIERS TO LEARNING?NO HEARING IMPAIRED?YES VISION IMPAIRED?YES COGNITIVELY IMPAIRED?NO :HEARING AIDES RIGHT EAR ONLY :CORRECTIVE LENSES READINESS TO LEARN?YES LEARNING PREFERENCES?NO LEARNING CAPABILITIES PRESENT?YES EMOTIONAL BARRIERS?NO SPECIAL DEVICES?YES :WALKER, OTHER MOBILITY SCOOTER DERIVATIVES TRADER NEEDED?NO DOMESTIC VIOLENCE DO YOU FEEL SAFE IN YOUR ENVIRONMENT?YES OCCUPATION: DISABLED. DIET: DIABETIC DIET. EXERCISE: NO REGULAR EXERCISE. MARITAL STATUS: . OTHERS AT HOME: S.O.-JESSICA, 2 CATS, HAS A HOME HEALTH AIDE (BRO) 7 AM TO 3 PM DAILY.. NEW PATIENT PAIN DIARY PATIENT DESCRIBES PAIN :HAVE IT ALL THE TIME, OTHER DULL PAIN FROM 0-10, WHAT LEVEL IS YOUR PAIN TODAY?5 PRECIPITATING FACTORS NIGHT TIME ALLEVIATING FACTORS BUTRANS PATCH IMPACT ON FUNCTION NO PAIN CLINIC PFS, CLERGY, PUBLIC HEALTH REFERRALS HAS THE PATIENT BEEN EDUCATED REGARDING HIS/HER PLAN OF CARE?YES HAS THE PATIENT BEEN EDUCATED REGARDING PAIN, THE RISK FOR PAIN, THE IMPORTANCE OF EFFECTIVE PAIN MANAGEMENT, AND THE PAIN ASSESSMENT PROCESS?YES HOUSING: RENTS APARTMENT. ADVANCE DIRECTIVE ADVANCE DIRECTIVE DISCUSSED WITH PATIENT:YES PT STATES HCP [facility] [phone], ALEJANDRA COTTER- [phone] HOSPITALIZATION/MAJOR DIAGNOSTIC PROCEDURE MAJOR DEPRESSION , SUICIDAL ATTEMPT TWICE. ([facility]) SURGERIES ABOVE DEHYDRATION 04/2018 REVIEW OF SYSTEMS CONSTITUTIONAL: ANY RECENT FEVER NO . CHILLS NO . WEIGHT CHANGE OF UNKNOWN REASONS NO . GASTROENTEROLOGY: NEW UNEXPLAINABLE CHANGES IN BOWEL CONTROL NO . CONSTIPATION NO . GENITOURINARY: ANY NEW CHANGE IN BLADDER CONTROL? NO . NEUROLOGY: NEW ONSET DIZZINESS OR NEUROLOGICAL CHANGES NOT MENTIONED NO . NEW NUMBNESS OR PAIN PATTERNS NOT MENTIONED AND PERTINENT TO TODAY'S VISIT NO . CARDIOLOGY: NEW CHEST PRESSURE NO . NEW CHEST PAIN NO . RESPIRATORY: UNEXPLAINABLE COUGH NO . NEW SHORTNESS OF BREATH NO . VITAL SIGNS WT 149.4 LBS, HT 65 IN, BMI 24.86 INDEX, BP 116/64 MM HG, HR 81 /MIN, RR 18 /MIN, TEMP 97.1 F, OXYGEN SAT % 97%, BLOOD GLUCOSE LEVEL 103 THIS AM, SAFE IN ENV? 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 EXAMINATION GENERAL EXAMINATION: GENERALNO ACUTE DISTRESS, WELL NOURISHED AND HYDRATED. PSYCHAPPROPRIATE MOOD AND AFFECT . LUNGS:CLEAR TO AUSCULTATION BILATERALLY, NO WHEEZES, RHONCHI, RALES. HEART:NO MURMURS, REGULAR RATE AND RHYTHM. ASSESSMENTS INTERVERTEBRAL DISC DISORDERS WITH RADICULOPATHY, LUMBOSACRAL REGION - M51.17 (PRIMARY) TREATMENT INTERVERTEBRAL DISC DISORDERS WITH RADICULOPATHY, LUMBOSACRAL REGION INCREASE BUTRANS PATCH WEEKLY, 15 MCG/HR, 1 PATCH TO SKIN, TRANSDERMAL, WEEKLY, 30 DAYS, 4 CLINICAL NOTES: 59-YEAR-OLD FEMALE IN FOR CHRONIC PAIN FOLLOW-UP. GIVEN PRESENTING SYMPTOMS RECOMMEND INCREASING BUTRANS PATCH TO 15 MCG WITH FOLLOW-UP IN ONE MONTH TO DETERMINE EFFICACY OF TREATMENT. PATIENT HAS EXPRESSED UNDERSTANDING OF AND WAS IN AGREEMENT WITH TREATMENT PLAN. GIVEN TIME TO ASK QUESTIONS AND EXPRESS CONCERNS. , ISTOP REGISTRY REVIEWED AND DEMONSTRATES COMPLLIANCE. (REF # [id number] ) BRINGS IN MEDICATIONS WHICH IS APPROPRIATE FOR WHAT WAS DISPENSED. RECENT URINE TOXICOLOGY REVIEWED. NO UNAUTHORIZED MEDICATIONS. NO ILLICIT SUBSTANCES AND PRESCRIBED MEDICATIONS WERE PRESENT. PROCEDURE CODES FA211 ESTABILISHED PATIENT [facility] CHARGE DISPOSITION & COMMUNICATION FOLLOW UP 4 WEEKS (REASON: BACK PAIN, MEDICATION INCREASE) ELECTRONICALLY SIGNED BY KALI ROQUE ON 04/16/2020 AT 09:05 AM EDT DISCLAIMER : THIS IS A VISIT SUMMARY EXTRACTED FROM THE [employer] CHART. IT IS NOT A COPY OF THE [employer] PROGRESS NOTE. NATALIE
== END ==
LOC: M PAIN 11:00
PROVIDERS: ATTEND Family Medicine
DX: M51.17 Intervertebral disc disorders with radiculopathy, lumbosacral region (principal)

== ENCOUNTER → 2020-04-15 | Outpatient (REF) | payer MEDICARE, MEDICAID ==
[2020-05-12 08:06] LABS: LACOSAMIDE LEVEL 3.7 ug/mL (5.0-10.0); LEVETIRACETAM (KEPPRA) 22.9 ug/mL (10.0-40.0)
== END ==
LOC: M PLALAB 15:08
PROVIDERS: ATTEND Physician Assistant Medical
DX: G40.89 Other seizures (principal)

== ENCOUNTER 2020-04-29 18:30 | Emergency (ER) | payer MEDICARE, MEDICAID ==
[2020-06-15 09:36] LABS: BASO # 0.1 10^3/uL (0.0-0.2); BASO % 0.6 % (0.0-1.0); EOS # 0.1 10^3/uL (0.0-0.5); EOS % 0.9 % (0.0-3.0); HEMATOCRIT 40.9 % (36.0-47.0); HEMOGLOBIN 13.7 g/dl (12.0-15.5); LYMPH # 2.5 10^3/uL (1.5-5.0); LYMPH % 28.7 % (24.0-44.0); MEAN CORPUSCULAR HEMOGLOBIN 30.2 pg (27.0-33.0); MEAN CORPUSCULAR HGB CONC 33.5 g/dl (32.0-36.5); MEAN CORPUSCULAR VOLUME 90.3 fl (80.0-96.0); MONO # 0.7 10^3/uL (0.0-0.8); MONO % 7.7 % (0.0-5.0); NEUTROPHILS # 5.4 10^3/uL (1.5-8.5); PLATELET COUNT, AUTOMATED 234 10^3/uL (150-450); RED BLOOD COUNT 4.53 10^6/uL (4.00-5.40); WHITE BLOOD COUNT 8.7 10^3/uL (4.0-10.0)
[2020-07-13 14:47] LABS: BILIRUBIN,DIRECT 0.2 MG/DL (0.0-0.2); BILIRUBIN,TOTAL 0.5 MG/DL (0.2-1.0); CALCIUM LEVEL 10.4 MG/DL (8.5-10.1); CREATININE FOR GFR 1.07 MG/DL (0.55-1.30); GLOMERULAR FILTRATION RATE 56.3 (>51); POTASSIUM SERUM 4.1 MEQ/L (3.5-5.1); TOTAL PROTEIN 7.5 GM/DL (6.4-8.2)
== END 2020-04-29 23:20 | disposition home or self-care (01) ==
LOC: M ED 18:30
DX: K59.00 Constipation, unspecified (principal); R11.2 Nausea with vomiting, unspecified; E11.9 Type 2 diabetes mellitus without complications; K31.89 Other diseases of stomach and duodenum; Z88.2 Allergy status to sulfonamides; Z91.040 Latex allergy status; Z91.09 Other allergy status, other than to drugs and biological substances

== ENCOUNTER 2020-05-01 13:56 | Emergency (ER) | payer MEDICARE, MEDICAID ==
[2020-05-01] MEDS ORDERED: ONDANSETRON 4MG/2ML VIAL ONE (17:44)
[2020-05-01] MEDS ORDERED: ONDANSETRON 4MG/2ML VIAL As Ordered ONE (17:44)
[2020-05-01] MEDS ORDERED: MAGNESIUM CITRATE 300 ML BTL ONE (20:54)
[2020-05-01] MEDS ORDERED: MAGNESIUM CITRATE 300 ML BTL As Ordered ONE (20:54)
[2020-05-30 22:43] LABS: BASO # 0.1 10^3/uL (0.0-0.2); BASO % 0.7 % (0.0-1.0); EOS # 0.1 10^3/uL (0.0-0.5); EOS % 0.6 % (0.0-3.0); HEMATOCRIT 39.9 % (36.0-47.0); HEMOGLOBIN 13.4 g/dl (12.0-15.5); LYMPH # 1.9 10^3/uL (1.5-5.0); LYMPH % 20.5 % (24.0-44.0); MEAN CORPUSCULAR HEMOGLOBIN 30.8 pg (27.0-33.0); MEAN CORPUSCULAR HGB CONC 33.6 g/dl (32.0-36.5); MEAN CORPUSCULAR VOLUME 91.7 fl (80.0-96.0); MONO # 0.5 10^3/uL (0.0-0.8); MONO % 5.9 % (0.0-5.0); NEUTROPHILS # 6.5 10^3/uL (1.5-8.5); NEUTROPHILS % 72.2 % (36.0-66.0); PLATELET COUNT, AUTOMATED 201 10^3/uL (150-450); RED BLOOD COUNT 4.35 10^6/uL (4.00-5.40)
[2020-06-15 11:15] LABS: ALBUMIN 3.8 GM/DL (3.2-5.2); BILIRUBIN,DIRECT 0.1 MG/DL (0.0-0.2); BILIRUBIN,TOTAL 0.9 MG/DL (0.2-1.0); CALCIUM LEVEL 9.8 MG/DL (8.5-10.1); CREATININE FOR GFR 1.04 MG/DL (0.55-1.30); GLOMERULAR FILTRATION RATE 58.1 (>51); POTASSIUM SERUM 4.8 MEQ/L (3.5-5.1); TOTAL PROTEIN 7.8 GM/DL (6.4-8.2)
== END 2020-05-01 21:15 | disposition home or self-care (01) ==
LOC: M ED 13:56
DX: K59.00 Constipation, unspecified (principal); Z88.2 Allergy status to sulfonamides; Z88.8 Allergy status to other drugs, medicaments and biological substances
CPT/HCPCS: 74021; 80048; 80076; 83605; 83690; 85025; 96374; 99283; J2405

== ENCOUNTER → 2020-05-03 | Emergency (ER) | payer MEDICARE, MEDICAID ==
[~2020-05-03] MED LIST changes: +CIPROFLOXACIN 500MG TABLET As Ordered ONE; +CIPROFLOXACIN 500MG TABLET ONE; +ISOVUE-370 76% 100ML VIAL As Ordered ONE; +metroNIDAZOLE (FLAGYL) 500MG TABLET As Ordered ONE; +metroNIDAZOLE (FLAGYL) 500MG TABLET ONE
[2020-06-19 17:18] LABS: HEMATOCRIT 37.1 % (36.0-47.0); HEMOGLOBIN 12.8 g/dl (12.0-15.5); MEAN CORPUSCULAR HEMOGLOBIN 30.8 pg (27.0-33.0); MEAN CORPUSCULAR HGB CONC 34.5 g/dl (32.0-36.5); MEAN CORPUSCULAR VOLUME 89.4 fl (80.0-96.0); PLATELET COUNT, AUTOMATED 195 10^3/uL (150-450); RED BLOOD COUNT 4.15 10^6/uL (4.00-5.40); WHITE BLOOD COUNT 6.4 10^3/uL (4.0-10.0)
[2020-07-22 20:27] LABS: ALBUMIN 3.8 GM/DL (3.2-5.2); ALT/SGPT 19 U/L (12-78); BILIRUBIN,TOTAL 0.7 MG/DL (0.2-1.0); BLOOD UREA NITROGEN 11 MG/DL (7-18); CALCIUM LEVEL 9.4 MG/DL (8.5-10.1); CARBON DIOXIDE LEVEL 24 MEQ/L (21-32); CHLORIDE LEVEL 102 MEQ/L (98-107); CREATININE FOR GFR 0.84 MG/DL (0.55-1.30); GLOMERULAR FILTRATION RATE > 60.0 (>51); GLUCOSE, FASTING 94 MG/DL (70-100); LIPASE 102 U/L (73-393); POTASSIUM SERUM 3.3 MEQ/L (3.5-5.1); SODIUM LEVEL 138 MEQ/L (136-145); TOTAL PROTEIN 7.1 GM/DL (6.4-8.2)
== END | disposition home or self-care (01) ==
LOC: M ED 14:30
DX: K52.9 Noninfective gastroenteritis and colitis, unspecified (principal); N28.1 Cyst of kidney, acquired; E11.9 Type 2 diabetes mellitus without complications; I10 Essential (primary) hypertension; E78.5 Hyperlipidemia, unspecified; R56.9 Unspecified convulsions; G47.30 Sleep apnea, unspecified; Z88.2 Allergy status to sulfonamides; Z88.8 Allergy status to other drugs, medicaments and biological substances; Z91.040 Latex allergy status
CPT/HCPCS: 74177; 80053; 83690; 85025; 86850; 86900; 86901; 99285; Q9967

== ENCOUNTER → 2020-05-07 | Outpatient (REF) | payer MEDICARE, MEDICAID ==
[~2020-05-07] MED LIST changes: -CIPROFLOXACIN 500MG TABLET As Ordered ONE; -CIPROFLOXACIN 500MG TABLET ONE; -ISOVUE-370 76% 100ML VIAL As Ordered ONE; -metroNIDAZOLE (FLAGYL) 500MG TABLET As Ordered ONE; -metroNIDAZOLE (FLAGYL) 500MG TABLET ONE
[2020-06-22 08:38] LABS: ALBUMIN 4.1 GM/DL (3.2-5.2); ALT/SGPT 17 U/L (12-78); BILIRUBIN,TOTAL 0.7 MG/DL (0.2-1.0); BLOOD UREA NITROGEN 7 MG/DL (7-18); CALCIUM LEVEL 9.7 MG/DL (8.5-10.1); CARBON DIOXIDE LEVEL 27 MEQ/L (21-32); CHLORIDE LEVEL 104 MEQ/L (98-107); CHOLESTEROL LEVEL 230 MG/DL (<200); CHOLESTEROL RISK RATIO 3.333 (<5); CREATININE FOR GFR 0.89 MG/DL (0.55-1.30); FREE T4 1.38 NG/DL (0.76-1.46); GLOMERULAR FILTRATION RATE > 60.0 (>51); GLUCOSE, FASTING 87 MG/DL (70-100); HDL CHOLESTEROL 69 MG/DL (>40); HEPATITIS C VIRUS ABY INDEX 0.2 INDEX (<0.8); LDL CHOLESTEROL 138 MG/DL (<100); NON-HDL-C 161 MG/DL; POTASSIUM SERUM 3.2 MEQ/L (3.5-5.1); SODIUM LEVEL 140 MEQ/L (136-145); TOTAL PROTEIN 7.8 GM/DL (6.4-8.2); TRIGLYCERIDES LEVEL 117 MG/DL (<150)
== END ==
LOC: M SFHCPLAZ 13:00
PROVIDERS: ATTEND Nurse Practitioner Family
DX: K59.00 Constipation, unspecified (principal); E11.29 Type 2 diabetes mellitus with other diabetic kidney complication; E78.5 Hyperlipidemia, unspecified; R63.4 Abnormal weight loss

== ENCOUNTER → 2020-05-13 | Outpatient (CLI) | payer MEDICARE, MEDICAID | LOC: M PAIN 09:30 | PROVIDERS: ATTEND Family Medicine | DX: M54.5 Low back pain (principal) ==

== ENCOUNTER → 2020-06-09 | Outpatient (REF) | payer MEDICARE, MEDICAID ==
[2020-06-09 18:17] LABS: APPEARANCE, URINE TURBID (CLEAR); BACTERIA, URINE AUTO 1+ (NEGATIVE); BILIRUBIN, URINE AUTO NEGATIVE (NEGATIVE); BLOOD, URINE BLOOD 1+ (NEGATIVE); COLOR, URINE AMBER (YELLOW); GLUCOSE, URINE (UA) AUTO NEGATIVE (NEGATIVE); KETONE, URINE AUTO NEGATIVE (NEGATIVE); LEUKOCYTE ESTERASE, URINE AUTO 3+ (NEGATIVE); MUCUS, URINE MODERATE (NEGATIVE); NITRITE, URINE AUTO NEGATIVE (NEGATIVE); PROTEIN, URINE AUTO NEGATIVE (NEGATIVE); RBC, URINE AUTO 15 /HPF (0-3); SPECIFIC GRAVITY URINE AUTO 1.019 (1.002-1.035); SQUAMOUS EPITHELIAL CELL UR AU 3 /HPF (0-6); TRANSITIONAL EPITHELIAL AUTO 2 /HPF; UROBILINOGEN, URINE AUTO 0.2 mg/dL (0.0-2.0); WBC, URINE AUTO 71 /HPF (0-3)
== END ==
LOC: M LAB REF 17:16
PROVIDERS: ATTEND Physician Assistant
DX: R30.0 Dysuria (principal)

== ENCOUNTER → 2020-06-12 | Outpatient (CLI) | payer MEDICARE, MEDICAID | LOC: M PAIN 09:15 | PROVIDERS: ATTEND Family Medicine | DX: M46.1 Sacroiliitis, not elsewhere classified (principal) ==

== ENCOUNTER → 2020-06-19 | Outpatient (CLI) | payer MEDICARE, MEDICAID | LOC: M LABSMTC 13:05 | PROVIDERS: ATTEND Anesthesiology | DX: Z20.828 Contact with and (suspected) exposure to other viral communicable diseases (principal) | CPT/HCPCS: C9803; U0003 ==

== ENCOUNTER → 2020-06-23 | Outpatient (REF) | payer MEDICARE, MEDICAID | LOC: M LAB REF 16:02 | PROVIDERS: ATTEND Physician Assistant | DX: Z20.828 Contact with and (suspected) exposure to other viral communicable diseases (principal); J06.9 Acute upper respiratory infection, unspecified ==

== ENCOUNTER → 2020-06-24 | Outpatient (CLI) | payer MEDICARE, MEDICAID ==
[~2020-06-24] MED LIST changes: +BUPIVACAINE HCL 0.25% 30ML VIAL As Ordered ONE; +ISOVUE-M 300 61% 15ML VIAL As Ordered ONE; +LIDOCAINE 1% SDV 30ML VIAL As Ordered ONE; +NORCO, ANEXSIA 5/325MG TABLET (HYDROcodone/ACETAMINOPHEN) As Ordered ONE; +TRIAMCINOLONE ACETONIDE SUSP 40 MG/ML VIAL (J3301) As Ordered ONE; +diazePAM 5 MG TAB As Ordered ONE
--- NOTE | 2020-07-02 16:37 | REP ---
BILATERAL SI JOINT: 2-VIEWS HISTORY: SI joint injection for pain. 15 seconds of fluoroscopy time is reported. FINDINGS: A sequence of 2 last image hold fluoroscopically obtained radiographic spot images of the SI joints bilaterally document various needle positions and contrast injections associated with bilateral SI joint injection procedure. NATALIE
== END ==
LOC: M PAIN 10:47
PROVIDERS: ATTEND Anesthesiology
DX: M54.16 Radiculopathy, lumbar region (principal)
CPT/HCPCS: 77002; G0260; G0463; J3301; Q9967

== ENCOUNTER → 2020-07-09 | Outpatient (CLI) | payer MEDICARE, MEDICAID ==
[~2020-07-09] MED LIST changes: -BUPIVACAINE HCL 0.25% 30ML VIAL As Ordered ONE; -ISOVUE-M 300 61% 15ML VIAL As Ordered ONE; -LIDOCAINE 1% SDV 30ML VIAL As Ordered ONE; -NORCO, ANEXSIA 5/325MG TABLET (HYDROcodone/ACETAMINOPHEN) As Ordered ONE; -TRIAMCINOLONE ACETONIDE SUSP 40 MG/ML VIAL (J3301) As Ordered ONE; -diazePAM 5 MG TAB As Ordered ONE
--- NOTE | 2020-07-11 03:38 | ECWPNPC ---
PATIENT NAME: YAIMA CORRALES : 1960 GENDER: FEMALE VISIT DATE: 07/09/2020 DISCHARGE DATE: 07/09/20 1145 VISIT LOCKED DATE TIME: PHYSICIAN: LEAH ARELLANO PHYSICIAN PAGER NO: ACTIVE RESOURCE: LEAH ARELLANO REASON FOR APPOINTMENT 1. POST ANABEL SIJ HISTORY OF PRESENT ILLNESS DEPRESSION SCREENING: PHQ-2 (2015 EDITION) LITTLE INTEREST OR PLEASURE IN DOING THINGS?NOT AT ALL FEELING DOWN, DEPRESSED, OR HOPELESS?NOT AT ALL TOTAL SCORE0 59-YEAR-OLD FEMALE IN FOR POST BILATERAL SIJ FOLLOW-UP. SHE FEELS THE PROCEDURE WAS INEFFECTIVE RATING HER PAIN PREPROCEDURE AT A 10 OUT OF 10 AND POST PROCEDURE AT A 10 OUT OF 10. SHE RATES HER PAIN CURRENTLY AT A 10 OUT OF 10 AND DESCRIBES IT ACHING, BURNING,, SHARP, STABBING, THROBBING, AND SHOOTING. GENERAL: -. FALL RISK SCREENING: SCREENING :NO FALLS REPORTED IN THE LAST YEAR PAIN SCREENING: PATIENT HAS A COMPLAINT OF ACUTE OR CHRONIC PAIN :YES LOCATION OF PAIN:CHEST, LEFT SHOULDER, RIGHT SHOULDER, UPPER BACK, MID BACK, LOW BACK, LEFT HIP, RIGHT HIP, BACK, HAND(S), LEG(S) INTENSITY OF PAIN (SCALE OF 1 TO 10):10 WHAT DOES YOUR PAIN FEEL LIKE:ACHING, BURNING, SHARP, STABBING, THROBBING, SHOOTING DURATION:CONTINOUS, MAINLY DURING THE NIGHT, AWAKENS FROM SLEEP PAIN IS INCREASED BY:ACTIVITIES PAIN IS DECREASED BY:USE OF PAIN MEDICATIONS NURSING NOTE: -. PAIN CENTER INTAKE QUESTIONS: DO YOU HAVE A HISTORY OF MRSA? :NO DO YOU TAKE A BLOOD THINNERS? :NO DO YOU HAVE ANY BLEEDING DISORDERS? :NO ANY NEW NUMBNESS OR WEAKNESS IN YOUR LEGS OR ARMS? :NO ANY PACEMAKER,DEFIBRILLATOR, OR DORSAL COLUMN STIMULATOR? :NO DO YOU HAVE ANY RASHES OR OPEN SORES? :NO ARE YOU ALLERGIC TO IV DYE? :NO ARE YOU DIABETIC? :YES ANY NEW PROBLEMS WITH YOUR MEDICATIONS? :NO HAVE YOU RECEIVED A VACCINE IN THE PAST 30 DAYS? :NO DO YOU PLAN TO RECEIVE A VACCINE IN THE NEXT 21 DAYS? :YES PATIENT PLANS TO GET A SHINGLE SHOT TODAY. DO YOU NEED ANY PRESCRIPTION? :NO DO YOU TAKE ANY IMMUNOSUPPRESSIVE MEDICATIONS? :NO IS THERE A CHANCE YOU COULD BE ? :NO ARE YOU BREAST FEEDING? :NO CURRENT MEDICATIONS TAKING DEPEND PANT EXTRA LARGE _ UNDERGARMENTS DIAG CODE SIZE LARGE DX:N39.41 DAILY= MDD 24 TAKING GABAPENTIN 100 100 MG (LATTIF) TABLET 1 TAB ORALLY THREE TIMES DAILY TAKING VITAMIN C 500 MG CAPSULE DIRECTED ORALLY ONCE A DAY TAKING LEVETIRACETAM 250 MG (LATTIF) TABLET 1 TAB IN THE AM 1 TABS IN THE PM ORALLY TWICE DAILY TAKING BUSPIRONE HCL 15 MG TABLET 1 TAB ORALLY TID TAKING VIMPAT 50 MG TABLET 1 TAB ORALLY TWICE A DAY TAKING HYDROXYZINE HCL 50MG [facility] TABLET 1 TABLET ORALLY TWICE A DAY TAKING GLUCOMETER DIRECTED E11.65 TWICE ADAY AND NEEDED TAKING CYMBALTA 60 MG CAPSULE DELAYED RELEASE PARTICLES 1 CAPSULE ORALLY TWICE A DAY TAKING TRAZODONE HCL 50 MG TABLET 1 1/2 TABLET AT BEDTIME NEEDED ORALLY ONCE A DAY TAKING NEBULIZER/ADULT MASK - KIT DIRECTED DX: J44.9 MASK AND TUBING TAKING ALBUTEROL SULFATE (2.5 MG/3ML) 0.083% NEBULIZATION SOLUTION 3 ML INHALATION EVERY 4-6 HOURS NEEDED TAKING TENS UNIT ELECTRO PADS - DIRECTED DX:M12.88 DIRECTED TAKING ROLLING WALKER 1 1 DIRECTED ROLLING WALKER WITH SEAT DX; J44.9, M51.16 TAKING BOTOX 100 UNIT SOLUTION RECONSTITUTED GIVEN WITH NEURO INJECTION EVERY 3 MONTHS FOR MIGRAINES TAKING LIDODERM 5 % PATCH 2 PATCH TO SKIN REMOVE AFTER 12 HOURS EXTERNALLY ONCE A DAY - APPLY TO LOW BACK FOR POST HERPETIC NEURALGIA TAKING TUMS 500 MG TABLET CHEWABLE 1 TABLET ORALLY TWICE DAILY NEEDED TAKING ADVAIR HFA 115-21 MCG/ACT AEROSOL 2 PUFFS INHALATION TWICE A DAY TAKING LISINOPRIL 2.5 MG TABLET 1 TABLET ORALLY ONCE A DAY TAKING OMEPRAZOLE 40MG 40 MG TABLET 1 TAB(S) ORAL DAILY AT BEDTIME TAKING VITAMIN D 2000 UNIT TABLET TAKE ONE TABLET BY MOUTH DAILY TAKING CHLORTHALIDONE 25 MG TABLET TAKE 1/2 TABLET BY MOUTH ONCE DAILY TAKING SPIRONOLACTONE 50 MG TABLET TAKE ONE TABLET BY MOUTH EVERY DAY TAKING POTASSIUM CHLORIDE ER 10 MEQ TABLET EXTENDED RELEASE 1 TABLET WITH FOOD ORALLY DAILY TAKING ZYRTEC ALLERGY 10 MG TABLET 1 TABLET ORALLY ONCE A DAY TAKING ONDANSETRON HCL 8 MG TABLET DISINTEGRATING 1 SUBLINGUALLY THREE TIMES A DAY NEEDED TAKING PROAIR HFA 108 (90 BASE) MCG/ACT AEROSOL SOLUTION 2 PUFFS NEEDED INHALATION EVERY 6 HRS TAKING NYSTATIN [id number] UNIT/GM CREAM APPLY EXTERNALLY TO AFFECTED [place] TWO TIMES A DAY TAKING DAILY-KIRAN - TABLET TAKE ONE TABLET BY MOUTH EVERY DAY TAKING CALCIUM + D3 600-200 MG-UNIT TABLET TAKE ONE TABLET BY MOUTH EVERY DAY TAKING SINGULAIR 10 MG TABLET TAKE ONE TABLET BY MOUTH ONCE A DAY IN THE EVENING TAKING ASPIRIN 81 MG TABLET DELAYED RELEASE 1 TABLET ORALLY ONCE A DAY TAKING OXYBUTYNIN CHLORIDE ER 15 MG TABLET EXTENDED RELEASE 24 HOUR TAKE ONE TABLET BY MOUTH ONCE A DAY TAKING VALACYCLOVIR HCL 500 MG TABLET 1 TABLET ORALLY DAILY TAKING ERYTHROMYCIN BASE 250 MG TABLET 1 TAB 30 MIN PRIOR TO MEAL ORALLY THREE TIMES DAILY, NOTES: STOPPED ATORVASTATIN TAKING ACCU-CHEK SOFT TOUCH LANCETS - MISCELLANEOUS DIRECTED DX: E11.29 TWICE A DAY AND NEEDED TAKING BLOOD GLUCOSE TEST - STRIP DIRECTED IN VITRO BEFORE MEALS AND AT BEDTIME. DX: Z79.4 TAKING BUTRANS 15 MCG/HR PATCH WEEKLY 1 PATCH TO SKIN TRANSDERMAL WEEKLY NOT-TAKING LACTULOSE 10 GM/15ML SOLUTION 30 ML ORALLY TWICE A DAY NEEDED, NOTES: OCC NEEDED NOT-TAKING POLYETHYLENE GLYCOL 3350 - POWDER MIX 17 GRAMS ORAL ONCE A DAY NOT-TAKING JOBST ACTIVEWEAR 15-20MMHG - MISCELLANEOUS DIRECTED DX: SPIDER VEINS, VENOUS INSUFF DAILY NOT-TAKING UNIFINE PENTIPS 31G X 6 MM MISCELLANEOUS USE DIRECTED DAILY NOT-TAKING PEN NEEDLES 31G X 6 MM MISCELLANEOUS DIRECTED SUBCUTANEOUSLY DAILY E11.2 NOT-TAKING ONE TOUCH ULTRA BLUE STRIPS DIRECTED DX: E11.29 TWICE A DAY ADN NEEDED MEDICATION LIST REVIEWED AND RECONCILED WITH THE PATIENT PAST MEDICAL HISTORY PTSD DEPRESSION/PANIC DISORDER EPILEPSY FOLLOWED BY DR. DUQUE ASTHMA COPD/CHRONIC BRONCHITIS - SPIROMETRY 09/2015 FEV1 = 1.7, FVC = 1.785, RATIO = 91.7 - POOR QUALITY SUSPECT MIXED PICTURE COPD/ RESTRICTIVE FROM OBESITY. NICOTINE DEPENDENCE - IN REMISSION QUITE 01/2018 GERD CLAUDIA - ON CPAP TOLERATING CPAP CHRONIC VENOUS INSUFFICIENCY LEFT BREAST ABSCESS HX INCONTINENCE, CYSTOCELE HX ABNORMAL PAP (AGE 20'S, 30'S) DYSPAREUNIA FATTY LIVER PER US 03/2015 ECHO 03/2015 - BORDERLINE LVH EF 65%. MILDLY DILATED LEFT ATRIUM. IMPAIRED LV DIASTOLIC FUNCTION. NORMAL LEFT ATRIAL PRESSURE, MILD PULM HTN. ENDOMETRIOSIS DIABETES TYPE 2 - INSULIN REQUIRING HYPERLIPIDEMIA HERPES TYPE 2 - BREAKOUT IN [facility] 03/29/18 SHINGLES - 02/2018 MIGRAINES - FOLLOWS WITH NEUROLOGY - GETTING BOTOX INJECTIONS 09/2018 DIABETIC NEUROPATHY LEFT LEG AND FOOT TONSIL STONE AND ABSCESS ENCEPHALOPATHY ABNORMAL LIVER ULTRASOUND CHRONIC LOW BACK PAIN ALLERGIES CHANTIX: NIGHT TERRORS - SIDE EFFECTS DEPAKOTE: COULDN'T STAY AWAKE - SIDE EFFECTS SULFA (FOR ALLERGY USE ONLY): RASH - ALLERGY LATEX (FOR ALLERGY USE ONLY): HIVES - ALLERGY METFORMIN HCL: SEVERE N/V - SIDE EFFECTS PROPRANOLOL HCL: BRADYCARDIA - SIDE EFFECTS SURGICAL HISTORY CLEFT/LIP/PALATE SURGERY 1961 DEVIATED NASAL SEPTUM 05/1998 01/1993 ENDOMETRIAL BIOPSY 1999 CHOLECYSTECTOMY 10/1997 TVT 2009 EGD/COLONOSCOPY (DR. TAYLOR) 2010 TUBES PLACED IN EARS ENDOMETRIAL ABLATION 2007 COLPOSCOPY/ECC 1999 CRYO FOR ABNORMAL PAP AGE 20'S COLONOSCOPY WITH BIOPSIES - NEGATIVE FOR MICROSCOPIC COLITIS (DR.. DUEÑAS) 09/2014 CYST REMOVAL LEFT EYE 01/2019 COLONOSCOPY AND [id number] 01/2020 FAMILY HISTORY FATHER: 69 YRS, LUNG CANCER, HTN, DM-2, DIAGNOSED WITH HYPERTENSION, UNSPECIFIED HEART DISEASE, DIABETES, OTHER MALIGNANT NEOPLASM OF UNSPECIFIED SITE MOTHER: 64 YRS, COLON CANCER, HTN, DM-2, HYPERTENSION, UNSPECIFIED HEART DISEASE, DIABETES, OTHER MALIGNANT NEOPLASM OF UNSPECIFIED SITE SIBLINGS: ALIVE, BOTH HTN SISTER LYMPH CANCER IN 60'S SON(S): ALIVE 18 YRS DAUGHTER(S): ALIVE 19 YRS PATERNAL AUNT: ALIVE LATE 60'S YRS, BREAST CANCER, DX IN LATE 50 'S MATERNAL AUNT: , OVARIAN CANCER UNKNOWN AGE 1 BROTHER(S) , 1 SISTER(S) - HEALTHY. 1 SON(S) , 1 DAUGHTER(S) - HEALTHY. 10/2018 SISTER HEART ATTACK. SOCIAL HISTORY GENERAL: TOBACCO USE ARE YOU A:FORMER SMOKER HOW LONG HAS IT BEEN SINCE YOU LAST SMOKED?1-5 YEARS LATEX QUESTIONNAIRE LATEX ALLERGY : HAVE YOU EVER DEVELOPED ANY TYPE OF REACTION AFTER HANDLING LATEX PRODUCTS SUCH RUBBER GLOVES, CONDOMS, DIAPHRAGMS, BALLOONS, SOCKS, OR UNDERWEAR?YES KNOWN LATEX ALLERGY - PLEASE INDICATE :RUBBER GLOVES LATEX ALLERGY : HAVE YOU EVER DEVELOPED ANY TYPE OF REACTION DURING OR AFTER DENTAL APPOINTMENT, VAGINAL/RECTAL EXAMINATION, SURGICAL PROCEDURE, OR ANY OTHER EXPOSURE?NO LATEX RISK : HAVE YOU EVER HAD ANY DIFFICULTY BREATHING OR HIVES AFTER EATING OR HANDLING ANY FRUITS, OR VEGETABLES; SUCH KIWI, BANANAS, STONE FRUITS, OR CHESTNUTSNO LATEX RISK : DO YOU HAVE A PREVIOUS PERSONAL HISTORY OF MORE THAN NINE SURGERIES, SPINA BIFIDA, OR REPEATED CATHERIZATIONS? YES - PLEASE INDICATE : > 9 SURGERIES LATEX RISK : ARE YOU FREQUENTLY EXPOSED TO LATEX PRODUCTS IN YOUR OCCUPATION?NO DATE ASKED : 07/09/2020 LUNG CANCER SCREENING SMOKING STATUS:FORMER SMOKER IS THE PATIENT BETWEEN THE AGE OF 57 AND 79?YES BMI CARE GOAL FOLLOW-UP ABOVE NORMAL BMI FOLLOW-UPDIETARY NEEDS EDUCATION ALCOHOL SCREENING DID YOU HAVE A DRINK CONTAINING ALCOHOL IN THE PAST YEAR?YES HOW OFTEN DID YOU HAVE SIX OR MORE DRINKS ON ONE OCCASION IN THE PAST YEAR?NEVER (0 POINTS) HOW MANY DRINKS DID YOU HAVE ON A TYPICAL DAY WHEN YOU WERE DRINKING IN THE PAST YEAR?1 OR 2 (0 POINTS) HOW OFTEN DID YOU HAVE A DRINK CONTAINING ALCOHOL IN THE PAST YEAR?MONTHLY OR LESS (1 POINT) POINTS1 INTERPRETATIONNEGATIVE RECREATIONAL DRUG USE DENIES. CAFFEINE 0-1/DAY. 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 LEARNING BARRIERS / SPECIAL NEEDS CHANGE FROM LAST VISIT?NO BARRIERS TO LEARNING?NO HEARING IMPAIRED?YES VISION IMPAIRED?YES COGNITIVELY IMPAIRED?NO :HEARING AIDES RIGHT EAR ONLY :CORRECTIVE LENSES READINESS TO LEARN?YES LEARNING PREFERENCES?NO LEARNING CAPABILITIES PRESENT?YES EMOTIONAL BARRIERS?NO SPECIAL DEVICES?YES :WALKER, OTHER MOBILITY SCOOTER MIDDLE SCHOOL PROFESSIONAL NEEDED?NO DOMESTIC VIOLENCE DO YOU FEEL SAFE IN YOUR ENVIRONMENT?YES OCCUPATION: DISABLED. DIET: DIABETIC DIET. EXERCISE: NO REGULAR EXERCISE. MARITAL STATUS: . OTHERS AT HOME: S.O.-JESSICA, 2 CATS, HAS A HOME HEALTH AIDE (BRO) 7 AM TO 3 PM DAILY.. NEW PATIENT PAIN DIARY PATIENT DESCRIBES PAIN :HAVE IT ALL THE TIME, OTHER DULL PAIN FROM 0-10, WHAT LEVEL IS YOUR PAIN TODAY?5 PRECIPITATING FACTORS NIGHT TIME ALLEVIATING FACTORS BUTRANS PATCH IMPACT ON FUNCTION NO PAIN CLINIC PFS, CLERGY, PUBLIC HEALTH REFERRALS HAS THE PATIENT BEEN EDUCATED REGARDING HIS/HER PLAN OF CARE?YES HAS THE PATIENT BEEN EDUCATED REGARDING PAIN, THE RISK FOR PAIN, THE IMPORTANCE OF EFFECTIVE PAIN MANAGEMENT, AND THE PAIN ASSESSMENT PROCESS?YES HOUSING: RENTS APARTMENT. ADVANCE DIRECTIVE ADVANCE DIRECTIVE DISCUSSED WITH PATIENT:YES PT STATES HCP [facility] [phone], ALEJANDRA COTTER- [phone] HOSPITALIZATION/MAJOR DIAGNOSTIC PROCEDURE MAJOR DEPRESSION , SUICIDAL ATTEMPT TWICE. ([facility]) SURGERIES ABOVE DEHYDRATION 04/2018 REVIEW OF SYSTEMS CONSTITUTIONAL: ANY RECENT FEVER NO . CHILLS NO . WEIGHT CHANGE OF UNKNOWN REASONS NO . GASTROENTEROLOGY: NEW UNEXPLAINABLE CHANGES IN BOWEL CONTROL NO . CONSTIPATION NO . GENITOURINARY: ANY NEW CHANGE IN BLADDER CONTROL? NO . NEUROLOGY: NEW ONSET DIZZINESS OR NEUROLOGICAL CHANGES NOT MENTIONED NO . NEW NUMBNESS OR PAIN PATTERNS NOT MENTIONED AND PERTINENT TO TODAY'S VISIT NO . CARDIOLOGY: NEW CHEST PRESSURE NO . NEW CHEST PAIN NO . RESPIRATORY: UNEXPLAINABLE COUGH NO . NEW SHORTNESS OF BREATH NO . VITAL SIGNS WT 138.8 LBS, HT 65 IN, BMI 23.10 INDEX, BP 150/69 MM HG, HR 71 /MIN, RR 18 /MIN, TEMP 97.7 F, OXYGEN SAT % 99%, SAFE IN ENV? (Y/N) Y, NA INITIALS OR 11:01, REVIEWED BY: BORIS. EXAMINATION GENERAL EXAMINATION: GENERALNO ACUTE DISTRESS, WELL NOURISHED AND HYDRATED. PSYCHAPPROPRIATE MOOD AND AFFECT . LUNGS:CLEAR TO AUSCULTATION BILATERALLY, NO WHEEZES, RHONCHI, RALES. HEART:NO MURMURS, REGULAR RATE AND RHYTHM. ASSESSMENTS OTHER CHRONIC PAIN - G89.29 (PRIMARY) SACROILIITIS - M46.1 TREATMENT OTHER CHRONIC PAIN INCREASE BUTRANS PATCH WEEKLY, 20 MCG/HR, 1 PATCH TO SKIN, TRANSDERMAL, WEEKLY, 30 DAYS, 4 PAIN PROCEDURE LOGDATE OF PROCEDURE06/24/2020PROCEDURE:BILATERAL SACROILIAC JOINT BLOCKAMOUNT OF PRE SEDATEVALIUM 5MG, HYDROCODONE- ACETAMINOPHEN 5-325MGLEAH ARELLANO 07/09/2020 11:24:35 AM > PRE-PROCEDURE 07/05 - POST PROCEDURE 07/05 CLINICAL NOTES: 59-YEAR-OLD FEMALE IN FOR POST BILATERAL SIJ FOLLOW-UP. GIVEN PRESENTING SYMPTOMS RECOMMEND INCREASING BUTRANS PATCH TO 20 MCG WITH FOLLOW-UP IN ONE MONTH TO DETERMINE EFFICACY OF TREATMENT. PATIENT HAS EXPRESSED UNDERSTANDING OF AND WAS IN AGREEMENT WITH TREATMENT PLAN. GIVEN TIME TO ASK QUESTIONS AND EXPRESS CONCERNS. , ISTOP REGISTRY REVIEWED AND DEMONSTRATES COMPLLIANCE. (REF # [id number] ) BRINGS IN MEDICATIONS WHICH IS APPROPRIATE FOR WHAT WAS DISPENSED. RECENT URINE TOXICOLOGY REVIEWED. NO UNAUTHORIZED MEDICATIONS. NO ILLICIT SUBSTANCES AND PRESCRIBED MEDICATIONS WERE PRESENT. PREVENTIVE MEDICINE PAIN CLINIC TEACHING: THE PATIENT HAS BEEN EDUCATED REGARDING PAIN, THE RISK FOR PAIN, THE IMPORTANCE OF EFFECTIVE PAIN MANAGEMENT, AND THE PAIN ASSESSMENT PROCESS. : DISCUSSED CARE PLAN WITH PATIENT, PATIENT VERBALIZES UNDERSTANDING. PT HAS BEEN GIVEN A NEW NARCOTIC AGREEMENT, AND ORAL UTOX SCREENING WAS PERFORMED AND SENT. DISPOSITION & COMMUNICATION FOLLOW UP 4 WEEKS (REASON: MEDICATION INCREASE) ELECTRONICALLY SIGNED BY KALI ROQUE ON 07/10/2020 AT 08:23 AM EDT DISCLAIMER : THIS IS A VISIT SUMMARY EXTRACTED FROM THE [employer] CHART. IT IS NOT A COPY OF THE [employer] PROGRESS NOTE. NATALIE
== END ==
LOC: M PAIN 10:30
PROVIDERS: ATTEND Family Medicine
DX: G89.29 Other chronic pain (principal); M46.1 Sacroiliitis, not elsewhere classified; F43.10 Post-traumatic stress disorder, unspecified; G40.909 Epilepsy, unspecified, not intractable, without status epilepticus; J45.909 Unspecified asthma, uncomplicated; K21.9 Gastro-esophageal reflux disease without esophagitis; J44.9 Chronic obstructive pulmonary disease, unspecified; G47.33 Obstructive sleep apnea (adult) (pediatric); I87.2 Venous insufficiency (chronic) (peripheral); E11.42 Type 2 diabetes mellitus with diabetic polyneuropathy; E78.5 Hyperlipidemia, unspecified; Z87.891 Personal history of nicotine dependence; Z79.82 Long term (current) use of aspirin; Z79.899 Other long term (current) drug therapy

== ENCOUNTER → 2020-07-10 | Outpatient (CLI) | payer OTHER ==
[2020-07-10 08:16] LABS: BASO % 0.5 % (0.0-1.0); EOS # 0.1 10^3/uL (0.0-0.5); EOS % 0.9 % (0.0-3.0); HEMOGLOBIN 13.1 g/dl (12.0-15.5); LYMPH # 2.5 10^3/uL (1.5-5.0); LYMPH % 28.7 % (24.0-44.0); MEAN CORPUSCULAR HEMOGLOBIN 30.4 pg (27.0-33.0); MEAN CORPUSCULAR HGB CONC 33.6 g/dl (32.0-36.5); MEAN CORPUSCULAR VOLUME 90.5 fl (80.0-96.0); MONO # 0.9 10^3/uL (0.0-0.8); MONO % 9.9 % (0.0-5.0); NEUTROPHILS # 5.1 10^3/uL (1.5-8.5); NEUTROPHILS % 59.9 % (36.0-66.0); PLATELET COUNT, AUTOMATED 312 10^3/uL (150-450); RED BLOOD COUNT 4.31 10^6/uL (4.00-5.40); WHITE BLOOD COUNT 8.6 10^3/uL (4.0-10.0)
[2020-07-10 08:48] LABS: ALBUMIN 3.9 GM/DL (3.2-5.2); ALT/SGPT 21 U/L (12-78); BILIRUBIN,TOTAL 0.5 MG/DL (0.2-1.0); BLOOD UREA NITROGEN 18 MG/DL (7-18); CALCIUM LEVEL 9.4 MG/DL (8.5-10.1); CARBON DIOXIDE LEVEL 26 MEQ/L (21-32); CHLORIDE LEVEL 107 MEQ/L (98-107); CHOLESTEROL LEVEL 220 MG/DL (<200); CHOLESTEROL RISK RATIO 3.283 (<5); GLOMERULAR FILTRATION RATE > 60.0 (>51); GLUCOSE, FASTING 87 MG/DL (70-100); HDL CHOLESTEROL 67 MG/DL (>40); IRON (FE) 56 UG/DL (50-170); LDL CHOLESTEROL 140 MG/DL (<100); NON-HDL-C 153 MG/DL; POTASSIUM SERUM 3.8 MEQ/L (3.5-5.1); SODIUM LEVEL 140 MEQ/L (136-145); TOTAL PROTEIN 7.3 GM/DL (6.4-8.2); TRIGLYCERIDES LEVEL 64 MG/DL (<150)
[2020-07-10 09:02] LABS: MALB URINE SIEMENS 33.1 MG/L; MAU/CREAT RATIO 16.2 MCG/MG (0.0-30.0)
[2020-07-10 16:16] LABS: TOTAL 25(OH) VITAMIN D 69.5 NG/ML (30.0-100.0); VITAMIN B12 LEVEL 409 PG/ML (247-911)
[2020-07-10 16:17] LABS: FOLATE 13.1 NG/ML (>5.4)
== END ==
LOC: M LAB 07:18
PROVIDERS: ATTEND Physician Assistant
DX: E11.65 Type 2 diabetes mellitus with hyperglycemia (principal); K31.84 Gastroparesis; E55.9 Vitamin D deficiency, unspecified

== ENCOUNTER → 2020-08-08 | Outpatient (CLI) | payer MEDICARE, MEDICAID ==
--- NOTE | 2020-08-12 05:10 | ECWPNPC ---
PATIENT NAME: YAIMA CORRALES : 1960 GENDER: FEMALE VISIT DATE: 08/08/2020 DISCHARGE DATE: 08/08/20 1508 VISIT LOCKED DATE TIME: PHYSICIAN: LEAH ARELLANO RESOURCE: ELAH ARELLANO REASON FOR APPOINTMENT 1. MEDICATION INCREASE HISTORY OF PRESENT ILLNESS GENERAL: - 52-YEAR-OLD FEMALE IN FOR CHRONIC PAIN FOLLOW-UP. AT LAST CLINIC VISIT PATIENT'S MEDICATION WAS INCREASED AND SHE ADMITS TO CONTINUED PAIN. SHE RATES HER PAIN CURRENTLY AT A 10 OUT OF 10 AND DESCRIBES IT ACHING, CONTINUOUS, AND STABBING. FALL RISK SCREENING: SCREENING :NO FALLS REPORTED IN THE LAST YEAR PAIN SCREENING: PATIENT HAS A COMPLAINT OF ACUTE OR CHRONIC PAIN :YES LOCATION OF PAIN:NECK, LEFT SHOULDER, RIGHT SHOULDER, MID BACK, LOW BACK, LEFT HIP, RIGHT HIP INTENSITY OF PAIN (SCALE OF 1 TO 10):10 WHAT DOES YOUR PAIN FEEL LIKE:ACHING, CONTINOUS, STABBING DURATION:CONTINOUS PAIN IS INCREASED BY:ACTIVITIES PAIN IS DECREASED BY:OTHERS NOTHING HELPS PAIN RIGHT NOW NURSING NOTE: -. PAIN CENTER INTAKE QUESTIONS: DO YOU HAVE A HISTORY OF MRSA? :NO DO YOU TAKE A BLOOD THINNERS? :NO DO YOU HAVE ANY BLEEDING DISORDERS? :NO ANY NEW NUMBNESS OR WEAKNESS IN YOUR LEGS OR ARMS? :NO ANY PACEMAKER,DEFIBRILLATOR, OR DORSAL COLUMN STIMULATOR? :NO DO YOU HAVE ANY RASHES OR OPEN SORES? :NO ARE YOU ALLERGIC TO IV DYE? :NO ARE YOU DIABETIC? :YES ANY NEW PROBLEMS WITH YOUR MEDICATIONS? :NO HAVE YOU RECEIVED A VACCINE IN THE PAST 30 DAYS? :YES IF SO WHAT VACCINE AND WHEN? SHINGLES 2019 DO YOU PLAN TO RECEIVE A VACCINE IN THE NEXT 21 DAYS? :NO DO YOU NEED ANY PRESCRIPTION? :YES BUTRANS PATCH DO YOU TAKE ANY IMMUNOSUPPRESSIVE MEDICATIONS? :NO ANY HISTORY OF SEIZURES? :YES YEARS AGO, NONE SINCE AGE 32 ANY HISTORY OF CARDIAC ISSUES OR EVENTS? :NO DO YOU HAVE SLEEP APNEA? :YES DO YOU WEAR A CPAP?YES ANY RECENT HEAD INJURY? :NO DO YOU HAVE ANY NEW INFECTIONS? :NO IS THERE A CHANCE YOU COULD BE ? :NO ARE YOU BREAST FEEDING? :NO CURRENT MEDICATIONS TAKING DEPEND PANT EXTRA LARGE _ UNDERGARMENTS DIAG CODE SIZE LARGE DX:N39.41 DAILY= MDD 24 TAKING GABAPENTIN 100 100 MG (LATTIF) TABLET 1 TAB ORALLY THREE TIMES DAILY TAKING VITAMIN C 500 MG CAPSULE DIRECTED ORALLY ONCE A DAY TAKING LEVETIRACETAM 250 MG (LATTIF) TABLET 1 TAB IN THE AM 1 TABS IN THE PM ORALLY TWICE DAILY TAKING BUSPIRONE HCL 15 MG TABLET 1 TAB ORALLY TID TAKING VIMPAT 50 MG TABLET 1 TAB ORALLY TWICE A DAY TAKING HYDROXYZINE HCL 50MG [facility] TABLET 1 TABLET ORALLY TWICE A DAY TAKING GLUCOMETER DIRECTED E11.65 TWICE ADAY AND NEEDED TAKING CYMBALTA 60 MG CAPSULE DELAYED RELEASE PARTICLES 1 CAPSULE ORALLY TWICE A DAY TAKING TRAZODONE HCL 50 MG TABLET 1 1/2 TABLET AT BEDTIME NEEDED ORALLY ONCE A DAY TAKING NEBULIZER/ADULT MASK - KIT DIRECTED DX: J44.9 MASK AND TUBING TAKING ALBUTEROL SULFATE (2.5 MG/3ML) 0.083% NEBULIZATION SOLUTION 3 ML INHALATION EVERY 4-6 HOURS NEEDED TAKING TENS UNIT ELECTRO PADS - DIRECTED DX:M12.88 DIRECTED TAKING ROLLING WALKER 1 1 DIRECTED ROLLING WALKER WITH SEAT DX; J44.9, M51.16 TAKING BOTOX 100 UNIT SOLUTION RECONSTITUTED GIVEN WITH NEURO INJECTION EVERY 3 MONTHS FOR MIGRAINES TAKING TUMS 500 MG TABLET CHEWABLE 1 TABLET ORALLY TWICE DAILY NEEDED TAKING ADVAIR HFA 115-21 MCG/ACT AEROSOL 2 PUFFS INHALATION TWICE A DAY TAKING LISINOPRIL 2.5 MG TABLET 1 TABLET ORALLY ONCE A DAY TAKING OMEPRAZOLE 40MG 40 MG TABLET 1 TAB(S) ORAL DAILY AT BEDTIME TAKING VITAMIN D 2000 UNIT TABLET TAKE ONE TABLET BY MOUTH DAILY TAKING CHLORTHALIDONE 25 MG TABLET TAKE 1/2 TABLET BY MOUTH ONCE DAILY TAKING SPIRONOLACTONE 50 MG TABLET TAKE ONE TABLET BY MOUTH EVERY DAY TAKING POTASSIUM CHLORIDE ER 10 MEQ TABLET EXTENDED RELEASE 1 TABLET WITH FOOD ORALLY DAILY TAKING ZYRTEC ALLERGY 10 MG TABLET 1 TABLET ORALLY ONCE A DAY TAKING ONDANSETRON HCL 8 MG TABLET DISINTEGRATING 1 SUBLINGUALLY THREE TIMES A DAY NEEDED TAKING PROAIR HFA 108 (90 BASE) MCG/ACT AEROSOL SOLUTION 2 PUFFS NEEDED INHALATION EVERY 6 HRS TAKING NYSTATIN 474357 UNIT/GM CREAM APPLY EXTERNALLY TO AFFECTED [place] TWO TIMES A DAY TAKING DAILY-KIRAN - TABLET TAKE ONE TABLET BY MOUTH EVERY DAY TAKING CALCIUM + D3 600-200 MG-UNIT TABLET TAKE ONE TABLET BY MOUTH EVERY DAY TAKING SINGULAIR 10 MG TABLET TAKE ONE TABLET BY MOUTH ONCE A DAY IN THE EVENING TAKING ASPIRIN 81 MG TABLET DELAYED RELEASE 1 TABLET ORALLY ONCE A DAY TAKING VALACYCLOVIR HCL 500 MG TABLET 1 TABLET ORALLY DAILY TAKING ERYTHROMYCIN BASE 250 MG TABLET 1 TAB 30 MIN PRIOR TO MEAL ORALLY THREE TIMES DAILY, NOTES: STOPPED ATORVASTATIN TAKING ACCU-CHEK SOFT TOUCH LANCETS - MISCELLANEOUS DIRECTED DX: E11.29 TWICE A DAY AND NEEDED TAKING BLOOD GLUCOSE TEST - STRIP DIRECTED IN VITRO BEFORE MEALS AND AT BEDTIME. DX: Z79.4 TAKING BUTRANS 20 MCG/HR PATCH WEEKLY 1 PATCH TO SKIN TRANSDERMAL WEEKLY TAKING LIDODERM 5 % PATCH 2 PATCH TO SKIN REMOVE AFTER 12 HOURS EXTERNALLY ONCE A DAY - APPLY TO LOW BACK FOR POST HERPETIC NEURALGIA TAKING BACTRIM DS 800-160 MG TABLET 1 TABLET ORALLY TWICE A DAY TAKING MYRBETRIQ 50 MG TABLET 1 TABLET ORALLY ONCE A DAY NOT-TAKING LACTULOSE 10 GM/15ML SOLUTION 30 ML ORALLY TWICE A DAY NEEDED, NOTES: OCC NEEDED NOT-TAKING POLYETHYLENE GLYCOL 3350 - POWDER MIX 17 GRAMS ORAL ONCE A DAY NOT-TAKING JOBST ACTIVEWEAR 15-20MMHG - MISCELLANEOUS DIRECTED DX: SPIDER VEINS, VENOUS INSUFF DAILY NOT-TAKING UNIFINE PENTIPS 31G X 6 MM MISCELLANEOUS USE DIRECTED DAILY NOT-TAKING PEN NEEDLES 31G X 6 MM MISCELLANEOUS DIRECTED SUBCUTANEOUSLY DAILY E11.2 NOT-TAKING ONE TOUCH ULTRA BLUE STRIPS DIRECTED DX: E11.29 TWICE A DAY ADN NEEDED MEDICATION LIST REVIEWED AND RECONCILED WITH THE PATIENT PAST MEDICAL HISTORY PTSD DEPRESSION/PANIC DISORDER EPILEPSY FOLLOWED BY DR. DUQUE ASTHMA COPD/CHRONIC BRONCHITIS - SPIROMETRY 09/2015 FEV1 = 1.7, FVC = 1.785, RATIO = 91.7 - POOR QUALITY SUSPECT MIXED PICTURE COPD/ RESTRICTIVE FROM OBESITY. NICOTINE DEPENDENCE - IN REMISSION QUITE 01/2018 GERD CLAUDIA - ON CPAP TOLERATING CPAP CHRONIC VENOUS INSUFFICIENCY LEFT BREAST ABSCESS HX INCONTINENCE, CYSTOCELE HX ABNORMAL PAP (AGE 20'S, 30'S) DYSPAREUNIA FATTY LIVER PER US 03/2015 ECHO 03/2015 - BORDERLINE LVH EF 65%. MILDLY DILATED LEFT ATRIUM. IMPAIRED LV DIASTOLIC FUNCTION. NORMAL LEFT ATRIAL PRESSURE, MILD PULM HTN. ENDOMETRIOSIS DIABETES TYPE 2 - INSULIN REQUIRING HYPERLIPIDEMIA HERPES TYPE 2 - BREAKOUT IN [facility] 03/29/18 SHINGLES - 02/2018 MIGRAINES - FOLLOWS WITH NEUROLOGY - GETTING BOTOX INJECTIONS 09/2018 DIABETIC NEUROPATHY LEFT LEG AND FOOT TONSIL STONE AND ABSCESS ENCEPHALOPATHY ABNORMAL LIVER ULTRASOUND CHRONIC LOW BACK PAIN ALLERGIES CHANTIX: NIGHT TERRORS - SIDE EFFECTS DEPAKOTE: COULDN'T STAY AWAKE - SIDE EFFECTS SULFA (FOR ALLERGY USE ONLY): RASH - ALLERGY LATEX (FOR ALLERGY USE ONLY): HIVES - ALLERGY METFORMIN HCL: SEVERE N/V - SIDE EFFECTS PROPRANOLOL HCL: BRADYCARDIA - SIDE EFFECTS SURGICAL HISTORY CLEFT/LIP/PALATE SURGERY 1961 DEVIATED NASAL SEPTUM 05/1998 01/1993 ENDOMETRIAL BIOPSY 1999 CHOLECYSTECTOMY 10/1997 TVT 2009 EGD/COLONOSCOPY (DR. TAYLOR) 2010 TUBES PLACED IN EARS ENDOMETRIAL ABLATION 2007 COLPOSCOPY/ECC 1999 CRYO FOR ABNORMAL PAP AGE 20'S COLONOSCOPY WITH BIOPSIES - NEGATIVE FOR MICROSCOPIC COLITIS (DR.. DUEÑAS) 09/2014 CYST REMOVAL LEFT EYE 01/2019 COLONOSCOPY AND GESCUKRGF-PUAVTA-CMM 01/2020 FAMILY HISTORY FATHER: 69 YRS, LUNG CANCER, HTN, DM-2, DIAGNOSED WITH DIABETES, OTHER MALIGNANT NEOPLASM OF UNSPECIFIED SITE, HYPERTENSION, UNSPECIFIED HEART DISEASE MOTHER: 64 YRS, COLON CANCER, HTN, DM-2, HYPERTENSION, UNSPECIFIED HEART DISEASE, DIABETES, OTHER MALIGNANT NEOPLASM OF UNSPECIFIED SITE SIBLINGS: ALIVE, BOTH HTN SISTER LYMPH CANCER IN 60'S SON(S): ALIVE 18 YRS DAUGHTER(S): ALIVE 19 YRS PATERNAL AUNT: ALIVE LATE 60'S YRS, BREAST CANCER, DX IN LATE 50 'S MATERNAL AUNT: , OVARIAN CANCER UNKNOWN AGE 1 BROTHER(S) , 1 SISTER(S) - HEALTHY. 1 SON(S) , 1 DAUGHTER(S) - HEALTHY. 10/2018 SISTER HEART ATTACK. SOCIAL HISTORY GENERAL: TOBACCO USE ARE YOU A:FORMER SMOKER HOW LONG HAS IT BEEN SINCE YOU LAST SMOKED?1-5 YEARS LATEX QUESTIONNAIRE LATEX ALLERGY : HAVE YOU EVER DEVELOPED ANY TYPE OF REACTION AFTER HANDLING LATEX PRODUCTS SUCH RUBBER GLOVES, CONDOMS, DIAPHRAGMS, BALLOONS, SOCKS, OR UNDERWEAR?YES KNOWN LATEX ALLERGY - PLEASE INDICATE :RUBBER GLOVES LATEX ALLERGY : HAVE YOU EVER DEVELOPED ANY TYPE OF REACTION DURING OR AFTER DENTAL APPOINTMENT, VAGINAL/RECTAL EXAMINATION, SURGICAL PROCEDURE, OR ANY OTHER EXPOSURE?NO LATEX RISK : HAVE YOU EVER HAD ANY DIFFICULTY BREATHING OR HIVES AFTER EATING OR HANDLING ANY FRUITS, OR VEGETABLES; SUCH KIWI, BANANAS, STONE FRUITS, OR CHESTNUTSNO LATEX RISK : DO YOU HAVE A PREVIOUS PERSONAL HISTORY OF MORE THAN NINE SURGERIES, SPINA BIFIDA, OR REPEATED CATHERIZATIONS? YES - PLEASE INDICATE : > 9 SURGERIES LATEX RISK : ARE YOU FREQUENTLY EXPOSED TO LATEX PRODUCTS IN YOUR OCCUPATION?NO DATE ASKED : 08/08/2020 LUNG CANCER SCREENING SMOKING STATUS:FORMER SMOKER IS THE PATIENT BETWEEN THE AGE OF 57 AND 79?YES BMI CARE GOAL FOLLOW-UP ABOVE NORMAL BMI FOLLOW-UPDIETARY NEEDS EDUCATION ALCOHOL SCREENING DID YOU HAVE A DRINK CONTAINING ALCOHOL IN THE PAST YEAR?YES HOW OFTEN DID YOU HAVE SIX OR MORE DRINKS ON ONE OCCASION IN THE PAST YEAR?NEVER (0 POINTS) HOW MANY DRINKS DID YOU HAVE ON A TYPICAL DAY WHEN YOU WERE DRINKING IN THE PAST YEAR?1 OR 2 (0 POINTS) HOW OFTEN DID YOU HAVE A DRINK CONTAINING ALCOHOL IN THE PAST YEAR?MONTHLY OR LESS (1 POINT) POINTS1 INTERPRETATIONNEGATIVE RECREATIONAL DRUG USE DENIES. CAFFEINE 0-1/DAY. SEXUAL HX HAD SEX IN THE LAST 12 MONTHS (VAGINAL, ORAL, OR ANAL)?NO LMP:2007 HAVE YOU EVER HAD AN STD?NO HIV / HEP-C SCREENING HIV TEST OFFERED TO PATIENT:YES DATE OFFERED:01/12/2018 TEST ACCEPTED:NO HEP-C TEST OFFERED TO PATIENT:YES DATE OFFERED:01/12/2018 REASON:PATIENT DECLINED TEST ACCEPTED:NO BROCHURE PROVIDED TO PATIENTNO MANDAEISM [id number] JEW LANGUAGE LANGUAGES SPOKEN:TURKMEN SUPPLY CHAIN DESIGN MANAGER DEGREE. LEARNING BARRIERS / SPECIAL NEEDS CHANGE FROM LAST VISIT?NO BARRIERS TO LEARNING?NO HEARING IMPAIRED?YES VISION IMPAIRED?YES COGNITIVELY IMPAIRED?NO :HEARING AIDES RIGHT EAR ONLY :CORRECTIVE LENSES READINESS TO LEARN?YES LEARNING PREFERENCES?NO LEARNING CAPABILITIES PRESENT?YES EMOTIONAL BARRIERS?NO SPECIAL DEVICES?YES :WALKER, OTHER MOBILITY SCOOTER TONGUER NEEDED?NO DOMESTIC VIOLENCE DO YOU FEEL SAFE IN YOUR ENVIRONMENT?YES OCCUPATION: DISABLED. DIET: DIABETIC DIET. EXERCISE: NO REGULAR EXERCISE. MARITAL STATUS: . OTHERS AT HOME: S.O.-JESSICA, 2 CATS, HAS A HOME HEALTH AIDE (BRO) 7 AM TO 3 PM DAILY.. PAIN CLINIC PFS, CLERGY, PUBLIC HEALTH REFERRALS HAS THE PATIENT BEEN EDUCATED REGARDING HIS/HER PLAN OF CARE?YES HAS THE PATIENT BEEN EDUCATED REGARDING PAIN, THE RISK FOR PAIN, THE IMPORTANCE OF EFFECTIVE PAIN MANAGEMENT, AND THE PAIN ASSESSMENT PROCESS?YES HOUSING: RENTS APARTMENT. ADVANCE DIRECTIVE ADVANCE DIRECTIVE DISCUSSED WITH PATIENT:YES PT STATES HCP [facility] [phone], ALEJANDRA COTTER- [phone] HOSPITALIZATION/MAJOR DIAGNOSTIC PROCEDURE MAJOR DEPRESSION , SUICIDAL ATTEMPT TWICE. ([facility]) SURGERIES ABOVE DEHYDRATION 04/2018 REVIEW OF SYSTEMS CONSTITUTIONAL: ANY RECENT FEVER NO . CHILLS NO . WEIGHT CHANGE OF UNKNOWN REASONS NO . GASTROENTEROLOGY: NEW UNEXPLAINABLE CHANGES IN BOWEL CONTROL NO . CONSTIPATION NO . GENITOURINARY: ANY NEW CHANGE IN BLADDER CONTROL? NO . NEUROLOGY: NEW ONSET DIZZINESS OR NEUROLOGICAL CHANGES NOT MENTIONED NO . NEW NUMBNESS OR PAIN PATTERNS NOT MENTIONED AND PERTINENT TO TODAY'S VISIT NO . CARDIOLOGY: NEW CHEST PRESSURE NO . NEW CHEST PAIN NO . RESPIRATORY: UNEXPLAINABLE COUGH NO . NEW SHORTNESS OF BREATH NO . VITAL SIGNS WT 137.2 LBS, HT 65 IN, BMI 22.83 INDEX, BP 152/65 MM HG, HR 80 /MIN, RR 18 /MIN, TEMP 97.2 F, OXYGEN SAT % 98%, SAFE IN ENV? (Y/N) YES, NA INITIALS AW 1415, REVIEWED BY: MESERET MELENDREZ RN. EXAMINATION GENERAL EXAMINATION: GENERALNO ACUTE DISTRESS, WELL NOURISHED AND HYDRATED. PSYCHAPPROPRIATE MOOD AND AFFECT . LUNGS:CLEAR TO AUSCULTATION BILATERALLY, NO WHEEZES, RHONCHI, RALES. HEART:NO MURMURS, REGULAR RATE AND RHYTHM. BACK:POINT TENDER BILATERAL LUMBAR SPINE, SURROUNDING SKIN SHOWS NO ERYTHEMA, ECCHYMOSIS, INCREASED WARMTH, AND/OR SKIN ERUPTIONS NOTED. PATIENT DOES ENDORSE INCREASED PAIN WITH FACET LOADING . ASSESSMENTS SPONDYLOLYSIS, LUMBOSACRAL REGION - M43.07 (PRIMARY) TREATMENT SPONDYLOLYSIS, LUMBOSACRAL REGION NOTES: 52-YEAR-OLD FEMALE IN FOR CHRONIC PAIN FOLLOW-UP. GIVEN PRESENTING SYMPTOMS AND RESULTS PHYSICAL EXAMINATION RECOMMENDED BILATERAL THERAPEUTIC LUMBAR FACET BLOCK L4-L5 L5-S1 WITH POSTPROCEDURAL FOLLOW-UP. PATIENT HAS EXPRESSED UNDERSTANDING OF AND WAS IN AGREEMENT WITH TREATMENT PLAN. GIVEN TIME TO ASK QUESTIONS AND EXPRESS CONCERNS. , ISTOP REGISTRY REVIEWED AND DEMONSTRATES COMPLLIANCE. (REF # [id number] ) BRINGS IN MEDICATIONS WHICH IS APPROPRIATE FOR WHAT WAS DISPENSED. RECENT URINE TOXICOLOGY REVIEWED. NO UNAUTHORIZED MEDICATIONS. NO ILLICIT SUBSTANCES AND PRESCRIBED MEDICATIONS WERE PRESENT. LUMBAR THERAPEUTIC FACET INJECTION INFORMATION PRINTED AND REVIEWED WITH PATIENT. PATIENT VERBLAIZES UNDERSATANDING OF PROCEDURE AND OF PRE PROCEDURE INSTRUCTIONS REVIEWED. 08/08/2020 Johnny MELENDREZ RN. PROCEDURE CODES FA211 ESTABILISHED PATIENT [facility] FACILITY CHARGE DISPOSITION & COMMUNICATION FOLLOW UP POSTPROCEDURE (REASON: BILATERAL THERAPEUTIC LUMBAR FACET BLOCK HELPED FOR L5 L5-S1) ELECTRONICALLY SIGNED BY KALI ROQUE ON 08/11/2020 AT 08:37 AM EST DISCLAIMER : THIS IS A VISIT SUMMARY EXTRACTED FROM THE [employer] CHART. IT IS NOT A COPY OF THE [employer] PROGRESS NOTE. NATALIE
== END ==
LOC: M PAIN 14:00
PROVIDERS: ATTEND Family Medicine
DX: M43.07 Spondylolysis, lumbosacral region (principal); G89.29 Other chronic pain; E11.40 Type 2 diabetes mellitus with diabetic neuropathy, unspecified; G47.33 Obstructive sleep apnea (adult) (pediatric); G40.909 Epilepsy, unspecified, not intractable, without status epilepticus; J44.9 Chronic obstructive pulmonary disease, unspecified; K21.9 Gastro-esophageal reflux disease without esophagitis; G43.909 Migraine, unspecified, not intractable, without status migrainosus; Z86.59 Personal history of other mental and behavioral disorders; Z87.891 Personal history of nicotine dependence; Z88.2 Allergy status to sulfonamides; Z88.8 Allergy status to other drugs, medicaments and biological substances; Z91.040 Latex allergy status; Z79.82 Long term (current) use of aspirin; Z79.899 Other long term (current) drug therapy

== ENCOUNTER → 2020-08-29 | Outpatient (CLI) | payer MEDICARE, MEDICAID | LOC: M LABSMTC 11:01 | PROVIDERS: ATTEND Anesthesiology | DX: Z20.828 Contact with and (suspected) exposure to other viral communicable diseases (principal) ==

== ENCOUNTER → 2020-09-03 | Outpatient (CLI) | payer MEDICARE, MEDICAID ==
[~2020-09-03] MED LIST changes: +BUPIVACAINE HCL 0.25% 30ML VIAL As Ordered ONE; +ISOVUE-M 300 61% 15ML VIAL As Ordered ONE; +LIDOCAINE 1% SDV 30ML VIAL As Ordered ONE; +NORCO, ANEXSIA 5/325MG TABLET (HYDROcodone/ACETAMINOPHEN) As Ordered ONE; +TRIAMCINOLONE ACETONIDE SUSP 40 MG/ML VIAL (J3301) As Ordered ONE; +diazePAM 2 MG TAB As Ordered ONE
--- NOTE | 2020-09-03 15:57 | REP ---
INDICATION: BILTERAL THERAPEUTIC FACET BLOCK LUMBAR L4-L5; L5-S1. COMPARISON: None. TECHNIQUE: Four views. 21.6 seconds of fluoroscopy time is reported. FINDINGS: A sequence of 4 last image hold fluoroscopically obtained spot radiograph(s) of the lumbar spine document(s) needle position(s) and contrast injection associated with injection procedure. IMPRESSION: Procedural imaging. <Electronically signed by Robb Call > 09/03/20 0101
--- NOTE | 2020-09-06 03:27 | ECWPNPC ---
PATIENT NAME: YAIMA CORRALES : 1960 GENDER: FEMALE VISIT DATE: 09/03/2020 DISCHARGE DATE: 09/03/20 154 VISIT LOCKED DATE TIME: PHYSICIAN: RAUL GONCALVES MD RESOURCE: RAUL GONCALVES MD REASON FOR APPOINTMENT 1. BILATERAL THERAPEUTIC LUMBAR FACET BLOCK L4/L5, L5/S1. HISTORY OF PRESENT ILLNESS GENERAL: -. FALL RISK SCREENING: SCREENING :NO FALLS REPORTED IN THE LAST YEAR PAIN SCREENING: PATIENT HAS A COMPLAINT OF ACUTE OR CHRONIC PAIN :YES LOCATION OF PAIN: WHOLE BODY INTENSITY OF PAIN (SCALE OF 1 TO 10):10 WHAT DOES YOUR PAIN FEEL LIKE:ACHING, STABBING DURATION:CONTINOUS, CONSTANT PAIN IS INCREASED BY:ACTIVITIES PAIN IS DECREASED BY: NOTHING TREATMENT/MEDICATIONS USED TO MANAGE PAIN:OPIOIDS LEVEL OF RELIEF FROM PAIN TREATMENTS IN THE PAST:0% PAIN HAS INTERFERED WITH THE FOLLOWING:BATHING/DRESSING, WALKING ABILITY, HOUSEWORK, SLEEP, TRANSPORTATION, TOILETING NURSING NOTE: -. PAIN CENTER INTAKE QUESTIONS: DO YOU HAVE A HISTORY OF MRSA? :NO DO YOU TAKE A BLOOD THINNERS? :NO DO YOU HAVE ANY BLEEDING DISORDERS? :NO ANY NEW NUMBNESS OR WEAKNESS IN YOUR LEGS OR ARMS? :NO ANY PACEMAKER,DEFIBRILLATOR, OR DORSAL COLUMN STIMULATOR? :NO DO YOU HAVE ANY RASHES OR OPEN SORES? :NO ARE YOU ALLERGIC TO IV DYE? :NO ARE YOU DIABETIC? :YES ANY NEW PROBLEMS WITH YOUR MEDICATIONS? :YES BUTRANS PATCH, TYLENOL, AND LIDO PATCH ALL DON'T HELP PAIN HAVE YOU RECEIVED A VACCINE IN THE PAST 30 DAYS? :NO DO YOU PLAN TO RECEIVE A VACCINE IN THE NEXT 21 DAYS? :YES IF SO WHAT VACCINE AND WHEN? NEEDS 2ND SHINGLES VACCINE; PATIENT EDUCATED ON USE OF STEROIDS AND VACCINE EFFECTIVENESS. DO YOU NEED ANY PRESCRIPTION? :NO DO YOU TAKE ANY IMMUNOSUPPRESSIVE MEDICATIONS? :NO ANY HISTORY OF SEIZURES? :YES LAST SEIZURE 20-30 YEARS AGO ANY HISTORY OF CARDIAC ISSUES OR EVENTS? :NO DO YOU HAVE SLEEP APNEA? :YES DO YOU WEAR A CPAP?YES ANY RECENT HEAD INJURY? :NO DO YOU HAVE ANY NEW INFECTIONS? :NO IS THERE A CHANCE YOU COULD BE ? :NO ARE YOU BREAST FEEDING? :NO WHEN DID YOU LAST EAT? : 09/02/201999. WHEN DID YOU LAST DRINK? : 09/03/20999 WHAT DID YOU LAST DRINK? : WATER NAME OF PERSON DRIVING YOU HOME? : RUT VIEIRA (S.O.) DO YOU HAVE ANY OTHER QUESTIONS OR CONCERNS? : NO CURRENT MEDICATIONS TAKING DEPEND PANT EXTRA LARGE _ UNDERGARMENTS DIAG CODE SIZE LARGE DX:N39.41 DAILY= MDD 24 TAKING GABAPENTIN 100 100 MG (LATTIF) TABLET 1 TAB ORALLY THREE TIMES DAILY, NOTES: 09/03/20999 TAKING VITAMIN C 500 MG CAPSULE DIRECTED ORALLY ONCE A DAY, NOTES: 09/03 1000 TAKING LEVETIRACETAM 250 MG (LATTIF) TABLET 1 TAB IN THE AM 1 TABS IN THE PM ORALLY TWICE DAILY, NOTES: 09/03 1000 TAKING VIMPAT 50 MG TABLET 1 TAB ORALLY TWICE A DAY, NOTES: 09/03 1000 TAKING HYDROXYZINE HCL 50MG MERCY TABLET 1 TABLET ORALLY TWICE A DAY, NOTES: 09/03 1000 TAKING GLUCOMETER DIRECTED E11.65 TWICE ADAY AND NEEDED, NOTES: 09/03 1000 TAKING CYMBALTA 60 MG CAPSULE DELAYED RELEASE PARTICLES 1 CAPSULE ORALLY TWICE A DAY, NOTES: 09/02 2300 TAKING TRAZODONE HCL 50 MG TABLET 1 1/2 TABLET AT BEDTIME NEEDED ORALLY ONCE A DAY, NOTES: 09/02 2300 TAKING NEBULIZER/ADULT MASK - KIT DIRECTED DX: J44.9 MASK AND TUBING, NOTES: 09/02 2300 TAKING ALBUTEROL SULFATE (2.5 MG/3ML) 0.083% NEBULIZATION SOLUTION 3 ML INHALATION EVERY 4-6 HOURS NEEDED, NOTES: 09/02 2300 TAKING TENS UNIT ELECTRO PADS - DIRECTED DX:M12.88 DIRECTED, NOTES: NOT RECENTLY TAKING ROLLING WALKER 1 1 DIRECTED ROLLING WALKER WITH SEAT DX; J44.9, M51.16, NOTES: NEDED TAKING BOTOX 100 UNIT SOLUTION RECONSTITUTED GIVEN WITH NEURO INJECTION EVERY 3 MONTHS FOR MIGRAINES, NOTES: 2019 TAKING TUMS 500 MG TABLET CHEWABLE 1 TABLET ORALLY TWICE DAILY NEEDED, NOTES: NOT RECENTLY TAKING ADVAIR HFA 115-21 MCG/ACT AEROSOL 2 PUFFS INHALATION TWICE A DAY, NOTES: 09/03 1000 TAKING LISINOPRIL 2.5 MG TABLET 1 TABLET ORALLY ONCE A DAY, NOTES: 09/03 1000 TAKING VITAMIN D 2000 UNIT TABLET TAKE ONE TABLET BY MOUTH DAILY , NOTES: 09/03 1000 TAKING CHLORTHALIDONE 25 MG TABLET TAKE 1/2 TABLET BY MOUTH ONCE DAILY , NOTES: 09/03 1000 TAKING SPIRONOLACTONE 50 MG TABLET TAKE ONE TABLET BY MOUTH EVERY DAY , NOTES: 09/02 2300 TAKING POTASSIUM CHLORIDE ER 10 MEQ TABLET EXTENDED RELEASE 1 TABLET WITH FOOD ORALLY DAILY, NOTES: 09/02 2300 TAKING ZYRTEC ALLERGY 10 MG TABLET 1 TABLET ORALLY ONCE A DAY, NOTES: 09/03 1000 TAKING ONDANSETRON HCL 8 MG TABLET DISINTEGRATING 1 SUBLINGUALLY THREE TIMES A DAY NEEDED, NOTES: 09/03 1000 TAKING PROAIR HFA 108 (90 BASE) MCG/ACT AEROSOL SOLUTION 2 PUFFS NEEDED INHALATION EVERY 6 HRS, NOTES: NOT RECENTLY TAKING NYSTATIN [id number] UNIT/GM CREAM APPLY EXTERNALLY TO AFFECTED [place] ARE[place] TWO TIMES A DAY , NOTES: 09/02 2300 TAKING DAILY-KIRAN - TABLET TAKE ONE TABLET BY MOUTH EVERY DAY , NOTES: 09/03 1000 TAKING SINGULAIR 10 MG TABLET TAKE ONE TABLET BY MOUTH ONCE A DAY IN THE EVENING , NOTES: 09/03 1000 TAKING ASPIRIN 81 MG TABLET DELAYED RELEASE 1 TABLET ORALLY ONCE A DAY, NOTES: 09/03 1000 TAKING VALACYCLOVIR HCL 500 MG TABLET 1 TABLET ORALLY DAILY, NOTES: 09/02 2300 TAKING ACCU-CHEK SOFT TOUCH LANCETS - MISCELLANEOUS DIRECTED DX: E11.29 TWICE A DAY AND NEEDED, NOTES: 09/03 1000 TAKING BLOOD GLUCOSE TEST - STRIP DIRECTED IN VITRO BEFORE MEALS AND AT BEDTIME. 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, NOTES: 09/02 2000 TAKING MYRBETRIQ 50 MG TABLET 1 TABLET ORALLY ONCE A DAY, NOTES: 09/03 1000 TAKING BUTRANS 20 MCG/HR PATCH WEEKLY 1 PATCH TO SKIN TRANSDERMAL WEEKLY, NOTES: 09/03/20 TAKING CALCIUM + D3 600-200 MG-UNIT TABLET TAKE ONE TABLET BY MOUTH EVERY DAY , NOTES: 09/03 1000 TAKING HAIR SKIN AND NAILS FORMULA - TABLET DIRECTED ORALLY , NOTES: 09/03 1000 TAKING FLONASE ALLERGY RELIEF 50 MCG/ACT SUSPENSION 1 SPRAY IN EACH NOSTRIL NASALLY ONCE A DAY, NOTES: 09/02 2300 TAKING BENZONATATE 100 MG CAPSULE 1 CAPSULE NEEDED ORALLY THREE TIMES A DAY, NOTES: 09/03 1000 TAKING KRILL OIL 500 MG CAPSULE DIRECTED ORALLY , NOTES: 09/03 1000 TAKING ZINC 50 MG TABLET 1 TABLET ORALLY ONCE A DAY, NOTES: 09/03 1000 TAKING RETAINE MGD 0.5-0.5 % EMULSION DIRECTED OPHTHALMIC , NOTES: 09/03 1000 NOT-TAKING BUSPIRONE HCL 15 MG TABLET 1 TAB ORALLY TID NOT-TAKING OMEPRAZOLE 40MG 40 MG TABLET 1 TAB(S) ORAL DAILY AT BEDTIME NOT-TAKING ERYTHROMYCIN BASE 250 MG TABLET 1 TAB 30 MIN PRIOR TO MEAL ORALLY THREE TIMES DAILY, NOTES: STOPPED ATORVASTATIN NOT-TAKING BACTRIM DS 800-160 MG TABLET 1 TABLET ORALLY TWICE A DAY NOT-TAKING LACTULOSE 10 GM/15ML SOLUTION 30 ML ORALLY TWICE A DAY NEEDED, NOTES: OCC NEEDED NOT-TAKING POLYETHYLENE GLYCOL 3350 - POWDER MIX 17 GRAMS ORAL ONCE A DAY NOT-TAKING JOBST ACTIVEWEAR 15-20MMHG - MISCELLANEOUS DIRECTED DX: SPIDER VEINS, VENOUS INSUFF DAILY NOT-TAKING UNIFINE PENTIPS 31G X 6 MM MISCELLANEOUS USE DIRECTED DAILY NOT-TAKING PEN NEEDLES 31G X 6 MM MISCELLANEOUS DIRECTED SUBCUTANEOUSLY DAILY E11.2 NOT-TAKING ONE TOUCH ULTRA BLUE STRIPS DIRECTED DX: E11.29 TWICE A DAY ADN NEEDED MEDICATION LIST REVIEWED AND RECONCILED WITH THE PATIENT PAST MEDICAL HISTORY PTSD DEPRESSION/PANIC DISORDER EPILEPSY FOLLOWED BY DR. DUQUE ASTHMA COPD/CHRONIC BRONCHITIS - SPIROMETRY 09/2015 FEV1 = 1.7, FVC = 1.785, RATIO = 91.7 - POOR QUALITY SUSPECT MIXED PICTURE COPD/ RESTRICTIVE FROM OBESITY. NICOTINE DEPENDENCE - IN REMISSION QUITE 01/2018 GERD CLAUDIA - ON CPAP TOLERATING CPAP CHRONIC VENOUS INSUFFICIENCY LEFT BREAST ABSCESS HX INCONTINENCE, CYSTOCELE HX ABNORMAL PAP (AGE 20'S, 30'S) DYSPAREUNIA FATTY LIVER PER US 03/2015 ECHO 03/2015 - BORDERLINE LVH EF 65%. MILDLY DILATED LEFT ATRIUM. IMPAIRED LV DIASTOLIC FUNCTION. NORMAL LEFT ATRIAL PRESSURE, MILD PULM HTN. ENDOMETRIOSIS DIABETES TYPE 2 - INSULIN REQUIRING HYPERLIPIDEMIA HERPES TYPE 2 - BREAKOUT IN [facility] 03/29/18 SHINGLES - 02/2018 MIGRAINES - FOLLOWS WITH NEUROLOGY - GETTING BOTOX INJECTIONS 09/2018 DIABETIC NEUROPATHY LEFT LEG AND FOOT TONSIL STONE AND ABSCESS ENCEPHALOPATHY ABNORMAL LIVER ULTRASOUND CHRONIC LOW BACK PAIN ALLERGIES CHANTIX: NIGHT TERRORS - SIDE EFFECTS DEPAKOTE: COULDN'T STAY AWAKE - SIDE EFFECTS SULFA (FOR ALLERGY USE ONLY): RASH - ALLERGY LATEX (FOR ALLERGY USE ONLY): HIVES - ALLERGY METFORMIN HCL: SEVERE N/V - SIDE EFFECTS PROPRANOLOL HCL: BRADYCARDIA - SIDE EFFECTS SURGICAL HISTORY CLEFT/LIP/PALATE SURGERY 1961 DEVIATED NASAL SEPTUM 05/1998 01/1993 ENDOMETRIAL BIOPSY 2000 CHOLECYSTECTOMY 10/1997 TVT 2009 EGD/COLONOSCOPY (DR. TAYLOR) 2010 TUBES PLACED IN EARS ENDOMETRIAL ABLATION 2007 COLPOSCOPY/ECC 1999 CRYO FOR ABNORMAL PAP AGE 20'S COLONOSCOPY WITH BIOPSIES - NEGATIVE FOR MICROSCOPIC COLITIS (DR.. DUEÑAS) 09/2014 CYST REMOVAL LEFT EYE 01/2019 COLONOSCOPY AND [id number] 01/2020 FAMILY HISTORY FATHER: 69 YRS, LUNG CANCER, HTN, DM-2, DIAGNOSED WITH OTHER MALIGNANT NEOPLASM OF UNSPECIFIED SITE, HYPERTENSION, DIABETES, UNSPECIFIED HEART DISEASE MOTHER: 64 YRS, COLON CANCER, HTN, DM-2, HYPERTENSION, UNSPECIFIED HEART DISEASE, DIABETES, OTHER MALIGNANT NEOPLASM OF UNSPECIFIED SITE SIBLINGS: ALIVE, BOTH HTN SISTER LYMPH CANCER IN 60'S SON(S): ALIVE 18 YRS DAUGHTER(S): ALIVE 19 YRS PATERNAL AUNT: ALIVE LATE 60'S YRS, BREAST CANCER, DX IN LATE 50 'S MATERNAL AUNT: , OVARIAN CANCER UNKNOWN AGE 1 BROTHER(S) , 1 SISTER(S) - HEALTHY. 1 SON(S) , 1 DAUGHTER(S) - HEALTHY. 10/2018 SISTER HEART ATTACK. SOCIAL HISTORY GENERAL: TOBACCO USE ARE YOU A:FORMER SMOKER HOW LONG HAS IT BEEN SINCE YOU LAST SMOKED?1-5 YEARS LATEX QUESTIONNAIRE LATEX ALLERGY : HAVE YOU EVER DEVELOPED ANY TYPE OF REACTION AFTER HANDLING LATEX PRODUCTS SUCH RUBBER GLOVES, CONDOMS, DIAPHRAGMS, BALLOONS, SOCKS, OR UNDERWEAR?YES KNOWN LATEX ALLERGY - PLEASE INDICATE :RUBBER GLOVES LATEX ALLERGY : HAVE YOU EVER DEVELOPED ANY TYPE OF REACTION DURING OR AFTER DENTAL APPOINTMENT, VAGINAL/RECTAL EXAMINATION, SURGICAL PROCEDURE, OR ANY OTHER EXPOSURE?NO LATEX RISK : HAVE YOU EVER HAD ANY DIFFICULTY BREATHING OR HIVES AFTER EATING OR HANDLING ANY FRUITS, OR VEGETABLES; SUCH KIWI, BANANAS, STONE FRUITS, OR CHESTNUTSNO LATEX RISK : DO YOU HAVE A PREVIOUS PERSONAL HISTORY OF MORE THAN NINE SURGERIES, SPINA BIFIDA, OR REPEATED CATHERIZATIONS? YES - PLEASE INDICATE : > 9 SURGERIES LATEX RISK : ARE YOU FREQUENTLY EXPOSED TO LATEX PRODUCTS IN YOUR OCCUPATION?NO DATE ASKED : 09/02/2020 LUNG CANCER SCREENING SMOKING STATUS:FORMER SMOKER IS THE PATIENT BETWEEN THE AGE OF 57 AND 79?YES BMI CARE GOAL FOLLOW-UP ABOVE NORMAL BMI FOLLOW-UPDIETARY NEEDS EDUCATION ALCOHOL SCREENING DID YOU HAVE A DRINK CONTAINING ALCOHOL IN THE PAST YEAR?NO POINTS0 INTERPRETATIONNEGATIVE RECREATIONAL DRUG USE DENIES. CAFFEINE 0-1/DAY. SEXUAL HX HAD SEX IN THE LAST 12 MONTHS (VAGINAL, ORAL, OR ANAL)?NO LMP:2007 HAVE YOU EVER HAD AN STD?NO HIV / HEP-C SCREENING HIV TEST OFFERED TO PATIENT:YES DATE OFFERED:01/12/2018 TEST ACCEPTED:NO HEP-C TEST OFFERED TO PATIENT:YES DATE OFFERED:01/12/2018 REASON:PATIENT DECLINED TEST ACCEPTED:NO BROCHURE PROVIDED TO PATIENTNO BAPTISM [id number] CAODAISM LANGUAGE LANGUAGES SPOKEN:[place] CAMELID FIBER SORTER DEGREE. LEARNING BARRIERS / SPECIAL NEEDS CHANGE FROM LAST VISIT?NO BARRIERS TO LEARNING?NO HEARING IMPAIRED?YES VISION IMPAIRED?YES COGNITIVELY IMPAIRED?NO :HEARING AIDES RIGHT EAR ONLY :CORRECTIVE LENSES READINESS TO LEARN?YES LEARNING PREFERENCES?NO LEARNING CAPABILITIES PRESENT?YES EMOTIONAL BARRIERS?NO SPECIAL DEVICES?YES :WALKER, OTHER MOBILITY SCOOTER AIRBRUSH PAINTER NEEDED?NO DOMESTIC VIOLENCE DO YOU FEEL SAFE IN YOUR ENVIRONMENT?YES OCCUPATION: DISABLED. DIET: DIABETIC DIET. EXERCISE: NO REGULAR EXERCISE. MARITAL STATUS: . OTHERS AT HOME: S.Lashae.SMITH, 2 CATS, HAS A HOME HEALTH AIDE (BRO) 7 AM TO 3 PM DAILY.. PAIN CLINIC PFS, CLERGY, PUBLIC HEALTH REFERRALS HAS THE PATIENT BEEN EDUCATED REGARDING HIS/HER PLAN OF CARE?YES HAS THE PATIENT BEEN EDUCATED REGARDING PAIN, THE RISK FOR PAIN, THE IMPORTANCE OF EFFECTIVE PAIN MANAGEMENT, AND THE PAIN ASSESSMENT PROCESS?YES HOUSING: RENTS APARTMENT. ADVANCE DIRECTIVE ADVANCE DIRECTIVE DISCUSSED WITH PATIENT:YES PT STATES HCP RUT VIEIRA [phone], ALEJANDRA DUNCAN [phone] HOSPITALIZATION/MAJOR DIAGNOSTIC PROCEDURE MAJOR DEPRESSION , SUICIDAL ATTEMPT TWICE. ([facility]) SURGERIES ABOVE DEHYDRATION 04/2018 VITAL SIGNS WT 146.8 LBS, HT 65 IN, BMI 24.43 INDEX, BP 128/60 MM HG, HR 69 /MIN, RR 18 /MIN, TEMP 97.6 F, OXYGEN SAT % 96%, BLOOD GLUCOSE LEVEL 126 THIS MORNING, SAFE IN ENV? (Y/N) YES, NA INITIALS AW 1323, REVIEWED BY: MT, LMP: HYSTERECTOMYEVAN SHAQUILLE SUÁREZ BSN. EXAMINATION GENERAL EXAMINATION: THE PATIENT IS ALERT, ORIENTED TIMES THREE AND COOPERATIVE. HEART SHOWS REGULAR RHYTHM, NO MURMURS AND NO GALLOPS. LUNGS ARE CLEAR TO AUSCULTATION. ASSESSMENTS SPONDYLOSIS WITHOUT MYELOPATHY OR RADICULOPATHY, LUMBAR REGION - M47.816 (PRIMARY) SPONDYLOSIS WITHOUT MYELOPATHY OR RADICULOPATHY, LUMBOSACRAL REGION - M47.817 TREATMENT SPONDYLOSIS WITHOUT MYELOPATHY OR RADICULOPATHY, LUMBAR REGION SMC FACET BLOCK (PAIN)[id number] MEDICATION: NORCO TABLET 5MG/325MG ORALLY (HYDROCODONE/ACETAMINOPHEN)YOKASTA COOMBS 09/03/2020 2:30:34 PM > VERIFIED. EVAN SUÁREZ 09/03/2020 2:35:20 PM > ADMINISTERED EVAN SUÁREZ 09/03/2020 2:36:42 PM > LOT # [id number] EXP: 12/15 MEDICATION: VALIUM TAB 2MG ORALLY (DIAZEPAM)YOKASTA COOMBS 09/03/2020 2:30:51 PM > VERIFIED. EVAN SUÁREZ 09/03/2020 2:34:59 PM > ADMINISTERED. EVAN SUÁREZ 09/03/2020 2:35:58 PM > LOT# [id number] EXP: 09/2020. SPONDYLOSIS WITHOUT MYELOPATHY OR RADICULOPATHY, LUMBOSACRAL REGION SMC FACET BLOCK (PAIN)[id number] OTHERS NOTES: PAT DONE 09/02/20. EM. PROCEDURES PAIN NURSING RECORD PRE-PROCEDURE IV SITE N/A, PRE-PROCEDURE ORAL MEDICATIONS YES PER MD ORDER PROCEDURE IN ROOM 1450, PHYSICIAN IN ROOM 1508, START 1512, FINISH 1517, PHYSICIAN OUT OF ROOM 1519, OUT OF ROOM 1522, STEROID KENALOG, O2 RA, ECG NORMAL SINUS SINUS BRADYCARDIA, PATIENT SHIELDED YES, SAFETY STRAP YES, PREP CHLOROPREP Abdiaziz SANCHEZ RN, IV INFUSED N/A, DRESSING TEGADERM LOC: EVAN SUÁREZ 09/03/2020 2:50:23 PM > 1. ALERT, ORIENTED, , LOC REMAINED AT BASELINE THROUGHOUT THE PROCEDURE. RESP: EVAN SUÁREZ 09/03/2020 2:50:23 PM > 1. REGULAR, NO DYSPNEA; 2. OTHER PATIENT HAS A H/O CLAUDIA WITH CPAP, PATIENT DESATTED TO 88% DURING PROCEDURE, PATIENT RESPONDED TO VERBAL STIMULI AND CONTROLLED BREATHING, OXYGEN SATURATION IMPROVED WITHOUT FURTHER INTERVENTION. COLOR: EVAN SUÁREZ 09/03/2020 2:50:23 PM > 2. PALE SKIN: EVAN SUÁREZ 09/03/2020 2:50:23 PM > 1. WARM, DRY POSITION: EVAN SUÁREZ 09/03/2020 2:50:23 PM > 1. PRONE VITALS: EVAN SUÁREZ 09/03/2020 2:58:44 PM > 172/74, 56, 92% RA, 16. EVAN SUÁREZ 09/03/2020 3:13:38 PM > 158/69, 56, 92% RA, 16. EVAN SUÁREZ 09/03/2020 3:18:15 PM > 172/74, 57, 99% RA, 16. EVAN SUÁREZ 09/03/2020 3:33:48 PM > POST PROCEDURE 118/64, 66, 97%, 16. DISCHARGE: POST PAIN 07/05, DRESSING SITE DRY AND INTACT, IV N/A, GAIT WHEELCHAIR PATIENT UTILIZES ELECTRIC WHEELCHAIR AT BASELINE, PATIENT REQUESTED ASSISTANCE GETTING DRESSED POST PROCEDURE, PATIENT REPORTS ASSISTANCE WITH SERVICES AT HOME., TEACHING COMPLETED, PATIENT ACKNOWLEDGES UNDERSTANDING YES, PATIENT DISCHARGED AT 1545 PN LUMBAR FACET BLOCK THERAPEUTIC PRE PROCEDURE DIAGNOSIS LUMBAR SPONDYLOSIS, LUMBOSACRAL SPONDYLOSIS POST PROCEDURE DIAGNOSIS LUMBAR SPONDYLOSIS, LUMBOSACRAL SPONDYLOSIS PROCEDURE BILATERAL L4-L5 AND BILATERAL L5-S1 LUMBAR FACET THERAPEUTIC BLOCK SURGEON DR. RAUL GONCALVES CURRICULUM AND ASSESSMENT DIRECTOR NONE ANESTHESIA LOCAL PRE PROCEDURE NOTE THE PATIENT HAS A HISTORY OF CHRONIC LOW BACK PAIN. I EVALUATED THE PATIENT AND REVIEWED THE CHART. I WENT OVER THE RISKS, ALTERNATIVES, AND BENEFITS ASSOCIATED WITH THIS PROCEDURE. I DISCUSSED THAT THE USE OF STEROIDS MAY CONTRIBUTE TO IMMUNOSUPPRESSION OF THE PATIENT'S BODY AGAINST INFECTIONS SUCH COVID-19. THE PATIENT IS AWARE OF THE POTENTIAL COMPLICATIONS ASSOCIATED WITH THIS VIRUS, INCLUDING, BUT NOT LIMITED TO, . THE PATIENT WOULD LIKE TO PROCEED AND GIVES CONSENT TO PERFORM THE PROCEDURE. THE PATIENT DENIES UNEXPLAINABLE WEIGHT LOSS, FEVER, CHILLS, OR NEW CHANGES IN URINARY OR BOWEL CONTROL. THE PATIENT IS COVID-19 NEGATIVE DESCRIPTION OF PROCEDURE THE PATIENT WAS BROUGHT TO THE PROCEDURE ROOM AND PLACED IN THE PRONE POSITION. THE LUMBOSACRAL AREA WAS CLEANED WITH CHLORAPREP SOLUTION AND DRAPED ASEPTICALLY. THE PROCEDURE WAS DONE UNDER STERILE CONDITIONS. A TIMEOUT WAS PERFORMED WHERE LATERALITY AND THE SITE OF THE PROCEDURE WERE CHECKED AND CONFIRMED WITH EVERYONE IN THE ROOM. UNDER FLUOROSCOPIC GUIDANCE, THE TARGET POINT WAS SELECTED AT THE RIGHT AND LEFT L4-L5 AND RIGHT AND LEFT L5-S1 FACET JOINTS. TARGET POINT WAS SELECTED AFTER LATERAL ROTATION AND TILT OF THE MAGNIFIER OF THE C-ARM. I CONFIRMED AGAIN WITH EVERYONE IN THE ROOM THE LATERALITY OF THE TARGET AT 1311. LIDOCAINE 0.5% WAS USED TO NUMB THE SKIN AND THE SUBCUTANEOUS TISSUE BELOW IT. SPINAL NEEDLES, 22-GAUGE, WERE ADVANCED UNDER FLUOROSCOPIC GUIDANCE AND FOLLOWING PATIENT FEEDBACK UNTIL THE TARGETS WERE TOUCHED. THE POSITION OF THE NEEDLES WAS VERIFIED WITH AP AND LATERAL VIEWS. AFTER PROPER POSITION OF THE NEEDLES WAS ACHIEVED, ISOVUE-M DYE 30%, 0.1 ML, WAS INJECTED SHOWING ADEQUATE SPREAD OF THE DYE. KENALOG 20 MG WAS INJECTED AT EACH SITE. THEN, A SOLUTION OF 1.0 ML OF BUPIVACAINE 0.125% OF WAS USED TO FLUSH EACH SITE. THE MEDICATION WAS VERIFIED WITH THE NURSE. THERE WAS NO EVIDENCE OF BLOOD, PARESTHESIA OR CEREBROSPINAL FLUID DURING THE PROCEDURE. THE PATIENT WAS SENT TO THE RECOVERY ROOM. THE PATIENT WAS MOVING THE EXTREMITIES AND DOING WELL. THERE WERE NO COMPLICATIONS DURING THE PROCEDURE. ESTIMATED BLOOD LOSS WAS LESS THAN 5 ML. FLUOROSCOPY TIME WAS 21 SECONDS POST PROCEDURE NOTE THE PATIENT WILL BE SEEN IN A FOLLOW UP IN THE NEXT FEW WEEKS. I AM LOOKING FOR LONG LASTING RELIEF FOR THE PATIENT WITH THIS INTERVENTION. INSTRUCTIONS WERE GIVEN, QUESTIONS WERE ANSWERED, AND THE PATIENT EXPRESSED UNDERSTANDING AND AGREES WITH THE PLAN. I, RENÉE GOMES, DOCUMENTED THE ABOVE INFORMATION ACTING A SCRIBE FOR DR. GONCALVES. I HAVE REVIEWED THE ABOVE DOCUMENT, WRITTEN BY RENÉE GOMES, MARKETING SUPPORT SPECIALIST, AND I VERIFY THAT IT IS ACCURATE PROCEDURE CODES 18125 INJ PARAVERT F JNT L/S 1 LEV, MODIFIERS: 50 [id number] INJ PARAVERT F JNT L/S 2 LEV, MODIFIERS: 50 DISPOSITION & COMMUNICATION FOLLOW UP FOLLOW UP WITH RELATIONSHIP EXECUTIVE (REASON: POST BILATERAL THERAPEUTIC FACET BLOCK LUMBAR L4-L5, L5-S1) ELECTRONICALLY SIGNED BY RAUL GONCALVES MD, MD ON 09/05/2020 AT 12:51 PM EST DISCLAIMER : THIS IS A VISIT SUMMARY EXTRACTED FROM THE [employer] CHART. IT IS NOT A COPY OF THE [employer] PROGRESS NOTE. MTDD
== END ==
LOC: M PAIN 13:30
PROVIDERS: ATTEND Anesthesiology
DX: M47.816 Spondylosis without myelopathy or radiculopathy, lumbar region (principal); M47.817 Spondylosis without myelopathy or radiculopathy, lumbosacral region; E11.9 Type 2 diabetes mellitus without complications; G47.33 Obstructive sleep apnea (adult) (pediatric); J44.9 Chronic obstructive pulmonary disease, unspecified; G40.909 Epilepsy, unspecified, not intractable, without status epilepticus; G43.909 Migraine, unspecified, not intractable, without status migrainosus; Z86.59 Personal history of other mental and behavioral disorders; Z87.891 Personal history of nicotine dependence; Z88.2 Allergy status to sulfonamides; Z88.8 Allergy status to other drugs, medicaments and biological substances; Z91.040 Latex allergy status; Z79.82 Long term (current) use of aspirin; Z79.891 Long term (current) use of opiate analgesic; Z79.899 Other long term (current) drug therapy
CPT/HCPCS: 64493; 64494; J3301; Q9967

== ENCOUNTER → 2020-09-15 | Outpatient (REF) | payer MEDICARE, MEDICAID ==
[~2020-09-15] MED LIST changes: -BUPIVACAINE HCL 0.25% 30ML VIAL As Ordered ONE; -ISOVUE-M 300 61% 15ML VIAL As Ordered ONE; -LIDOCAINE 1% SDV 30ML VIAL As Ordered ONE; -NORCO, ANEXSIA 5/325MG TABLET (HYDROcodone/ACETAMINOPHEN) As Ordered ONE; -TRIAMCINOLONE ACETONIDE SUSP 40 MG/ML VIAL (J3301) As Ordered ONE; -diazePAM 2 MG TAB As Ordered ONE
[2020-09-15 18:00] LABS: APPEARANCE, URINE HAZY (CLEAR); BACTERIA, URINE AUTO 1+ (NEGATIVE); BILIRUBIN, URINE AUTO NEGATIVE (NEGATIVE); BLOOD, URINE BLOOD NEGATIVE (NEGATIVE); COLOR, URINE YELLOW (YELLOW); GLUCOSE, URINE (UA) AUTO NEGATIVE (NEGATIVE); KETONE, URINE AUTO NEGATIVE (NEGATIVE); LEUKOCYTE ESTERASE, URINE AUTO 1+ (NEGATIVE); MUCUS, URINE SMALL (NEGATIVE); NITRITE, URINE AUTO POSITIVE (NEGATIVE); PROTEIN, URINE AUTO NEGATIVE (NEGATIVE); RBC, URINE AUTO 1 /HPF (0-3); SQUAMOUS EPITHELIAL CELL UR AU 0 /HPF (0-6); TRANSITIONAL EPITHELIAL AUTO 1 /HPF; UROBILINOGEN, URINE AUTO 0.2 mg/dL (0.0-2.0); WBC, URINE AUTO 9 /HPF (0-3)
== END ==
LOC: M LAB REF 16:57
PROVIDERS: ATTEND Physician Assistant
DX: R30.9 Painful micturition, unspecified (principal)

== ENCOUNTER → 2020-09-17 | Outpatient (CLI) | payer MEDICARE, MEDICAID ==
--- NOTE | 2020-09-23 03:51 | ECWPNPC ---
PATIENT NAME: YAIMA CORRALES : 1960 GENDER: FEMALE VISIT DATE: 09/17/2020 DISCHARGE DATE: 09/17/20 1225 VISIT LOCKED DATE TIME: PHYSICIAN: LEAH ARELLANO RESOURCE: LEAH ARELLANO REASON FOR APPOINTMENT 1. POST BILATERAL THERAPEUTIC LUMBAR FACET BLOCK L5 L5-S1 HISTORY OF PRESENT ILLNESS PAIN CENTER INTAKE QUESTIONS: 60-YEAR-OLD FEMALE IN FOR POST BILATERAL THERAPEUTIC LUMBAR FACET BLOCK FOLLOW-UP. SHE FEELS THE PROCEDURE WAS UNSUCCESSFUL. SHE RATES HER PAIN CURRENTLY AT A 10 OUT OF 10. GENERAL: -. FALL RISK SCREENING: SCREENING :NO FALLS REPORTED IN THE LAST YEAR PAIN SCREENING: PATIENT HAS A COMPLAINT OF ACUTE OR CHRONIC PAIN :YES LOCATION OF PAIN:OTHER: FACE DOWN INTENSITY OF PAIN (SCALE OF 1 TO 10):10 WHAT DOES YOUR PAIN FEEL LIKE:CONTINOUS, SHARP, STABBING, SHOOTING DURATION:CONSTANT UNABLE TO SLEEP THROUGH PAIN PAIN IS INCREASED BY:ACTIVITIES, OTHERS EVERYTHING PAIN IS DECREASED BY:OTHERS NOTHING NURSING NOTE: -. CURRENT MEDICATIONS TAKING DEPEND PANT EXTRA LARGE _ UNDERGARMENTS DIAG CODE SIZE SMALL DX:N39.41 DAILY= MDD 24 TAKING GABAPENTIN 100 100 MG (LATTIF) TABLET 1 TAB ORALLY THREE TIMES DAILY TAKING VITAMIN C 500 MG CAPSULE DIRECTED ORALLY ONCE A DAY TAKING LEVETIRACETAM 250 MG (LATTIF) TABLET 1 TAB IN THE AM 1 TABS IN THE PM ORALLY TWICE DAILY TAKING VIMPAT 50 MG TABLET 1 TAB ORALLY TWICE A DAY TAKING HYDROXYZINE HCL 50MG MERCY TABLET 1 TABLET ORALLY TWICE A DAY TAKING GLUCOMETER DIRECTED E11.65 TWICE ADAY AND NEEDED TAKING CYMBALTA 60 MG CAPSULE DELAYED RELEASE PARTICLES 1 CAPSULE ORALLY TWICE A DAY TAKING TRAZODONE HCL 50 MG TABLET 1 1/2 TABLET AT BEDTIME NEEDED ORALLY ONCE A DAY TAKING NEBULIZER/ADULT MASK - KIT DIRECTED DX: J44.9 MASK AND TUBING TAKING ALBUTEROL SULFATE (2.5 MG/3ML) 0.083% NEBULIZATION SOLUTION 3 ML INHALATION EVERY 4-6 HOURS NEEDED TAKING TENS UNIT ELECTRO PADS - DIRECTED DX:M12.88 DIRECTED TAKING ROLLING WALKER 1 1 DIRECTED ROLLING WALKER WITH SEAT DX; J44.9, M51.16 TAKING BOTOX 100 UNIT SOLUTION RECONSTITUTED GIVEN WITH NEURO INJECTION EVERY 3 MONTHS FOR MIGRAINES TAKING TUMS 500 MG TABLET CHEWABLE 1 TABLET ORALLY TWICE DAILY NEEDED TAKING ADVAIR HFA 115-21 MCG/ACT AEROSOL 2 PUFFS INHALATION TWICE A DAY TAKING LISINOPRIL 2.5 MG TABLET 1 TABLET ORALLY ONCE A DAY TAKING VITAMIN D 2000 UNIT TABLET TAKE ONE TABLET BY MOUTH DAILY TAKING CHLORTHALIDONE 25 MG TABLET TAKE 1/2 TABLET BY MOUTH ONCE DAILY TAKING SPIRONOLACTONE 50 MG TABLET TAKE ONE TABLET BY MOUTH EVERY DAY TAKING ZYRTEC ALLERGY 10 MG TABLET 1 TABLET ORALLY ONCE A DAY TAKING ONDANSETRON HCL 8 MG TABLET DISINTEGRATING 1 SUBLINGUALLY THREE TIMES A DAY NEEDED TAKING PROAIR HFA 108 (90 BASE) MCG/ACT AEROSOL SOLUTION 2 PUFFS NEEDED INHALATION EVERY 6 HRS TAKING NYSTATIN 014465 UNIT/GM CREAM APPLY EXTERNALLY TO AFFECTED [place] TWO TIMES A DAY TAKING DAILY-KIRAN - TABLET WITH IRON TAKE ONE TABLET BY MOUTH EVERY DAY ORALLY ONCE A DAY TAKING SINGULAIR 10 MG TABLET TAKE ONE TABLET BY MOUTH ONCE A DAY IN THE EVENING TAKING ASPIRIN 81 MG TABLET DELAYED RELEASE 1 TABLET ORALLY ONCE A DAY TAKING VALACYCLOVIR HCL 500 MG TABLET 1 TABLET ORALLY DAILY TAKING ACCU-CHEK SOFT TOUCH LANCETS - MISCELLANEOUS DIRECTED DX: E11.29 TWICE A DAY AND NEEDED TAKING BLOOD GLUCOSE TEST - STRIP DIRECTED IN VITRO BEFORE MEALS AND AT BEDTIME. DX: Z79.4 TAKING LIDODERM 5 % PATCH 2 PATCH TO SKIN REMOVE AFTER 12 HOURS EXTERNALLY ONCE A DAY - APPLY TO LOW BACK FOR POST HERPETIC NEURALGIA TAKING MYRBETRIQ 50 MG TABLET 1 TABLET ORALLY ONCE A DAY TAKING CALCIUM + D3 600-200 MG-UNIT TABLET TAKE ONE TABLET BY MOUTH EVERY DAY TAKING HAIR SKIN AND NAILS FORMULA - TABLET DIRECTED ORALLY TAKING FLONASE ALLERGY RELIEF 50 MCG/ACT SUSPENSION 1 SPRAY IN EACH NOSTRIL NASALLY ONCE A DAY TAKING BENZONATATE 100 MG CAPSULE 1 CAPSULE NEEDED ORALLY THREE TIMES A DAY TAKING KRILL OIL 500 MG CAPSULE DIRECTED ORALLY TAKING ZINC 50 MG TABLET 1 TABLET ORALLY ONCE A DAY TAKING RETAINE MGD 0.5-0.5 % EMULSION DIRECTED OPHTHALMIC TAKING BUTRANS 20 MCG/HR PATCH WEEKLY 1 PATCH TO SKIN TRANSDERMAL WEEKLY NOT-TAKING POTASSIUM CHLORIDE ER 10 MEQ TABLET EXTENDED RELEASE 1 TABLET WITH FOOD ORALLY DAILY NOT-TAKING BUSPIRONE HCL 15 MG TABLET 1 TAB ORALLY TID NOT-TAKING OMEPRAZOLE 40MG 40 MG TABLET 1 TAB(S) ORAL DAILY AT BEDTIME NOT-TAKING ERYTHROMYCIN BASE 250 MG TABLET 1 TAB 30 MIN PRIOR TO MEAL ORALLY THREE TIMES DAILY, NOTES: STOPPED ATORVASTATIN NOT-TAKING BACTRIM DS 800-160 MG TABLET 1 TABLET ORALLY TWICE A DAY NOT-TAKING LACTULOSE 10 GM/15ML SOLUTION 30 ML ORALLY TWICE A DAY NEEDED, NOTES: OCC NEEDED NOT-TAKING POLYETHYLENE GLYCOL 3350 - POWDER MIX 17 GRAMS ORAL ONCE A DAY NOT-TAKING JOBST ACTIVEWEAR 15-20MMHG - MISCELLANEOUS DIRECTED DX: SPIDER VEINS, VENOUS INSUFF DAILY NOT-TAKING UNIFINE PENTIPS 31G X 6 MM MISCELLANEOUS USE DIRECTED DAILY NOT-TAKING PEN NEEDLES 31G X 6 MM MISCELLANEOUS DIRECTED SUBCUTANEOUSLY DAILY E11.2 NOT-TAKING ONE TOUCH ULTRA BLUE STRIPS DIRECTED DX: E11.29 TWICE A DAY ADN NEEDED MEDICATION LIST REVIEWED AND RECONCILED WITH THE PATIENT PAST MEDICAL HISTORY PTSD DEPRESSION/PANIC DISORDER EPILEPSY FOLLOWED BY DR. DUQUE ASTHMA COPD/CHRONIC BRONCHITIS - SPIROMETRY 09/2015 FEV1 = 1.7, FVC = 1.785, RATIO = 91.7 - POOR QUALITY SUSPECT MIXED PICTURE COPD/ RESTRICTIVE FROM OBESITY. NICOTINE DEPENDENCE - IN REMISSION QUITE 01/2018 GERD CLAUDIA - ON CPAP TOLERATING CPAP CHRONIC VENOUS INSUFFICIENCY LEFT BREAST ABSCESS HX INCONTINENCE, CYSTOCELE HX ABNORMAL PAP (AGE 20'S, 30'S) DYSPAREUNIA FATTY LIVER PER US 03/2015 ECHO 03/2015 - BORDERLINE LVH EF 65%. MILDLY DILATED LEFT ATRIUM. IMPAIRED LV DIASTOLIC FUNCTION. NORMAL LEFT ATRIAL PRESSURE, MILD PULM HTN. ENDOMETRIOSIS DIABETES TYPE 2 - INSULIN REQUIRING HYPERLIPIDEMIA HERPES TYPE 2 - BREAKOUT IN [facility] 03/29/18 SHINGLES - 02/2018 MIGRAINES - FOLLOWS WITH NEUROLOGY - GETTING BOTOX INJECTIONS 09/2018 DIABETIC NEUROPATHY LEFT LEG AND FOOT TONSIL STONE AND ABSCESS ENCEPHALOPATHY ABNORMAL LIVER ULTRASOUND CHRONIC LOW BACK PAIN ALLERGIES CHANTIX: NIGHT TERRORS - SIDE EFFECTS DEPAKOTE: COULDN'T STAY AWAKE - SIDE EFFECTS SULFA (FOR ALLERGY USE ONLY): RASH - ALLERGY LATEX (FOR ALLERGY USE ONLY): HIVES - ALLERGY METFORMIN HCL: SEVERE N/V - SIDE EFFECTS PROPRANOLOL HCL: BRADYCARDIA - SIDE EFFECTS SURGICAL HISTORY CLEFT/LIP/PALATE SURGERY 1961 DEVIATED NASAL SEPTUM 05/1998 01/1993 ENDOMETRIAL BIOPSY 1999 CHOLECYSTECTOMY 10/1997 TVT 2009 EGD/COLONOSCOPY (DR. TAYLOR) 2010 TUBES PLACED IN EARS ENDOMETRIAL ABLATION 2007 COLPOSCOPY/ECC 2000 CRYO FOR ABNORMAL PAP AGE 20'S COLONOSCOPY WITH BIOPSIES - NEGATIVE FOR MICROSCOPIC COLITIS (DR.. DUEÑAS) 09/2014 CYST REMOVAL LEFT EYE 01/2019 COLONOSCOPY AND [id number] 01/2020 FAMILY HISTORY FATHER: 69 YRS, LUNG CANCER, HTN, DM-2, DIAGNOSED WITH HYPERTENSION, UNSPECIFIED HEART DISEASE, DIABETES, OTHER MALIGNANT NEOPLASM OF UNSPECIFIED SITE MOTHER: 64 YRS, COLON CANCER, HTN, DM-2, HYPERTENSION, UNSPECIFIED HEART DISEASE, DIABETES, OTHER MALIGNANT NEOPLASM OF UNSPECIFIED SITE SIBLINGS: ALIVE, BOTH HTN SISTER LYMPH CANCER IN 60'S SON(S): ALIVE 18 YRS DAUGHTER(S): ALIVE 19 YRS PATERNAL AUNT: ALIVE LATE 60'S YRS, BREAST CANCER, DX IN LATE 50 'S MATERNAL AUNT: , OVARIAN CANCER UNKNOWN AGE 1 BROTHER(S) , 1 SISTER(S) - HEALTHY. 1 SON(S) , 1 DAUGHTER(S) - HEALTHY. 10/2018 SISTER HEART ATTACK. SOCIAL HISTORY GENERAL: TOBACCO USE ARE YOU A:FORMER SMOKER HOW LONG HAS IT BEEN SINCE YOU LAST SMOKED?1-5 YEARS LATEX QUESTIONNAIRE LATEX ALLERGY : HAVE YOU EVER DEVELOPED ANY TYPE OF REACTION AFTER HANDLING LATEX PRODUCTS SUCH RUBBER GLOVES, CONDOMS, DIAPHRAGMS, BALLOONS, SOCKS, OR UNDERWEAR?YES KNOWN LATEX ALLERGY LATEX ALLERGY : HAVE YOU EVER DEVELOPED ANY TYPE OF REACTION DURING OR AFTER DENTAL APPOINTMENT, VAGINAL/RECTAL EXAMINATION, SURGICAL PROCEDURE, OR ANY OTHER EXPOSURE?NO - PLEASE INDICATE :RUBBER GLOVES DATE ASKED : 09/02/2020 LATEX RISK : HAVE YOU EVER HAD ANY DIFFICULTY BREATHING OR HIVES AFTER EATING OR HANDLING ANY FRUITS, OR VEGETABLES; SUCH KIWI, BANANAS, STONE FRUITS, OR CHESTNUTSNO LATEX RISK : DO YOU HAVE A PREVIOUS PERSONAL HISTORY OF MORE THAN NINE SURGERIES, SPINA BIFIDA, OR REPEATED CATHERIZATIONS? YES - PLEASE INDICATE : > 9 SURGERIES LATEX RISK : ARE YOU FREQUENTLY EXPOSED TO LATEX PRODUCTS IN YOUR OCCUPATION?NO LUNG CANCER SCREENING SMOKING STATUS:FORMER SMOKER IS THE PATIENT BETWEEN THE AGE OF 57 AND 79?YES BMI CARE GOAL FOLLOW-UP ABOVE NORMAL BMI FOLLOW-UPDIETARY NEEDS EDUCATION ALCOHOL SCREENING DID YOU HAVE A DRINK CONTAINING ALCOHOL IN THE PAST YEAR?NO POINTS0 INTERPRETATIONNEGATIVE RECREATIONAL DRUG USE DENIES. CAFFEINE 0-1/DAY. SEXUAL HX HAD SEX IN THE LAST 12 MONTHS (VAGINAL, ORAL, OR ANAL)?NO LMP:2008 HAVE YOU EVER HAD AN STD?NO HIV / HEP-C SCREENING HIV TEST OFFERED TO PATIENT:YES DATE OFFERED:01/12/2018 TEST ACCEPTED:NO HEP-C TEST OFFERED TO PATIENT:YES DATE OFFERED:01/12/2018 REASON:PATIENT DECLINED TEST ACCEPTED:NO BROCHURE PROVIDED TO PATIENTNO EVANGELICAL [id number] ZOROASTRIAN LANGUAGE LANGUAGES SPOKEN:MACEDONIAN TRAVEL MONEY ADVISOR DEGREE. LEARNING BARRIERS / SPECIAL NEEDS CHANGE FROM LAST VISIT?NO BARRIERS TO LEARNING?NO HEARING IMPAIRED?YES VISION IMPAIRED?YES COGNITIVELY IMPAIRED?NO :HEARING AIDES RIGHT EAR ONLY :CORRECTIVE LENSES READINESS TO LEARN?YES LEARNING PREFERENCES?NO LEARNING CAPABILITIES PRESENT?YES EMOTIONAL BARRIERS?NO SPECIAL DEVICES?YES :WALKER, OTHER MOBILITY SCOOTER SCHOOL CURRICULUM DEVELOPER NEEDED?NO DOMESTIC VIOLENCE DO YOU FEEL SAFE IN YOUR ENVIRONMENT?YES OCCUPATION: DISABLED. DIET: DIABETIC DIET. EXERCISE: NO REGULAR EXERCISE. MARITAL STATUS: . OTHERS AT HOME: S.O.-JESSICA, 2 CATS, HAS A HOME HEALTH AIDE (BRO) 7 AM TO 3 PM DAILY.. PAIN CLINIC PFS, CLERGY, PUBLIC HEALTH REFERRALS HAS THE PATIENT BEEN EDUCATED REGARDING HIS/HER PLAN OF CARE?YES HAS THE PATIENT BEEN EDUCATED REGARDING PAIN, THE RISK FOR PAIN, THE IMPORTANCE OF EFFECTIVE PAIN MANAGEMENT, AND THE PAIN ASSESSMENT PROCESS?YES HOUSING: RENTS APARTMENT. ADVANCE DIRECTIVE ADVANCE DIRECTIVE DISCUSSED WITH PATIENT:YES PT STATES HCP [facility] [phone], ALEJANDRA COTTER- [phone] HOSPITALIZATION/MAJOR DIAGNOSTIC PROCEDURE MAJOR DEPRESSION , SUICIDAL ATTEMPT TWICE. ([facility]) SURGERIES ABOVE DEHYDRATION 04/2018 REVIEW OF SYSTEMS CONSTITUTIONAL: ANY RECENT FEVER NO . CHILLS NO . WEIGHT CHANGE OF UNKNOWN REASONS NO . GASTROENTEROLOGY: NEW UNEXPLAINABLE CHANGES IN BOWEL CONTROL NO . CONSTIPATION NO . GENITOURINARY: ANY NEW CHANGE IN BLADDER CONTROL? NO . NEUROLOGY: NEW ONSET DIZZINESS OR NEUROLOGICAL CHANGES NOT MENTIONED NO . NEW NUMBNESS OR PAIN PATTERNS NOT MENTIONED AND PERTINENT TO TODAY'S VISIT NO . CARDIOLOGY: NEW CHEST PRESSURE NO . NEW CHEST PAIN NO . RESPIRATORY: UNEXPLAINABLE COUGH NO . NEW SHORTNESS OF BREATH NO . VITAL SIGNS WT 146.0 LBS, HT 65 IN, BMI 24.29 INDEX, BP 120/59 MM HG, HR 94 /MIN, RR 18 /MIN, TEMP 98.9 F, OXYGEN SAT % 98%, SAFE IN ENV? (Y/N) YES, NA INITIALS AW 1140, REVIEWED BY: JONELLE GRANT. EXAMINATION GENERAL EXAMINATION: GENERALNO ACUTE DISTRESS, WELL NOURISHED AND HYDRATED. PSYCHAPPROPRIATE MOOD AND AFFECT . LUNGS:CLEAR TO AUSCULTATION BILATERALLY, NO WHEEZES, RHONCHI, RALES. HEART:NO MURMURS, REGULAR RATE AND RHYTHM. ASSESSMENTS OTHER CHRONIC PAIN - G89.29 (PRIMARY) TREATMENT OTHER CHRONIC PAIN PAIN PROCEDURE LOGDATE OF [id number]/9/20PROCEDURE:BILATERAL THERPEUTIC LUMBER FACET BLOCK,AMOUNT OF PRE SEDATENORCO 5/325 MG, VALIUM 2 MGRESULT:INEFFECTIVE NOTES: 52-YEAR-OLD FEMALE IN FOR POST BILATERAL THERAPEUTIC LUMBAR FACET BLOCK FOLLOW-UP. PATIENT HAS HAD MULTIPLE PROCEDURES IN THE PAST WITH NO RELIEF OF PAIN WE DID DISCUSS POTENTIAL REFERRAL TO [facility] FOR FURTHER EVALUATION AND THE PATIENT WAS AMENABLE TO THIS. PATIENT EXPRESSED UNDERSTANDING OF AND WAS IN AGREEMENT WITH TREATMENT PLAN. GIVEN TIME TO ASK QUESTIONS AND EXPRESS CONCERNS. , ISTOP REGISTRY REVIEWED AND DEMONSTRATES COMPLLIANCE. (REF # [id number] ) BRINGS IN MEDICATIONS WHICH IS APPROPRIATE FOR WHAT WAS DISPENSED. RECENT URINE TOXICOLOGY REVIEWED. NO UNAUTHORIZED MEDICATIONS. NO ILLICIT SUBSTANCES AND PRESCRIBED MEDICATIONS WERE PRESENT. [facility] RE[facility]ON:SURGICAL CONSULT OTHERS [facility] RE[facility]ON:SURGICAL CONSULT PROCEDURE CODES FA211 ESTABILISHED PATIENT [facility] FACILITY CHARGE DISPOSITION & COMMUNICATION FOLLOW UP AFTER REFERRAL (REASON: REFERRAL TO [facility] FOR SURGICAL CONSULT) ELECTRONICALLY SIGNED BY KALI ROQUE ON 09/22/2020 AT 10:11 AM EST DISCLAIMER : THIS IS A VISIT SUMMARY EXTRACTED FROM THE [employer] CHART. IT IS NOT A COPY OF THE [employer] PROGRESS NOTE. NATALIE
== END ==
LOC: M PAIN 11:30
PROVIDERS: ATTEND Family Medicine
DX: G89.29 Other chronic pain (principal); G40.909 Epilepsy, unspecified, not intractable, without status epilepticus; J44.9 Chronic obstructive pulmonary disease, unspecified; G47.33 Obstructive sleep apnea (adult) (pediatric); E11.9 Type 2 diabetes mellitus without complications; G43.909 Migraine, unspecified, not intractable, without status migrainosus; Z86.59 Personal history of other mental and behavioral disorders; Z87.891 Personal history of nicotine dependence; Z88.2 Allergy status to sulfonamides; Z88.8 Allergy status to other drugs, medicaments and biological substances; Z91.040 Latex allergy status; Z79.82 Long term (current) use of aspirin; Z79.899 Other long term (current) drug therapy

== ENCOUNTER → 2020-10-02 | Outpatient (CLI) | payer MEDICARE, MEDICAID ==
[2020-10-08 02:07] LABS: LACOSAMIDE LEVEL 4.2 ug/mL (5.0-10.0)
== END ==
LOC: M WUC 14:47
PROVIDERS: ATTEND Physician Assistant Medical
DX: R56.9 Unspecified convulsions (principal)

== ENCOUNTER → 2020-10-08 | Outpatient (CLI) | payer MEDICARE, MEDICAID ==
[2020-10-08 18:37] LABS: ALBUMIN 3.8 GM/DL (3.2-5.2); ALT/SGPT 34 U/L (12-78); BILIRUBIN,TOTAL 0.6 MG/DL (0.2-1.0); BLOOD UREA NITROGEN 16 MG/DL (7-18); CALCIUM LEVEL 9.2 MG/DL (8.5-10.1); CARBON DIOXIDE LEVEL 25 MEQ/L (21-32); CHLORIDE LEVEL 107 MEQ/L (98-107); CREATININE FOR GFR 0.76 MG/DL (0.55-1.30); GLOMERULAR FILTRATION RATE > 60.0 (>51); GLUCOSE, FASTING 118 MG/DL (70-100); POTASSIUM SERUM 3.5 MEQ/L (3.5-5.1); SODIUM LEVEL 140 MEQ/L (136-145); TOTAL PROTEIN 6.8 GM/DL (6.4-8.2)
== END ==
LOC: M WUC 15:34
PROVIDERS: ATTEND Physician Assistant
DX: E87.6 Hypokalemia (principal)

== ENCOUNTER → 2020-10-21 | Outpatient (CLI) | payer MEDICARE, MEDICAID ==
[~2020-10-21] MED LIST changes: +METHACHOLINE KIT (J7674) INH ONE
--- NOTE | 2020-10-21 11:01 | PFTRPT ---
Height: 64.00 Inches Weight: 142.00 Lbs BSA: 1.69 Diagnosis: R06.00 DATE: 10/21/2020 ORDERED BY: MERCEDES Diehl QUALITY: Study of excellent technical quality. PROCEDURE: Under protocol, methacholine was administered. At a dose of 2.5 mg or 13.875 CDUs, a 31% decline in the FEV1 was noted. A PC of 0.74 is significant. Flow rates did return to baseline post bronchodilator administration. IMPRESSION: Positive methacholine challenge study. MTDD
== END ==
LOC: M CARPUL 09:47
PROVIDERS: ATTEND Physician Assistant
DX: R06.00 Dyspnea, unspecified (principal)
CPT/HCPCS: 94070; 95070; J7674

== ENCOUNTER → 2021-01-09 | Outpatient (REF) | payer MEDICARE, MEDICAID ==
[~2021-01-09] MED LIST changes: -METHACHOLINE KIT (J7674) INH ONE
[2021-01-09 17:37] LABS: BASO # 0.1 10^3/uL (0.0-0.2); EOS # 0.1 10^3/uL (0.0-0.5); EOS % 1.7 % (0.0-3.0); HEMATOCRIT 41.6 % (36.0-47.0); HEMOGLOBIN 14.1 g/dl (12.0-15.5); LYMPH # 2.2 10^3/uL (1.5-5.0); LYMPH % 37.1 % (24.0-44.0); MEAN CORPUSCULAR HEMOGLOBIN 30.3 pg (27.0-33.0); MEAN CORPUSCULAR HGB CONC 33.9 g/dl (32.0-36.5); MEAN CORPUSCULAR VOLUME 89.5 fl (80.0-96.0); MONO # 0.6 10^3/uL (0.0-0.8); MONO % 9.5 % (2.0-8.0); NEUTROPHILS % 50.4 % (36.0-66.0); PLATELET COUNT, AUTOMATED 315 10^3/uL (150-450); RED BLOOD COUNT 4.65 10^6/uL (4.00-5.40)
[2021-01-09 18:33] LABS: BACTERIA, URINE AUTO NEGATIVE (NEGATIVE); RBC, URINE AUTO 0 /HPF (0-3); SQUAMOUS EPITHELIAL CELL UR AU 1 /HPF (0-6); WBC, URINE AUTO 2 /HPF (0-3)
[2021-01-09 18:57] LABS: ALBUMIN 3.7 GM/DL (3.2-5.2); ALT/SGPT 25 U/L (12-78); BILIRUBIN,TOTAL 0.7 MG/DL (0.2-1.0); BLOOD UREA NITROGEN 13 MG/DL (7-18); CALCIUM LEVEL 9.1 MG/DL (8.5-10.1); CARBON DIOXIDE LEVEL 27 MEQ/L (21-32); CHLORIDE LEVEL 103 MEQ/L (98-107); CHOLESTEROL LEVEL 213 MG/DL (<200); CHOLESTEROL RISK RATIO 3.042 (<5); CREATININE FOR GFR 0.85 MG/DL (0.55-1.30); GLOMERULAR FILTRATION RATE > 60.0 (>51); GLUCOSE, FASTING 82 MG/DL (70-100); HDL CHOLESTEROL 70 MG/DL (>40); LDL CHOLESTEROL 119 MG/DL (<100); NON-HDL-C 143 MG/DL; POTASSIUM SERUM 3.7 MEQ/L (3.5-5.1); SODIUM LEVEL 138 MEQ/L (136-145); TOTAL PROTEIN 7.3 GM/DL (6.4-8.2); TRIGLYCERIDES LEVEL 120 MG/DL (<150)
[2021-01-09 19:01] LABS: CREATININE, URINE 70.3 MG/DL; MALB URINE SIEMENS < 5.0 MG/L; MAU/CREAT RATIO 7.1 MCG/MG (0.0-30.0)
[2021-01-11 07:06] LABS: LDL DIRECT 127 mg/dL (0-99)
== END ==
LOC: M LAB REF 16:38
PROVIDERS: ATTEND Physician Assistant
DX: Z01.818 Encounter for other preprocedural examination (principal); E11.69 Type 2 diabetes mellitus with other specified complication; Z79.899 Other long term (current) drug therapy

== ENCOUNTER → 2021-01-19 | Outpatient (REF) | payer MEDICARE, MEDICAID ==
[2021-01-19 17:15] LABS: APPEARANCE, URINE CLEAR (CLEAR); BACTERIA, URINE AUTO NEGATIVE (NEGATIVE); BILIRUBIN, URINE AUTO 1+ (NEGATIVE); BLOOD, URINE BLOOD NEGATIVE (NEGATIVE); COLOR, URINE AMBER (YELLOW); GLUCOSE, URINE (UA) AUTO NEGATIVE (NEGATIVE); KETONE, URINE AUTO TRACE mg/dL (NEGATIVE); LEUKOCYTE ESTERASE, URINE AUTO TRACE (NEGATIVE); MUCUS, URINE SMALL (NEGATIVE); NITRITE, URINE AUTO NEGATIVE (NEGATIVE); PROTEIN, URINE AUTO NEGATIVE (NEGATIVE); RBC, URINE AUTO 1 /HPF (0-3); SPECIFIC GRAVITY URINE AUTO 1.027 (1.002-1.035); SQUAMOUS EPITHELIAL CELL UR AU 1 /HPF (0-6); WBC, URINE AUTO 3 /HPF (0-3)
== END ==
LOC: M LAB REF 16:19
PROVIDERS: ATTEND Physician Assistant
DX: N39.0 Urinary tract infection, site not specified (principal)

== ENCOUNTER 2021-01-23 08:30 | Day surgery (SDC) | payer MEDICARE, MEDICAID ==
[~2021-01-23] VITALS: Ht 162.6 cm; Wt 82.5 kg
[~2021-01-23 08:30] MED LIST changes: +LR 1,000 ML IV ONE; +ceFAZolin SOD 2 GM in IV 1 EA IV ONE
[2021-01-23] MEDS ORDERED: MIDAZOLAM INJ 2MG/2ML VIAL (J2250 PER 1MG) As Ordered ONE (11:26)
[2021-01-23] MEDS ORDERED: ROCURONIUM BROMIDE 50 MG/5 ML VIAL As Ordered ONE (11:26)
[2021-01-23] MEDS ORDERED: propofoL 200 MG/20 ML VIAL As Ordered ONE (11:27)
[2021-01-23] MEDS ORDERED: LIDOCAINE 2% 100MG/5ML SDV (FOR ANES.) As Ordered ONE (11:28)
[2021-01-23] MEDS ORDERED: fentaNYL 250 MCG/5 ML INJECTION (J3010) As Ordered ONE (11:30)
[2021-01-23] MEDS ORDERED: LIDOCAINE 1% MDV 50ML VIAL As Ordered ONE ×2 (12:20→13:10)
[2021-01-23] MEDS ORDERED: LIDOCAINE 2% 5ML JELLY UROJET As Ordered ONE ×2 (12:20→13:10)
[2021-01-23] MEDS ORDERED: BOTOX THERAPEUTIC 100 UNIT VIAL (J0585 PER 1 UNIT) As Ordered ONE (12:21)
--- NOTE | 2021-01-23 13:44 | ROOPDOC ---
[facility] Report Of Operation Report of Operation DATE OF PROCEDURE: 01/23/21 PREPROCEDURE DIAGNOSES: Urinary urgency, frequency, urge incontinence, and erythematous patches POSTPROCEDURE DIAGNOSES: Same PROCEDURE: Cystoscopy, hydrodistention, bladder biopsies, and intravesical Botox with 100 units SURGEON: Erika Arellano MD HOSPITAL COORDINATOR: None ANESTHESIA: IV sedation ESTIMATED BLOOD LOSS: Approximately 5 mL. COMPLICATIONS: None REMARKS: No evidence of glomerulations PROCEDURE NOTE: Patient is a 60-year-old female with complaints of significant urinary urgency, frequency, urge incontinence, and also found and urodynamic studies to have significant leakage with Valsalva. She was on medications which at first worked but then lost efficacy. Cystoscopy in the office showed some erythematous areas and some cystic changes. After discussing all different options, alternatives, risks, benefits with decided to bring the patient to the operating room for cystoscopy, hydrodistention, bladder biopsies, and intravesical Botox. DESCRIPTION OF PROCEDURE: Patient was brought into the operating room. Sequential compression devices were in place and preoperative antibiotics had been given. Anesthesia was induced and then she was placed in the lithotomy position. She was prepped and draped in usual fashion. A 21 Finnish cystoscope was inserted. Both ureteral orifices were seen and again a few erythematous areas were seen and some mild cystic changes today. At this point a hydrodistention was done using normal saline and the patient's bladder easily held over 600 mL without any glomerulations and may be just some mild hyperemia. At this 100 units of Botox mixed with 10 mL of injectable saline were then placed in 1 mL increments around the bladder. Biopsies were then taken of the erythematous areas and 1 at the cystic areas. The patient's bladder was emptied and a slurry of lidocaine jelly and 50 mL of intravesical lidocaine were then placed post-procedurally. The patient tolerated the procedure well and was returned to the recovery room in stable condition. ERIKA ARELLANO MD Jan 23, 2021 13:44
[2021-01-23] MEDS ORDERED: fentaNYL 100 MCG/2 ML INJECTION (J3010) IV PRN (13:55)
[2021-01-23] MEDS ORDERED: METOCLOPRAMIDE INJ 10MG/2ML VIAL (J2765 PER 1) IV PRN (13:55)
[2021-01-23] MEDS ORDERED: ONDANSETRON 4MG/2ML VIAL IV PRN (13:55)
[2021-01-23] MEDS ORDERED: LR 1,000 ML IV SCH (13:55)
[2021-01-23] MEDS: PERCOCET 5MG/325MG TAB PO PRN ×2 (14:02→15:26)
[2021-01-23 15:36] VITALS: BP 143/95
== END 2021-01-23 15:39 | disposition home or self-care (01) ==
LOC: M SDC 08:30
PROVIDERS: ATTEND Specialist
DX: R39.15 Urgency of urination (principal); N39.41 Urge incontinence; N30.91 Cystitis, unspecified with hematuria; N32.9 Bladder disorder, unspecified; I10 Essential (primary) hypertension; E78.5 Hyperlipidemia, unspecified; E11.9 Type 2 diabetes mellitus without complications; J44.9 Chronic obstructive pulmonary disease, unspecified; F41.9 Anxiety disorder, unspecified; F32.9 Major depressive disorder, single episode, unspecified; F31.9 Bipolar disorder, unspecified; G47.33 Obstructive sleep apnea (adult) (pediatric); Z79.82 Long term (current) use of aspirin; Z79.899 Other long term (current) drug therapy; K21.9 Gastro-esophageal reflux disease without esophagitis; Z87.891 Personal history of nicotine dependence; Z91.040 Latex allergy status; Z88.8 Allergy status to other drugs, medicaments and biological substances; Z88.2 Allergy status to sulfonamides; Z91.018 Allergy to other foods
CPT/HCPCS: 52204; 52260; 52287; 88305; J0585; J0690; J2250; J3010; U0002

== ENCOUNTER 2021-01-26 05:52 | Emergency (ER) | payer MEDICARE, MEDICAID ==
[~2021-01-26] VITALS: Ht 162.6 cm; Wt 82.6 kg
[~2021-01-26 05:52] MED LIST changes: -LR 1,000 ML IV ONE; -ceFAZolin SOD 2 GM in IV 1 EA IV ONE
[2021-01-26] MEDS ORDERED: NS 1,000 ML IV ONE ×2 (06:55→08:45)
[2021-01-26 07:18] LABS: BASO # 0.1 10^3/uL (0.0-0.2); BASO % 0.9 % (0.0-1.0); EOS # 0.2 10^3/uL (0.0-0.5); EOS % 2.2 % (0.0-3.0); HEMATOCRIT 42.8 % (36.0-47.0); HEMOGLOBIN 14.6 g/dl (12.0-15.5); LYMPH # 2.5 10^3/uL (1.5-5.0); LYMPH % 31.8 % (24.0-44.0); MEAN CORPUSCULAR HEMOGLOBIN 30.4 pg (27.0-33.0); MEAN CORPUSCULAR HGB CONC 34.1 g/dl (32.0-36.5); MONO # 0.6 10^3/uL (0.0-0.8); MONO % 7.8 % (2.0-8.0); NEUTROPHILS # 4.5 10^3/uL (1.5-8.5); PLATELET COUNT, AUTOMATED 321 10^3/uL (150-450); RED BLOOD COUNT 4.81 10^6/uL (4.00-5.40); WHITE BLOOD COUNT 7.8 10^3/uL (4.0-10.0)
[2021-01-26] MEDS ORDERED: MORPHINE 4 MG/ML 1ML VIAL/SYRINGE (J2270) IV ONE (07:35)
[2021-01-26] MEDS ORDERED: ONDANSETRON 4MG/2ML VIAL IV ONE (07:35)
--- NOTE | 2021-01-26 07:44 | REP ---
INDICATION: lower abd pain COMPARISON: None. TECHNIQUE: Supine view of the abdomen and pelvis. FINDINGS: Examination is limited by underpenetration. The bowel gas pattern is relatively nonspecific and without evidence for obstruction or obvious perforation. Skeletal structures are intact. No organomegaly. No foreign body. Prior cholecystectomy. IMPRESSION: Limited examination. Nonspecific bowel gas pattern. <Electronically signed by J Carlos Chin > 01/26/21 0730
[2021-01-26] MEDS: GASTROGRAFIN SOLUTION 30ML PO SCH ×2 (08:19→09:05)
[2021-01-26] MEDS ORDERED: PROMETHAZINE INJ 25 MG/ML VIAL (J2550) IV ONE (09:10)
[2021-01-26] MEDS ORDERED: PIPERACILLIN/TAZOBACTAM SOD 4.5 GM in D5W MINI-BAG PLUS 50 ML IV ONE (09:35)
[2021-01-26 10:11] LABS: ALBUMIN 3.3 GM/DL (3.2-5.2); ALT/SGPT 21 U/L (12-78); BILIRUBIN,DIRECT < 0.1 MG/DL (0.0-0.2); BILIRUBIN,TOTAL 0.6 MG/DL (0.2-1.0); BLOOD UREA NITROGEN 11 MG/DL (7-18); CALCIUM LEVEL 8.9 MG/DL (8.5-10.1); CARBON DIOXIDE LEVEL 23 MEQ/L (21-32); CHLORIDE LEVEL 108 MEQ/L (98-107); CK-MB VALUE MASS 1.3 NG/ML (<3.6); CPK CREATINE PHOSPHOKINASE 156 U/L (26-192); CREATININE FOR GFR 0.66 MG/DL (0.55-1.30); GLOMERULAR FILTRATION RATE > 60.0 (>51); GLUCOSE, FASTING 93 MG/DL (70-100); LIPASE 166 U/L (73-393); MB/CK RELATIVE INDEX 0.83 (< OR =4); POTASSIUM SERUM 5.2 MEQ/L (3.5-5.1); SODIUM LEVEL 139 MEQ/L (136-145); TOTAL PROTEIN 6.9 GM/DL (6.4-8.2); TROPONIN I < 0.02 NG/ML (< 0.10)
[2021-01-26] MEDS ORDERED: ISOVUE-370 76% 100ML VIAL As Ordered ONE (10:14)
--- NOTE | 2021-01-26 10:39 | REP ---
INDICATION: lower abd pain,elevated lactic acid,cystocopy/bladder bx4/30. COMPARISON: 05/03/2020 TECHNIQUE: Axial contrast-enhanced images from the lung bases to the pubic symphysis using 100 cc Isovue 370 intravenous contrast material. Coronal and sagittal reformations obtained. This CT examination was performed using the following dose reduction techniques: Automated exposure control, adjustment of mA and/or kv according to the patient's size, and the use of iterative reconstruction technique. FINDINGS: Liver, spleen, pancreas, bilateral adrenal glands are normal. Patient is noted to be status post cholecystectomy. The kidneys demonstrate stable hypodensities consistent with cysts measuring up to approximately 1.5 cm in the left kidney. The enteric system is without evidence for obstruction or acute inflammatory process. Scattered diverticula noted without acute diverticulitis. There is a fat containing periumbilical hernia measuring roughly 4 cm which may be slightly increased from prior examination. Pelvis demonstrates normal bladder and suspected myomatous changes to the uterus. Small amount of air identified within the bladder and consistent with the given history of recent cystoscopy and bladder biopsy. No ascites. No free air. No intraperitoneal or retroperitoneal adenopathy. Abdominal aorta and vasculature appear normal. Musculoskeletal structures are stable with degenerative changes as well as laminectomy versus spina bifida at S1 level. IMPRESSION: No acute abdominopelvic pathology appreciated. Nonacute findings as described above. No ascites. No free air. No inflammatory stranding. No adenopathy. <Electronically signed by J Carlos Chin > 01/26/21 0341
[2021-01-26 13:56] VITALS: BP 143/72
--- NOTE | 2021-01-26 19:32 | ECGEPIP ---
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
== END 2021-01-26 14:30 | disposition home or self-care (01) ==
LOC: M ED 05:52
DX: G89.18 Other acute postprocedural pain (principal); R10.9 Unspecified abdominal pain; M54.5 Low back pain; R11.2 Nausea with vomiting, unspecified; R53.83 Other fatigue; R53.81 Other malaise; R00.1 Bradycardia, unspecified; E11.9 Type 2 diabetes mellitus without complications; I10 Essential (primary) hypertension; Z86.16 Personal history of COVID-19; G47.33 Obstructive sleep apnea (adult) (pediatric); G43.909 Migraine, unspecified, not intractable, without status migrainosus; J44.9 Chronic obstructive pulmonary disease, unspecified; R56.9 Unspecified convulsions; K21.9 Gastro-esophageal reflux disease without esophagitis; K76.0 Fatty (change of) liver, not elsewhere classified; E78.5 Hyperlipidemia, unspecified; F41.9 Anxiety disorder, unspecified; F33.9 Major depressive disorder, recurrent, unspecified; F43.10 Post-traumatic stress disorder, unspecified; Z87.891 Personal history of nicotine dependence; Z88.1 Allergy status to other antibiotic agents; Z88.2 Allergy status to sulfonamides; Z88.8 Allergy status to other drugs, medicaments and biological substances; Z91.040 Latex allergy status; Z79.899 Other long term (current) drug therapy
CPT/HCPCS: 36415; 74018; 74177; 80048; 80076; 81001; 82550; 82553; 83605; 83690; 84439; 84443; 84484; 85025; 87040; 93005; 96361; 96365; 96366; 96375; 99285; J2270; J2405; J2543; Q9963; Q9967

== ENCOUNTER → 2021-01-27 | Outpatient (REF) | payer MEDICARE, MEDICAID ==
[2021-01-27 17:30] LABS: BASO # 0.1 10^3/uL (0.0-0.2); BASO % 0.7 % (0.0-1.0); EOS # 0.1 10^3/uL (0.0-0.5); EOS % 1.2 % (0.0-3.0); HEMATOCRIT 41.3 % (36.0-47.0); HEMOGLOBIN 14.1 g/dl (12.0-15.5); LYMPH # 2.1 10^3/uL (1.5-5.0); LYMPH % 25.6 % (24.0-44.0); MEAN CORPUSCULAR HEMOGLOBIN 30.7 pg (27.0-33.0); MEAN CORPUSCULAR HGB CONC 34.1 g/dl (32.0-36.5); MONO # 0.6 10^3/uL (0.0-0.8); MONO % 7.6 % (2.0-8.0); NEUTROPHILS # 5.3 10^3/uL (1.5-8.5); NEUTROPHILS % 64.5 % (36.0-66.0); PLATELET COUNT, AUTOMATED 339 10^3/uL (150-450); RED BLOOD COUNT 4.59 10^6/uL (4.00-5.40); WHITE BLOOD COUNT 8.2 10^3/uL (4.0-10.0)
[2021-01-27 17:48] LABS: ALBUMIN 3.8 GM/DL (3.2-5.2); ALT/SGPT 25 U/L (12-78); BILIRUBIN,TOTAL 0.6 MG/DL (0.2-1.0); BLOOD UREA NITROGEN 8 MG/DL (7-18); CALCIUM LEVEL 9.7 MG/DL (8.5-10.1); CARBON DIOXIDE LEVEL 25 MEQ/L (21-32); CHLORIDE LEVEL 109 MEQ/L (98-107); CHOLESTEROL LEVEL 252 MG/DL (<200); CHOLESTEROL RISK RATIO 3.761 (<5); CREATININE FOR GFR 0.81 MG/DL (0.55-1.30); GLOMERULAR FILTRATION RATE > 60.0 (>51); GLUCOSE, FASTING 81 MG/DL (70-100); HDL CHOLESTEROL 67 MG/DL (>40); LDL CHOLESTEROL 160 MG/DL (<100); NON-HDL-C 185 MG/DL; SODIUM LEVEL 141 MEQ/L (136-145); TOTAL PROTEIN 7.5 GM/DL (6.4-8.2); TRIGLYCERIDES LEVEL 127 MG/DL (<150)
[2021-01-27 17:49] LABS: POTASSIUM SERUM 4.1 MEQ/L (3.5-5.1)
[2021-01-27 18:01] LABS: HEMOGLOBIN A1c 5.1 %
== END ==
LOC: M LAB REF 16:22
PROVIDERS: ATTEND Physician Assistant
DX: E11.69 Type 2 diabetes mellitus with other specified complication (principal)

== ENCOUNTER 2021-02-12 14:15 | Emergency (ER) | payer MEDICARE, MEDICAID ==
[~2021-02-12] VITALS: Ht 162.6 cm; Wt 81.8 kg
[~2021-02-12 14:15] MED LIST changes: +GABA-283 PO; -GABA-845 PO
[2021-02-12 14:21] VITALS: BP 129/89
--- NOTE | 2021-02-12 14:44 | REP ---
INDICATION: fall, injury, decreased ROM. COMPARISON: None TECHNIQUE: Four views FINDINGS: There is no acute fracture, dislocation, subluxation, or joint effusion. IMPRESSION: As above <Electronically signed by Jakub Goodson > 02/12/21 9070
[2021-02-12] MEDS ORDERED: BOOSTRIX/ADACEL VACCINE (DIPHTH/PERTUSS/ACELL/TETANUS) 0.5ML SYR IM ONE (16:15)
--- NOTE | 2021-02-12 16:50 | REP ---
INDICATION: fall last night, difficulty moving arm. COMPARISON: None. TECHNIQUE: Three views of the right shoulder were performed. FINDINGS: The acromioclavicular and glenohumeral relationships are within normal limits. There is no acute fracture or destructive osseous lesion. IMPRESSION: Within normal limits <Electronically signed by Jakub Goodson > 02/12/21 [id number]
== END 2021-02-12 18:17 | disposition home or self-care (01) ==
LOC: M ED 14:15
DX: S40.811A Abrasion of right upper arm, initial encounter (principal); Y92.009 Unspecified place in unspecified non-institutional (private) residence as the place of occurrence of the external cause; Y93.9 Activity, unspecified; Y99.9 Unspecified external cause status; I10 Essential (primary) hypertension; E11.9 Type 2 diabetes mellitus without complications; K21.9 Gastro-esophageal reflux disease without esophagitis; Z88.1 Allergy status to other antibiotic agents; Z88.2 Allergy status to sulfonamides; Z88.6 Allergy status to analgesic agent; Z88.8 Allergy status to other drugs, medicaments and biological substances; Z91.018 Allergy to other foods; Z91.040 Latex allergy status

== ENCOUNTER → 2021-03-04 | Outpatient (REF) | payer MEDICARE, MEDICAID ==
[~2021-03-04] MED LIST changes: +OMEP40CA4 PO; -OMEP40CA97 PO
[2021-03-04 18:06] LABS: APPEARANCE, URINE HAZY (CLEAR); BACTERIA, URINE AUTO NEGATIVE (NEGATIVE); BILIRUBIN, URINE AUTO NEGATIVE (NEGATIVE); BLOOD, URINE BLOOD NEGATIVE (NEGATIVE); COLOR, URINE YELLOW (YELLOW); GLUCOSE, URINE (UA) AUTO NEGATIVE (NEGATIVE); KETONE, URINE AUTO NEGATIVE (NEGATIVE); LEUKOCYTE ESTERASE, URINE AUTO TRACE (NEGATIVE); MUCUS, URINE SMALL (NEGATIVE); NITRITE, URINE AUTO NEGATIVE (NEGATIVE); PROTEIN, URINE AUTO NEGATIVE (NEGATIVE); RBC, URINE AUTO 1 /HPF (0-3); SPECIFIC GRAVITY URINE AUTO 1.018 (1.002-1.035); SQUAMOUS EPITHELIAL CELL UR AU 0 /HPF (0-6); UROBILINOGEN, URINE AUTO 0.2 mg/dL (0.0-2.0); WBC, URINE AUTO 5 /HPF (0-3)
== END ==
LOC: M SMT 17:12
PROVIDERS: ATTEND Nurse Practitioner Women's Health
DX: R39.15 Urgency of urination (principal)
CPT/HCPCS: 51798; 81001; 87086; G0463

== ENCOUNTER → 2021-03-31 | Outpatient (CLI) | payer MEDICARE, MEDICAID ==
[~2021-03-31] MED LIST changes: +ECOT81TA5 PO; +VITMTA PO
--- NOTE | 2021-03-31 12:00 | REP ---
INDICATION: Z01.818, LABS FIRST, EKG 2ND, XRAY 3RD COMPARISON: 04/14/2020 TECHNIQUE: PA and lateral. FINDINGS: The mediastinum and cardiac silhouette are normal. The lung fragoso are clear and without acute consolidation, effusion, or pneumothorax. The skeletal structures are intact and normal. IMPRESSION: No acute cardiopulmonary process. <Electronically signed by J Carlos Chin > 03/31/21 [id number]
[2021-03-31 12:49] LABS: BACTERIA, URINE AUTO 1+ (NEGATIVE); MUCUS, URINE SMALL (NEGATIVE); RBC, URINE AUTO 4 /HPF (0-3); SQUAMOUS EPITHELIAL CELL UR AU 0 /HPF (0-6); WBC, URINE AUTO 9 /HPF (0-3)
[2021-03-31 13:07] LABS: HEMATOCRIT 42.7 % (36.0-47.0); HEMOGLOBIN 14.1 g/dl (12.0-15.5); MEAN CORPUSCULAR HEMOGLOBIN 29.9 pg (27.0-33.0); MEAN CORPUSCULAR VOLUME 90.5 fl (80.0-96.0); PLATELET COUNT, AUTOMATED 370 10^3/uL (150-450); RED BLOOD COUNT 4.72 10^6/uL (4.00-5.40); WHITE BLOOD COUNT 9.3 10^3/uL (4.0-10.0)
[2021-03-31 13:34] LABS: BLOOD UREA NITROGEN 9 MG/DL (7-18); CALCIUM LEVEL 10.1 MG/DL (8.5-10.1); CARBON DIOXIDE LEVEL 25 MEQ/L (21-32); CHLORIDE LEVEL 107 MEQ/L (98-107); CREATININE FOR GFR 0.84 MG/DL (0.55-1.30); GLOMERULAR FILTRATION RATE > 60.0 (>51); GLUCOSE, FASTING 75 MG/DL (70-100); POTASSIUM SERUM 4.9 MEQ/L (3.5-5.1); SODIUM LEVEL 141 MEQ/L (136-145)
--- NOTE | 2021-04-01 08:15 | ECGEPIP ---
[facility] Test Date: 2021-03-31 Pat Name: YAIMA CORRALES Department: Room: - Gender: Female Soap Chipper: HALLIE : 1960 Requested By: ALIRIO Correa Order Number: [id number] Reading MD: Phillip Shelby Measurements Intervals [place] Rate: 64 P: 38 ND: 130 QRS: -29 QRSD: 98 T: 36 QT: 432 QTc: 445 Interpretive Statements Normal sinus rhythm Incomplete right bundle branch block Inferior Q waves of uncertain significance Possible anterior infarct, age undetermined Similar to tracing done 01-26-21 Electronically Signed on 04-01-2021 8:14:39 EDT by Phillip Shelby
== END ==
LOC: M LAB 10:48
PROVIDERS: ATTEND Specialist
DX: Z01.818 Encounter for other preprocedural examination (principal); Z79.899 Other long term (current) drug therapy

== ENCOUNTER → 2021-04-01 | Outpatient (CLI) | payer MEDICARE, MEDICAID | LOC: M LABSMTC 12:27 | PROVIDERS: ATTEND Anesthesiology | DX: Z01.818 Encounter for other preprocedural examination (principal); Z79.899 Other long term (current) drug therapy; Z20.822 Contact with and (suspected) exposure to COVID-19 | CPT/HCPCS: 36415; 71046; 80048; 81015; 85027; 87086; 93005; U0003 ==

== ENCOUNTER → 2021-04-03 | Outpatient (REF) | payer MEDICARE, MEDICAID ==
[2021-04-03 13:35] LABS: BACTERIA, URINE AUTO 1+ (NEGATIVE); MUCUS, URINE SMALL (NEGATIVE); RBC, URINE AUTO 2 /HPF (0-3); SQUAMOUS EPITHELIAL CELL UR AU 0 /HPF (0-6); WBC, URINE AUTO 17 /HPF (0-3)
== END ==
LOC: M SMT 13:09
PROVIDERS: ATTEND Specialist
DX: Z01.818 Encounter for other preprocedural examination (principal); Z79.899 Other long term (current) drug therapy

== ENCOUNTER 2021-04-06 11:59 | Day surgery (SDC) | payer MEDICAID, MEDICARE ==
[~2021-04-06] VITALS: Ht 162.6 cm; Wt 89.4 kg
[~2021-04-06 11:59] MED LIST changes: +LR 1,000 ML IV ONE; +ceFAZolin SOD 2 GM in IV 1 EA IV ONE
[2021-04-06] MEDS ORDERED: LIDOCAINE 2% 5ML JELLY UROJET As Ordered ONE (15:04)
[2021-04-06] MEDS ORDERED: propofoL 200 MG/20 ML VIAL As Ordered ONE (15:21)
[2021-04-06] MEDS ORDERED: MIDAZOLAM INJ 2MG/2ML VIAL (J2250 PER 1MG) As Ordered ONE (15:21)
[2021-04-06] MEDS ORDERED: fentaNYL 100 MCG/2 ML INJECTION (J3010) As Ordered ONE (15:21)
--- NOTE | 2021-04-06 16:01 | ROOPDOC ---
[facility] Report Of Operation Report of Operation DATE OF PROCEDURE: 04/06/21 PREPROCEDURE DIAGNOSES: Mixed urinary incontinence POSTPROCEDURE DIAGNOSES: Same PROCEDURE PERFORMED: Cystoscopy and Macroplastique (3 vials used) SURGEON: Erika Arellano MD SANDER AND POLISHER: None ANESTHESIA: IV Seadtion ESTIMATED BLOOD LOSS: Approximately 0 mL. COMPLICATIONS: None FINDINGS: Good coaptation of the urethra SPECIMENS REMOVED: None PROCEDURE NOTE: Vinita is a 60-year-old female with severe mixed urinary incontinence. She underwent intravesical Botox on 01/23/21 and her pathology did show partially denuded urothelial epithelium. She had approximately 50% improvement but still leaked urine with coughing and sneezing and she really wanted this fixed. Urodynamic studies were done and this showed intrinsic sphincteric deficiency with abdominal leak point pressure of 59 cm of water with 100 mL in her bladder. After discussing all different options, alternatives, risks, and benefits it was decided to proceed with cystoscopy and intraurethral Macroplastique injections. She understood that this sometimes needs to be repeated and also would not solve all of her problems since she does have significant mixed incontinence. Informed consent was obtained in both verbal and written form. She was found to have a preoperative urinary tract infection which was treated with Levaquin. DESCRIPTION OF PROCEDURE: The patient was brought into the operating room after preoperative antibiotics were given with 2 g of Ancef. Sequential compression devices were in place. IV sedation was given and then she was placed in the li thotomy position. Attention was placed that her pressure points were well padded and protected. She was prepped and draped in the usual fashion. Next a urethrotome was placed with a 0 lens. The bladder showed no significant erythematous patches, lesions, or other significant abnormalities. The urethra was open. Using the flexible needle Macroplastique was first injected at the 6 o 'clock position in the mid urethra. This was then repeated at the 9 o'clock position and 3 o'clock position. At the conclusion of the procedure there was excellent coaptation of the urethra. The patient tolerated the procedure well was returned to the recovery room in stable condition. ERIKA ARELLANO MD Apr 06, 2021 16:01
[2021-04-06 17:20] VITALS: BP 119/71
== END 2021-04-06 17:25 | disposition home or self-care (01) ==
LOC: M SDC 11:59
PROVIDERS: ATTEND Specialist
DX: N39.46 Mixed incontinence (principal); N36.42 Intrinsic sphincter deficiency (ISD); N30.90 Cystitis, unspecified without hematuria; N39.44 Nocturnal enuresis; E11.9 Type 2 diabetes mellitus without complications; E78.00 Pure hypercholesterolemia, unspecified; F31.9 Bipolar disorder, unspecified; F41.9 Anxiety disorder, unspecified; G47.33 Obstructive sleep apnea (adult) (pediatric); I10 Essential (primary) hypertension; J44.9 Chronic obstructive pulmonary disease, unspecified; J45.909 Unspecified asthma, uncomplicated; K21.9 Gastro-esophageal reflux disease without esophagitis; R01.1 Cardiac murmur, unspecified; R06.83 Snoring; Z78.0 Asymptomatic menopausal state; Z79.899 Other long term (current) drug therapy; Z87.891 Personal history of nicotine dependence; Z88.1 Allergy status to other antibiotic agents; Z88.2 Allergy status to sulfonamides; Z88.8 Allergy status to other drugs, medicaments and biological substances; Z91.018 Allergy to other foods; Z91.040 Latex allergy status
CPT/HCPCS: 51715; J0690; J2250; J3010; L8606

== ENCOUNTER 2021-04-11 15:29 | Emergency (ER) | payer MEDICARE ==
[~2021-04-11] VITALS: Ht 162.6 cm; Wt 89.4 kg
[~2021-04-11 15:29] MED LIST changes: -LR 1,000 ML IV ONE; -ceFAZolin SOD 2 GM in IV 1 EA IV ONE
[2021-04-11 19:11] VITALS: BP 152/70
[2021-04-11] MEDS ORDERED: ACETAMINOPHEN 325 MG TAB PO ONE (19:20)
[2021-04-11] MEDS ORDERED: ONDANSETRON 4MG/2ML VIAL IV ONE (19:20)
[2021-04-11] MEDS ORDERED: NS 1,000 ML IV ONE ×2 (19:20→22:45)
--- NOTE | 2021-04-11 21:21 | REPVR ---
PROCEDURE INFORMATION: Exam: XR Chest Exam date and time: 04/11/2021 7:58 PM Age: 60 years old Clinical indication: Other: Fever, cough, post op day 5 TECHNIQUE: Imaging protocol: XR of the chest. Views: 2 views. COMPARISON: CR Chest, 2 view PA, Lat 03/31/2021 11:36 AM FINDINGS: Lungs: Unremarkable. No consolidation. Pleural spaces: Unremarkable. No pleural effusion. No pneumothorax. Heart/Mediastinum: Unremarkable. No cardiomegaly. Bones/joints: Unremarkable. IMPRESSION: No acute findings. Electronically signed by: Flo Chambers On 04/11/2021 21:21:26 PM
[2021-04-11 21:26] LABS: BASO % 0.3 % (0.0-1.0); HEMATOCRIT 40.6 % (36.0-47.0); HEMOGLOBIN 13.8 g/dl (12.0-15.5); LYMPH # 0.7 10^3/uL (1.5-5.0); LYMPH % 12.8 % (24.0-44.0); MEAN CORPUSCULAR HEMOGLOBIN 30.3 pg (27.0-33.0); MONO # 0.6 10^3/uL (0.0-0.8); MONO % 10.6 % (2.0-8.0); NEUTROPHILS # 4.4 10^3/uL (1.5-8.5); NEUTROPHILS % 76.1 % (36.0-66.0); PLATELET COUNT, AUTOMATED 253 10^3/uL (150-450); RED BLOOD COUNT 4.56 10^6/uL (4.00-5.40); WHITE BLOOD COUNT 5.8 10^3/uL (4.0-10.0)
[2021-04-11 21:48] LABS: RSV AMPLIFICATION NEGATIVE (NEGATIVE)
[2021-04-11 21:54] LABS: ALBUMIN 3.2 GM/DL (3.2-5.2); ALT/SGPT 36 U/L (12-78); BILIRUBIN,DIRECT 0.1 MG/DL (0.0-0.2); BILIRUBIN,TOTAL 0.3 MG/DL (0.2-1.0); BLOOD UREA NITROGEN 11 MG/DL (7-18); CALCIUM LEVEL 8.4 MG/DL (8.5-10.1); CARBON DIOXIDE LEVEL 28 MEQ/L (21-32); CHLORIDE LEVEL 107 MEQ/L (98-107); CREATININE FOR GFR 0.76 MG/DL (0.55-1.30); GLOMERULAR FILTRATION RATE > 60.0 (>51); GLUCOSE, FASTING 90 MG/DL (70-100); LIPASE 210 U/L (73-393); POTASSIUM SERUM 3.9 MEQ/L (3.5-5.1); SODIUM LEVEL 142 MEQ/L (136-145); TOTAL PROTEIN 6.8 GM/DL (6.4-8.2)
[2021-04-11] MEDS ORDERED: MORPHINE 4 MG/ML 1ML VIAL/SYRINGE (J2270) IV ONE (22:45)
[2021-04-11] MEDS ORDERED: NITROFURANTOIN (MACROBID) 100 MG CAP PO ONE (23:20)
[2021-04-12] MEDS ORDERED: CEPH500C PO ×2 (00:13→00:16)
[2021-04-12] MEDS ORDERED: HYDR-3713 PO ×2 (00:13→00:16)
[2021-04-12] MEDS ORDERED: CEPHALEXIN 500 MG CAP PO ONE (00:25)
[2021-04-12] MEDS ORDERED: NORCO 5/325MG TABLET (BULK FOR ED) PO ONE (00:25)
== END 2021-04-12 00:33 | disposition home or self-care (01) ==
LOC: M ED 15:29
DX: U07.1 COVID-19 (principal); R50.9 Fever, unspecified; R30.0 Dysuria; M54.5 Low back pain; R19.7 Diarrhea, unspecified; R11.2 Nausea with vomiting, unspecified; E11.9 Type 2 diabetes mellitus without complications; K21.9 Gastro-esophageal reflux disease without esophagitis; J44.9 Chronic obstructive pulmonary disease, unspecified; R56.9 Unspecified convulsions; Z88.1 Allergy status to other antibiotic agents; Z88.2 Allergy status to sulfonamides; Z88.8 Allergy status to other drugs, medicaments and biological substances; Z79.4 Long term (current) use of insulin; Z79.899 Other long term (current) drug therapy
CPT/HCPCS: 36415; 71046; 80048; 80076; 81001; 83605; 83690; 85025; 87040; 87086; 87631; 99284; J2270; J2405; M0243

== ENCOUNTER 2021-04-11 23:49 | Outpatient (CLI) | payer MEDICARE ==
[2021-04-11] MEDS ORDERED: methylPREDNISolone 125MG 2ML VIAL IV PRN (23:55)
[2021-04-11] MEDS ORDERED: diphenhydrAMINE 50MG/ML VIAL (J1200) IV PRN (23:55)
[2021-04-11] MEDS ORDERED: EPINEPHrine INJ 1 MG/ML 1ML AMP IM PRN (23:55)
[2021-04-11] MEDS ORDERED: ALBUTEROL 90 MCG/ACT 8GM HFA INHALER INH PRN (23:55)
[2021-04-11] MEDS ORDERED: ALBUTEROL SULFATE 2.5 MG/0.5 ML INH NEB SOLN INH PRN (23:55)
[2021-04-11] MEDS ORDERED: NS 1,000 ML IV SCH (23:55)
[2021-04-12] VITALS (9 sets, daily range): BP systolic 105–118; BP diastolic 51–64
--- NOTE | 2021-04-12 00:10 | HPEPDOC ---
[facility] Medical History & Physical Date of Admission Apr 11, 2021 Date of Service: Apr 11, 2021 Attending Physician: SHENA PIERRE MD History and Physical CHIEF COMPLAINT: Low back pain, diarrhea and pain with urination HISTORY OF PRESENT ILLNESS: Ms. Cheng is a 60-year-old female who presented to the ER with complaints of 5 days of nausea, vomiting, pain with urination and low back pain. The patient had undergone a bladder suspension with Dr. Sorensen 5 days ago. She began experiencing the symptoms as noted and they did not improve. She was also experiencing a dry nonproductive cough. On arrival in the ER, she was noted to have a temp of 102.1. Blood pressure was 154/63. Pulse was 85 and she was satting 98% on room air. White blood cell count was 5.8. Chem panel was unremarkable. UA showed 3+ leukocyte Estrace and 1+ bacteria. Chest x-ray showed no acute findings. Because of the fever and cough. The patient was tested for Covid and was found to be positive. She had not had the vaccination as she had been sick with Covid in October and did not think she was able to get the vaccination. She has a history of diabetes, asthma and obstructive sleep apnea and is at high risk for severe disease. For this reason, the patient has been counseled about monoclonal antibodies and has decided to go ahead with an infusion. Case was discussed with MERCEDES Allison , who is treating the patient in the ER. She will be prescribed antibiotics for urinary tract infection and will follow up with urology as scheduled. PAST MEDICAL HISTORY: 1. Chronic obstructive pulmonary disease, which the patient denies. States she was told she did not have COPD by pulmonology. 2. Asthma. 3. Diabetes type 2, diet controlled. 4. Congestive heart failure, diastolic, which patient denies. 5. Pulmonary hypertension. 6. Hyperlipidemia. 7. Gastroesophageal reflux disease. 8. Seizure. 9. Obstructive sleep apnea with CPAP. 10. Degenerative disc disease. 11. Urinary incontinence, now status post bladder suspension. 12. PTSD. 13. Bipolar. 14. Herpes. 15. Shingles. 16. Chronic back pain, now resolved. 17. Kidney stones. 18. Heart murmur. 19. Cleft palate PAST SURGICAL HISTORY: 1. Cleft palate repair as an . 2. Cystectomy. 3. Bladder suspension. 4. . 5. Rhinoplasty SOCIAL HISTORY: Tobacco use: Quit 3 years ago ETOH: Occasional Illicit drug use: Denies Patient lives with: Her boyfriend whom she refers to as her FAMILY HISTORY: Family history was thoroughly reviewed and found to be noncontributory REVIEW OF SYSTEMS: Complete 10 point review systems is negative except as noted above PHYSICAL EXAMINATION: Patient is seen in the ER, lying on the stretcher.. She is alert and oriented x 3, but may have some mild intellectual disability. HEENT is WNL. Neck is supple. Lungs are clear to auscultation but nonproductive cough noted. Heart regular rate and rhythm without murmur. Abdomen is soft, tender to palpation in the suprapubic area with bowel sounds positive. Extremities with good ROM and strength equal bilaterally. Trace lower extremity edema. Pedal pulses are positive. Skin is warm and dry with no obvious rash or lesion. Neuro: grossly intact. Psych: Pleasant and cooperative ASSESSMENT AND PLAN: 1. Covid 19 positive. Patient has been counseled and has agreed to monoclonal antibody infusion, which will be done per protocol. Consent has been signed. She will need to follow-up with primary care in the next 7 days. 2. Urinary tract infection. Patient will be continued on antibiotics by mouth and will need to follow-up with urology in the next 2-3 days. 3. Fever secondary to Covid 19. Tylenol as needed. 4. Diabetes type 2, hyperlipidemia, seizure, obstructive sleep apnea with CPAP, bipolar. . Continue with treatment as at home and follow-up with primary care as scheduled. ] CODE STATUS: CODE STATUS was discussed with the patient desires to be considered full code. She states her boyfriend, Andrea, or her son, Dayo, would act as her surrogates. If she were unable to make her own decisions. Home Medications Scheduled Aspirin (Ecotrin) 81 Mg Tablet.dr, 81 MG PO DAILY for pain Atorvastatin Calcium (Atorvastatin Calcium) 20 Mg Tab, 20 MG PO QHS Calcium Carbonate/Vitamin D3 (Calcium 600-Vit D3 200 Tablet) 1 Tab Tab, 1 TAB PO DAILY Chlorthalidone (Chlorthalidone) 25 Mg Tab, 12.5 MG PO DAILY Cholecalciferol (Vitamin D3) (Vitamin D3) 1,000 Unit Tablet, 2,000 UNITS PO DAILY Duloxetine Hcl (Cymbalta) 60 Mg Cap, 120 MG PO QAM Fluticasone Propion/Salmeterol (Advair Hfa 115-21 Mcg Inhaler) 1 Aer Aer, 2 PUFF INH BID Gabapentin (Gabapentin) 100 Mg Cap, 100 MG PO TID Hydroxyzine HCl (Hydroxyzine HCl) 50 Mg Tab, 50 MG PO BID Lacosamide (Vimpat) 50 Mg Tab, 50 MG PO BID Levetiracetam (Keppra) 500 Mg Tab, 500 MG PO QAM Levetiracetam (Keppra) 500 Mg Tab, 1,000 MG PO QHS Montelukast Sodium (Singulair) 10 Mg Tab, 10 MG PO QHS Multivitamins (Thera M Plus Tablet) 1 Each Tablet, 1 TAB PO QAM Nystatin (Nystatin) 100,000 Unit/Gm Cre, 1 DOSE TOP DAILY APPLY UNDER BREASTS AFTER SHOWER Onabotulinumtoxina (Botox) 200 Unit Vial, 200 UNIT INJ Q3M Oxybutynin Chloride (Oxybutynin Chloride ER) 15 Mg Tab.er.24, 15 MG PO DAILY Valacyclovir HCl (Valacyclovir) 500 Mg Tablet, 500 MG PO DAILY Scheduled PRN Albuterol Sulfate (Proair Hfa) 108 Mcg/Act Aer, 2 PUFF INH Q4H PRN for SHORTNESS OF BREATH Lidocaine (Lidocaine) 5 % Pad, 1 PATCH TOP DAILY PRN for PAIN APPLY TO BACK/LEGS PRN Allergies Coded Allergies: Sulfa (Sulfonamide Antibiotics) (Verified Allergy, Severe, sob, pins and needles, 04/01/21) latex (Verified Allergy, Intermediate, rash, 04/01/21) propranolol (Verified Allergy, Unknown, 04/01/21) divalproex sodium (Verified Adverse Reaction, Intermediate, " cant function", 04/01/21) varenicline (Verified Adverse Reaction, Intermediate, night terrors, 04/01/21) Mushroom (Verified Adverse Reaction, Mild, vomiting, 04/01/21) metformin (Verified Adverse Reaction, Mild, vomits, 04/01/21) A-FIB/CHADSVASC A-FIB History Current/History of A-Fib/PAF?: No CHIP YANES Apr 12, 2021 00:10
[2021-04-12] MEDS ORDERED: CEPH500C PO ×2 (00:13→00:16)
[2021-04-12] MEDS ORDERED: HYDR-3713 PO ×2 (00:13→00:16)
[2021-04-12] MEDS ORDERED: CASIRIVIMAB (REGN10933) 600 MG, IMDEVIMAB (REGN10987) 600 MG in NS 250 ML IV ONE (00:45)
[2021-04-12] MEDS ORDERED: ACETAMINOPHEN 650MG ER TAB (TYLENOL ARTHRITIS) PO STA (04:09)
== END 2021-04-12 04:30 | disposition home or self-care (01) ==
LOC: M OPCLI4 23:49 → M ICU 04-12 00:35 → M OPCLI4 04-12 04:30
PROVIDERS: ATTEND Internal Medicine
DX: U07.1 COVID-19 (principal); Z88.2 Allergy status to sulfonamides; Z88.8 Allergy status to other drugs, medicaments and biological substances

== ENCOUNTER → 2021-04-20 | Outpatient (REF) | payer MEDICARE, MEDICAID ==
[~2021-04-20] MED LIST changes: +CEPH500C PO; +HYDR-3713 PO
[2021-04-20 18:10] LABS: ALBUMIN 3.8 GM/DL (3.2-5.2); ALT/SGPT 51 U/L (12-78); BILIRUBIN,TOTAL 0.6 MG/DL (0.2-1.0); BLOOD UREA NITROGEN 16 MG/DL (7-18); CALCIUM LEVEL 9.4 MG/DL (8.5-10.1); CARBON DIOXIDE LEVEL 26 MEQ/L (21-32); CHLORIDE LEVEL 106 MEQ/L (98-107); CREATININE FOR GFR 0.91 MG/DL (0.55-1.30); GLOMERULAR FILTRATION RATE > 60.0 (>51); GLUCOSE, FASTING 108 MG/DL (70-100); POTASSIUM SERUM 3.4 MEQ/L (3.5-5.1); SODIUM LEVEL 140 MEQ/L (136-145); TOTAL PROTEIN 7.7 GM/DL (6.4-8.2)
== END ==
LOC: M LAB REF 16:51
PROVIDERS: ATTEND Physician Assistant
DX: E87.6 Hypokalemia (principal)

== ENCOUNTER → 2021-06-03 | Outpatient (CLI) | payer MEDICARE, MEDICAID ==
--- NOTE | 2021-06-03 14:08 | REP ---
INDICATION: PERSONAL HX OF NICOTINE DEPENDENCE. COMPARISON: Comparison screening chest CT studies are from July 27, 2019, November 23, 2017, and March 03, 2010. TECHNIQUE: Dose reduction was performed utilizing CARE dose with automated adjustment of the kV and MAS according to patient size; iterative reconstruction, automated exposure control, as well as adaptive dose shielding. Helical scanning is acquired and 3 millimeter axial images are re-formatted at lung windows. 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 There are clips in right upper quadrant of the abdomen. On axial CT images, there are linear fibrotic changes in the left lower lobe and right middle lobe which are stable. Is zone of linear density is seen in the lingula consistent with fibrosis. This is also unchanged from the most recent prior study. No new infiltrate is seen. No mass lesion or significant pulmonary nodule is seen. Vascular calcifications again noted. IMPRESSION: Stable lung RADS category 1 findings. Repeat screening chest CT study indicated in 1 year. <Electronically signed by Robb Call > 06/03/21 [id number]
== END ==
LOC: M RAD 12:51
PROVIDERS: ATTEND Physician Assistant
DX: Z12.2 Encounter for screening for malignant neoplasm of respiratory organs (principal); Z87.891 Personal history of nicotine dependence

== ENCOUNTER → 2021-06-17 | Outpatient (CLI) | payer MEDICARE, MEDICAID ==
--- NOTE | 2021-06-17 15:05 | REPMRS ---
Patient History The patient states she had a clinical breast exam in May 2021. Family history of breast cancer under age 50 in paternal grandmother, breast cancer at age 50 or over in paternal aunt, endometrial cancer in maternal aunt, colorectal cancer in mother. Patient states no breast complaints today. Patient has signed MRS History Sheet. Digital Woman Screen Mammo: June 17, 2021 - Exam #: [id number] Bilateral CC and MLO view(s) were taken. Technologist: Mely Grissom, Technologist Prior study comparison: January 25, 2020, bilateral digital woman screen mammo performed at [facility]. January 23, 2019, bilateral digital woman screen mammo performed at [facility]. FINDINGS: The breast tissue is almost entirely fat. Screening. Digital screening (2D) mammography was performed bilaterally in the CC and MLO projections. Additionally, breast tomosynthesis (3D mammography) was performed bilaterally in the CC and MLO projections. Todays exam was compared to the prior exam/exams. By history, the patient has no complaints of a palpable breast abnormality or other significant breast complaints. The Volpara volumetric breast density category is A, the breasts are almost entirely fatty. There are multiple, stable, benign, lymph nodes, bilaterally. The breasts are unchanged in size and shape. There are no umu-soft tissue densities or spiculated masses. There is no internal architectural distortion. There are no suspicious umu-calcific clusters. Skin thickening or nipple retraction is not present. IMPRESSION: BI-RADS Category 2- Benign Findings. There is no evidence of malignant alteration of the breasts. Followup examination recommended in one year. This mammogram was read with the assistance of [facility],an FDA approved computer aided detection system for mammography. The lifetime Tyrer-Cuzick score is 18.6% Negative x-ray reports should not delay surgical consultation if a dominant or clinically suspicious mass is present. Not all breast cancers can be identified by mammography. Therefore, we recommend that you continue to perform regular breast self-examination and physical examination and then promptly contact your physician of any concerns or changes. Adenosis and dense breasts may obscure an underlying neoplasm. No significant changes when compared with prior studies. Assessment: BI-RADS/ACR category 2 mammogram. Benign Findings. Recommendation Routine screening mammogram of both breasts in 1 year. Electronically Signed By: Gonzalo Valencia MD 06/17/21 [id number]
== END ==
LOC: M WHC 13:31
PROVIDERS: ATTEND Nurse Practitioner Women's Health
DX: Z01.419 Encounter for gynecological examination (general) (routine) without abnormal findings (principal); Z12.31 Encounter for screening mammogram for malignant neoplasm of breast; Z80.3 Family history of malignant neoplasm of breast
CPT/HCPCS: 77063; 77067; 87624; G0101; G0123

== ENCOUNTER → 2021-06-17 | Outpatient (REF) | payer MEDICARE, MEDICAID | LOC: M SFHCWAGY 19:14 | PROVIDERS: ATTEND Nurse Practitioner Women's Health | DX: Z12.4 Encounter for screening for malignant neoplasm of cervix (principal) | CPT/HCPCS: 87624; G0123 ==

== ENCOUNTER → 2021-06-25 | Outpatient (CLI) | payer MEDICARE, MEDICAID ==
--- NOTE | 2021-06-25 13:31 | PFTRPT ---
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 Review Status: Not Reviewed Pre-Bronch Post-Bronch Pred Actual %Pred Actual %Chng SPIROMETRY FVC (L) 3.33 2.56 76 FEV1 (L) 2.58 2.06 79 FEV1/FVC (%) 78 80 103 FEF 25% (L/sec) 5.01 6.61 131 FEF 50% (L/sec) 3.66 2.46 67 FEF 75% (L/sec) 1.23 0.71 57 FEF 25-75% (L/sec) 2.40 1.89 78 FEF Max (L/sec) 6.35 6.67 104 FIVC (L) 2.34 FIF 50% (L/sec) 3.64 2.59 71 FIF Max (L/sec) 2.96 MVV (L/min) 92 82 88 Expiratory Time (sec) 6.66 Back Extrap Vol (L) 0.13 Time To FEFmax (sec) 0.085 LUNG VOLUMES SVC (L) 3.08 2.60 84 IC (L) 2.20 1.67 76 ERV (L) 0.88 0.93 105 TGV (L) 2.85 3.13 109 RV (Pleth) (L) 1.97 2.20 111 TLC (Pleth) (L) 5.05 4.81 95 RV/TLC (Pleth) (%) 39 46 117 DIFFUSION DLCOunc (ml/min/mmHg) 21.74 17.44 80 DLCOcor (ml/min/mmHg) 21.74 16.90 77 DL/VA (ml/min/mmHg/L) 4.30 4.02 93 VA (L) 5.05 4.21 83 BHT (sec) 10.38 IVC (L) 2.48 TLC (SB) (L) 4.36 AIRWAYS RESISTANCE Raw (cmH2O/L/s) 1.86 0.92 49 Gaw (L/s/cmH2O) 1.03 1.12 108 sRaw (cmH2O*s) 4.76 2.54 53 sGaw (1/cmH2O*s) 0.20 0.40 200 BLOOD GASES Hgb (gm/dL) 14.5
== END ==
LOC: M CARPUL 12:50
PROVIDERS: ATTEND Physician Assistant
DX: J45.20 Mild intermittent asthma, uncomplicated (principal)

== ENCOUNTER → 2021-09-09 | Outpatient (CLI) | payer MEDICARE, MEDICAID ==
[~2021-09-09] MED LIST changes: -CYMB60CA3 PO; +CYMB60CA4 PO
== END ==
LOC: M WUC 10:26
PROVIDERS: ATTEND Physician Assistant Medical
DX: R56.9 Unspecified convulsions (principal)

== ENCOUNTER 2021-09-18 14:29 | Emergency (ER) | payer MEDICARE, MEDICAID ==
[~2021-09-18] VITALS: Ht 162.6 cm; Wt 63.7 kg
[2021-09-18] MEDS ORDERED: ACETAMINOPHEN 500 MG TAB PO ONE (14:45)
[2021-09-18] MEDS ORDERED: LISI2.5T9 (14:49)
[2021-09-18] MEDS ORDERED: PRED20TA (14:49)
[2021-09-18] MEDS ORDERED: SPIR50TA4 (14:49)
[2021-09-18] MEDS ORDERED: ROPI1TAB3 (14:49)
[2021-09-18] MEDS ORDERED: AZIT-12 (14:49)
[2021-09-18] MEDS ORDERED: CHLO125TA (14:49)
--- NOTE | 2021-09-18 15:07 | REP ---
INDICATION: trauma COMPARISON: None. TECHNIQUE: PA and lateral. FINDINGS: The mediastinum and cardiac silhouette are normal. The lung fragoso demonstrate chronic changes without acute consolidation, effusion, or pneumothorax. The skeletal structures are intact and normal. IMPRESSION: No acute cardiopulmonary process. <Electronically signed by J Carlos Chin > 09/18/21 [id number]
--- NOTE | 2021-09-18 15:19 | REP ---
INDICATION: trauma COMPARISON: None. TECHNIQUE: Internal rotation, external rotation, and Y view. FINDINGS: No acute fracture or dislocation. The acromioclavicular and glenohumeral joints are intact. No periarticular calcifications or degenerative changes are appreciated. Sub acromial space is normal. Surrounding soft tissues are unremarkable. IMPRESSION: Normal left shoulder radiographs. <Electronically signed by J Carlos Chin > 09/18/21 [id number]
[2021-09-18 15:52] VITALS: BP 145/90
--- NOTE | 2021-09-18 20:26 | ECGEPIP ---
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
== END 2021-09-18 16:01 | disposition home or self-care (01) ==
LOC: M ED 14:29
DX: S20.219A Contusion of unspecified front wall of thorax, initial encounter (principal); S40.012A Contusion of left shoulder, initial encounter; R94.31 Abnormal electrocardiogram [ECG] [EKG]; V49.40XA Driver injured in collision with unspecified motor vehicles in traffic accident, initial encounter; Z88.2 Allergy status to sulfonamides; Z88.8 Allergy status to other drugs, medicaments and biological substances; Z91.018 Allergy to other foods; Z91.040 Latex allergy status; Y92.410 Unspecified street and highway as the place of occurrence of the external cause; Y93.9 Activity, unspecified; Y99.9 Unspecified external cause status

== ENCOUNTER 2021-11-06 15:56 | Emergency (ER) | payer MEDICARE, MEDICAID ==
[~2021-11-06] VITALS: Ht 162.6 cm; Wt 100.0 kg
[~2021-11-06 15:56] MED LIST changes: +AZIT-12; +CHLO125TA; +LISI2.5T9; +PRED20TA; +ROPI1TAB3; +SPIR50TA4
[2021-11-06] MEDS ORDERED: traMADol 50 MG TAB PO ONE (17:05)
[2021-11-06] MEDS ORDERED: ACETAMINOPHEN TAB 650MG DOSE (2X325MG) PO ONE (17:05)
[2021-11-06 17:23] LABS: BASO # 0.1 10^3/uL (0.0-0.2); BASO % 0.9 % (0.0-1.0); EOS # 0.1 10^3/uL (0.0-0.5); EOS % 1.6 % (0.0-3.0); HEMATOCRIT 43.3 % (36.0-47.0); HEMOGLOBIN 14.5 g/dl (12.0-15.5); LYMPH # 2.5 10^3/uL (1.5-5.0); LYMPH % 37.1 % (24.0-44.0); MEAN CORPUSCULAR HEMOGLOBIN 29.5 pg (27.0-33.0); MEAN CORPUSCULAR HGB CONC 33.5 g/dl (32.0-36.5); MONO # 0.7 10^3/uL (0.0-0.8); MONO % 10.7 % (2.0-8.0); NEUTROPHILS # 3.3 10^3/uL (1.5-8.5); NEUTROPHILS % 49.6 % (36.0-66.0); PLATELET COUNT, AUTOMATED 344 10^3/uL (150-450); RED BLOOD COUNT 4.92 10^6/uL (4.00-5.40); WHITE BLOOD COUNT 6.7 10^3/uL (4.0-10.0)
[2021-11-06 17:45] LABS: C REACTIVE PROTEIN QUANTITATIV 0.46 MG/DL (0.00-0.30); CALCIUM LEVEL 9.4 MG/DL (8.5-10.1); CREATININE FOR GFR 1.01 MG/DL (0.55-1.30); GLOMERULAR FILTRATION RATE 59.7 (>51); POTASSIUM SERUM 3.7 MEQ/L (3.5-5.1)
[2021-11-06] MEDS ORDERED: MOBI4TAB PO (18:58)
[2021-11-06] MEDS ORDERED: CANEMIS41 XX ×2 (19:01→19:03)
[2021-11-06 19:59] VITALS: BP 142/72
[2021-11-06 20:07] LABS: ERYTHROCYTE SEDIMENTATION RATE 21 mm/hr (0-30)
== END 2021-11-06 20:01 | disposition home or self-care (01) ==
LOC: M ED 15:56
DX: M17.11 Unilateral primary osteoarthritis, right knee (principal); M25.552 Pain in left hip; Z88.2 Allergy status to sulfonamides; Z88.8 Allergy status to other drugs, medicaments and biological substances; Z91.040 Latex allergy status; Z87.891 Personal history of nicotine dependence

== ENCOUNTER → 2021-12-07 | Outpatient (CLI) | payer MEDICARE, MEDICAID ==
[~2021-12-07] MED LIST changes: +CANEMIS41 XX; -D31000TA2 PO; +MOBI4TAB PO; +VITA100093 PO
== END ==
LOC: M RAD 14:59
PROVIDERS: ATTEND Orthopaedic Surgery Adult Reconstructive Orthopaedic Surgery
DX: S83.231A Complex tear of medial meniscus, current injury, right knee, initial encounter (principal); M94.261 Chondromalacia, right knee

== ENCOUNTER → 2021-12-31 | Outpatient (CLI) | payer MEDICARE, MEDICAID ==
[~2021-12-31] MED LIST changes: +AZEL1SPR3; +BUSP15TA47 PO; +CETI-24 PO; -CHLO125TA; +DULO1CAP6 PO; +FLUTISP; +K-TA10TA PO; +LEVE500T5 PO; +LEVO50TA5 PO; +LIDO5DIS41 TD; -LISI2.5T9; +LISI2.5T9 PO; +MELO7.5T35 PO; +MONT10TA97 PO; +NEUR300C PO; +NO ITAB PO; +OMEG350C PO; -ROPI1TAB3; -SPIR50TA4; +TUMS500C PO; +VITA500C24 PO; +ZINC1TAB2 PO
== END ==
LOC: M LABSMTC 09:11
PROVIDERS: ATTEND Anesthesiology
DX: Z01.818 Encounter for other preprocedural examination (principal); Z11.52 Encounter for screening for COVID-19

== ENCOUNTER 2022-01-05 06:13 | Day surgery (SDC) | payer MEDICARE, MEDICAID ==
[~2022-01-05] VITALS: Ht 162.6 cm; Wt 103.4 kg
[~2022-01-05 06:13] MED LIST changes: +ACETAMINOPHEN 500 MG TAB PO ONE; +CelecoXIB 400 MG CAP PO ONE; +GABAPENTIN 300 MG CAP PO ONE; +LIDOCAINE 1% MDV 20ML VIAL SQ PRN; +LR 1,000 ML IV ONE; +ONDANSETRON 4MG/2ML VIAL IV ONE
[2022-01-05] MEDS ORDERED: LIDOCAINE 2% 100MG/5ML SDV (FOR ANES.) As Ordered ONE (07:06)
[2022-01-05] MEDS ORDERED: fentaNYL 100 MCG/2 ML INJECTION As Ordered ONE (07:06)
[2022-01-05] MEDS ORDERED: propofoL 200 MG/20 ML VIAL As Ordered ONE ×2 (07:06→08:31)
[2022-01-05] MEDS ORDERED: MIDAZOLAM INJ 2MG/2ML VIAL (J2250 PER 1MG) As Ordered ONE (07:06)
[2022-01-05] MEDS ORDERED: ONDANSETRON 4MG/2ML VIAL As Ordered ONE (07:07)
[2022-01-05] MEDS ORDERED: dexameTHASONE 4 MG/ML 1ML VIAL (J1100 PER 1MG) As Ordered ONE (07:07)
[2022-01-05] MEDS ORDERED: EPINEPHrine INJ 1 MG/ML 1ML AMP As Ordered ONE (07:08)
[2022-01-05] MEDS ORDERED: BUPIVACAINE/EPIN 0.5% 30 ML VIAL As Ordered ONE (07:08)
[2022-01-05] MEDS ORDERED: ROCURONIUM BROMIDE 50 MG/5 ML VIAL As Ordered ONE ×2 (07:10→07:48)
[2022-01-05] MEDS ORDERED: HYDROmorphone HCL 2MG/ML 1ML VIAL As Ordered ONE (07:44)
[2022-01-05] MEDS ORDERED: SUGAMMADEX SODIUM 500 MG/5 ML VIAL (BRIDION) As Ordered ONE (08:25)
[2022-01-05] MEDS ORDERED: HYDROMORPHONE HCL 0.5 MG/ 0.5 ML SYRINGE (J1170 PER 1) IV PRN (09:10)
[2022-01-05] MEDS ORDERED: ONDANSETRON 4MG/2ML VIAL IV PRN (09:10)
[2022-01-05] MEDS ORDERED: LR 1,000 ML IV SCH (09:10)
[2022-01-05] MEDS ORDERED: fentaNYL 100 MCG/2 ML INJECTION IV PRN (09:10)
[2022-01-05] MEDS ORDERED: oxyCODONE 5MG TAB PO PRN (09:10)
[2022-01-05] MEDS ORDERED: oxyCODONE 5MG TAB PO ONE (09:40)
[2022-01-05 10:05] VITALS: BP 142/90
== END 2022-01-05 13:15 | disposition home or self-care (01) ==
LOC: M SDC 06:13
PROVIDERS: ATTEND Orthopaedic Surgery Adult Reconstructive Orthopaedic Surgery
DX: M23.206 Derangement of unspecified meniscus due to old tear or injury, right knee (principal); I10 Essential (primary) hypertension; E11.9 Type 2 diabetes mellitus without complications; J44.9 Chronic obstructive pulmonary disease, unspecified; F43.10 Post-traumatic stress disorder, unspecified; F41.9 Anxiety disorder, unspecified; F32.9 Major depressive disorder, single episode, unspecified; G43.909 Migraine, unspecified, not intractable, without status migrainosus; G47.33 Obstructive sleep apnea (adult) (pediatric); F31.9 Bipolar disorder, unspecified; Z79.82 Long term (current) use of aspirin; Z79.51 Long term (current) use of inhaled steroids; Z79.899 Other long term (current) drug therapy; Z91.018 Allergy to other foods; Z87.891 Personal history of nicotine dependence; Z88.8 Allergy status to other drugs, medicaments and biological substances; Z88.2 Allergy status to sulfonamides; Z91.040 Latex allergy status
CPT/HCPCS: 29880; 97116; J0171; J1170; J2250; J2405; J3010

== ENCOUNTER → 2022-02-23 | Outpatient (RCR) | payer MEDICARE, MEDICAID ==
[~2022-02-23] MED LIST changes: -ACETAMINOPHEN 500 MG TAB PO ONE; -CelecoXIB 400 MG CAP PO ONE; -GABAPENTIN 300 MG CAP PO ONE; -LIDOCAINE 1% MDV 20ML VIAL SQ PRN; -LR 1,000 ML IV ONE; -ONDANSETRON 4MG/2ML VIAL IV ONE
== END ==
LOC: M PT 13:35
PROVIDERS: ATTEND Orthopaedic Surgery Adult Reconstructive Orthopaedic Surgery
DX: Z98.890 Other specified postprocedural states (principal); Z96.651 Presence of right artificial knee joint; Z47.89 Encounter for other orthopedic aftercare

== ENCOUNTER → 2022-03-03 | Outpatient (REF) | payer MEDICARE, MEDICAID | LOC: M LAB REF 17:14 | PROVIDERS: ATTEND Surgery | DX: L72.3 Sebaceous cyst (principal) ==

== ENCOUNTER 2022-03-09 11:09 | Outpatient (RCR) | payer MEDICAID, MEDICARE | END 2022-03-25 | LOC: M PT 11:09 | PROVIDERS: ATTEND Orthopaedic Surgery Adult Reconstructive Orthopaedic Surgery | DX: Z47.89 Encounter for other orthopedic aftercare (principal); Z98.890 Other specified postprocedural states ==

== ENCOUNTER → 2022-03-11 | Outpatient (CLI) | payer MEDICAID, MEDICARE | LOC: M LABSMTC 10:45 | PROVIDERS: ATTEND Otolaryngology | DX: Z20.822 Contact with and (suspected) exposure to COVID-19 (principal) ==

== ENCOUNTER 2022-04-10 15:44 | Emergency (ER) | payer MEDICARE ==
[~2022-04-10] VITALS: Ht 162.6 cm; Wt 109.3 kg
[2022-04-10] MEDS ORDERED: diphenhydrAMINE 50MG/ML VIAL (J1200) IV STA (17:48)
[2022-04-10] MEDS ORDERED: NS 1,000 ML IV ONE (17:50)
[2022-04-10] MEDS ORDERED: ONDANSETRON 4MG 2ML VIAL IV ONE (17:50)
[2022-04-10] MEDS ORDERED: ACETAMINOPHEN 500 MG TAB PO ONE (17:55)
[2022-04-10 19:21] LABS: BASO # 0.1 10^3/uL (0.0-0.2); BASO % 0.8 % (0.0-1.0); EOS # 0.2 10^3/uL (0.0-0.5); EOS % 2.7 % (0.0-3.0); HEMOGLOBIN 14.7 g/dl (12.0-15.5); LYMPH # 2.4 10^3/uL (1.5-5.0); LYMPH % 31.9 % (24.0-44.0); MEAN CORPUSCULAR HEMOGLOBIN 30.8 pg (27.0-33.0); MEAN CORPUSCULAR HGB CONC 34.2 g/dl (32.0-36.5); MONO # 0.7 10^3/uL (0.0-0.8); MONO % 9.1 % (2.0-8.0); NEUTROPHILS # 4.1 10^3/uL (1.5-8.5); NEUTROPHILS % 55.2 % (36.0-66.0); PLATELET COUNT, AUTOMATED 309 10^3/uL (150-450); RED BLOOD COUNT 4.78 10^6/uL (4.00-5.40); WHITE BLOOD COUNT 7.4 10^3/uL (4.0-10.0)
[2022-04-10] MEDS ORDERED: METOCLOPRAMIDE INJ 10MG/2ML VIAL (J2765 PER 1) IV ONE (21:00)
[2022-04-10] MEDS ORDERED: KETOROLAC 30 MG/ML 1ML VIAL IV ONE (21:00)
[2022-04-10 21:19] VITALS: BP 139/80
== END 2022-04-10 21:36 | disposition home or self-care (01) ==
LOC: M ED 15:44
DX: G43.709 Chronic migraine without aura, not intractable, without status migrainosus (principal); E11.9 Type 2 diabetes mellitus without complications; I10 Essential (primary) hypertension; K76.0 Fatty (change of) liver, not elsewhere classified; E78.5 Hyperlipidemia, unspecified; R56.9 Unspecified convulsions; K21.9 Gastro-esophageal reflux disease without esophagitis; J44.9 Chronic obstructive pulmonary disease, unspecified; Z88.1 Allergy status to other antibiotic agents; Z88.2 Allergy status to sulfonamides; Z88.8 Allergy status to other drugs, medicaments and biological substances; Z91.040 Latex allergy status; Z79.82 Long term (current) use of aspirin; Z79.899 Other long term (current) drug therapy
CPT/HCPCS: 83735; 85025; 96361; 96374; 96375; 99284; J1200; J1885; J2405; J2765

== ENCOUNTER → 2022-05-30 | Outpatient (CLI) | payer MEDICARE ==
[~2022-05-30] MED LIST changes: +GALZ50CA PO; +NYST-13 TOP; -NYST10CR TOP; -PRED20TA; +PRED20TA PO
== END ==
LOC: M LABSMTC 11:42
PROVIDERS: ATTEND Anesthesiology
DX: Z01.818 Encounter for other preprocedural examination (principal); Z11.52 Encounter for screening for COVID-19

== ENCOUNTER → 2022-07-05 | Outpatient (REF) | payer MEDICARE, MEDICAID | LOC: M SFHCWAGY 10:29 | PROVIDERS: ATTEND Nurse Practitioner Family | DX: Z12.4 Encounter for screening for malignant neoplasm of cervix (principal) | CPT/HCPCS: 87624; G0123 ==

== ENCOUNTER → 2022-07-05 | Outpatient (CLI) | payer MEDICARE, MEDICAID | LOC: M WHC 14:13 | PROVIDERS: ATTEND Nurse Practitioner Family | DX: Z12.31 Encounter for screening mammogram for malignant neoplasm of breast (principal) ==

== ENCOUNTER 2022-07-14 08:37 | Emergency (ER) | payer OTHER ==
[~2022-07-14] VITALS: Ht 162.6 cm; Wt 110.2 kg
[2022-07-14] MEDS ORDERED: ALBUTEROL 90 MCG/ACT 8GM HFA INHALER INH ONE (11:55)
[2022-07-14] MEDS ORDERED: ACETAMINOPHEN 500 MG TAB PO ONE (11:55)
[2022-07-14] MEDS ORDERED: BENZONATATE 100MG CAPSULE PO ONE (11:55)
[2022-07-14] MEDS ORDERED: NS 1,000 ML IV ONE (12:00)
[2022-07-14 12:10] LABS: BASO # 0.1 10^3/uL (0.0-0.2); BASO % 0.4 % (0.0-1.0); EOS # 0.1 10^3/uL (0.0-0.5); EOS % 0.6 % (0.0-3.0); HEMOGLOBIN 15.4 g/dl (12.0-15.5); LYMPH # 1.8 10^3/uL (1.5-5.0); MEAN CORPUSCULAR HEMOGLOBIN 29.6 pg (27.0-33.0); MEAN CORPUSCULAR HGB CONC 33.5 g/dl (32.0-36.5); MEAN CORPUSCULAR VOLUME 88.3 fl (80.0-96.0); MONO # 1.2 10^3/uL (0.0-0.8); MONO % 7.7 % (2.0-8.0); NEUTROPHILS # 12.8 10^3/uL (1.5-8.5); NEUTROPHILS % 79.9 % (36.0-66.0); PLATELET COUNT, AUTOMATED 374 10^3/uL (150-450); RED BLOOD COUNT 5.21 10^6/uL (4.00-5.40)
[2022-07-14 13:06] LABS: MONO SCRN NEGATIVE (NEGATIVE)
[2022-07-14 13:13] LABS: CK-MB VALUE MASS < 1.0 NG/ML (<3.6); CPK CREATINE PHOSPHOKINASE 75 U/L (26-192); MB/CK RELATIVE INDEX 1.33 (< OR =4)
[2022-07-14 13:30] LABS: ALBUMIN 3.8 GM/DL (3.2-5.2); ALT/SGPT 68 U/L (12-78); BILIRUBIN,TOTAL 0.8 MG/DL (0.2-1.0); BLOOD UREA NITROGEN 12 MG/DL (7-18); CALCIUM LEVEL 9.7 MG/DL (8.5-10.1); CARBON DIOXIDE LEVEL 28 MEQ/L (21-32); CHLORIDE LEVEL 103 MEQ/L (98-107); CREATININE FOR GFR 1.05 MG/DL (0.55-1.30); GLOMERULAR FILTRATION RATE 57.1 (>51); GLUCOSE, FASTING 99 MG/DL (70-100); POTASSIUM SERUM 4.4 MEQ/L (3.5-5.1); SODIUM LEVEL 138 MEQ/L (136-145); TOTAL PROTEIN 7.9 GM/DL (6.4-8.2)
[2022-07-14 13:45] LABS: CK-MB VALUE MASS < 1.0 NG/ML (<3.6); CPK CREATINE PHOSPHOKINASE 76 U/L (26-192); MB/CK RELATIVE INDEX 1.32 (< OR =4)
[2022-07-14] MEDS ORDERED: ISOVUE-370 76% 100ML VIAL As Ordered ONE (14:20)
[2022-07-14 15:36] VITALS: BP 128/57
[2022-07-14] MEDS ORDERED: BENZ200C70 PO (15:50)
[2022-07-14] MEDS ORDERED: ALBU6.7H6 INH (15:50)
[2022-07-14] MEDS ORDERED: CEFU50TA PO (15:50)
== END 2022-07-14 16:21 | disposition home or self-care (01) ==
LOC: M ED 08:37
DX: J18.9 Pneumonia, unspecified organism (principal); B34.8 Other viral infections of unspecified site; I70.0 Atherosclerosis of aorta; I25.84 Coronary atherosclerosis due to calcified coronary lesion; J98.11 Atelectasis; R59.0 Localized enlarged lymph nodes; R00.0 Tachycardia, unspecified; I25.2 Old myocardial infarction; E11.9 Type 2 diabetes mellitus without complications; I10 Essential (primary) hypertension; K76.0 Fatty (change of) liver, not elsewhere classified; J45.909 Unspecified asthma, uncomplicated; J44.9 Chronic obstructive pulmonary disease, unspecified; G40.89 Other seizures; F41.9 Anxiety disorder, unspecified; K21.9 Gastro-esophageal reflux disease without esophagitis; E78.5 Hyperlipidemia, unspecified; Z88.2 Allergy status to sulfonamides; Z88.8 Allergy status to other drugs, medicaments and biological substances; Z91.040 Latex allergy status; Z79.51 Long term (current) use of inhaled steroids; Z79.82 Long term (current) use of aspirin; Z79.811 Long term (current) use of aromatase inhibitors; Z79.4 Long term (current) use of insulin; Z79.899 Other long term (current) drug therapy
CPT/HCPCS: 71046; 71275; 80047; 80053; 82550; 82553; 84439; 84443; 85025; 85379; 86308; 86618; 87486; 87581; 87633; 87798; 87880; 93005; 93041; 94640; 96360; 96361; 99284; Q9967

== ENCOUNTER → 2022-08-02 | Outpatient (CLI) | payer MEDICARE ==
[~2022-08-02] MED LIST changes: +ALBU6.7H6 INH; +BENZ200C70 PO; +CEFU50TA PO; +OZEM2INJ SC; +PROA1AER2 IN
== END ==
LOC: M LABSMTC 10:52
PROVIDERS: ATTEND Anesthesiology
DX: Z01.812 Encounter for preprocedural laboratory examination (principal); Z11.52 Encounter for screening for COVID-19

== ENCOUNTER 2022-08-05 06:44 | Day surgery (SDC) | payer MEDICARE ==
[~2022-08-05] VITALS: Ht 162.6 cm; Wt 109.8 kg
[~2022-08-05 06:44] MED LIST changes: +NS 1,000 ML IV ONE
[2022-08-05] MEDS ORDERED: FLEET ENEMA PR STA ×2 (07:38→08:14)
[2022-08-05] MEDS ORDERED: propofoL 200 MG/20 ML VIAL As Ordered ONE (08:26)
[2022-08-05] MEDS ORDERED: LIDOCAINE 1% MDV 20ML VIAL As Ordered ONE (08:26)
[2022-08-05] MEDS ORDERED: LABETALOL 100MG/20ML VIAL As Ordered ONE (08:43)
[2022-08-05 09:11] VITALS: BP 123/75
== END 2022-08-05 09:29 | disposition home or self-care (01) ==
LOC: M OPP 06:44
PROVIDERS: ATTEND Surgery
DX: R19.7 Diarrhea, unspecified (principal); K62.5 Hemorrhage of anus and rectum; Z80.0 Family history of malignant neoplasm of digestive organs; Z79.02 Long term (current) use of antithrombotics/antiplatelets; Z79.51 Long term (current) use of inhaled steroids; Z79.899 Other long term (current) drug therapy; Z88.2 Allergy status to sulfonamides; Z88.8 Allergy status to other drugs, medicaments and biological substances; Z91.040 Latex allergy status; Z91.018 Allergy to other foods; Z87.891 Personal history of nicotine dependence; E11.9 Type 2 diabetes mellitus without complications; I10 Essential (primary) hypertension; E03.9 Hypothyroidism, unspecified; G43.909 Migraine, unspecified, not intractable, without status migrainosus; F32.9 Major depressive disorder, single episode, unspecified; F41.9 Anxiety disorder, unspecified

== ENCOUNTER → 2022-08-24 | Outpatient (REF) | payer MEDICARE, MEDICAID ==
[~2022-08-24] MED LIST changes: +LOPE1TAB PO; +MACR100C43 PO; -NS 1,000 ML IV ONE
[2022-08-24 19:02] LABS: APPEARANCE, URINE MANUAL CLOUDY (CLEAR); BILIRUBIN, URINE MANUAL NEGATIVE (NEGATIVE); BLOOD URINE MANUAL TRACE (NEGATIVE); COLOR, URINE MANUAL LT YELLOW (YELLOW); GLUCOSE, URINE (UA) MANUAL NEGATIVE (NEGATIVE); KETONE, URINE MANUAL NEGATIVE (NEGATIVE); LEUKOCYTE ESTERASE, URINE MAN POSITIVE (NEGATIVE); NITRITE, URINE MANUAL NEGATIVE (NEGATIVE); PROTEIN, URINE MANUAL TRACE mg/dL (NEGATIVE); UROBILINOGEN, URINE MANUAL NORMAL (NORMAL)
[2022-08-24 19:59] LABS: AMORPHOUS SEDIMENT, URINE LARGE AMOUNT (NEGATIVE); BACTERIA, URINE MOD AMOUNT; RBC, URINE 0-1 /hpf (0-3); SQUAMOUS EPITHELIAL CELL URINE SMALL AMOUNT /hpf (SMALL AMT)
== END ==
LOC: M SMT 16:50
PROVIDERS: ATTEND Urology
DX: N39.41 Urge incontinence (principal)

== ENCOUNTER → 2022-09-06 | Outpatient (REF) | payer MEDICARE, OTHER, MEDICAID ==
[~2022-09-06] MED LIST changes: -LOPE1TAB PO; -MACR100C43 PO
[2022-09-06 17:59] LABS: CHOLESTEROL RISK RATIO 3.91 (<5); HDL CHOLESTEROL 47.8 MG/DL (>40); LDL CHOLESTEROL 101.4 MG/DL (<100)
[2022-09-06 18:01] LABS: THYROID STIMULATING HORMONE 2.374 uIU/ML (0.55-4.78)
[2022-09-06 19:09] LABS: HEMOGLOBIN A1c 5.4 % (4.0-6.0)
== END ==
LOC: M LAB REF 17:13
PROVIDERS: ATTEND Pediatrics
DX: E03.9 Hypothyroidism, unspecified (principal); E11.69 Type 2 diabetes mellitus with other specified complication

== ENCOUNTER → 2022-09-27 | Outpatient (CLI) | payer MEDICARE, MEDICAID ==
[~2022-09-27] MED LIST changes: +LOPE1TAB PO
== END ==
LOC: M LABSMTC 09:43
PROVIDERS: ATTEND Anesthesiology
DX: Z01.818 Encounter for other preprocedural examination (principal)

== ENCOUNTER → 2022-09-28 | Outpatient (CLI) | payer MEDICARE, MEDICAID ==
[~2022-09-28] MED LIST changes: +MACR100C43 PO
[2022-09-28 11:42] LABS: APPEARANCE, URINE MANUAL HAZY (CLEAR); COLOR, URINE MANUAL YELLOW (YELLOW)
[2022-09-28 11:43] LABS: GLUCOSE, URINE (UA) MANUAL NEGATIVE (NEGATIVE); PROTEIN, URINE MANUAL TRACE mg/dL (NEGATIVE)
[2022-09-28 11:44] LABS: BILIRUBIN, URINE MANUAL NEGATIVE (NEGATIVE); BLOOD URINE MANUAL TRACE (NEGATIVE); KETONE, URINE MANUAL 1+ mg/dL (NEGATIVE); LEUKOCYTE ESTERASE, URINE MAN POSITIVE (NEGATIVE); NITRITE, URINE MANUAL POSITIVE (NEGATIVE); UROBILINOGEN, URINE MANUAL NORMAL (NORMAL)
[2022-09-28 11:51] LABS: HEMATOCRIT 45.2 % (36.0-47.0); MEAN CORPUSCULAR HEMOGLOBIN 28.8 pg (27.0-33.0); MEAN CORPUSCULAR HGB CONC 33.2 g/dl (32.0-36.5); MEAN CORPUSCULAR VOLUME 86.9 fl (80.0-96.0); PLATELET COUNT, AUTOMATED 351 10^3/uL (150-450); WHITE BLOOD COUNT 8.5 10^3/uL (4.0-10.0)
[2022-09-28 11:54] LABS: BACTERIA, URINE LARGE AMOUNT
[2022-09-28 11:55] LABS: SQUAMOUS EPITHELIAL CELL URINE MOD AMOUNT /hpf (SMALL AMT)
[2022-09-28 11:57] LABS: WBC, URINE 40-50 /hpf (0-3)
[2022-09-28 11:58] LABS: RBC, URINE 0-1 /hpf (0-3)
[2022-09-28 12:01] LABS: HYALINE CAST, URINE NONE SEEN /lpf (0-1)
[2022-09-28 12:08] LABS: ALBUMIN 3.5 G/DL (3.2-5.2); ALKALINE PHOSPHATASE 100 U/L (46-116); ALT/SGPT 90 U/L (7.0-40); AST/SGOT 67 U/L (<34); BILIRUBIN,TOTAL 0.6 MG/DL (0.3-1.2); BLOOD UREA NITROGEN 10 MG/DL (9-23); CALCIUM LEVEL 9.2 MG/DL (8.3-10.6); CARBON DIOXIDE LEVEL 21 MMOL/L (20-31); CHLORIDE LEVEL 105 MMOL/L (98-107); CREATININE FOR GFR 0.77 MG/DL (0.55-1.30); GLOMERULAR FILTRATION RATE > 60.0 (>45); GLUCOSE, FASTING 118 MG/DL (74-106); POTASSIUM SERUM 3.6 MMOL/L (3.5-5.1); SODIUM LEVEL 143 MMOL/L (136-145)
== END ==
LOC: M RAD 10:53
PROVIDERS: ATTEND Urology
DX: N39.41 Urge incontinence (principal)

== ENCOUNTER 2022-09-30 06:03 | Day surgery (SDC) | payer MEDICARE, MEDICAID ==
[~2022-09-30] VITALS: Ht 162.6 cm; Wt 107.5 kg
[~2022-09-30 06:03] MED LIST changes: -MACR100C43 PO
[2022-09-30] MEDS ORDERED: ceFAZolin SOD 2 GM in IV 1 EA IV ONE (06:30)
[2022-09-30] MEDS ORDERED: BOTOX THERAPEUTIC 100 UNIT VIAL As Ordered ONE (07:18)
[2022-09-30] MEDS ORDERED: LR 1,000 ML IV SCH (07:35)
[2022-09-30] MEDS ORDERED: ACETAMINOPHEN 1000MG 100ML IV BAG As Ordered ONE (07:49)
[2022-09-30] MEDS ORDERED: propofoL 200 MG/20 ML VIAL As Ordered ONE (07:49)
[2022-09-30] MEDS ORDERED: LIDOCAINE 2% 100MG/5ML SDV (FOR ANES.) As Ordered ONE (07:49)
[2022-09-30] MEDS ORDERED: MIDAZOLAM INJ 2MG/2ML VIAL As Ordered ONE (07:49)
[2022-09-30] MEDS ORDERED: fentaNYL 100 MCG/2 ML INJECTION As Ordered ONE (07:49)
[2022-09-30] MEDS ORDERED: ONDANSETRON 4MG 2ML VIAL As Ordered ONE (07:49)
[2022-09-30] MEDS ORDERED: MACR100C43 PO (07:55)
[2022-09-30 08:21] VITALS: BP 111/65
== END 2022-09-30 08:32 | disposition home or self-care (01) ==
LOC: M SDC 06:03
PROVIDERS: ATTEND Urology
DX: N39.41 Urge incontinence (principal); I10 Essential (primary) hypertension; E78.5 Hyperlipidemia, unspecified; E11.9 Type 2 diabetes mellitus without complications; E03.9 Hypothyroidism, unspecified; K57.92 Diverticulitis of intestine, part unspecified, without perforation or abscess without bleeding; K21.9 Gastro-esophageal reflux disease without esophagitis; F31.9 Bipolar disorder, unspecified; F32.A Depression, unspecified; F41.9 Anxiety disorder, unspecified; Z91.040 Latex allergy status; Z88.2 Allergy status to sulfonamides; Z88.8 Allergy status to other drugs, medicaments and biological substances; Z91.018 Allergy to other foods; Z87.891 Personal history of nicotine dependence; G43.909 Migraine, unspecified, not intractable, without status migrainosus; Z79.51 Long term (current) use of inhaled steroids; Z79.899 Other long term (current) drug therapy; G47.33 Obstructive sleep apnea (adult) (pediatric); J44.9 Chronic obstructive pulmonary disease, unspecified
CPT/HCPCS: 52287; J0585; J2405

== ENCOUNTER → 2022-11-16 | Outpatient (REF) | payer MEDICARE ==
[~2022-11-16] MED LIST changes: +CIPR7.5D5 AD; +INSU100I6 SC; -LEVE1INJ5 SC; +MACR100C43 PO; +MONT-5 PO; -SING10TA32 PO
[2022-11-16 18:40] LABS: ALBUMIN 3.3 G/DL (3.2-5.2); BILIRUBIN,DIRECT 0.2 MG/DL (<0.4); BILIRUBIN,TOTAL 0.6 MG/DL (0.3-1.2); TOTAL PROTEIN 6.6 G/DL (5.7-8.2)
== END ==
LOC: M LAB REF 17:22
PROVIDERS: ATTEND Pediatrics
DX: R74.01 Elevation of levels of liver transaminase levels (principal)

== ENCOUNTER 2022-11-19 07:03 | Emergency (ER) | payer MEDICARE ==
[~2022-11-19] VITALS: Ht 162.6 cm; Wt 103.2 kg
[~2022-11-19 07:03] MED LIST changes: -CIPR7.5D5 AD; -INSU100I6 SC; +LEVE1INJ5 SC; -MONT-5 PO; +SING10TA32 PO
[2022-11-19 07:04] VITALS: BP 178/82
[2022-11-19] MEDS ORDERED: CIPR7.5D5 AD (07:36)
== END 2022-11-19 09:09 | disposition home or self-care (01) ==
LOC: M ED 07:03
DX: H66.91 Otitis media, unspecified, right ear (principal); E11.9 Type 2 diabetes mellitus without complications; I10 Essential (primary) hypertension; E78.5 Hyperlipidemia, unspecified; G40.89 Other seizures; F41.9 Anxiety disorder, unspecified; F32.A Depression, unspecified; K21.9 Gastro-esophageal reflux disease without esophagitis; J44.9 Chronic obstructive pulmonary disease, unspecified; Z88.2 Allergy status to sulfonamides; Z88.8 Allergy status to other drugs, medicaments and biological substances; Z91.02 Food additives allergy status; Z91.040 Latex allergy status; Z79.51 Long term (current) use of inhaled steroids; Z79.811 Long term (current) use of aromatase inhibitors; Z79.810 Long term (current) use of selective estrogen receptor modulators (SERMs); Z79.899 Other long term (current) drug therapy

== ENCOUNTER 2022-12-29 07:42 | Emergency (ER) | payer MEDICARE, MEDICAID ==
[~2022-12-29] VITALS: Ht 162.6 cm; Wt 102.3 kg
[~2022-12-29 07:42] MED LIST changes: +CIPR7.5D5 AD; +FLUT50SP17; +FLUT50SP17 NARES; -FLUTISP; -FLUTISP NARES; +INSU100I6 SC; -LEVE1INJ5 SC; +MONT-5 PO; -SING10TA32 PO
[2022-12-29] MEDS ORDERED: NS 1,000 ML IV ONE (09:25)
[2022-12-29 09:46] LABS: BASO # 0.1 10^3/uL (0.0-0.2); BASO % 0.9 % (0.0-1.0); EOS # 0.3 10^3/uL (0.0-0.5); EOS % 3.2 % (0.0-3.0); HEMATOCRIT 42.1 % (36.0-47.0); LYMPH # 2.8 10^3/uL (1.5-5.0); LYMPH % 31.9 % (24.0-44.0); MEAN CORPUSCULAR HEMOGLOBIN 29.4 pg (27.0-33.0); MEAN CORPUSCULAR HGB CONC 33.3 g/dl (32.0-36.5); MEAN CORPUSCULAR VOLUME 88.4 fl (80.0-96.0); MONO # 0.8 10^3/uL (0.0-0.8); NEUTROPHILS # 4.7 10^3/uL (1.5-8.5); NEUTROPHILS % 54.8 % (36.0-66.0); PLATELET COUNT, AUTOMATED 257 10^3/uL (150-450); RED BLOOD COUNT 4.76 10^6/uL (4.00-5.40); WHITE BLOOD COUNT 8.6 10^3/uL (4.0-10.0)
[2022-12-29 10:11] LABS: LIPASE 62 U/L (12-53)
[2022-12-29 10:13] LABS: ALBUMIN 3.4 G/DL (3.2-5.2); ALKALINE PHOSPHATASE 102 U/L (46-116); ALT/SGPT 52 U/L (7.0-40); AST/SGOT 36 U/L (<34); BILIRUBIN,DIRECT < 0.1 MG/DL (<0.4); BILIRUBIN,TOTAL 0.2 MG/DL (0.3-1.2); BLOOD UREA NITROGEN 14 MG/DL (9-23); CALCIUM LEVEL 9.6 MG/DL (8.3-10.6); CARBON DIOXIDE LEVEL 27 MMOL/L (20-31); CHLORIDE LEVEL 107 MMOL/L (98-107); CREATININE FOR GFR 0.88 MG/DL (0.55-1.30); GLOMERULAR FILTRATION RATE > 60.0 (>45); GLUCOSE, FASTING 119 MG/DL (74-106); POTASSIUM SERUM 3.6 MMOL/L (3.5-5.1); SODIUM LEVEL 142 MMOL/L (136-145); TOTAL PROTEIN 6.7 G/DL (5.7-8.2)
[2022-12-29] MEDS ORDERED: ISOVUE-370 76% 100ML VIAL As Ordered ONE (10:43)
[2022-12-29 11:12] VITALS: BP 142/76
== END 2022-12-29 12:11 | disposition home or self-care (01) ==
LOC: M ED 07:42
DX: K64.4 Residual hemorrhoidal skin tags (principal); I10 Essential (primary) hypertension; F41.9 Anxiety disorder, unspecified; F32.A Depression, unspecified; Z86.79 Personal history of other diseases of the circulatory system; Z88.2 Allergy status to sulfonamides; Z88.8 Allergy status to other drugs, medicaments and biological substances; Z91.040 Latex allergy status; Z91.018 Allergy to other foods; Z79.52 Long term (current) use of systemic steroids; Z79.811 Long term (current) use of aromatase inhibitors; Z79.810 Long term (current) use of selective estrogen receptor modulators (SERMs); Z79.899 Other long term (current) drug therapy
CPT/HCPCS: 36415; 74177; 80048; 80076; 81001; 83605; 83690; 85025; 86850; 86900; 86901; 87086; 93041; 99284; Q9967

== ENCOUNTER → 2023-01-24 | Outpatient (REF) | payer MEDICARE, MEDICAID ==
[2023-01-24 19:03] LABS: HEMOGLOBIN A1c 5.4 % (4.0-6.0)
[2023-01-24 19:09] LABS: LIPASE 59 U/L (12-53)
[2023-01-24 19:10] LABS: THYROID STIMULATING HORMONE 3.664 uIU/ML (0.55-4.78)
[2023-01-24 19:11] LABS: ALBUMIN 3.6 G/DL (3.2-5.2); ALKALINE PHOSPHATASE 112 U/L (46-116); ALT/SGPT 51 U/L (7.0-40); AST/SGOT 31 U/L (<34); BILIRUBIN,TOTAL 0.3 MG/DL (0.3-1.2); BLOOD UREA NITROGEN 10 MG/DL (9-23); CALCIUM LEVEL 9.1 MG/DL (8.3-10.6); CARBON DIOXIDE LEVEL 25 MMOL/L (20-31); CHLORIDE LEVEL 105 MMOL/L (98-107); CREATININE FOR GFR 0.81 MG/DL (0.55-1.30); GLOMERULAR FILTRATION RATE > 60.0 (>45); GLUCOSE, FASTING 81 MG/DL (74-106); POTASSIUM SERUM 3.3 MMOL/L (3.5-5.1); SODIUM LEVEL 142 MMOL/L (136-145); TOTAL PROTEIN 7.1 G/DL (5.7-8.2)
== END ==
LOC: M LAB REF 17:11
PROVIDERS: ATTEND Pediatrics
DX: E11.69 Type 2 diabetes mellitus with other specified complication (principal); E03.9 Hypothyroidism, unspecified; R74.01 Elevation of levels of liver transaminase levels

== ENCOUNTER → 2023-02-24 | Outpatient (CLI) | payer MEDICARE, MEDICAID | LOC: M PLAIMG 13:33 | PROVIDERS: ATTEND Physician Assistant | DX: R91.8 Other nonspecific abnormal finding of lung field (principal) ==

== ENCOUNTER → 2023-03-10 | Outpatient (CLI) | payer MEDICARE, MEDICAID, OTHER ==
[~2023-03-10] MED LIST changes: -K-TA10TA PO; +POTA-164 PO
== END ==
LOC: M SOG 13:48
PROVIDERS: ATTEND Orthopaedic Surgery
DX: M17.11 Unilateral primary osteoarthritis, right knee (principal)

== ENCOUNTER 2023-03-26 05:01 | Emergency (ER) | payer MEDICAID, MEDICARE, OTHER ==
[~2023-03-26] VITALS: Ht 162.6 cm; Wt 100.4 kg
[2023-03-26] MEDS ORDERED: CIPR7.5D5 AD (07:21)
[2023-03-26 07:32] VITALS: BP 171/99; TEMP 97.5; O2SAT 98
== END 2023-03-26 07:34 | disposition home or self-care (01) ==
LOC: M ED 05:01
DX: H60.91 Unspecified otitis externa, right ear (principal); F43.10 Post-traumatic stress disorder, unspecified; F32.A Depression, unspecified; E11.9 Type 2 diabetes mellitus without complications; E78.5 Hyperlipidemia, unspecified; G47.33 Obstructive sleep apnea (adult) (pediatric); G40.909 Epilepsy, unspecified, not intractable, without status epilepticus; Z87.891 Personal history of nicotine dependence; Z88.2 Allergy status to sulfonamides; Z88.8 Allergy status to other drugs, medicaments and biological substances; Z91.018 Allergy to other foods; Z91.040 Latex allergy status; Z79.52 Long term (current) use of systemic steroids; Z79.811 Long term (current) use of aromatase inhibitors; Z79.899 Other long term (current) drug therapy

== ENCOUNTER 2023-07-02 12:37 | Emergency (ER) | payer MEDICARE ==
[~2023-07-02] VITALS: Ht 162.6 cm; Wt 97.5 kg
[~2023-07-02 12:37] MED LIST changes: -GABA-283 PO; +GABA-284 PO; -ROPI1TAB3 PO; +ROPI1TAB73 PO
[2023-07-02] MEDS ORDERED: TETRACAINE 0.5% OPHTH SOLN 4ML OU ONE (14:00)
[2023-07-02] MEDS ORDERED: FLUORESCEIN OPHTH 1MG STRIP OU ONE (14:00)
[2023-07-02 14:42] VITALS: BP 166/96; TEMP 97.5; O2SAT 99
== END 2023-07-02 15:00 | disposition home or self-care (01) ==
LOC: M ED 14:18
DX: H02.841 Edema of right upper eyelid (principal); I10 Essential (primary) hypertension; J45.909 Unspecified asthma, uncomplicated; J44.9 Chronic obstructive pulmonary disease, unspecified; Z88.2 Allergy status to sulfonamides; Z88.8 Allergy status to other drugs, medicaments and biological substances; Z91.018 Allergy to other foods; Z91.040 Latex allergy status; Z79.52 Long term (current) use of systemic steroids; Z79.891 Long term (current) use of opiate analgesic; Z79.811 Long term (current) use of aromatase inhibitors; Z79.899 Other long term (current) drug therapy

== ENCOUNTER → 2023-08-04 | Outpatient (CLI) | payer MEDICARE | LOC: M WHC 12:30 | PROVIDERS: ATTEND Nurse Practitioner Family | DX: Z12.31 Encounter for screening mammogram for malignant neoplasm of breast (principal) ==

== ENCOUNTER → 2023-08-08 | Outpatient (CLI) | payer MEDICARE, MEDICAID ==
[2023-08-12 13:07] LABS: CALPROTECTIN STOOL 6 ug/g (0-120); FATS NEUTRAL Normal (.); FATS TOTAL Normal (.); PANCREATIC ELASTASE STOOL 296 (>200)
== END ==
LOC: M RAD 09:09
PROVIDERS: ATTEND Physician Assistant Medical
DX: R19.7 Diarrhea, unspecified (principal)

== ENCOUNTER → 2023-09-12 | Outpatient (CLI) | payer MEDICARE, MEDICAID ==
[~2023-09-12] MED LIST changes: -FLUT50SP17; -FLUT50SP17 NARES; +FLUTISP; +FLUTISP NARES
== END ==
LOC: M SOG 08:07
PROVIDERS: ATTEND Orthopaedic Surgery
DX: M17.11 Unilateral primary osteoarthritis, right knee (principal)

== ENCOUNTER → 2023-09-23 | Outpatient (REF) | payer MEDICARE, MEDICAID ==
[2023-09-23 17:13] LABS: HEMOGLOBIN A1c 5.3 % (4.0-6.0)
[2023-09-23 17:26] LABS: BLOOD UREA NITROGEN 15 MG/DL (9-23); CALCIUM LEVEL 9.2 MG/DL (8.3-10.6); CARBON DIOXIDE LEVEL 23 MMOL/L (20-31); CHLORIDE LEVEL 106 MMOL/L (98-107); CHOLESTEROL LEVEL 234 MG/DL (<200); CHOLESTEROL RISK RATIO 4.12 (<5); CREATININE FOR GFR 0.72 MG/DL (0.55-1.30); GLOMERULAR FILTRATION RATE > 60.0 (>45); GLUCOSE, FASTING 89 MG/DL (74-106); HDL CHOLESTEROL 56.7 MG/DL (>40); LDL CHOLESTEROL 154.9 MG/DL (<100); NON-HDL-C 177.3 MG/DL; POTASSIUM SERUM 4.3 MMOL/L (3.5-5.1); SODIUM LEVEL 141 MMOL/L (136-145); THYROID STIMULATING HORMONE 1.785 uIU/ML (0.55-4.78); TRIGLYCERIDES LEVEL 112 MG/DL (<150)
== END ==
LOC: M LAB REF 16:25
PROVIDERS: ATTEND Pediatrics
DX: I10 Essential (primary) hypertension (principal); E11.69 Type 2 diabetes mellitus with other specified complication; E78.5 Hyperlipidemia, unspecified

== ENCOUNTER → 2023-10-17 | Outpatient (CLI) | payer MEDICAID, MEDICARE, OTHER ==
[2023-10-17 13:00] LABS: BASO # 0.1 10^3/uL (0.0-0.2); BASO % 0.7 % (0.0-1.0); EOS # 0.2 10^3/uL (0.0-0.5); EOS % 2.1 % (0.0-3.0); HEMATOCRIT 44.1 % (36.0-47.0); LYMPH # 2.1 10^3/uL (1.5-5.0); LYMPH % 23.4 % (24.0-44.0); MEAN CORPUSCULAR HEMOGLOBIN 30.2 pg (27.0-33.0); MEAN CORPUSCULAR VOLUME 88.7 fl (80.0-96.0); MONO # 0.8 10^3/uL (0.0-0.8); MONO % 8.5 % (2.0-8.0); NEUTROPHILS # 5.8 10^3/uL (1.5-8.5); NEUTROPHILS % 65.1 % (36.0-66.0); PLATELET COUNT, AUTOMATED 316 10^3/uL (150-450); RED BLOOD COUNT 4.97 10^6/uL (4.00-5.40); WHITE BLOOD COUNT 8.9 10^3/uL (4.0-10.0)
[2023-10-17 13:27] LABS: ALBUMIN 3.6 G/DL (3.2-5.2); ALKALINE PHOSPHATASE 99 U/L (46-116); ALT/SGPT 25 U/L (7.0-40); AST/SGOT 18 U/L (<34); BILIRUBIN,TOTAL 0.4 MG/DL (0.3-1.2); BLOOD UREA NITROGEN 13 MG/DL (9-23); CALCIUM LEVEL 9.5 MG/DL (8.3-10.6); CARBON DIOXIDE LEVEL 24 MMOL/L (20-31); CHLORIDE LEVEL 108 MMOL/L (98-107); CREATININE FOR GFR 0.68 MG/DL (0.55-1.30); GLOMERULAR FILTRATION RATE > 60.0 (>45); GLUCOSE, FASTING 88 MG/DL (74-106); POTASSIUM SERUM 3.3 MMOL/L (3.5-5.1); SODIUM LEVEL 142 MMOL/L (136-145); TOTAL 25(OH) VITAMIN D 39.4 NG/ML (20.0-100.0); TOTAL PROTEIN 7.1 G/DL (5.7-8.2); VITAMIN B12 LEVEL 523 PG/ML (211-911)
[2023-10-17 14:05] LABS: FOLATE > 24.0 NG/ML (>5.4)
== END ==
LOC: M LAB 12:10
PROVIDERS: ATTEND Psychiatry & Neurology Neurology
DX: R56.9 Unspecified convulsions (principal); E55.9 Vitamin D deficiency, unspecified; E53.8 Deficiency of other specified B group vitamins

== ENCOUNTER → 2023-11-10 | Outpatient (CLI) | payer MEDICARE ==
[2023-11-10 10:17] LABS: HEMATOCRIT 45.6 % (36.0-47.0); HEMOGLOBIN 15.3 g/dl (12.0-15.5); MEAN CORPUSCULAR HEMOGLOBIN 30.2 pg (27.0-33.0); MEAN CORPUSCULAR HGB CONC 33.6 g/dl (32.0-36.5); MEAN CORPUSCULAR VOLUME 89.9 fl (80.0-96.0); PLATELET COUNT, AUTOMATED 259 10^3/uL (150-450); RED BLOOD COUNT 5.07 10^6/uL (4.00-5.40); WHITE BLOOD COUNT 7.6 10^3/uL (4.0-10.0)
[2023-11-10 10:46] LABS: ALBUMIN 3.6 G/DL (3.2-5.2); ALKALINE PHOSPHATASE 93 U/L (46-116); ALT/SGPT 21 U/L (7.0-40); AST/SGOT 18 U/L (<34); BILIRUBIN,TOTAL 0.6 MG/DL (0.3-1.2); BLOOD UREA NITROGEN 10 MG/DL (9-23); CALCIUM LEVEL 9.1 MG/DL (8.3-10.6); CARBON DIOXIDE LEVEL 26 MMOL/L (20-31); CHLORIDE LEVEL 109 MMOL/L (98-107); CREATININE FOR GFR 0.72 MG/DL (0.55-1.30); GLOMERULAR FILTRATION RATE > 60.0 (>45); GLUCOSE, FASTING 81 MG/DL (74-106); SODIUM LEVEL 142 MMOL/L (136-145); TOTAL PROTEIN 6.9 G/DL (5.7-8.2)
== END ==
LOC: M RAD 09:23
PROVIDERS: ATTEND Urology
DX: N32.81 Overactive bladder (principal)

== ENCOUNTER → 2023-11-18 | Outpatient (CLI) | payer MEDICARE ==
[~2023-11-18] MED LIST changes: +ADVA230A; +APPLTAB2 PO; +ASPI81TA26 PO; +ATOR40TA75 PO; +HAIR1CHW PO; +LACO50TA2 PO; +LEVO88TA3 PO; +LINZ290C PO; +RA K500C PO; +SEMA0.257
[2023-11-18 12:20] LABS: APPEARANCE, URINE CLOUDY (CLEAR); BACTERIA, URINE AUTO 1+ (NEGATIVE); BILIRUBIN, URINE AUTO NEGATIVE (NEGATIVE); BLOOD, URINE BLOOD 1+ (NEGATIVE); COLOR, URINE YELLOW (YELLOW); GLUCOSE, URINE (UA) AUTO NEGATIVE (NEGATIVE); KETONE, URINE AUTO NEGATIVE (NEGATIVE); LEUKOCYTE ESTERASE, URINE AUTO 3+ (NEGATIVE); MUCUS, URINE SMALL (NEGATIVE); NITRITE, URINE AUTO POSITIVE (NEGATIVE); PROTEIN, URINE AUTO NEGATIVE (NEGATIVE); RBC, URINE AUTO 9 /HPF (0-3); SQUAMOUS EPITHELIAL CELL UR AU 28 /HPF (0-6); UROBILINOGEN, URINE AUTO 0.2 mg/dL (0.0-2.0); WBC, URINE AUTO 110 /HPF (0-3)
== END ==
LOC: M LAB 10:49
PROVIDERS: ATTEND Urology
DX: N32.81 Overactive bladder (principal); Z79.899 Other long term (current) drug therapy

== ENCOUNTER 2023-11-28 10:53 | Day surgery (SDC) | payer MEDICARE ==
[~2023-11-28] VITALS: Ht 162.6 cm; Wt 99.3 kg
[~2023-11-28 10:53] MED LIST changes: +LR 1,000 ML IV SCH; +ceFAZolin SOD 2 GM in IV 1 EA IV ONE
[2023-11-28] MEDS ORDERED: fentaNYL 100 MCG/2 ML INJECTION As Ordered ONE (11:09)
[2023-11-28] MEDS ORDERED: propofoL 200 MG/20 ML VIAL As Ordered ONE (11:09)
[2023-11-28] MEDS ORDERED: MIDAZOLAM INJ 2MG/2ML VIAL As Ordered ONE (11:09)
[2023-11-28] MEDS ORDERED: ACETAMINOPHEN 1000MG 100ML IV BAG As Ordered ONE (13:50)
[2023-11-28] MEDS: LIDOCAINE 1% SDV 30ML VIAL As Ordered ONE (13:50)
[2023-11-28] MEDS ORDERED: CEPH500C PO (14:24)
[2023-11-28 15:49] VITALS: BP 152/83; TEMP 97.2; O2SAT 96
== END 2023-11-28 19:09 | disposition home or self-care (01) ==
LOC: M SDC 10:53
PROVIDERS: ATTEND Urology
DX: N32.81 Overactive bladder (principal); N39.41 Urge incontinence; R39.15 Urgency of urination; E78.5 Hyperlipidemia, unspecified; E11.9 Type 2 diabetes mellitus without complications; K21.9 Gastro-esophageal reflux disease without esophagitis; G43.909 Migraine, unspecified, not intractable, without status migrainosus; Z87.891 Personal history of nicotine dependence; F43.10 Post-traumatic stress disorder, unspecified; F41.0 Panic disorder [episodic paroxysmal anxiety]; J44.9 Chronic obstructive pulmonary disease, unspecified; Z88.2 Allergy status to sulfonamides; Z88.8 Allergy status to other drugs, medicaments and biological substances; Z91.040 Latex allergy status; Z91.018 Allergy to other foods; Z79.899 Other long term (current) drug therapy
CPT/HCPCS: 64561; 76000; C1778; C1897; J0131; J2250; J3010

== ENCOUNTER → 2023-12-15 | Outpatient (CLI) | payer MEDICARE, MEDICAID ==
[~2023-12-15] MED LIST changes: -LR 1,000 ML IV SCH; -ceFAZolin SOD 2 GM in IV 1 EA IV ONE
== END ==
LOC: M SOG 13:52
PROVIDERS: ATTEND Orthopaedic Surgery
DX: M17.0 Bilateral primary osteoarthritis of knee (principal); M21.169 Varus deformity, not elsewhere classified, unspecified knee

== ENCOUNTER → 2023-12-19 | Outpatient (CLI) | payer MEDICARE, MEDICAID ==
[2023-12-19 10:06] LABS: BASO # 0.1 10^3/uL (0.0-0.2); BASO % 0.6 % (0.0-1.0); EOS # 0.1 10^3/uL (0.0-0.5); EOS % 1.3 % (0.0-3.0); HEMATOCRIT 44.8 % (36.0-47.0); HEMOGLOBIN 15.4 g/dl (12.0-15.5); LYMPH # 1.7 10^3/uL (1.5-5.0); LYMPH % 16.8 % (24.0-44.0); MEAN CORPUSCULAR HEMOGLOBIN 29.8 pg (27.0-33.0); MEAN CORPUSCULAR HGB CONC 34.4 g/dl (32.0-36.5); MEAN CORPUSCULAR VOLUME 86.8 fl (80.0-96.0); MONO # 0.7 10^3/uL (0.0-0.8); NEUTROPHILS # 7.7 10^3/uL (1.5-8.5); PLATELET COUNT, AUTOMATED 282 10^3/uL (150-450); RED BLOOD COUNT 5.16 10^6/uL (4.00-5.40); WHITE BLOOD COUNT 10.4 10^3/uL (4.0-10.0)
[2023-12-19 10:17] LABS: HEMOGLOBIN A1c 5.2 % (4.0-6.0)
[2023-12-19 10:36] LABS: ALBUMIN 3.9 G/DL (3.2-5.2); ALKALINE PHOSPHATASE 100 U/L (46-116); ALT/SGPT 24 U/L (7.0-40); AST/SGOT 19 U/L (<34); BILIRUBIN,TOTAL 0.7 MG/DL (0.3-1.2); BLOOD UREA NITROGEN 14 MG/DL (9-23); CALCIUM LEVEL 9.4 MG/DL (8.3-10.6); CARBON DIOXIDE LEVEL 25 MMOL/L (20-31); CHLORIDE LEVEL 111 MMOL/L (98-107); CHOLESTEROL LEVEL 147 MG/DL (<200); CHOLESTEROL RISK RATIO 3.12 (<5); CREATININE FOR GFR 0.77 MG/DL (0.55-1.30); GLOMERULAR FILTRATION RATE > 60.0 (>45); GLUCOSE, FASTING 90 MG/DL (74-106); HDL CHOLESTEROL 47.1 MG/DL (>40); LDL CHOLESTEROL 79.5 MG/DL (<100); NON-HDL-C 99.9 MG/DL; POTASSIUM SERUM 3.8 MMOL/L (3.5-5.1); SODIUM LEVEL 142 MMOL/L (136-145); TOTAL PROTEIN 7.1 G/DL (5.7-8.2); TRIGLYCERIDES LEVEL 102 MG/DL (<150)
== END ==
LOC: M LAB 09:36
PROVIDERS: ATTEND Registered Nurse
DX: E11.69 Type 2 diabetes mellitus with other specified complication (principal); E66.9 Obesity, unspecified

== ENCOUNTER 2024-01-17 08:26 | Day surgery (SDC) | payer MEDICARE ==
[~2024-01-17] VITALS: Ht 162.6 cm; Wt 98.0 kg
[~2024-01-17 08:26] MED LIST changes: -ADVA230A; +ADVA230A PO; +AZEL1SPR3 NARES; +MYRB50TA PO; +SEMA1PEN2 SC; +SEMA1PEN2 SQ
[2024-01-17] MEDS ORDERED: SPIRONOLACTONE 50 MG TAB PO SCH (09:00)
[2024-01-17] MEDS: NS 1,000 ML IV ONE (09:15)
[2024-01-17] MEDS ORDERED: propofoL 200 MG/20 ML VIAL As Ordered ONE (10:17)
[2024-01-17 10:51] VITALS: BP 106/56; TEMP 96.1; O2SAT 94
[2024-01-17] MEDS ORDERED: DEXTROSE 50% 50ML SYRINGE IV PRN (12:30)
[2024-01-17] MEDS ORDERED: GLUCAGON INJ 1MG VIAL SC PRN (12:30)
[2024-01-17] MEDS ORDERED: GLUCOSE 4GM CHEW TABLET PO PRN (12:30)
[2024-01-17] MEDS ORDERED: ALBUTEROL 90 MCG/ACT 8GM HFA INHALER INH PRN (12:30)
[2024-01-17] MEDS ORDERED: ACETAMINOPHEN TAB 650MG DOSE (2X325MG) PO PRN (12:35)
[2024-01-17] MEDS ORDERED: VITA200021 PO (13:01)
[2024-01-17] MEDS ORDERED: ACET-683 PO (13:01)
[2024-01-17] MEDS ORDERED: BIOT1TAB6 PO (13:01)
[2024-01-17] MEDS ORDERED: HOME MED LIST COMPLETE! XX SCH (13:05)
[2024-01-17] MEDS ORDERED: INSULIN LISPRO (NovoLOG) PER UNIT SC SCH ×2 (17:30→21:00)
[2024-01-17] MEDS ORDERED: ADVAIR HFA 230/21MCG INHALER INH SCH (20:00)
[2024-01-17] MEDS ORDERED: FLUTICASONE PROP 0.05% NASAL SPRAY 16 GM (FLONASE) SCH (21:00)
[2024-01-17] MEDS ORDERED: hydrOXYzine 50 MG TAB PO SCH (21:00)
[2024-01-17] MEDS ORDERED: levETIRAcetam 250MG TABLET (KEPPRA) PO SCH (21:00)
[2024-01-17] MEDS ORDERED: LACOSAMIDE 50 MG TAB (VIMPAT) PO SCH (21:00)
[2024-01-17] MEDS ORDERED: DULoxetine 30MG CAPSULE (CYMBALTA) PO SCH (21:00)
[2024-01-18] MEDS ORDERED: LEVOTHYROXINE 88MCG TABLET (0.088 MG) PO SCH (06:00)
[2024-01-18] MEDS ORDERED: CETIRIZINE (ZyrTEC) 10 MG TAB PO SCH (09:00)
[2024-01-18] MEDS ORDERED: levETIRAcetam 250MG TABLET (KEPPRA) PO SCH (09:00)
[2024-01-18] MEDS ORDERED: MULTIVITAMINS/MINERALS THERAP 1 TAB PO SCH (09:00)
[2024-01-18] MEDS ORDERED: ASCORBIC ACID 500 MG TAB PO SCH (09:00)
[2024-01-18] MEDS ORDERED: rOPINIRole 1MG TAB PO SCH (09:00)
[2024-01-18] MEDS ORDERED: valACYclovir HCL 500 MG TAB PO SCH (09:00)
[2024-01-18] MEDS ORDERED: CHLORTHALIDONE 12.5MG PER 1/2 TABLET PO SCH (09:00)
[2024-01-18] MEDS ORDERED: MONTELUKAST 10 MG TAB PO SCH (09:00)
[2024-01-18] MEDS ORDERED: ATORVASTATIN 20 MG TAB PO SCH (09:00)
[2024-01-18] MEDS ORDERED: AZELASTINE 137MCG NASAL SPY 30 ML (ASTELIN) SCH (09:00)
[2024-01-18] MEDS ORDERED: LISINOPRIL *2.5 MG* TAB PO SCH (09:00)
[2024-01-18] MEDS ORDERED: VITAMIN D 1,000 INTERNATIONAL UNITS TABLET PO SCH (09:00)
== END 2024-01-17 17:57 | disposition home or self-care (01) ==
LOC: M OPP 08:26
PROVIDERS: ATTEND Internal Medicine Gastroenterology
DX: R19.4 Change in bowel habit (principal); Z80.0 Family history of malignant neoplasm of digestive organs; Z53.8 Procedure and treatment not carried out for other reasons; E11.9 Type 2 diabetes mellitus without complications; G47.30 Sleep apnea, unspecified; Z99.89 Dependence on other enabling machines and devices; Z79.02 Long term (current) use of antithrombotics/antiplatelets; Z79.51 Long term (current) use of inhaled steroids; Z79.52 Long term (current) use of systemic steroids; Z79.84 Long term (current) use of oral hypoglycemic drugs; Z79.890 Hormone replacement therapy; Z79.899 Other long term (current) drug therapy; Z88.2 Allergy status to sulfonamides; Z88.8 Allergy status to other drugs, medicaments and biological substances; Z91.018 Allergy to other foods; Z91.040 Latex allergy status

== ENCOUNTER 2024-01-19 08:04 | Observation (INO) | payer MEDICARE ==
[~2024-01-19] VITALS: Ht 162.6 cm; Wt 100.2 kg
[~2024-01-19 08:04] MED LIST changes: +ACET-683 PO; +BIOT1TAB6 PO; +VITA200021 PO
[2024-01-19] MEDS ORDERED: LIDOCAINE 2% 100MG/5ML SDV (FOR ANES.) As Ordered ONE (10:42)
[2024-01-19] MEDS ORDERED: propofoL 200 MG/20 ML VIAL As Ordered ONE (10:42)
[2024-01-19] MEDS ORDERED: ONDANSETRON 4MG 2ML VIAL As Ordered ONE (10:43)
[2024-01-19] MEDS ORDERED: fentaNYL 100 MCG/2 ML INJECTION As Ordered ONE (10:45)
[2024-01-19] MEDS ORDERED: MIDAZOLAM INJ 2MG/2ML VIAL As Ordered ONE (10:45)
[2024-01-19] MEDS: ceFAZolin SOD 2 GM in IV 1 EA IV ONE (11:26)
[2024-01-19] MEDS ORDERED: ACETAMINOPHEN 1000MG 100ML IV BAG As Ordered ONE (11:30)
[2024-01-19] MEDS: ceFAZolin 1GM VIAL As Ordered ONE (12:16)
[2024-01-19] MEDS: LIDOCAINE 1% SDV 30ML VIAL As Ordered ONE (12:17)
[2024-01-19] MEDS ORDERED: LR 1,000 ML IV SCH (12:40)
[2024-01-19] MEDS ORDERED: ONDANSETRON 4MG 2ML VIAL IV PRN ×2 (12:40)
[2024-01-19] MEDS ORDERED: NORCO, ANEXSIA 5/325MG TABLET (HYDROcodone/ACETAMINOPHEN) PO PRN (12:40)
[2024-01-19] MEDS ORDERED: fentaNYL 100 MCG/2 ML INJECTION IV PRN (12:40)
[2024-01-19] MEDS ORDERED: ACETAMINOPHEN TAB 650MG DOSE (2X325MG) PO PRN (12:40)
[2024-01-19] MEDS ORDERED: oxyCODONE 5MG TAB PO PRN (12:40)
[2024-01-19] MEDS ORDERED: HYDROMORPHONE HCL 0.5 MG/ 0.5 ML SYRINGE IV PRN (12:40)
[2024-01-19 14:35] VITALS: BP 153/88; TEMP 97; O2SAT 93
[2024-01-19] MEDS: CEPHALEXIN 500 MG CAP PO SCH (16:30)
[2024-01-19 19:47] VITALS: BP 143/83; TEMP 97.3; O2SAT 94
[2024-01-19] MEDS: MONTELUKAST 10 MG TAB PO SCH (20:26)
[2024-01-19] MEDS: rOPINIRole 1MG TAB PO SCH (20:27)
[2024-01-19] MEDS: hydrOXYzine 50 MG TAB PO SCH (20:27)
[2024-01-19] MEDS: DULoxetine 30MG CAPSULE (CYMBALTA) PO SCH (20:27)
[2024-01-19] MEDS: levETIRAcetam 250MG TABLET (KEPPRA) PO SCH (20:28)
[2024-01-19] MEDS ORDERED: LACOSAMIDE 50 MG TAB (VIMPAT) PO SCH (21:00)
[2024-01-19] MEDS: LACOSAMIDE 50 MG TAB (VIMPAT) PO SCH (21:24)
[2024-01-20 05:18] VITALS: BP 145/80; TEMP 97.5; O2SAT 97
[2024-01-20] MEDS: LEVOTHYROXINE 88MCG TABLET (0.088 MG) PO SCH (06:44)
[2024-01-20] MEDS ORDERED: HYDR-3713 PO (07:34)
[2024-01-20] MEDS ORDERED: levETIRAcetam 250MG TABLET (KEPPRA) PO SCH (09:00)
[2024-01-20] MEDS ORDERED: ATORVASTATIN 20 MG TAB PO SCH (09:00)
[2024-01-20] MEDS ORDERED: LISINOPRIL *2.5 MG* TAB PO SCH (09:00)
[2024-01-20] MEDS ORDERED: SPIRONOLACTONE 50 MG TAB PO SCH (09:00)
[2024-01-20] MEDS ORDERED: CETIRIZINE (ZyrTEC) 10 MG TAB PO SCH (09:00)
[2024-01-20] MEDS ORDERED: valACYclovir HCL 500 MG TAB PO SCH (09:00)
[2024-01-20] MEDS ORDERED: CHLORTHALIDONE 25 MG TAB PO SCH (09:00)
== END 2024-01-20 09:10 | disposition home or self-care (01) ==
LOC: M SDC 08:04 → M MS5PR 14:30 → M SDC 01-20 07:51 → M MS5PR 01-20 07:52
PROVIDERS: ADMIT Urology; ATTEND Urology
DX: N39.41 Urge incontinence (principal); K58.8 Other irritable bowel syndrome; K44.9 Diaphragmatic hernia without obstruction or gangrene; K21.9 Gastro-esophageal reflux disease without esophagitis; F31.9 Bipolar disorder, unspecified; F41.9 Anxiety disorder, unspecified; F32.A Depression, unspecified; G43.909 Migraine, unspecified, not intractable, without status migrainosus; I10 Essential (primary) hypertension; E78.5 Hyperlipidemia, unspecified; E11.9 Type 2 diabetes mellitus without complications; E03.9 Hypothyroidism, unspecified; Z88.2 Allergy status to sulfonamides; Z88.8 Allergy status to other drugs, medicaments and biological substances; Z91.040 Latex allergy status; Z91.018 Allergy to other foods; Z79.899 Other long term (current) drug therapy; Z79.51 Long term (current) use of inhaled steroids; G47.33 Obstructive sleep apnea (adult) (pediatric); Z87.891 Personal history of nicotine dependence
CPT/HCPCS: 64581; 76000; C1778; C1787; G0378; J0131; J0690; J1100; J2250; J2405; J3010

== ENCOUNTER 2024-02-22 12:07 | Emergency (ER) | payer MEDICARE ==
[~2024-02-22] VITALS: Ht 162.6 cm; Wt 99.3 kg
[2024-02-22 13:41] LABS: BASO # 0.1 10^3/uL (0.0-0.2); EOS # 0.1 10^3/uL (0.0-0.5); EOS % 1.6 % (0.0-3.0); HEMATOCRIT 46.5 % (36.0-47.0); HEMOGLOBIN 15.8 g/dl (12.0-15.5); LYMPH % 25.1 % (24.0-44.0); MEAN CORPUSCULAR HEMOGLOBIN 29.6 pg (27.0-33.0); MEAN CORPUSCULAR VOLUME 87.2 fl (80.0-96.0); MONO # 0.6 10^3/uL (0.0-0.8); MONO % 7.9 % (2.0-8.0); NEUTROPHILS # 5.1 10^3/uL (1.5-8.5); NEUTROPHILS % 64.3 % (36.0-66.0); PLATELET COUNT, AUTOMATED 295 10^3/uL (150-450); RED BLOOD COUNT 5.33 10^6/uL (4.00-5.40)
[2024-02-22] MEDS: MORPHINE 2 MG/ML 1ML VIAL IV ONE (14:09)
[2024-02-22 14:10] LABS: LIPASE 76 U/L (12-53)
[2024-02-22 14:12] LABS: ALBUMIN 3.8 G/DL (3.2-5.2); ALKALINE PHOSPHATASE 104 U/L (46-116); ALT/SGPT 15 U/L (7.0-40); AST/SGOT 8 U/L (<34); BILIRUBIN,DIRECT 0.2 MG/DL (<0.4); BILIRUBIN,TOTAL 0.6 MG/DL (0.3-1.2); BLOOD UREA NITROGEN 18 MG/DL (9-23); CALCIUM LEVEL 9.9 MG/DL (8.3-10.6); CARBON DIOXIDE LEVEL 24 MMOL/L (20-31); CHLORIDE LEVEL 108 MMOL/L (98-107); CREATININE FOR GFR 0.89 MG/DL (0.55-1.30); GLOMERULAR FILTRATION RATE > 60.0 (>45); GLUCOSE, FASTING 84 MG/DL (74-106); SODIUM LEVEL 142 MMOL/L (136-145); TOTAL PROTEIN 7.3 G/DL (5.7-8.2)
[2024-02-22] MEDS ORDERED: ISOVUE-370 76% 100ML VIAL As Ordered ONE (15:00)
[2024-02-22] MEDS: KETOROLAC 30 MG/ML 1ML VIAL IV ONE (16:25)
[2024-02-22] MEDS ORDERED: KETO10TAB PO (16:55)
[2024-02-22 17:24] VITALS: BP 135/80; TEMP 97; O2SAT 94
== END 2024-02-22 17:26 | disposition home or self-care (01) ==
LOC: EDBD 12:07 → M ED 12:07
DX: R07.89 Other chest pain (principal); K42.9 Umbilical hernia without obstruction or gangrene; I44.4 Left anterior fascicular block; K57.92 Diverticulitis of intestine, part unspecified, without perforation or abscess without bleeding; E78.5 Hyperlipidemia, unspecified; G40.909 Epilepsy, unspecified, not intractable, without status epilepticus; F41.9 Anxiety disorder, unspecified; F32.9 Major depressive disorder, single episode, unspecified; I10 Essential (primary) hypertension; K21.9 Gastro-esophageal reflux disease without esophagitis; Z88.2 Allergy status to sulfonamides; Z88.8 Allergy status to other drugs, medicaments and biological substances; Z91.040 Latex allergy status; Z91.018 Allergy to other foods; Z79.02 Long term (current) use of antithrombotics/antiplatelets; Z79.811 Long term (current) use of aromatase inhibitors; Z79.899 Other long term (current) drug therapy; Z79.1 Long term (current) use of non-steroidal anti-inflammatories (NSAID)
CPT/HCPCS: 71045; 71260; 74177; 80048; 80076; 83605; 83690; 85025; 87040; 93005; 93041; 96374; 96375; 99285; J1885; Q9967

== ENCOUNTER → 2024-05-03 | Outpatient (CLI) | payer MEDICARE ==
[~2024-05-03] MED LIST changes: +KETO10TAB PO
[2024-05-03 12:14] LABS: HEMOGLOBIN A1c 5.6 % (4.0-6.0)
[2024-05-03 12:26] LABS: ALBUMIN 3.7 G/DL (3.2-5.2); ALKALINE PHOSPHATASE 100 U/L (46-116); ALT/SGPT 18 U/L (7.0-40); AST/SGOT 14 U/L (<34); BILIRUBIN,TOTAL 0.6 MG/DL (0.3-1.2); BLOOD UREA NITROGEN 12 MG/DL (9-23); CALCIUM LEVEL 9.2 MG/DL (8.3-10.6); CARBON DIOXIDE LEVEL 26 MMOL/L (20-31); CHLORIDE LEVEL 109 MMOL/L (98-107); CREATININE FOR GFR 0.72 MG/DL (0.55-1.30); GLOMERULAR FILTRATION RATE > 60.0 (>45); GLUCOSE, FASTING 94 MG/DL (74-106); POTASSIUM SERUM 3.9 MMOL/L (3.5-5.1); SODIUM LEVEL 142 MMOL/L (136-145); TOTAL PROTEIN 7.2 G/DL (5.7-8.2)
== END ==
LOC: M LAB 11:29
PROVIDERS: ATTEND Registered Nurse
DX: E11.69 Type 2 diabetes mellitus with other specified complication (principal)

== ENCOUNTER 2024-06-22 12:13 | Outpatient (RCR) | payer MEDICARE | END 2024-06-25 | LOC: M PT 12:13 | PROVIDERS: ATTEND Registered Nurse | DX: M25.561 Pain in right knee (principal); Z46.89 Encounter for fitting and adjustment of other specified devices ==

== ENCOUNTER → 2024-08-02 | Outpatient (CLI) | payer MEDICARE ==
[2024-08-02 17:32] LABS: BASO # 0.1 10^3/uL (0.0-0.2); EOS # 0.2 10^3/uL (0.0-0.5); EOS % 2.6 % (0.0-3.0); HEMATOCRIT 44.5 % (36.0-47.0); HEMOGLOBIN 14.8 g/dl (12.0-15.5); LYMPH # 2.4 10^3/uL (1.5-5.0); LYMPH % 29.4 % (24.0-44.0); MEAN CORPUSCULAR HEMOGLOBIN 29.2 pg (27.0-33.0); MEAN CORPUSCULAR HGB CONC 33.3 g/dl (32.0-36.5); MEAN CORPUSCULAR VOLUME 87.8 fl (80.0-96.0); MONO # 0.7 10^3/uL (0.0-0.8); MONO % 9.1 % (2.0-8.0); NEUTROPHILS # 4.7 10^3/uL (1.5-8.5); NEUTROPHILS % 57.7 % (36.0-66.0); PLATELET COUNT, AUTOMATED 298 10^3/uL (150-450); RED BLOOD COUNT 5.07 10^6/uL (4.00-5.40); WHITE BLOOD COUNT 8.2 10^3/uL (4.0-10.0)
[2024-08-02 17:44] LABS: ALBUMIN 3.6 G/DL (3.2-5.2); ALKALINE PHOSPHATASE 92 U/L (35-104); ALT/SGPT 31 U/L (7.0-40); AST/SGOT 20 U/L (<34); BILIRUBIN,TOTAL 0.4 MG/DL (0.3-1.2); BLOOD UREA NITROGEN 15 MG/DL (9-23); CALCIUM LEVEL 10.1 MG/DL (8.3-10.6); CARBON DIOXIDE LEVEL 25 MMOL/L (20-31); CHLORIDE LEVEL 110 MMOL/L (98-107); CREATININE FOR GFR 0.75 MG/DL (0.55-1.30); GLOMERULAR FILTRATION RATE > 60.0 (>45); GLUCOSE, FASTING 74 MG/DL (74-106); POTASSIUM SERUM 4.2 MMOL/L (3.5-5.1); SODIUM LEVEL 143 MMOL/L (136-145); TOTAL PROTEIN 7.2 G/DL (5.7-8.2)
[2024-08-06 21:28] LABS: LEVETIRACETAM (KEPPRA) < 2.0 mcg/mL (6.0-46.0)
== END ==
LOC: M LAB 16:01
PROVIDERS: ATTEND Psychiatry & Neurology Neurology
DX: G40.89 Other seizures (principal)

== ENCOUNTER 2024-10-11 15:49 | Emergency (ER) | payer MEDICARE ==
[~2024-10-11] VITALS: Ht 162.6 cm; Wt 114.4 kg
[2024-10-11] MEDS ORDERED: AMOX875T2 PO (19:31)
[2024-10-11] MEDS: AUGMENTIN 875 MG TAB PO ONE (19:45)
[2024-10-11 19:46] VITALS: BP 144/87; TEMP 97; O2SAT 96
== END 2024-10-11 19:48 | disposition home or self-care (01) ==
LOC: M ED 15:49
DX: H65.01 Acute serous otitis media, right ear (principal); E11.9 Type 2 diabetes mellitus without complications; I10 Essential (primary) hypertension; Z88.2 Allergy status to sulfonamides; Z88.8 Allergy status to other drugs, medicaments and biological substances; Z91.040 Latex allergy status; Z91.018 Allergy to other foods; Z79.52 Long term (current) use of systemic steroids; Z79.1 Long term (current) use of non-steroidal anti-inflammatories (NSAID); Z79.2 Long term (current) use of antibiotics; Z79.899 Other long term (current) drug therapy; Z79.02 Long term (current) use of antithrombotics/antiplatelets

== ENCOUNTER → 2024-10-29 | Outpatient (CLI) | payer MEDICARE ==
[~2024-10-29] MED LIST changes: +AMOX875T2 PO
[2024-10-29 11:19] LABS: BASO # 0.1 10^3/uL (0.0-0.2); BASO % 1.1 % (0.0-1.0); EOS # 0.2 10^3/uL (0.0-0.5); EOS % 2.5 % (0.0-3.0); HEMATOCRIT 40.6 % (36.0-47.0); HEMOGLOBIN 13.9 g/dl (12.0-15.5); LYMPH # 1.8 10^3/uL (1.5-5.0); LYMPH % 20.1 % (24.0-44.0); MEAN CORPUSCULAR HEMOGLOBIN 29.5 pg (27.0-33.0); MEAN CORPUSCULAR HGB CONC 34.2 g/dl (32.0-36.5); MEAN CORPUSCULAR VOLUME 86.2 fl (80.0-96.0); MONO # 0.7 10^3/uL (0.0-0.8); MONO % 8.1 % (2.0-8.0); NEUTROPHILS % 68.1 % (36.0-66.0); PLATELET COUNT, AUTOMATED 283 10^3/uL (150-450); RED BLOOD COUNT 4.71 10^6/uL (4.00-5.40); WHITE BLOOD COUNT 8.8 10^3/uL (4.0-10.0)
[2024-10-29 11:40] LABS: ALBUMIN 3.3 G/DL (3.2-5.2); ALKALINE PHOSPHATASE 87 U/L (35-104); ALT/SGPT 34 U/L (7.0-40); AST/SGOT 23 U/L (<34); BILIRUBIN,TOTAL 0.5 MG/DL (0.3-1.2); BLOOD UREA NITROGEN 14 MG/DL (9-23); CALCIUM LEVEL 9.4 MG/DL (8.3-10.6); CARBON DIOXIDE LEVEL 23 MMOL/L (20-31); CHLORIDE LEVEL 110 MMOL/L (98-107); CHOLESTEROL LEVEL 180 MG/DL (<200); CHOLESTEROL RISK RATIO 3.45 (<5); CREATININE FOR GFR 0.75 MG/DL (0.55-1.30); GLOMERULAR FILTRATION RATE > 60.0 (>45); GLUCOSE, FASTING 115 MG/DL (74-106); HDL CHOLESTEROL 52.1 MG/DL (>40); LDL CHOLESTEROL 105.3 MG/DL (<100); NON-HDL-C 127.9 MG/DL; SODIUM LEVEL 141 MMOL/L (136-145); TOTAL PROTEIN 6.8 G/DL (5.7-8.2); TRIGLYCERIDES LEVEL 113 MG/DL (<150)
[2024-10-29 11:42] LABS: THYROID STIMULATING HORMONE 2.332 uIU/ML (0.55-4.78)
[2024-10-29 11:43] LABS: FREE T4 1.11 NG/DL (0.89-1.76)
[2024-10-29 11:50] LABS: HEMOGLOBIN A1c 6.4 % (4.0-6.0)
== END ==
LOC: M LAB 10:41
PROVIDERS: ATTEND Registered Nurse
DX: E11.69 Type 2 diabetes mellitus with other specified complication (principal); E03.9 Hypothyroidism, unspecified; E78.2 Mixed hyperlipidemia

== ENCOUNTER → 2024-11-08 | Outpatient (CLI) | payer MEDICARE, OTHER | LOC: M WHC 14:40 | PROVIDERS: ATTEND Nurse Practitioner Family | DX: Z12.31 Encounter for screening mammogram for malignant neoplasm of breast (principal); R92.313 Mammographic fatty tissue density, bilateral breasts ==

== ENCOUNTER → 2025-05-16 | Outpatient (CLI) | payer MEDICARE, MEDICAID ==
[~2025-05-16] MED LIST changes: +ACYC200C10 PO; -ACYC200C8 PO; -GALZ50CA PO; +LACO50TA12 PO; -LACO50TA2 PO; +LIDO1ADH93 TD; -LIDO5DIS41 TD; -NYST-13 TOP; +NYST0.1C TOP; +ZINC50CA4 PO
== END ==
LOC: M SOG 06:56
PROVIDERS: ATTEND Orthopaedic Surgery
DX: M25.561 Pain in right knee (principal); M17.11 Unilateral primary osteoarthritis, right knee

== ENCOUNTER → 2025-08-05 | Outpatient (CLI) | payer MEDICARE, MEDICAID ==
[2025-08-05 10:25] LABS: BASO # 0.1 10^3/uL (0.0-0.2); BASO % 0.8 % (0.0-1.0); EOS # 0.2 10^3/uL (0.0-0.5); EOS % 2.0 % (0.0-3.0); LYMPH # 2.4 10^3/uL (1.5-5.0); LYMPH % 21.3 % (24.0-44.0); MONO # 1.0 10^3/uL (0.0-0.8); MONO % 8.7 % (2.0-8.0); NEUTROPHILS # 7.4 10^3/uL (1.5-8.5); NEUTROPHILS % 66.9 % (36.0-66.0); PLATELET COUNT, AUTOMATED 284 10^3/uL (150-450)
[2025-08-05 10:40] LABS: ALT/SGPT 72.0 U/L (7.0-40); AST/SGOT 48.0 U/L (<34); CALCIUM LEVEL 9.2 MG/DL (8.3-10.6); CARBON DIOXIDE LEVEL 23.0 MMOL/L (20-31); CHLORIDE LEVEL 101.0 MMOL/L (98-107); CREATININE FOR GFR 0.94 MG/DL (0.55-1.30); GLOMERULAR FILTRATION RATE 68.2 (>45); POTASSIUM SERUM 3.5 MMOL/L (3.5-5.1); SODIUM LEVEL 139.0 MMOL/L (136-145)
[2025-08-08 02:17] LABS: LEVETIRACETAM (KEPPRA) 21.5 mcg/mL (6.0-46.0)
== END ==
LOC: M LAB 09:33
PROVIDERS: ATTEND Psychiatry & Neurology Neurology
DX: R56.9 Unspecified convulsions (principal); R51.9 Headache, unspecified

== ENCOUNTER → 2025-08-12 | Outpatient (CLI) | payer MEDICARE, MEDICAID ==
[2025-08-12 10:57] LABS: BASO # 0.1 10^3/uL (0.0-0.2); BASO % 0.9 % (0.0-1.0); EOS # 0.3 10^3/uL (0.0-0.5); EOS % 2.6 % (0.0-3.0); LYMPH # 3.2 10^3/uL (1.5-5.0); LYMPH % 29.7 % (24.0-44.0); MONO # 1.0 10^3/uL (0.0-0.8); MONO % 9.0 % (2.0-8.0); NEUTROPHILS # 6.1 10^3/uL (1.5-8.5); NEUTROPHILS % 57.6 % (36.0-66.0); PLATELET COUNT, AUTOMATED 333 10^3/uL (150-450)
[2025-08-12 11:18] LABS: ESTIMATED AVERAGE GLUCOSE 120.0 MG/DL (60-110)
[2025-08-12 11:26] LABS: ALT/SGPT 57.0 U/L (7.0-40); AST/SGOT 32.0 U/L (<34); CALCIUM LEVEL 9.4 MG/DL (8.3-10.6); CARBON DIOXIDE LEVEL 27.0 MMOL/L (20-31); CHLORIDE LEVEL 101.0 MMOL/L (98-107); CHOLESTEROL LEVEL 143.0 MG/DL (<200); CHOLESTEROL RISK RATIO 2.94 (<5); CREATININE FOR GFR 0.99 MG/DL (0.55-1.30); GLOMERULAR FILTRATION RATE 64.1 (>45); LDL CHOLESTEROL 75.4 MG/DL (<100); NON-HDL-C 94.4 MG/DL; POTASSIUM SERUM 3.3 MMOL/L (3.5-5.1); SODIUM LEVEL 141.0 MMOL/L (136-145); TRIGLYCERIDES LEVEL 95.0 MG/DL (<150)
[2025-08-12 11:28] LABS: FREE T4 1.3 NG/DL (0.89-1.76)
[2025-08-12 11:30] LABS: THYROID PEROXIDASE ANTIBODY 31.0 U/ML (<60.0)
== END ==
LOC: M LAB 09:31
PROVIDERS: ATTEND Registered Nurse
DX: E03.9 Hypothyroidism, unspecified (principal); E78.2 Mixed hyperlipidemia